=== PATIENT | female | born 1995 | race Caucasian/White ===

== ENCOUNTER 2019-11-12 11:06 | Emergency (ER) | payer OTHER, SELFPAY ==
[2019-11-12 11:17] VITALS: BP 132/86; PULSE 85; RESP 18; TEMP 36.6; O2SAT 100
--- NOTE | 2019-11-12 12:31 | PC.NURSE ---
Pt resting on stretcher. No requests at this time. Call light within reach.
--- NOTE | 2019-11-12 12:50 | PC.NURSE ---
Pt resting on stretcher. Awaiting orders or dispo. Pt has no requests at this time. Call light within reach.
--- NOTE | 2019-11-12 12:51 | ED.DENTAL ---
HPI - Dental/Oral General Chief complaint: Dental/Oral Stated complaint: tooth pain Time Seen by Provider: 11/12/19 12:16 Source: patient Mode of arrival: ambulatory Limitations: no limitations History of Present Illness HPI Narrative: 24 years old white female, complaining of lower wisdom teeth pain bilaterally off and on for months, was a scheduled for dental extraction, and did not make it. Scheduled for dental evaluation November 29. Patient reported that the pain got worse today. Patient denies any fever, chills, nausea, vomiting, trouble swallowing or breathing. MD Complaint: tooth pain Location: Tooth # (17 and 32) Related Data Allergies Allergy/AdvReac Type Severity Reaction Status Date / Time latex Allergy Mild Hives Verified 11/12/19 11:21 sulfamethoxazole Allergy Mild Hives Verified 11/12/19 11:21 trimethoprim Allergy Mild Hives Verified 11/12/19 11:21 amoxicillin Allergy Hives Verified 11/12/19 11:21 Grass Allergy Unknown Hives Uncoded 11/12/19 11:21 spermacide Allergy Unknown Hives Uncoded 11/12/19 11:21 Review of Systems Review of Systems: Narrative: CONSTITUTIONAL: Denies fever, chills, or sweats. EYES: Denies visual changes, redness, or discharge. ENT: Denies rhinorrhea, congestion, sore throat, or otalgia. CARDIOVASCULAR: Denies chest pain, palpitations, or edema. RESPIRATORY: Denies cough or dyspnea. GASTROINTESTINAL: Denies abdominal pain, nausea, vomiting, or diarrhea. GENITOURINARY: Denies dysuria or hematuria. SKIN: Denies rash or itching. MUSCULOSKELETAL: Denies back pain, joint pain, or myalgia. NEUROLOGIC: Denies headache, numbness, or weakness. PSYCHIATRIC: Denies anxiety or depression. PMFSH Past Medical History Medical History (Updated 11/12/19 @ 12:59 by Chantal Argueta MD) Dental implant pain Social History Social History (Updated 11/12/19 @ 12:55 by Chantal Argueta MD) Smoking status: Former smoker Alcohol intake: unknown Exam Narrative: Exam Narrative: General appearance: Well-developed, well-nourished Skin: Normal color Head: Normocephalic, nontraumatic Eyes: Clear conjunctiva ENT: Oropharynx normal, ears normal, nose normal. Oral exam showed growing gumLOVER the wisdom teeth bilaterally, swollen, tender, no abscess Neck: Supple, nontender Chest and respiratory: Airway patent, no respiratory distress, no accessory muscle use Heart: Regular rate/rhythm Abdomen: Soft, nontender, no organomegaly, quiet bowel sounds Vascular: Normal peripheral pulses, normal capillary refill. 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 The plan to send patient home and antibiotic, anti-inflammatory and to see her dentist as soon as possible for possible extraction Differential Diagnosis Differential diagnosis: Likely toothache and dental abscess Critical Care Time Critical Care Time Critical Care Time: No Discharge Plan Discharge Clinical Impression: Toothache Patient Disposition: Home, Self-Care Condition: Stable Instructio
[2019-11-12] MEDS: IBUPROFEN 400 MG TABLET 800 MG PO (12:57)
[2019-11-12 13:13] VITALS: BP 126/62; PULSE 58; RESP 16; O2SAT 99
== END 2019-11-12 13:15 | disposition home or self-care (01) ==
PROVIDERS: Emergency Provider Emergency Medicine
DX: K08.89 Other specified disorders of teeth and supporting structures (principal); Z87.891 Personal history of nicotine dependence
CPT/HCPCS: 99283; A9270

== ENCOUNTER 2019-12-09 21:57 | Emergency (ER) | payer OTHER, SELFPAY ==
--- NOTE | ~2019-12-09 | XR_ITS ---
EXAMINATION: XR foot RT min 3V EXAM DATE: 12/09/2019 22:39 INDICATION: Heel pain, dorsomedial lump on right heel. TECHNIQUE: Right foot dorsoplantar, lateral and oblique projections obtained and reviewed. Compariso n is made to prior examination from 10/02/2012. FINDINGS: Right metatarsal bones unremarkable. No periosteal reaction or band of sclerosis to sugges t subacute stress fracture. There are no acute fractures or dislocations identified. There is no subcutaneous gas. The soft tissue is unremarkable. There are no radiopaque foreign bodies. IMPRESSION: 1. Unremarkable right foot exam. Reviewed, dictated and finalized at location G.
[2019-12-09 21:58] VITALS: BP 131/75; PULSE 103; RESP 14; TEMP 36.6; O2SAT 100
--- NOTE | 2019-12-09 22:30 | ED.FEMALEGU ---
HPI - Female Genitourinary General Chief complaint: Urogenital-Female Stated complaint: UTI and a lump on her heel Time Seen by Provider: 12/09/19 22:01 Source: patient Mode of arrival: ambulatory Limitations: no limitations History of Present Illness HPI Narrative: Patient is a 24-year-old female who presents with complaints of UTI. Patient reports dysuria, frequency and urgency x2 weeks increasing over today. She reports intermittent flank pain. She reports a history of UTI. She is also complaining of pain to left foot, she denies known injury but reports that she is on her feet all the time she denies other complaints. She denies taking [id number] medications for pain at this time. elicited complaint: UTI Related Data Allergies Allergy/AdvReac Type Severity Reaction Status Date / Time latex Allergy Mild Hives Verified 12/09/19 22:06 sulfamethoxazole Allergy Mild Hives Verified 12/09/19 22:06 trimethoprim Allergy Mild Hives Verified 12/09/19 22:06 amoxicillin Allergy Hives Verified 12/09/19 22:06 Grass Allergy Unknown Hives Uncoded 11/12/19 11:21 spermacide Allergy Unknown Hives Uncoded 11/12/19 11:21 Review of Systems Review of Systems: Narrative: CONSTITUTIONAL: Denies fever, chills, or sweats. EYES: Denies visual changes, redness, or discharge. ENT: Denies rhinorrhea, congestion, sore throat, or otalgia. CARDIOVASCULAR: Denies chest pain, palpitations, or edema. RESPIRATORY: Denies cough or dyspnea. GASTROINTESTINAL: Denies abdominal pain, nausea, vomiting, or diarrhea. GENITOURINARY: Reports dysuria, frequency, urgency, denies hematuria. SKIN: Denies rash or itching. MUSCULOSKELETAL: Denies back pain, joint pain, or myalgia. NEUROLOGIC: Denies headache, numbness, dizziness, or weakness. PSYCHIATRIC: Denies anxiety or depression. [facility] Past Medical History Medical History Dental implant pain Surgical History Surgical History No significant past surgical history Social History Social History (Updated 12/09/19 @ 22:33 by Ginna M. Keen, CORRESPONDENCE RENEW CLERK) Smoking status: Former smoker Tobacco type: cigarettes Alcohol intake: current Alcohol use details: occasional Substance use: never Exam Narrative: Exam Narrative: GENERAL: Well-appearing, well-nourished, and in no acute distress. HEAD: Normocephalic, atraumatic. EYES: No redness or drainage. ENT: Mucous membranes pink and moist. CHEST: No respiratory distress. Clear to auscultation. HEART: Regular rate and rhythm. No murmur appreciated. Normal peripheral pulses. GI: Soft, nontender without rebound, or guarding. No distention. Bowel sounds normal in all quadrants. MUSCULOSKELETAL: No bony tenderness. EXTREMITIES: Normal range of motion. No edema. SKIN: Small mass like lesion to right foot, no drainage. NEURO: No focal deficits. Alert and oriented x3. Gait steady. PSYCH: Normal affect. No signs of depression or anxiety. Course Vital Signs Vital signs: Vital Signs Temperature 36.6 C 12/09/19 21:58 Pulse Rate 103 H 12/09/19 21:58 Respiratory Rate 14 12/09/19 21:58 Blood Pressure 131/75 12/09/19 21:58 Pulse Oximetry 100 12/09/19 21:58 Temperature 36.6 C 12/09/19 21:58 Pulse Rate 103 H 12/09/19 21:58 Respiratory Rate 14 12/09/19 21:58 Blood Pressure 131/75 12/09/19 21:58 Pulse Oximetry 100 12/09/19 21:58 Procedures Abscess I/D foot: Date of Incision: 12/10/19 Time of Incision: 23:00 Side (if applicable): right Sedation/analgesia: none Local Anesthetic: none Technique: needle aspiration Irrigation: No Packing used?: none I&D Results: Blood MDM - Female Genitourinary MDM Narrative Medical decision making narrative: Patient's urine shows possible UTI. Patient to be treated with antibiotics. Patient's heel I&D with needle
[2019-12-09 22:48] LABS: Add Urine Microscopic? YES; Appearance Urine Clear (Clear); Bacteria Urine Trace /hpf; Bilirubin Urine Negative (Negative); Blood Urine Negative (Negative); Color Urine Yellow (Yellow); Glucose Urine UA Negative (Negative); Ketones Urine Negative (Negative); Leukocyte Esterase Ur 1+ LEU/UL (Negative); Mucus Urine Heavy /lpf; Nitrate Urine Negative (Negative); Protein Urine 1+ mg/dL (Negative); Specific Grav Ur 1.029 (1.001-1.035); Squamous Epithelial Cell Urine Moderate /hpf (Few)
[2019-12-10 00:28] VITALS: BP 122/91; PULSE 94; RESP 18; O2SAT 97
== END 2019-12-10 00:25 | disposition home or self-care (01) ==
PROVIDERS: Emergency Provider Nurse Practitioner
DX: N39.0 Urinary tract infection, site not specified (principal); S90.821A Blister (nonthermal), right foot, initial encounter; Z87.891 Personal history of nicotine dependence; X58.XXXA Exposure to other specified factors, initial encounter
CPT/HCPCS: 10160; 73630; 81001; 81025; 87077; 87086; 87088; 87186; 99283

== ENCOUNTER 2020-04-28 17:34 | Emergency (ER) | payer OTHER, SELFPAY ==
--- NOTE | ~2020-04-28 | XR_ITS ---
XR foot LT min 3V 04/28/2020 18:07 INDICATION: Left foot pain after injury PROCEDURE: 4 views left foot COMPARISON: Ankle series dated 06/15/2009 FINDINGS: Fracture, dislocation or subluxation is not identified. Lisfranc joint intact. The soft tis sues appear within normal limits. No foreign bodies are identified. IMPRESSION: 1: NO ACUTE BONE OR JOINT ABNORMALITY IDENTIFIED. Reviewed, dictated and finalized at location A. RVISOR CHANNEL PROCESS
--- NOTE | 2020-04-28 17:57 | ED.LOWEXIN ---
HPI - Extremity Injury (Lower) General Chief Complaint: Extremity Injury, Lower Stated Complaint: Left foot Pain Time Seen by Provider: 04/28/20 17:57 Source: patient Mode of arrival: ambulatory Limitations: no limitations History of Present Illness HPI Narrative: Cruz Tejada is a 24 yo female with a PMH of PTSD, anxiety, R knee arthritis, [facility] to the left foot that occurred at work when a pallet ran over her left foot, 2 hours before arrival. She has pain at rest at 6 when she moves her foot it is 10. She is walking on her heel states that she is got severe pain even with icing foot; states she has not tried to walk on foot since the incident Is currently not taking her psych meds as her insurance would not cover her psychiatrist and she is now melena so meds will be covered and she has set up appointment Related Data Allergies Allergy/AdvReac Type Severity Reaction Status Date / Time latex Allergy Mild Hives Verified 12/09/19 22:06 sulfamethoxazole Allergy Mild Hives Verified 12/09/19 22:06 trimethoprim Allergy Mild Hives Verified 12/09/19 22:06 amoxicillin Allergy Hives Verified 12/09/19 22:06 Grass Allergy Unknown Hives Uncoded 11/12/19 11:21 spermacide Allergy Unknown Hives Uncoded 11/12/19 11:21 Review of Systems Review of Systems: Narrative: CONSTITUTIONAL: Denies fever, chills, sweats. EYES: Denies visual changes, redness, discharge. ENT: Denies rhinorrhea, congestion, sore throat, otalgia. CARDIOVASCULAR: Denies chest pain, palpitations, edema. RESPIRATORY: Denies dyspnea, wheezing, cough GASTROINTESTINAL: Denies abdominal pain, nausea, vomiting, diarrhea. GENITOURINARY: Denies dysuria, hematuria, abnormal discharge SKIN: Denies rash or itching. NEUROLOGIC: Denies numbness, or focal weakness. PSYCHIATRIC: Denies anxiety or depression. Left foot and ankle pain after being run over by pallet at work PMFSH Past Medical History Medical History (Updated 04/28/20 @ 18:37 by Erin Alejandra CNP) Bipolar 1 disorder Dental implant pain Depression OCD (obsessive compulsive disorder) PTSD (post-traumatic stress disorder) Tonsillectomy planned Family History Family History Sibling Diabetes mellitus Social History Social History Smoking packs per day: 2 Smoking cigarettes per day: 40.0 Smoking status: Current every day smoker Tobacco type: cigarettes Alcohol intake: current Substance use: never Gender identity (if verbalized by the patient): Female Comments At time of signature, I agree with nursing past medical, surgical, social and family history. There is no relevant family history pertinent to the presenting complaint. Exam Narrative: Exam Narrative: GENERAL: This is a well-nourished, well-developed patient, in moderate distress. Rates pain as 6.5 out of 10 HEAD: normocephalic, atraumatic. EYES: Sclera clear/white. Vision is grossly intact. EARS: External ears normal. Hearing grossly intact. NOSE: External nose normal without nasal discharge, nares without redness, no rhinorrhea. THROAT: Mucous membranes moist, NECK: Neck supple, CARDIOVASCULAR: Regular rate and rhythm without murmurs, gallops, or rubs. RESPIRATORY: Clear to auscultation. Breath sounds equal bilaterally. No wheezes, rales, or rhonchi. GASTROINTESTINAL: Abdomen soft, SKIN: warm, intact with no suspicious lesions or rash, good texture and turgor. NEURO: awake, alert, and oriented to person, place and time. There were no obvious focal neurologic abnormalities. Steady gait EXTREMITIES: Normal range of motion on right; is able to flex and extend ankle on left complaining of dorsum foot pain between toes 2 and 3 says it is throbbing she is able to wiggle them but not without pain solar part of her foot has no abrasions are skin breaks BACK: Nontender without deformity Course Course
[2020-04-28 18:04] VITALS: BP 121/80; PULSE 77; RESP 16; TEMP 36.2; O2SAT 100
== END 2020-04-28 18:43 | disposition home or self-care (01) ==
PROVIDERS: Emergency Provider Nurse Practitioner
DX: S93.602A Unspecified sprain of left foot, initial encounter (principal); X58.XXXA Exposure to other specified factors, initial encounter; Y99.0 Civilian activity done for income or pay
CPT/HCPCS: 73630; 99213; G0463

== ENCOUNTER 2020-05-17 19:32 | Emergency (ER) | payer OTHER, SELFPAY ==
--- NOTE | ~2020-05-17 | XR_ITS ---
EXAMINATION: XR foot LT 2V DATE: 05/17/2020 20:10 INDICATION: Left foot pain. TECHNIQUE: 2 views of left foot were obtained. COMPARISON: Left foot radiographs 04/28/2020 FINDINGS: Bone alignment is normal. No fracture. There is mild osteoarthritis of second distal interp halangeal joint. IMPRESSION: 1. 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 Reviewed, dictated and finalized at location A.
[2020-05-17 19:43] VITALS: BP 126/96; PULSE 89; RESP 18; TEMP 36.5; O2SAT 98
--- NOTE | 2020-05-17 20:35 | ED.LOWEXIN ---
HPI - Extremity Injury (Lower) General Chief Complaint: Extremity Injury, Lower Stated Complaint: left foot injury-wc injury Time Seen by Provider: 05/17/20 20:31 History of Present Illness HPI Narrative: Patient is a 24-year-old female who presents ER with pain to her left fourth toe. She had injured it on 04/28/2020. She has been in a postoperative shoe walking around. She then dropped a soda bottle on it and has had persistent pain. No numbness or tingling. No deformity. She continues to be able to ambulate. Her doctor wanted her to go to the imaging center to get an x-ray but they were closed so she came to the ER instead. Related Data Home Medications Medication Instructions Recorded Confirmed No Home Medications 05/17/20 Allergies Allergy/AdvReac Type Severity Reaction Status Date / Time latex Allergy Mild Hives Verified 05/17/20 19:47 sulfamethoxazole Allergy Mild Hives Verified 05/17/20 19:47 trimethoprim Allergy Mild Hives Verified 05/17/20 19:47 amoxicillin Allergy Hives Verified 05/17/20 19:47 Grass Allergy Unknown Hives Uncoded 05/17/20 19:47 spermacide Allergy Unknown Hives Uncoded 05/17/20 19:47 Review of Systems Cardiovascular: Cardiovascular: Denies chest pain and Denies rapid heart rate Respiratory: Respiratory: Denies cough and Denies dyspnea Musculoskeletal: Comments: Left 4th toe pain. Neurologic: Denies focal weakness and Denies numbness PMFSH Past Medical History Medical History (Updated 05/17/20 @ 20:54 by Parvez Christie MD) Bipolar 1 disorder Dental implant pain Depression OCD (obsessive compulsive disorder) PTSD (post-traumatic stress disorder) Tonsillectomy planned Family History Family History Sibling Diabetes mellitus Social History Social History Smoking packs per day: 2 Smoking cigarettes per day: 40.0 Smoking status: Current every day smoker Tobacco type: cigarettes Alcohol intake: current Substance use: never Gender identity (if verbalized by the patient): Female Sexual Orientation (if Verbalized by the Patient): Straight or Heterosexual Exam Narrative: Exam Narrative: GENERAL: Well-appearing, well-nourished, and in no acute distress. HEAD: Normocephalic, atraumatic. EXTREMITIES: Normal range of motion. No edema. Mild tenderness left 4th toe w/o deformity/brusing. SKIN: Warm, dry, no rash. NEURO: Alert and oriented x3. PSYCH: Normal mood and affect. Course Course Emergency Course: Informed results. Use postop shoe as needed that she is already using. Vital Signs Vital signs: Vital Signs Temperature 97.7 F 05/17/20 19:43 Pulse Rate 89 05/17/20 19:43 Respiratory Rate 18 05/17/20 19:43 Blood Pressure 126/96 H 05/17/20 19:43 Pulse Oximetry 98 05/17/20 19:43 Temperature 97.7 F 05/17/20 19:43 Pulse Rate 89 05/17/20 19:43 Respiratory Rate 18 05/17/20 19:43 Blood Pressure 126/96 H 05/17/20 19:43 Pulse Oximetry 98 05/17/20 19:43 MDM - Extremity Injury (Lower) Imaging Data Radiologist's impression: ITS Impressions Foot X-Ray 05/17/20 20:14 IMPRESSION: 1. 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 Discharge Plan Discharge Clinical Impression: Sprain of toe Patient Disposition: Home, Self-Care Condition: Stable Instructions: Foot Sprain (ED) Additional Instructions: Follow-up with your primary care doctor. Return to the ER if you have chest pain shortness of breath, you cannot keep down food or water, you have additional concerns. Prescriptions: No Action No Home Medications RF: 0 Follow-up/Referrals: PHYSICIAN,MANAGER CLUB [Primary Care Provider] -
[2020-05-17 21:15] VITALS: BP 122/60; PULSE 80; RESP 18; O2SAT 99
== END 2020-05-17 21:18 | disposition home or self-care (01) ==
PROVIDERS: Emergency Provider Emergency Medicine
DX: S93.505A Unspecified sprain of left lesser toe(s), initial encounter (principal); W20.8XXA Other cause of strike by thrown, projected or falling object, initial encounter
CPT/HCPCS: 73620; 99283

== ENCOUNTER 2020-07-16 14:40 | Emergency (ER) | payer OTHER, SELFPAY ==
--- NOTE | ~2020-07-16 | CT_ITS ---
EXAMINATION: CT abdomen pelvis wo con DATE: 07/16/2020 18:01 INDICATION: Flank pain. UTI. TECHNIQUE: Computed tomography (CT) of the abdomen and pelvis was performed without intravenous contr ast. The dose-length product was 833.39 mGy-cm. Automated exposure control and iterative reconstructi on technique were employed. COMPARISON: CT dated 11/04/2016. FINDINGS: Lung bases are unremarkable. Heart size normal. No significant pleural or pericardial effus ion. Small hiatal hernia. No significant vascular abnormality. No lymphadenopathy. No abnormal pelvic masses or fluid collections. The kidneys are normal in size and morphology. No stones or hydronephrosis. The liver, spleen, pancreas, adrenal glands are unremarkable. Nonobstructive bowel gas pattern. Bladd er is unremarkable. IMPRESSION: 1. No acute abdominal abnormality. Reviewed, dictated and finalized at location A.
[2020-07-16 15:05] VITALS: BP 125/85; PULSE 109; RESP 18; TEMP 36.6; O2SAT 100
[2020-07-16 15:17] LABS: Basophils Percent Auto 0.4 % (0.2-1.2); Eosinophils Absolute Auto 0.1 K/mm3 (0-0.3); Eosinophils Percent Auto 1.5 % (0-4.4); Hematocrit 38.8 % (37.0-47.0); Hemoglobin 12.8 g/dL (12.0-15.0); Immature Granulocyte Absolute 0.05 K/mm3 (0.00-0.031); Immature Granulocyte Percent A 0.5 % (0-0.5); Lymphocytes Absolute Auto 2.52 K/mm3 (0.9-3.2); Lymphocytes Percent Auto 27.2 % (18.3-44.2); Mean Corpuscular Hemoglobin 29.5 pg (26-34); Mean Corpuscular Volume 89.4 fl (80-100); Mean Platelet Volume 9.6 fl (7.4-10.4); Monocytes Absolute Auto 0.7 K/mm3 (0.1-0.6); Monocytes Percent Auto 7.7 % (2.6-8.5); Neutrophils Absolute Auto 5.8 K/mm3 (1.3-6.7); Neutrophils Percent Auto 62.7 % (45.5-73.1); Platelet Count Result 321 k/mm3 (150-375); Red Blood Count 4.34 M/mm3 (4.2-5.4); Red Cell Distribution Width 14.1 % (11.5-14.5); White Blood Count 9.3 K/mm3 (4.5-10.0)
[2020-07-16 15:28] LABS: Anion Gap 9 mmol/L (8-16); Blood Urea Nitrogen 12 mg/dL (7-17); Calcium 9.5 mg/dL (8.4-10.2); Carbon Dioxide 25 mmol/L (22-30); Chloride 106 mmol/L (98-107); Estimated CRCL calculation 122 ml/min; Estimated Glomerular Filt Rate > 60; Glucose 123 mg/dL (65-105); Potassium 3.8 mmol/L (3.4-5.0); Sodium 140 mmol/L (137-145)
[2020-07-16 15:44] LABS: Add Urine Microscopic? YES; Appearance Urine Cloudy (Clear); Bacteria Urine Trace /hpf; Bilirubin Urine Negative (Negative); Blood Urine 3+ (Negative); Color Urine Amber (Yellow); Glucose Urine UA Negative (Negative); Ketones Urine Negative (Negative); Leukocyte Esterase Ur 2+ LEU/UL (Negative); Mucus Urine Heavy /lpf; Nitrate Urine Negative (Negative); Protein Urine 2+ mg/dL (Negative); Specific Grav Ur 1.027 (1.001-1.035); Squamous Epithelial Cell Urine Many /hpf (Few); WBC Urine 31-50 /hpf
[2020-07-16 17:15] VITALS: BP 122/86; PULSE 96; RESP 18; O2SAT 100
--- NOTE | 2020-07-16 17:48 | ED.BACK ---
HPI - Back Pain/Injury General Chief Complaint: Back Pain/Injury Stated Complaint: bilateral flank pain Time Seen by Provider: 07/16/20 17:13 Source: patient Mode of arrival: ambulatory Limitations: no limitations History of Present Illness HPI Narrative: This is a 25-year-old female that presents to the emergency department for low back pain and dysuria present over the last couple of days. Reports the pain in her low back is intermittent and is squeezing in nature. Reports history of kidney stones. Denies fever, vomiting, or hematuria. Related Data Allergies Allergy/AdvReac Type Severity Reaction Status Date / Time latex Allergy Mild Hives Verified 07/16/20 16:21 sulfamethoxazole Allergy Mild Hives Verified 07/16/20 16:21 trimethoprim Allergy Mild Hives Verified 07/16/20 16:21 amoxicillin Allergy Hives Verified 07/16/20 16:21 Grass Allergy Unknown Hives Uncoded 07/16/20 16:21 spermacide Allergy Unknown Hives Uncoded 07/16/20 16:21 Review of Systems Review of Systems: Narrative: CONSTITUTIONAL: Denies fever GASTROINTESTINAL: Denies abdominal pain, nausea, vomiting GENITOURINARY: Reports dysuria. Denies hematuria. All systems reviewed & are unremarkable except as noted in HPI and below PMFSH Past Medical History Medical History (Updated 07/16/20 @ 19:47 by Sandee Olmos PA-C) Bipolar 1 disorder Dental implant pain Depression OCD (obsessive compulsive disorder) PTSD (post-traumatic stress disorder) Tonsillectomy planned Family History Family History Sibling Diabetes mellitus Social History Social History Smoking packs per day: 2 Smoking cigarettes per day: 40.0 Smoking status: Current every day smoker Tobacco type: cigarettes Alcohol intake: current Substance use: never Gender identity (if verbalized by the patient): Female Exam Narrative: Exam Narrative: GENERAL: Well-appearing, obese, and in no acute distress. HEAD: Normocephalic, atraumatic. EYES: EOMI. CHEST: Clear to auscultation. No respiratory distress. No wheezes rales or rhonchi HEART: Regular rate and rhythm. No murmur heard. Normal peripheral pulses. ABDOMEN: Soft, nontender, nondistended, normal active bowel sounds. Left-sided CVA tenderness EXTREMITIES: Normal range of motion. No edema. SKIN: Warm, dry, no rash. NEURO: No focal deficits. Alert and oriented x3. PSYCH: Normal mood and affect Course Vital Signs Vital signs: Vital Signs Temperature 97.8 F 07/16/20 15:05 Pulse Rate 109 H 07/16/20 15:05 Respiratory Rate 18 07/16/20 15:05 Blood Pressure 125/85 07/16/20 15:05 Pulse Oximetry 100 07/16/20 15:05 Temperature 97.8 F 07/16/20 15:05 Pulse Rate 96 07/16/20 17:15 Respiratory Rate 18 07/16/20 17:15 Blood Pressure 122/86 07/16/20 17:15 Pulse Oximetry 100 07/16/20 17:15 MDM - Back Pain/Injury MDM Narrative Medical decision making narrative: Patient presents to the emergency department for low back pain and dysuria. She is afebrile and nontoxic-appearing. CBC is without leukocytosis. Metabolic panel without concerning findings. UA with evidence of urinary tract infection. This will be sent for culture. Bedside test is negative. CT scan of the abdomen and pelvis is without acute findings. Patient given first dose of antibiotics IV in the ED and hydrated. She is stable and felt appropriate for further outpatient evaluation. She was given warnings to return to the ER Lab Data Attestation: I reviewed the patient's lab results. Result diagrams: 07/16/20 15:11 07/16/20 15:11 Labs: Lab Results 07/16/20 07/16/20 07/16/20 Range/Units 15:11 15:11 15:32 WBC 9.3 (4.5-10.0) K/mm3 RBC 4.34 (4.2-5.4) M/mm3 Hgb 12.8 (12.0-15.0) g/dL Hct 38.8 (37.0-47.0) % MCV 89.4 (80-100) fl MCH 29.5 (26-34) pg MCHC 33.0
[2020-07-16] MEDS: SODIUM CHLORIDE 0.9% IV 1,000 ML 999 ML IV CONT (18:10)
[2020-07-16 20:06] VITALS: BP 126/84; PULSE 78; RESP 16; TEMP 36.8; O2SAT 98
== END 2020-07-16 20:07 | disposition home or self-care (01) ==
PROVIDERS: Emergency Medicine; Emergency Provider Emergency Medicine
DX: N12 Tubulo-interstitial nephritis, not specified as acute or chronic (principal)
CPT/HCPCS: 36415; 74176; 80048; 81001; 81025; 85025; 87086; 87088; 96365; 96367; 99284; J0131; J1956; J7030

== ENCOUNTER 2020-07-26 19:52 | Emergency (ER) | payer OTHER, SELFPAY ==
--- NOTE | ~2020-07-26 | XR_ITS ---
EXAMINATION: XR foot RT min 3V DATE: 07/26/2020 20:41 INDICATION: Right foot pain with erythema and medial sided lump TECHNIQUE: Dorsoplantar, two oblique and lateral views of the right foot were obtained. COMPARISON: 12/09/2019 FINDINGS: Alignment is normal. No fracture. Joint spaces are normal. There is a normal type II os naviculare. S oft tissues are unremarkable. IMPRESSION: 1. Negative right foot radiographs. Reviewed, dictated and finalized at location A.
[2020-07-26 20:20] VITALS: BP 118/85; PULSE 96; RESP 16; TEMP 36.6; O2SAT 99
[2020-07-26 20:47] VITALS: BP 119/71; PULSE 86; RESP 18; TEMP 36.6; O2SAT 100
--- NOTE | 2020-07-26 20:52 | ED.LOWEXIN ---
HPI - Extremity Injury (Lower) General Chief Complaint: Extremity Injury, Lower Stated Complaint: rt foot pain Time Seen by Provider: 07/26/20 20:42 Source: patient Mode of arrival: ambulatory Limitations: no limitations History of Present Illness HPI Narrative: This is a 25 year old female that presents to the ER for ongoing right foot issues over the last 9 months. Reports she has seen a brand representative for this on Friday. Has x-rays and ultrasound that was inconclusive. Reports she also has an MRI ordered. Reports a lump on the right heel that has been present this whole time. Her pain in the foot was worse after working and being on her feet which prompted her to be seen today. She has not taken anything for pain yet. Does report some redness of the area. Denies fever, decreased range of motion, or numbness. Related Data Home Medications Medication Instructions Recorded Confirmed albuterol sulfate INHALATION 07/26/20 ergocalciferol (vitamin D2) 07/26/20 07/26/20 famotidine 07/26/20 hydrocodone-acetaminophen 07/26/20 nitrofurantoin monohyd/m-cryst 07/26/20 Allergies Allergy/AdvReac Type Severity Reaction Status Date / Time latex Allergy Mild Hives Verified 07/26/20 20:57 sulfamethoxazole Allergy Mild Hives Verified 07/26/20 20:57 trimethoprim Allergy Mild Hives Verified 07/26/20 20:57 amoxicillin Allergy Hives Verified 07/26/20 20:57 Grass Allergy Unknown Hives Uncoded 07/26/20 20:57 spermacide Allergy Unknown Hives Uncoded 07/26/20 20:57 Review of Systems Review of Systems: Narrative: CONSTITUTIONAL: Denies fever SKIN: Denies rash MUSCULOSKELETAL: Reports joint pain, and myalgia. NEUROLOGIC: Denies numbness All systems reviewed & are unremarkable except as noted in HPI and below PMFSH Past Medical History Medical History (Updated 07/26/20 @ 21:02 by Sandee Olmos PA-C) Bipolar 1 disorder Dental implant pain Depression OCD (obsessive compulsive disorder) PTSD (post-traumatic stress disorder) Tonsillectomy planned Family History Family History Sibling Diabetes mellitus Social History Social History Smoking packs per day: 2 Smoking cigarettes per day: 40.0 Smoking status: Current every day smoker Tobacco type: cigarettes Alcohol intake: current Substance use: never Gender identity (if verbalized by the patient): Female Exam Narrative: Exam Narrative: GENERAL: Well-appearing, well-nourished, and in no acute distress. HEAD: Normocephalic, atraumatic. EYES: EOMI. EXTREMITIES: Normal range of motion. Small cystic lesion present on the right medial heel, with mild redness surrounding the area. Normal DP pulses. Normal sensation SKIN: Warm, dry, no rash. NEURO: No focal deficits. Alert and oriented x3. PSYCH: Normal mood and affect Course Vital Signs Vital signs: Vital Signs Temperature 97.9 F 07/26/20 20:20 Pulse Rate 96 07/26/20 20:20 Respiratory Rate 16 07/26/20 20:20 Blood Pressure 118/85 07/26/20 20:20 Pulse Oximetry 99 07/26/20 20:20 Temperature 97.9 F 07/26/20 20:20 Pulse Rate 96 07/26/20 20:20 Respiratory Rate 16 07/26/20 20:20 Blood Pressure 118/85 07/26/20 20:20 Pulse Oximetry 99 07/26/20 20:20 MDM - Extremity Injury (Lower) MDM Narrative Medical decision making narrative: Patient presents to the ER for right foot pain with cyst in the area ongoing for the last 9 months. Has been seen by podiatry for this. She is afebrile and nontoxic-appearing. She is neurovascularly intact. Right foot x-rays without acute osseous abnormalities. She does have mild redness surrounding the area. Will be started on oral antibiotics for this. She is to follow-up with her brand representative as scheduled. She was given warnings to return to the ER Imaging Data Radiologist's impression: ITS Impressions Foot X-Ray 07/26/20 20:42 IMPRES
[2020-07-26] MEDS: KETOROLAC (*BKC) 60 MG/2 ML VIAL IM (21:14)
== END 2020-07-26 21:45 | disposition home or self-care (01) ==
LOC: ANHED 21:19
PROVIDERS: Emergency Provider Emergency Medicine; PCP Nurse Practitioner Family
DX: L03.115 Cellulitis of right lower limb (principal)
CPT/HCPCS: 73630; 96372; 99283; J1885

== ENCOUNTER 2020-10-24 16:08 | Emergency (ER) | payer OTHER, SELFPAY ==
[2020-10-24 16:19] VITALS: BP 107/77; PULSE 86; RESP 16; TEMP 36.8; O2SAT 99
--- NOTE | 2020-10-24 17:11 | ED.URI ---
HPI - URI/Sore Throat General Chief Complaint: Upper Respiratory Infection Stated Complaint: cough/runny nose/headache Time Seen by Provider: 10/24/20 16:59 Source: patient and RN notes reviewed Mode of arrival: ambulatory Limitations: no limitations History of Present Illness HPI Narrative: Patient presents today complaining of 3-day history of dry cough, rhinorrhea, frontal headache. She just found out today that her sister is positive for COVID-19 and is requesting testing. She has had recent exposure. She takes allergy medicine every day, and feels that this is providing her with some mild relief of symptoms. MD elicited complaint: cough and rhinorrhea Related Data Home Medications Medication Instructions Recorded Confirmed No Home Medications 10/24/20 10/24/20 Allergies Allergy/AdvReac Type Severity Reaction Status Date / Time latex Allergy Mild Hives Verified 10/24/20 17:32 sulfamethoxazole Allergy Mild Hives Verified 10/24/20 17:32 trimethoprim Allergy Mild Hives Verified 10/24/20 17:32 amoxicillin Allergy Hives Verified 10/24/20 17:32 Grass Allergy Unknown Hives Uncoded 10/24/20 17:32 spermacide Allergy Unknown Hives Uncoded 10/24/20 17:32 Review of Systems Review of Systems: CONSTITUTIONAL: Denies body aches, fever, chills, or sweats. EYES: Denies visual changes, redness, or discharge. ENT: Denies congestion, sore throat, or otalgia.+ Rhinorrhea CARDIOVASCULAR: Denies chest pain, palpitations, or edema. RESPIRATORY: Denies dyspnea.+ Cough GASTROINTESTINAL: Denies abdominal pain, nausea, vomiting, or diarrhea. GENITOURINARY: Denies dysuria or hematuria. SKIN: Denies rash, itching, or wounds. MUSCULOSKELETAL: Denies back pain, joint pain, or myalgia. NEUROLOGIC: Denies numbness, tingling, or weakness.+ Headache PSYCH: Denies depression or anxiety. [facility] Past Medical History Medical History Bipolar 1 disorder Dental implant pain Depression OCD (obsessive compulsive disorder) PTSD (post-traumatic stress disorder) Tonsillectomy planned Family History Family History Sibling Diabetes mellitus Social History Social History Smoking packs per day: 2 Smoking cigarettes per day: 40.0 Smoking status: Current every day smoker Tobacco type: cigarettes Alcohol intake: current Alcohol use details: occasional Substance use: never Gender identity (if verbalized by the patient): Female Sexual Orientation (if Verbalized by the Patient): Straight or Heterosexual Comments At time of signature, I have reviewed and agree with nursing past medical, surgical, social and family history unless otherwise noted. Please see nursing chart for further information. There is no relevant family history pertinent to the presenting complaint Exam Narrative: GENERAL: Well-appearing, well-nourished, and in no acute distress. HEAD: Normocephalic, atraumatic. EYES: EOMI. No redness or drainage. Conjunctivae normal. ENT: Mucous membranes pink and moist. Nares clear. No rhinorrhea. TMs normal bilaterally. Throat normal. Uvula midline. NECK: Normal AROM. Supple. No lymphadenopathy. CHEST: No respiratory distress. Clear to auscultation. HEART: Regular rate and rhythm. No murmur appreciated. Normal peripheral pulses. EXTREMITIES: Normal range of motion. No edema. SKIN: Warm, dry, no rash. Capillary refill normal. Normal skin turgor. NEURO: No focal deficits. Alert and oriented x3. Gait steady. PSYCH: Normal affect. No signs of depression or anxiety. Course Vital Signs Vital signs: Vital Signs Temperature 98.2 F 10/24/20 16:19 Pulse Rate 86 10/24/20 16:19 Respiratory Rate 16 10/24/20 16:19 Blood Pressure 107/77 10/24/20 16:19 Pulse Oximetry 99 10/24/20 16:19 Temperature 98.2 F 10/24/20 16:19 Pu
== END 2020-10-24 17:46 | disposition home or self-care (01) ==
PROVIDERS: Emergency Provider Nurse Practitioner
DX: J06.9 Acute upper respiratory infection, unspecified (principal); Z20.822 Contact with and (suspected) exposure to COVID-19; F17.210 Nicotine dependence, cigarettes, uncomplicated
CPT/HCPCS: 87426; 99212; C9803; G0463

== ENCOUNTER 2020-12-30 13:36 | Outpatient (CLI) | payer OTHER, SELFPAY ==
--- NOTE | ~2020-12-30 | MR_ITS ---
EXAMINATION: MR foot RT wo con DATE: 12/30/2020 14:40 INDICATION: Soft tissue mass in medial right foot. Heel pain. TECHNIQUE: Magnetic resonance imaging (MRI) of the right foot was performed without intravenous contr ast. Sequences included axial, sagittal, and coronal T2-weighted FS FSE and T1-weighted FSE and axial T1-weighted FS FSE. COMPARISON: Right foot radiograph 07/26/2020 FINDINGS: Bone alignment is normal. No fracture. The talar dome is normal. Lisfranc ligament is jamilah l. The superficial and deep components of the deltoid ligament are normal. The anterior and posterior talofibular ligaments, calcaneofibular ligament, and anterior and posterior tibiofibular ligaments a re normal. There is a longitudinal split tear of peroneus brevis tendon. The anterior and medial ankl e tendons are normal. Achilles tendon is normal. The plantar fascia is normal. There is a skin marker at the posterior medial aspect of the heel. There is a 5 mm mass of low signal in the subcutaneous f at in this area. IMPRESSION: 1. 5 mm mass of low signal in the subcutaneous fat in the medial heel in the patient's area of concer n, likely scarring or chronic hematoma. 2. Longitudinal split tear of peroneus brevis tendon. Reviewed, dictated and finalized at location A. [employer] IMPRESSION: 1. 5 mm mass of low signal in the subcutaneous fat in the medial heel in the pa tient's area of concern, likely scarring or chronic hematoma. 2. Longitudinal split tear of peroneus brevis tendon.
== END 2020-12-30 13:37 | disposition home or self-care (01) ==
LOC: ANHIMG 13:37
PROVIDERS: Visit Provider Podiatrist Foot & Ankle Surgery
DX: M79.89 Other specified soft tissue disorders (principal)
CPT/HCPCS: 73718

== ENCOUNTER → 2021-01-18 04:19 | Outpatient (CLI) | payer OTHER, SELFPAY ==
[2021-01-18 17:37] LABS: SARS-CoV-2 RNA PCR Negative
== END ==
PROVIDERS: PCP Nurse Practitioner Family; Visit Provider Nurse Practitioner Family
DX: R68.89 Other general symptoms and signs (principal); Z20.822 Contact with and (suspected) exposure to COVID-19
CPT/HCPCS: C9803; U0003; U0005

== ENCOUNTER 2021-01-28 11:48 | Emergency (ER) | payer OTHER, SELFPAY ==
[2021-01-28 11:59] VITALS: BP 117/81; PULSE 81; RESP 16; TEMP 36.6; O2SAT 100
--- NOTE | 2021-01-28 12:01 | ED.URI ---
HPI - URI/Sore Throat General Chief Complaint: Upper Respiratory Infection Stated Complaint: fever,headache Time Seen by Provider: 01/28/21 12:01 Source: patient Mode of arrival: ambulatory Limitations: no limitations History of Present Illness HPI Narrative: Cruz Tejada is a 25 yo female with no PMH who comes with 6 days of fever, congestion, cough, fatigue who is unvaccinated but had a covid test in Jan 18 which were negative and went to a concert and has become ill afterwards. Patient is afebrile currently but states she feels like she feels right over by a truck Related Data Home Medications Medication Instructions Recorded Confirmed famotidine 01/28/21 ketorolac 01/28/21 meloxicam 01/28/21 Allergies Allergy/AdvReac Type Severity Reaction Status Date / Time latex Allergy Mild Hives Verified 10/24/20 17:32 sulfamethoxazole Allergy Mild Hives Verified 10/24/20 17:32 trimethoprim Allergy Mild Hives Verified 10/24/20 17:32 amoxicillin Allergy Hives Verified 10/24/20 17:32 Grass Allergy Unknown Hives Uncoded 10/24/20 17:32 spermacide Allergy Unknown Hives Uncoded 10/24/20 17:32 Review of Systems Review of Systems: CONSTITUTIONAL: have fever, chills, sweats. EYES: Denies visual changes, redness, discharge. ENT: has rhinorrhea,has congestion, sore throat, otalgia. CARDIOVASCULAR: Denies chest pain, palpitations, edema. RESPIRATORY: Denies dyspnea, wheezing,has cough GASTROINTESTINAL: Denies abdominal pain, nausea, vomiting, diarrhea. GENITOURINARY: Denies dysuria, hematuria, abnormal discharge SKIN: Denies rash or itching. NEUROLOGIC: Denies numbness, or focal weakness. PSYCHIATRIC: Denies anxiety or depression. [facility] Past Medical History Medical History Bipolar 1 disorder Dental implant pain Depression OCD (obsessive compulsive disorder) PTSD (post-traumatic stress disorder) Tonsillectomy planned Family History Family History Sibling Diabetes mellitus Social History Social History Smoking packs per day: 2 Smoking cigarettes per day: 40.0 Smoking status: Current every day smoker Tobacco type: cigarettes Alcohol intake: current Alcohol use details: occasional Substance use: never Gender identity (if verbalized by the patient): Female Sexual Orientation (if Verbalized by the Patient): Straight or Heterosexual Comments At time of signature, I agree with nursing past medical, surgical, social and family history. There is no relevant family history pertinent to the presenting complaint. Exam Narrative: GENERAL: This is a well-nourished, well-developed patient, in mild distress. HEAD: normocephalic, atraumatic. EYES: Sclera clear/white. Vision is grossly intact. EARS: External ears normal, auditory canals clear and without drainage, TMs normal without perforation. Hearing grossly intact. NOSE: External nose normal with nasal discharge, nares with redness, has rhinorrhea. THROAT: Mucous membranes moist, NECK: Neck supple, non-tender CARDIOVASCULAR: Regular rate and rhythm without murmurs, gallops, or rubs. RESPIRATORY: Clear to auscultation. Breath sounds equal bilaterally. No wheezes, rales, or rhonchi. GASTROINTESTINAL: Abdomen soft, non-tender, SKIN: warm, intact with no suspicious lesions or rash, good texture and turgor. NEURO: awake, alert, and oriented to person, place and time. There were no obvious focal neurologic abnormalities. Steady gait EXTREMITIES: Normal range of motion. BACK: Nontender without deformity Course Course Emergency Course: Patient comes here with reports of fever congestion fatigue and is on vaccinated for Covid Covid test positive Patient should quarantine Started on prednisone and Tessalon Perliesha, may monitor O2 sats and if saturated sats drop below 92% should go to the ER
== END 2021-01-28 12:38 | disposition home or self-care (01) ==
PROVIDERS: Emergency Provider Nurse Practitioner; PCP Nurse Practitioner Family
DX: U07.1 COVID-19 (principal); F17.210 Nicotine dependence, cigarettes, uncomplicated
CPT/HCPCS: 87426; 99213; C9803; G0463

== ENCOUNTER 2021-06-05 21:02 | Emergency (ER) | payer OTHER, SELFPAY ==
--- NOTE | ~2021-06-05 | XR_ITS ---
EXAM: XR hand RT min 3V HISTORY: slammed between doors,PAIN 3RD AND 5TH FINGERS RADIATES DOWN COMPARISON: 11/21/2017. FINDINGS: Normal mineralization. No fracture or dislocation. No lytic or blastic lesion. Joint space s maintained. No erosion or periosteal change. Soft tissues within normal limits. IMPRESSION: No acute osseous finding in the right hand. Reviewed, dictated and finalized at location K.
[2021-06-05 21:03] VITALS: BP 141/100; PULSE 97; RESP 17; TEMP 36.8; O2SAT 100
--- NOTE | 2021-06-05 21:07 | ED.UPPEXIN ---
HPI - Extremity Injury (Upper) General Chief Complaint: Extremity Injury, Upper Stated Complaint: hand pain Time Seen by Provider: 06/05/21 21:07 History of Present Illness HPI narrative: 25-year-old female presented the emergency room with complaints of left hand pain. Patient states that she was closing a window when her hand got stuck in the window slammed onto her hand. Related Data Home Medications Medication Instructions Recorded Confirmed famotidine 01/28/21 ketorolac 01/28/21 meloxicam 01/28/21 Allergies Allergy/AdvReac Type Severity Reaction Status Date / Time latex Allergy Mild Hives Verified 10/24/20 17:32 sulfamethoxazole Allergy Mild Hives Verified 10/24/20 17:32 trimethoprim Allergy Mild Hives Verified 10/24/20 17:32 amoxicillin Allergy Hives Verified 10/24/20 17:32 Grass Allergy Unknown Hives Uncoded 10/24/20 17:32 spermacide Allergy Unknown Hives Uncoded 10/24/20 17:32 Review of Systems Review of Systems: CONSTITUTIONAL: Denies fever, chills, or sweats. EYES: Denies visual changes, redness, or discharge. ENT: Denies rhinorrhea, congestion, sore throat, or otalgia. CARDIOVASCULAR: Denies chest pain, palpitations, or edema. RESPIRATORY: Denies cough or dyspnea. GASTROINTESTINAL: Denies abdominal pain, nausea, vomiting, or diarrhea. GENITOURINARY: Denies dysuria or hematuria. SKIN: Denies rash or itching. MUSCULOSKELETAL: Reports right hand pain NEUROLOGIC: Denies headache, numbness, dizziness, or weakness. PSYCHIATRIC: Denies anxiety or depression. [facility] Past Medical History Medical History Bipolar 1 disorder Dental implant pain Depression OCD (obsessive compulsive disorder) PTSD (post-traumatic stress disorder) Tonsillectomy planned Family History Family History Sibling Diabetes mellitus Social History Social History Smoking packs per day: 2 Smoking cigarettes per day: 40.0 Smoking status: Current every day smoker Tobacco type: cigarettes Alcohol intake: current Alcohol use details: occasional Substance use: never Gender identity (if verbalized by the patient): Female Sexual Orientation (if Verbalized by the Patient): Straight or Heterosexual Exam Narrative: GENERAL: Well-appearing, well-nourished, and in no acute distress. HEAD: Normocephalic, atraumatic. EYES: PERRLA and EOMI. CHEST: Clear to auscultation. No respiratory distress. No wheezes rales or rhonchi HEART: Regular rate and rhythm. No murmur heard. Normal peripheral pulses. EXTREMITIES: Normal range of motion. No edema. Right hand: Over the second through fifth MCP joints. Mild soft tissue swelling. No acute bony abnormality. Full range of motion. No ecchymosis. SKIN: Warm, dry, no rash. NEURO: No focal deficits. Alert and oriented x3. PSYCH: Normal mood and affect. Course Vital Signs Vital signs: Vital Signs Temperature 36.8 C 06/05/21 21:03 Pulse Rate 97 06/05/21 21:03 Respiratory Rate 17 06/05/21 21:03 Blood Pressure 141/100 H 06/05/21 21:03 Pulse Oximetry 100 06/05/21 21:03 Temperature 36.8 C 06/05/21 21:03 Pulse Rate 97 06/05/21 21:03 Respiratory Rate 17 06/05/21 21:03 Blood Pressure 141/100 H 06/05/21 21:03 Pulse Oximetry 100 06/05/21 21:03 Discharge Plan Discharge Clinical Impression: Contusion of finger of right hand Qualifiers: Encounter type: initial encounter Finger: index finger Damage to nail status: without damage Qualified Code(s): S60.021A - Contusion of right index finger without damage to nail, initial encounter Patient Disposition: Home, Self-Care Condition: Stable Instructions: Antibiotic Form Additional Instructions: Continue taking meloxicam as needed for pain. Prescriptions: No Action meloxicam 15 mg tablet RF: 0 famotidine 40 mg
== END 2021-06-05 22:43 | disposition home or self-care (01) ==
PROVIDERS: Emergency Provider Nurse Practitioner Family; PCP Nurse Practitioner Family
DX: S60.021A Contusion of right index finger without damage to nail, initial encounter (principal); F17.210 Nicotine dependence, cigarettes, uncomplicated; W23.0XXA Caught, crushed, jammed, or pinched between moving objects, initial encounter
CPT/HCPCS: 73130; 99283

== ENCOUNTER 2023-10-06 18:48 | Emergency (ER) | payer OTHER, SELFPAY ==
[2023-10-06 18:54] VITALS: BP 121/76; PULSE 88; RESP 20; TEMP 36.4; O2SAT 100
--- NOTE | 2023-10-06 20:17 | ED.NAVMDI ---
HPI - Nausea/Vomiting/Diarrhea General Chief complaint: Nausea/Vomiting/Diarrhea Stated complaint: n/v 11 weeks gestation Time Seen by Provider: 10/06/23 20:02 Source: patient Mode of arrival: ambulatory Limitations: no limitations History of Present Illness HPI Narrative: This is a 28-year-old female who is approximately 11 weeks , presents to the ED for chief complaint of N/V for the past 4 days. States that she has had hyperemesis with previous and this feels the same. She has not been taking any vitamin B6 for other meds. She has been unable to tolerate p.o. for the past day. Denies abdominal pain, vaginal bleeding, syncope, lightheadedness, diarrhea, chest pain. Related Data Home Medications Medication Instructions Recorded Confirmed famotidine 40 mg tablet 01/28/21 ketorolac 10 mg tablet 01/28/21 meloxicam 15 mg tablet 01/28/21 Allergies Allergy/AdvReac Type Severity Reaction Status Date / Time latex Allergy Mild Hives Verified 10/06/23 18:58 sulfamethoxazole Allergy Mild Hives Verified 10/06/23 18:58 trimethoprim Allergy Mild Hives Verified 10/06/23 18:58 amoxicillin Allergy Hives Verified 10/06/23 18:58 Grass Allergy Unknown Hives Uncoded 10/06/23 18:58 spermacide Allergy Unknown Hives Uncoded 10/06/23 18:58 Review of Systems Review of Systems: All systems as dictated in HPI PMFSH Past Medical History Medical History Bipolar 1 disorder Dental implant pain Depression OCD (obsessive compulsive disorder) PTSD (post-traumatic stress disorder) Tonsillectomy planned Family History Family History Sibling Diabetes mellitus Social History Social History Smoking packs per day: 2 Smoking cigarettes per day: 40.0 Smoking status: Current every day smoker Tobacco type: cigarettes Alcohol intake: current Alcohol use details: occasional Substance use: never Gender identity (if verbalized by the patient): Female Sexual Orientation (if Verbalized by the Patient): Straight or Heterosexual Exam Narrative: GENERAL: Well-appearing, well-nourished, and in no acute distress. HEAD: Normocephalic, atraumatic. EYES: PERRLA and EOMI. ENT: Nares clear, no rhinorrhea or epistaxis. Mucous membranes moist. Oropharynx without tonsillar hypertrophy exudate or other lesions. NECK: Supple. No adenopathy or masses. CHEST: No respiratory distress. Clear to auscultation. No wheezes rales or rhonchi HEART: Regular rate and rhythm. No murmur heard. Normal peripheral pulses. ABDOMEN: Soft, nontender, nondistended, normal active bowel sounds. MSK: Normal range of motion. No edema. SKIN: Warm, dry, no rash. NEURO: Alert and oriented x4. No focal deficits. PSYCH: Normal mood and affect. Course Vital Signs Vital signs: Vital Signs Temperature 97.5 F L 10/06/23 18:54 Pulse Rate 88 10/06/23 18:54 Respiratory Rate 20 10/06/23 18:54 Blood Pressure 121/76 10/06/23 18:54 Pulse Oximetry 100 10/06/23 18:54 Oxygen Delivery Room Air 10/06/23 18:54 Temperature 97.5 F L 10/06/23 18:54 Pulse Rate 88 10/06/23 18:54 Respiratory Rate 20 10/06/23 18:54 Blood Pressure 121/76 10/06/23 18:54 Pulse Oximetry 100 10/06/23 18:54 Oxygen Delivery Room Air 10/06/23 18:54 MDM - Nausea/Vomiting/Diarrhea MDM Narrative Medical decision making narrative: This is a 28-year-old female who presents to the ED with chief complaint of nausea and vomiting, 11 weeks . Vitals are normal. exam is benign overall. No abdominal pain or vaginal symptoms. Lab work is unremarkable. Patient improved greatly with fluids and Zofran here. Pt will be discharged in stable condition. Return precautions given and supportive measures discussed. Pt is understanding and agreeable with plan
[2023-10-06] MEDS: SODIUM CHLORIDE 0.9% IV 1,000 ML 999 ML IV CONT (20:42)
[2023-10-06] MEDS: ONDANSETRON INJ 4 MG/2 ML VIAL IV PUSH (20:42)
[2023-10-06 20:50] LABS: Basophils Percent Auto 0.3 % (0.2-1.2); Eosinophils Absolute Auto 0.1 K/mm3 (0-0.3); Eosinophils Percent Auto 0.9 % (0-4.4); Hematocrit 39.2 % (37.0-47.0); Hemoglobin 13.4 g/dL (12.0-15.0); Immature Granulocyte Absolute 0.04 K/mm3 (0.00-0.031); Immature Granulocyte Percent A 0.4 % (0-0.5); Lymphocytes Absolute Auto 3.64 K/mm3 (0.9-3.2); Lymphocytes Percent Auto 33.3 % (18.3-44.2); Mean Corpuscular HGB Conc 34.2 g/dl (32-36); Mean Corpuscular Hemoglobin 32.4 pg (26-34); Mean Corpuscular Volume 94.9 fl (80-100); Mean Platelet Volume 9.6 fl (7.4-10.4); Monocytes Absolute Auto 0.8 K/mm3 (0.1-0.6); Monocytes Percent Auto 7.1 % (2.6-8.5); Neutrophils Absolute Auto 6.4 K/mm3 (1.3-6.7); Platelet Count Result 258 k/mm3 (150-375); Red Blood Count 4.13 M/mm3 (4.2-5.4); Red Cell Distribution Width 12.9 % (11.5-14.5); White Blood Count 10.9 K/mm3 (4.5-10.0)
[2023-10-06 21:02] LABS: Add Urine Microscopic? YES; Appearance Urine Cloudy (Clear); Bacteria Urine 4+ /hpf; Bilirubin Urine Negative (Negative); Blood Urine Negative (Negative); Color Urine Dark Yellow (Yellow); Glucose Urine UA Negative (Negative); Ketones Urine Negative (Negative); Leukocyte Esterase Ur 2+ LEU/UL (Negative); Need Manual Microscopic Reviewed; Nitrate Urine Negative (Negative); Protein Urine 1+ mg/dL (Negative); Specific Grav Ur 1.033 (1.001-1.035); Squamous Epithelial Cell Urine Many /hpf (Few); WBC Urine 21-50 /hpf (0-3); pH Urine 5.5 (5.0-9.0)
[2023-10-06 21:06] LABS: Alanine Aminotransferase 15 U/L (6-35); Albumin Level 4.4 g/dL (3.5-5.1); Alkaline Phosphatase 47 U/L (38-126); Anion Gap 11 mmol/L (4-12); Aspartate Amino Transferase 19 U/L (14-36); Bilirubin,Total 0.5 mg/dL (0.2-1.3); Blood Urea Nitrogen 8 mg/dL (7-17); Calcium 9.3 mg/dL (8.4-10.2); Carbon Dioxide 22 mmol/L (22-30); Chloride 101 mmol/L (98-107); Estimated CRCL calculation 181 ml/min; Estimated Glomerular Filt Rate > 60; Glucose 96 mg/dL (65-110); Lipase 27 U/L (23-300); Potassium 3.5 mmol/L (3.4-5.0); Sodium 134 mmol/L (137-145)
[2023-10-06 22:05] VITALS: BP 118/74; PULSE 82; RESP 19; TEMP 36.6; O2SAT 99
== END 2023-10-06 22:07 | disposition home or self-care (01) ==
PROVIDERS: Emergency Provider Physician Assistant; PCP Nurse Practitioner Family
DX: O21.0 Mild hyperemesis gravidarum (principal); Z3A.11 11 weeks gestation of pregnancy
CPT/HCPCS: 36415; 80053; 81001; 83690; 85025; 87086; 96361; 96374; 99284; J2405; J7030

== ENCOUNTER 2024-03-11 20:24 | Observation (INO) | payer OTHER, SELFPAY ==
[2024-03-11] VITALS (19 sets, daily range): BP systolic 118–131; BP diastolic 83–94; PULSE 88–108; TEMP 37.1; O2SAT 99–100; BMI 45.3
--- NOTE | 2024-03-11 20:24 | PC.NURSE ---
Pt arrives to unit with cramping.
--- NOTE | 2024-03-11 21:00 | OBADM ---
This patient, Cruz Tejada, admitted to the OB room OB Post 116 for observation. Patient/family oriented to hospital policies and general routines including ID bracelet, bed and alarms, visiting hours, pain management, procedures, bathroom and other care routines, personal items, smoking policy, room service/diet, and visiting hours. Patient/Family are encouraged to report perceived risks to care and to ask questions if they do not understand what they are told or what they should do.
[2024-03-11 21:30] LABS: Add Urine Microscopic? YES; Appearance Urine Turbid (Clear); Bacteria Urine 4+ /hpf; Bilirubin Urine Negative (Negative); Blood Urine Negative (Negative); Color Urine Dark Yellow (Yellow); Glucose Urine UA Trace mg/dL (Negative); Ketones Urine 1+ mg/dL (Negative); Leukocyte Esterase Ur 2+ LEU/UL (Negative); Mucus Urine Present /lpf; Need Manual Microscopic Reviewed; Nitrate Urine Negative (Negative); Protein Urine 1+ mg/dL (Negative); RBC Urine 0-2 /hpf (0-2); Squamous Epithelial Cell Urine Many /hpf (Few); WBC Urine >100 /hpf (0-3); pH Urine 5.5 (5.0-9.0)
--- NOTE | 2024-03-11 21:43 | PC.NURSE ---
Called Dr. Sandy, update on pt, cramping, urine, and tracing. Orders received to discharge with prescription for Macrobid 100 mg BID 7 days, instructions to keep next scheduled appointment, and when to return to the unit.
[2024-03-11] MEDS: NITROFURANTOIN MONOHYD MACROCR 100 MG CAP PO (22:24)
--- NOTE | 2024-03-11 22:27 | PC.NURSE ---
Pt discharged with a macrobid prescription 100 mg BID 7 days, instructions to keep next scheduled appointment, and when to return to the unit, pt verbalizes understanding.
--- OUTSIDE RECORDS SUMMARY | 2024-03-12 06:19 | XMS_ITS | Data Portability ---
Author Organization [facility] [place], Main Office Address [address] [place] [address] Assessment No assessment recorded. Plan of Treatment Reminders Order Date Submit Date Provider Last Modified By Organization Details Last Modified Time Details Appointments None recorded. Lab None recorded. Referral None recorded. Procedures None recorded. Surgeries None recorded. Imaging None recorded. Medication Orders albuterol sulfate HFA 90 mcg/actuati on aerosol inhaler 2022 023 [id number], [address], [place], [phone], 3 16:17:01 Symbicort 160 mcg-4.5 mcg/actuati on HFA aerosol inhaler 2022 023 [id number], [address], [place], [phone], 3 16:17:00 ergocalcife rol (vitamin D2) 1,250 mcg (50,000 unit) capsule 2022 023 [facility][id number], [address], [place], [phone], 3 16:17:01 Patient TargetsNo targets recorded. Patient Instructions Encounter Date Encounter Id Patient Instructions Last Modified By Organization Details Last Modified Time 04/19/2022 [id number] FU prn. [email or web address] Not available 04/19 16:07:13 Reason for Referral None Reported. Results Created Date Observation Date Name Description Value Unit Range Abnormal Flag Note LastModifiedBy Organization Detail LastModifiedTime 02/22/1902/22/2021 COVID -19 (SARS COV-2 ) RNA, DIANA covid-19 RNA positi ve abnormal RESUL TS VIDES D TO/RE AD BACK BY: ANAHI WEBB (EMPL [employer] ) [id number] KA This test has been autho rized by the FDA under an Emerg ency Use Autho rizat ion (EUA) for use by autho rized labor atori es. Negat jan resul ts shoul d be treat ed as presu mptiv e and, if incon siste nt with clini fara signs and sympt oms neces [place] for patie nt manag ement , shoul d be teste d with diffe rent autho rized or clear ed molec ular tests . Negat jan resul ts do not precl ude SARS- Co-V- 2 infec tion and shoul d not be used as the sole basis for patie nt manag ement decis ions. Negat jan resul ts shoul d be consi dered in the ascencion xt of a patie nt's recen t expos ures, histo ry, and the prese nce of clini fara signs and sympt oms consi stent with COVID -19. Abdifatah jimenez w the Fact Sheet s for [facility] care provi ders and patie nts at the [facility] te: https ://yvon lam.arielle brannon into care. t/en/ produ ct-de tails /id-n ow-co vid-1 9.htm l Metho dolog y: Isoth ermal Nucle ic Acid Ampli ficat ion Not Available [facility] (Lab) [address] [place], [address], 02/22/2021 18:29:58 02/23/19 22 02/23/2021 SARS- COV-2 RNA(C OVID1 9),RT -PCR sars-cov-2 RNA(covid19) ,RT-PCR positi ve abnormal RESUL TS VIDES D TO/RE AD BACK BY: LUCIANO IN SAME DAY 744 BY LIZZIE This test has been autho rized by the FDA under an Emerg ency Use Autho rizat ion (EUA) for use by autho rized labor atori es. Negat jan resul ts do not precl ude SARS- CoV-2 and shoul d not be used as the sole basis for treat ment or other patie nt manag ement decis ions. Test resul ts shoul d be corre lated with the clini fara histo ry, epide miolo gical data, and other data avail able to the clini jessy evalu ating the patie nt. Abdifatah jimenez w the Fact Sheet s for healt h care provi ders and patie nts at the [facility] zuri: https ://[employer] .gov/ media /1363 12/do wnloa d https ://[employer] .gov/ media /1363 13/do wnloa d https ://[employer] .gov/ media /1421 92/do wnloa d https ://[employer] .gov/ media /1421 91/do wnloa d Metho marysolog y: Real- Time RT-PC R Not Available [facility] (Lab) [address] [place], [address], 02/23/2021 08:47:04 03/02/1903/02/2021 URINE HCG QUAL/ POINT OF CARE ur preg negati ve TESTI NG PERFO RMED BY SURGI FARA SERVI JEISON PERSO NNEL. Not Available [facility] (Lab) [address] [place], [address], 03/02/2021 08:52:34 03/02/1903/02/2021 URINE HCG QUAL/ POINT OF CARE lot no. [id number] Not Available [facility] (Lab) [address] [place], [address], 03/02/2021 08:52:34 03/02/19 22 03/02/2021 URINE HCG QUAL/ POINT OF CARE pos QC positi ve Not Available [facility] (Lab) [address] [place], [address], 03/02/2021 08:52:34 03/02/19 22 03/02/2021 URINE HCG QUAL/ POINT OF CARE neg QC negati ve Not Available [facility] (Lab) [address] [place], [address], 03/02/2021 08:52:34 01/02/20 21 12/30/2020 MRI, foot, w/o contr ast No observ ation record ed. [id number] [facility] ([facility]) [address] [place], [address], 04/17/2022 08:12:18 06/06/19 22 06/05/2021 XR, hand No observ ation record ed. [id number] [facility] [address] [facility] [address], [place], [address], 04/17/2022 08:12:18 Result Notes None recorded. Problems Name Problem SNOMED Code Status Onset Date Resolution Date Notes Provider Name and Address Organization Details Recorded Time Contusion of left foot 204235686562 11113 Active 2020 Not Available [facility] 3 08:08:38 Postopera tive care Active 2021 Not Available [facility] 3 08:08:38 Bilateral heel pain 427363410767 68723 Active 2020 Not Available [facility] 3 08:08:38 Heartburn 43371647 Active 2020 Not Available [facility] 3 08:08:38 Esophagit is 39638981 Active 2018 Not Available [facility] 3 08:08:38 Asthma 405525467 Active 2020 Not Available [facility] 3 08:08:38 Rheumatoi d arthritis of hip 687066524 Active 2021 Right Not Available [facility] 3 08:08:39 Rheumatoi d arthritis of knee 445824405 Active 2021 Right Not Available [facility] 3 08:08:39 Gastroeso phageal reflux disease 204069056 Active 2020 Not Available [facility] 3 08:08:39 Headache 56526319 Active 2020 Not Available [facility] 3 08:08:39 Depressiv e disorder 24684286 Active 2020 Not Available [facility] 3 08:08:39 Seasonal allergic rhinitis 374771678 Active 2021 Not Available [facility] 3 08:08:39 Arthritis of knee 766936854 Active 2016 right knee Not Available [facility] 3 08:08:39 Mass of soft tissue 164177869 Active 2020 Not Available [facility] 3 08:08:39 Foot pain 07876404 Active 2020 Not Available [facility] 3 08:08:39 Allergic rhinitis 72178571 Active 2017 Not Available [facility] 3 08:08:39 Acid reflux 978653077 Active 2017 Not Available [facility] 3 08:08:39 Polycysti c ovary syndrome of bilateral ovaries 795016571 Active 2021 she has 6 ovarian cysts total Not Available [facility] 3 08:08:39 Vitamin D deficienc y 92188067 Active 2022 Sary Rodriguez, PRECIOUS [address] [facility] [address], [place], [address] , [facility] 3 16:06:20 Problem Notes None recorded. Procedures Surgical History Date Name Laterality Status Provider Name and Address Organization Details Recorded Time 6 tonsillectomy completed Not Available [facility] 2022 08:05:53 endoscopy completed Not Available [facility] 0 04/17/2022 08:05:53 Imaging Results Imaging Date Name Status LastModified by Organiz ation Details LastModified Time 06/05/2021 XR, hand completed [id number] [place] [address] [address], [place], [address], 04/17/2022 08:12:18 12/30/2020 MRI, foot, w/o contrast completed [id number] [facility] ([facility]) [address] [facility] [place], [address], 04/17/2022 08:12:18 Procedure Notes None recorded. Medical Equipment None Reported. Allergies Allergen ID Allergen Name Allergen Category Reaction Reaction Severity Criticality Documentation Date Start Date Code Code System Note Provider Name and Address Organization Details Recorded Time 98941 latex environme nt,medica tion Not available Not available Not available 04/17/2022 45130 91 RxNorm Not Available [facility] 3 08:12:11 95254 grass pollen environme nt,medica tion Not available Not available Not available 04/17/2022 22702 UNK Not Available [facility] 3 08:12:11 63229 Bactrim medicatio n Not available Not available Not available 04/17/2022 96704 9 RxNorm Not Available [facility] 3 08:12:11 09354 amoxicill in medicatio n hives Not available Not available 04/17/2022 723 RxNorm Not Available [facility] 3 08:12:11 Medications Name Sig Start Date Stop Date Status Note LastModified by Organization Details LastModified Time oxcarbazepi ne 150 mg tablet 05/11 completed Not Available Not Available Not Available doxycycline hyclate 100 mg capsule TAKE 1 CAPSULE BY MOUTH TWICE DAILY FOR 1 WEEK 08/21 completed Not Available Not Available Not Available Stool Softener 100 mg capsule TAKE ONE CAPSULE BY MOUTH EVERY DAY 08/21 completed Not Available Not Available Not Available ibuprofen 800 mg tablet TAKE 1 TABLET BY MOUTH THREE TIMES DAILY NEEDED FOR PAIN active Not Available Not Available No t Available benzonatate 200 mg capsule TAKE 1 CAPSULE BY MOUTH THREE TIMES DAILY NEEDED FOR COUGH 08/21 completed Not Available Not Available Not Available hydrocodone 5 mg-acetamin ophen 325 mg tablet TAKE 1 TABLET BY MOUTH EVERY 6 HOURS NEEDED FOR PAIN 08/21 completed Not Available Not Available Not Available meloxicam 15 mg tablet TAKE 1 TABLET BY MOUTH EVERY DAY active Not Available Not Available No t Available famotidine 40 mg tablet TAKE 1 TABLET BY MOUTH EVERY NIGHT AT BEDTIME 07/28 completed Not Available Not Available Not Available prednisone 20 mg tablet TAKE 2 TABLETS BY MOUTH DAILY 08/21 completed Not Available Not Available Not Available Zyrtec 10 mg tablet Take 1 tablet every day by oral route. 05/11 completed Not Available Not Available Not Available metronidazo le 500 mg tablet TAKE 1 TABLET BY MOUTH EVERY 12 HOURS FOR 7 DAYS active Not Available Not Available No t Available ciprofloxac in 500 mg tablet 12/18 completed Not Available Not Available Not Available omeprazole 40 mg capsule,del ayed release Take 1 capsule every day by oral route for 30 days. 05/11 completed Not Available Not Available Not Available tramadol 50 mg tablet TAKE 1 TABLET BY MOUTH EVERY 6 HOURS NEEDED FOR PAIN 08/21 completed Not Available Not Available Not Available ketorolac 10 mg tablet TAKE 1 TABLET BY MOUTH EVERY 6 HOURS FOR 5 DAYS NEEDED FOR PAIN 08/21 completed Not Available Not Available Not Available tamsulosin 0.4 mg capsule 12/18 completed Not Available Not Available Not Available pantoprazol e 40 mg tablet,maxime yed release TAKE 1 TABLET BY MOUTH EVERY DAY active Not Available Not Available No t Available progesteron e micronized 200 mg capsule TAKE ONE CAPSULE BY MOUTH FOR 10 DAYS EACH MONTH active Not Available Not Available No t Available ergocalcife rol (vitamin D2) 1,250 mcg (50,000 unit) capsule TAKE 1 CAPSULE BY MOUTH EVERY WEEK active Not Available Not Available No t Available levofloxaci n 750 mg tablet TAKE 1 TABLET BY MOUTH DAILY FOR 5 DAYS 07/28 completed Not Available Not Available Not Available albuterol sulfate HFA 90 mcg/actuati on aerosol inhaler INHALE 2 PUFFS BY MOUTH EVERY 4 HOURS active Not Available Not Available No t Available clomipramin e 25 mg capsule 05/11 completed Not Available Not Available Not Available fluticasone propionate 50 mcg/actuati on nasal spray,suspe nsion [place] 1 spray every day by intranasa l route. 06/05 completed Not Available Not Available Not Available naproxen 500 mg tablet TAKE 1 TABLET BY MOUTH TWICE DAILY active Not Available Not Available No t Available hydroxyzine pamoate 25 mg capsule 05/11 completed Not Available Not Available Not Available nitrofurant oin monohydrate /macrocryst als 100 mg capsule TAKE 1 CAPSULE BY MOUTH EVERY 12 HOURS 08/21 completed Not Available Not Available Not Available Doxycycline 08/21 completed 10mg Not Available Not Available Not Available Symbicort 160 mcg-4.5 mcg/actuati on HFA aerosol inhaler Inhale 2 puffs twice a day by inhalatio n route. active Not Available Not Available No t Available Cimzia Powder for Recon 400 mg (200 mg x 2 vials) subcutaneou s kit active Not Available Not Available Not Available ID NOW COVID-19 Test Kit TEST DIRECTED TODAY 08/21 completed Not Available Not Available Not Available Vitals Date Recorded Body mass index (BMI) Body height Heart rate Body weight Systolic blood pressure Diastolic blood pressure Provider Name and Address Organization Details Last Updated DateTime 2 42.6 kg/m2 167.64 cm 108 /min 001020. 39 g 127 mm[Hg] 86 mm[Hg] Not Available [facility] 3 08:07:07 Date Recorded Body mass index (BMI) Body height Oxygen saturation Oxygen saturation in Arterial blood by Pulse oximetry Heart rate Body temperature Body weight Systolic blood pressure Diastolic blood pressure Provider Name and Address Organization Details Last Updated DateTime 2 42 kg/m2 167.64 cm 97 % 97 % 92 /min 97.9 [degF] 124882. 02 g 118 mm[Hg] 82 mm[Hg] Not Available [facility] 3 08:07:07 Date Recorded Body height Provider Name an d Address Organization Details Last Updated DateTime 03/06/2021 167.64 cm Not Available [facility] 3 08:07:08 Date Recorded Body height Body mass index (BMI) Body weight Body temperature Heart rate Oxygen saturation Oxygen saturation in Arterial blood by Pulse oximetry Systolic blood pressure Diastolic blood pressure Provider Name and Address Organization Details Last Updated DateTime 3 167.64 cm 43.1 kg/m2 492105. 16 g 97.4 [degF] 93 /min 97 % 97 % 122 mm[Hg] 82 mm[Hg] Barbara falcon CMA [place] [facility] [employer] [facility] 3 15:48:49 Social History Question Answer Notes LastModified by Organizat ion Details LastModified Time Tobacco Smoking Status Former Smoker Not Available [facility] 04/17/2022 08:05:41 What Is Your Level Of Alcohol Consumption? None [id number] Information not available 04/17/2022 What Is Your Level Of Caffeine Consumption? Occasional [id number] Information not available 04/17/2022 How Much Tobacco Do You Chew? None [id number] Information not available 04/17/2022 In The 14 Days Before Symptom Onset, Have You Had Close Contact With A Laboratory-confir med COVID-19 While That Case Was Ill? No [id number] Information not available 04/17/2022 In The 14 Days Before Symptom Onset, Have You Had Close Contact With A Person Who Is Under Investigation For COVID-19 While That Person Was Ill? No [id number] Information not available 04/17/2022 What Type Of Diet Are You Following? REGULAR [id number] Information not available 04/17/2022 Which Illicit Or Recreational Drugs Have You Used? Marijuana [id number] Information not available 04/17/2022 Do You Or Have You Ever Used E-cigarettes Or Vape? Never Used Electronic Cigarettes [id number] Information not available 04/17/2022 Do You Or Have You Ever Used Smokeless Tobacco? Never Used Smokeless Tobacco [id number] Information not available 04/17/2022 How Much Tobacco Do You Smoke? 1 PPW [id number] Information not available 04/17/2022 Sex: Female Functional Status None recorded. Mental Status None recorded. Family History Nothing Reported. Medical History Condition Response ARTHRITIS Y HEADACHES/MIGRAINES Y DEPRESSION (INCLUDING POST ) Y HEARTBURN / REFLUX Y ASTHMA Y Gynecological History Statement/Question Response Date of LMP 07/30/2021 Obstetrics History GPAL:G 1 P 1 0 0 0 Type Value Full Term 1 Total 1 Immunizations Vaccine Type Date Status Note Provider Nam e and Address Organization Details Recorded Time Influenza, split virus, quadrivalent, PF 12/18/2016 completed Not Available [facility] 3 08:12:07 Past Encounters Encounter ID Performer Location Encounter Start Date Encounter Closed Date Diagnosis/Indication Diagnosis SNOMED-CT Code Diagnosis ICD10 Code Diagnosis Note [id number] [facility] [place] [address] [facility] [place] [address] 05/11/2020 00:00:00 05/11/2020 11:48:59 [id number] [facility] [place] [address] [facility] [place] [address] 05/17/2020 00:00:00 05/17/2020 14:23:44 [id number] [facility] [place] [address] [facility] [place] [address] 05/25/2020 00:00:00 05/25/2020 11:03:10 [id number] [facility] [place] [address] [facility] [place] [address] 06/01/2020 00:00:00 06/01/2020 12:45:12 [id number] _[facility]_M IGR[facility]_ DEFAULT_1 _1 , 06/05/2020 00:00:00 06/05/2020 15:05:46 [id number] _ATHENA_M IGRATION_ DEFAULT_1 _1 , 07/24/2020 00:00:00 07/24/2020 15:25:50 [id number] [facility] [place] [place] [address] 07/28/2020 00:00:00 07/28/2020 16:41:15 [id number] _ATHENA_M IGRATION_ DEFAULT_1 _1 , 12/11/2020 00:00:00 12/11/2020 14:46:46 [id number] _ATHENA_M IGRATION_ DEFAULT_1 _1 , 01/08/2021 00:00:00 01/08/2021 14:34:21 [id number] [facility] [place] [address] [facility] [place] [address] 01/16/2021 00:00:00 01/16/2021 12:21:43 [id number] [facility] [place] [address] [facility] [place] [address] 01/17/2021 00:00:00 01/17/2021 16:00:27 [id number] [facility] [place] [address] [facility] [place] [address] 03/06/2021 00:00:00 03/07/2021 14:58:33 [id number] _[facility]_Jesus IGRATION_ DEFAULT_1 _1 , 03/19/2021 00:00:00 03/19/2021 19:07:13 [id number] [facility]_[address] [address] 08/21/2021 00:00:00 08/21/2021 17:27:43 [id number] Sary Rodriguez NP [facility]_[address] [address] 04/19/2022 15:36:12 04/19/2022 16:24:27 Asthma 541444534 J45.909 Albuterol sulfate. Symbicort. Vitamin D deficiency 347 23303 E55.9 vit d 50,000 IU po weekly. 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 She will be working in a [employer] in [place]. Asthma - Takes Symbicort daily and albuterol as needed. Needs to use albuterol 3 times/day even after adding Symbicort. She does not take the Symbicort daily; only uses 1-2 times/week. She passed the physical exam, including asthma test , for the job. Needs refills on Albuterol, Symbicort, and vitamin D. Sary Rodriguez NP [address], [place], [address], [place] [facility] 04/19/2022 16:19:27 OBGyn Episode No OBEpisode recorded.
--- OUTSIDE RECORDS SUMMARY | 2024-03-12 06:19 | XMS_ITS | Data Portability ---
Author Organization [facility] [place] [place] Address [address] [place] [address] Assessment No assessment recorded. Plan of Treatment Reminders Order Date Submit Date Provider Last Modified By Organization Details Last Modified Time Details Appointments NST 2024 01:30P M NST SCHEDULE Not available Not available Not available U/S OB GROWTH 2024 02:00P M ULTRASOUND Not available Not available Not available OB ROUTINE 2024 02:30P M DIONNE GUERRERO MD Not available Not available Not available U/S OB BPP 2024 10:00A M ULTRASOUND Not available Not available Not available NST 2024 10:30A M NST SCHEDULE Not available Not available Not available OB ROUTINE 2024 11:00A M DIONNE GUERRERO MD Not available Not available Not available U/S OB BPP 2024 10:00A M ULTRASOUND Not available Not available Not available NST 2024 10:30A M NST SCHEDULE Not available Not available Not available OB ROUTINE 2024 11:00A M DIONNE GUERRERO MD Not available Not available Not available U/S OB BPP 2024 10:00A M ULTRASOUND Not available Not available Not available NST 2024 10:30A M NST SCHEDULE Not available Not available Not available OB ROUTINE 2024 11:00A M DIONNE GUERRERO MD Not available Not available Not available U/S OB BPP 2024 10:00A M ULTRASOUND Not available Not available Not available NST 2024 10:30A M NST SCHEDULE Not available Not available Not available OB ROUTINE 2024 11:00A M DIONNE GUERRERO MD Not available Not available Not available U/S OB BPP 2024 10:00A M ULTRASOUND Not available Not available Not available NST 2024 10:30A M NST SCHEDULE Not available Not available Not available OB ROUTINE 2024 11:00A M DIONNE GUERRERO MD Not available Not available Not available Lab None recorde d. Referral None recorde d. Procedures None recorde d. Surgeries None recorde d. Imaging US, obstetr ic, follow- up 2023 024 [email or web address] [address], [address], [place], [address], 01/07/2024 09:12:38 US, obstetr ic, follow- up 2023 024 [email or web address] [address], [address], [place], [address], 02/03/2024 21:08:05 Medication Orders famotid ine 20 mg tablet 2024 025 [email or web address] [id number], [address], [place], [id number], 02/20/2024 18:30:40 cyclobe nzaprin e 10 mg tablet 2024 025 [facility] #[id number], [address], [place], [id number], 02/20/2024 18:30:31 Reglan 10 mg tablet 2024 025 ARTURO [facility] #[id number], [address], [place], [id number], 03/05/2024 10:32:15 Patient TargetsNo targets recorded. Patient InstructionsNo instructions recorded. Reason for Referral None Reported. Results Created Date Observation Date Name Description Value Unit Range Abnormal Flag Note LastModifiedBy Organization Detail LastModifiedTime 01/07/20 24 01/07/2024 CULTU RE: URINE result report SEE RESULT S BELOW Test: Cultu re: Urine Speci men Sourc e: Urine - Clean Catch Speci men Type: Urine Speci men Date: 01/06 0754 Resul t Date: 01/087 Resul t Statu s: Final resul t Abnor mal: No Resul ting Lab: [facility] [address] [facility] [address] Tel: CULTU RE ----- ----- ----- --- Cultu re resul t (>=3 organ isms prese nt) indic ates possi ble conta minat ion. Repea t cultu re if sympt oms indic ate. Not Available [facility] (Lab) [address], [place], [address], 01/09/2024 03:33:58 02/03/20 24 02/03/2024 HEMAT OCRIT (HCT) HCT 32.9 % (based on docume nted legal sex) 34.0-4 5.0 low Not Available [facility] (Lab) [address], [place], [address], 02/04/2024 14:45:41 02/03/20 24 02/03/2024 HEMOG LOBIN (HGB) HGB 11.0 g/dL (based on docume nted legal sex) 11.6-1 5.4 low Not Available [facility] (Lab) [address] [place], [address], 02/04/2024 14:45:42 02/03/20 24 02/03/2024 HIV 1/2 ANTIG EN/AN TIBOD Y, REFLE X CONFI RMATI ON HIV antigen/anti body Nonrea ctive nonrea ctive HIV-1 antig en and HIV-1 /HIV- 2 antib odies were not detec kadeem. No labor atory evide nce of HIV infec tion. Not Available [facility] (Lab) [address], [place], [address], 02/04/2024 14:45:42 02/03/20 24 02/03/2024 GTT - GESTA SHIVAM Audrey Snow, ACOG OB glucose, 1 hour screen 109 mg/dL 70-135 Not Available [facility] (Lab) [address], [place], [address], 02/04/2024 14:45:43 12/09/19 24 12/09/2023 US, obste tric, 2nd or 3rd trime ster No observ ation record ed. [facility] [address], [place], [address], 12/09/2023 18:10:43 12/09/19 24 12/09/2023 US, obste tric, follo w-up No observ ation record ed. [email or web address], [place], [address], 12/10/2023 18:32:44 01/06/20 24 01/06/2024 US, obste tric, follo w-up No observ ation record ed. [email or web address] [place] [address], [place], [address], 01/06/2024 18:32:57 01/06/20 24 01/06/2024 US, obste tric, follo w-up No observ ation record ed. [email or web address] [address], [place], [address], 01/07/2024 09:24:55 02/03/20 24 02/03/2024 US, obste tric, follo w-up No observ ation record ed. [email or web address] [place] [address], [place], [address], 02/03/2024 17:58:14 02/03/20 24 02/03/2024 US, obste tric, follo w-up No observ ation record ed. [email or web address] [address], [place], [address], 02/03/2024 23:21:23 02/10/20 24 02/10/2024 US, obste tric, follo w-up No observ ation record ed. [email or web address] [facility] [address], [place], [address], 02/20/2024 17:34:06 02/10/20 24 02/10/2024 US, obste tric, follo w-up No observ ation record ed. [address], [place], [address], 02/12/2024 17:29:51 Result Notes None recorded. Problems Name Problem SNOMED Code Status Onset Date Resolution Date Notes Provider Name and Address Organization Details Recorded Time Chlamydi al infectio n 499708967 Completed 201705/31/2020 Chlamydi al infectio n, unspecif ied;Byron rded Elsewher e: No Locat ion: [facility] S ource: EHR Skid Wrapper kayy: N Practi ce ID: 0001 Raffi lable Time: 01:00:00 PM Ciarra Guzman [facility] 16:22:19 Pregnanc y test negative 518995319 Completed 201705/31/2020 Encounte r for pregnanc y test, result negative ;Recorde d Elsewher e: No Locat ion: [facility] S ource: EHR Skid Wrapper kayy: N Practi ce ID: 0001 Raffi lable Time: 10:30:00 AM Ciarra Guzman [facility] 16:22:29 Amenorrh ea 09662874 Completed 201705/31/2020 Amenorrh ea;Recor ded Elsewher e: No Locat ion: [facility] S ource: EHR Skid Wrapper kayy: N Practi ce ID: 0001 Raffi lable Time: 01:00:00 PM Ciarra guan, [facility] 16:22:15 Carbuncl e [id number] Completed 201705/31/2020 Carbuncl e, unspecif ied;Byron rded Elsewher e: No Locat ion: [facility] S ource: EHR Skid Wrapper kayy: N Lcabdelrahman ce ID: 0001 Raffi lable Time: 01:00:00 PM Ciarra guan, [facility] 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 16:22:31 Chlamydi al vulvovag initis 836762421 Completed 201705/31/2020 Chlamydi al vulvovag initis;R ecorded Elsewher e: No Locat ion: [facility] S ource: EHR Skid Wrapper kayy: N Lcabdelrahman ce ID: 0001 Raffi lable Time: 10:30:00 AM Ciarra guan, [facility] 16:22:22 Disorder of breast 25077925 Completed 201705/31/2020 Disorder of breast, unspecif ied;Byron rded Elsewher e: No Locat ion: [facility] S ource: EHR Skid Wrapper kayy: N Lcabdelrahman ce ID: 0001 Raffi lable Time: 10:30:00 AM Ciarra guan, [facility] 16:22:27 Pregnanc y 61293219 Completed 202310/31/2023 Mira Thomas null, [facility] 4 15:55:02 Pregnanc y 71245745 Active 2023 Mirashaggy Thomas null, [facility] 4 15:55:02 Rheumato id arthriti s 87490454 Active 2023 on cimzia, followin g with rheumato randy GUERRERO MD [address], [place], [address], [facility] 4 16:06:44 Ankylosi ng spondyli tis 7742488 Active 2023 on cimzia, followin g with rheumato randy GUERRERO MD [address], [place], [address], [facility] 4 16:06:40 Rheumato id arthriti s 52548520 Active 2023 on cimzia, followin g with rheumatsachin GUERRERO MD [address], [place], [address], [facility] 4 16:06:43 Ankylosi ng spondyli tis 3792613 Active 2023 on cimzia, followin g with rheumatsachin GUERRERO MD [address], [place], [address], [facility] 4 16:06:40 Body mass index 40+ - severely obese 461565070 Active antenata l testing 34 wks Anjana Green [facility], [facility] 4 16:56:06 Body mass index 40+ - severely obese 118151339 Active antenata l testing 34 wks Anjana Green [facility], [facility] 4 16:56:06 Problem Notes None recorded. Procedures Surgical History Date Name Laterality Status Provider Name and Address Organization Details Recorded Time 06/19/19 24 Date of Last Pap Smear completed Mira Thomas [facility] 10/31/2023 14:29:50 02/17/19 21 Orthopedic Surgery completed Ny Riddle [facility] 06/19/2023 14:21:52 02/17/19 19 endoscopy completed Ciarrakhoa Guzman [facility] 06/12/2020 16:12:02 02/17/19 17 endoscopy completed Ciarrakhoa Guzman [facility] 06/12/2020 16:11:58 02/17/19 15 endoscopy completed Ciarra [facility] 06/12/2020 16:11:55 02/17/19 11 Tonsillectomy completed [facility] 06/12/2020 16:09:50 Imaging Results Imaging Date Name Status LastModified by Organiz ation Details LastModified Time 12/09/2023 US, obstetric, 2nd or 3rd trimester completed [email or web address] [place] [address], [place], [address], 12/09/2023 18:10:43 12/09/2023 US, obstetric, follow-up completed [address], [place], [address], 12/10/2023 18:32:44 01/06/2024 US, obstetric, follow-up completed [email or web address] [place] [address], [place], [address], 01/06/2024 18:32:57 01/06/2024 US, obstetric, follow-up completed [email or web address] [address], [place], [address], 01/07/2024 09:24:55 02/03/2024 US, obstetric, follow-up completed [email or web address] [place] [address], [place], [address], 02/03/2024 17:58:14 02/03/2024 US, obstetric, follow-up completed [email or web address] [address], [place], [address], 02/03/2024 23:21:23 02/10/2024 US, obstetric, follow-up completed [address] [facility] [address] [place], [address], 02/20/2024 17:34:06 02/10/2024 US, obstetric, follow-up completed [address], [place], [address], 02/12/2024 17:29:51 Procedure Notes None recorded. Medical Equipment None Reported. Allergies Allergen ID Allergen Name Allergen Category Reaction Reaction Severity Criticality Documentation Date Start Date Code Code System Note Provider Name and Address Organization Details Recorded Time 39244 amoxicill in medicatio n hives severe Not available 05/31/2020 723 RxNorm Ciarra Guzman [facility] 16:21:13 9816 sulfameth oxazole medicatio n hives severe Not available 02/04/2020 78448 RxNorm Ciarra Guzman [facility] 16:21:13 9820 trimethop rim medicatio n hives severe Not available 02/04/2020 72621 RxNorm Chloe Motta [facility], [facility] 12:02:48 9825 latex environme nt,medica tion hives moderate Not available 02/04/2020 50139 91 RxNorm Ciarra Guzman [facility] 16:21:13 Medications Name Sig Start Date Stop Date Status Note LastModified by Organization Details LastModified Time cyclobenz aprine 10 mg tablet Take 1 tablet 3 times a day by oral route as needed. active Not Available Not Available No t Available Augmentin 875 mg-125 mg tablet take 1 tablet by oral route every 12 hours 05/31 completed Prescrib ed Dallasher e: No Locat ion: Vinicio alvarez [facility] M odify By: [email or web address] tz Encou nter DateTime : 06/19/19 01:00:00 PM Not Available Not Available Not Available terconazo le 0.4 % vaginal cream INSERT 1 APPLICAT ORFUL VAGINALL Y EVERY DAY AT BEDTIME FOR 7 DAYS 10/05 completed Not Available Not Available Not Available Colace 100 mg capsule Take 1 capsule twice a day by oral route for 60 days. 2023 active Not Available Not Available Not Avai lable prednison e 10 mg tablet 03/06 completed Not Available Not Available Not Available doxycycli ne hyclate 100 mg capsule TAKE 1 CAPSULE BY MOUTH TWICE DAILY FOR 1 WEEK 09/14 completed Not Available Not Available Not Available azithromy juan c 250 mg tablet 12/09 completed Not Available Not Available Not Available ibuprofen 800 mg tablet Take 1 tablet 3 times a day by oral route. 07/12 completed Not Available Not Available Not Available benzonata te 200 mg capsule TAKE 1 CAPSULE (200 MG) BY MOUTH 3 TIMES DAILY NEEDED 06/18 completed Not Available Not Available Not Available hydrocodo ne 5 mg-acetam inophen 325 mg tablet TAKE 1 TABLET BY MOUTH EVERY 6 HOURS NEEDED FOR PAIN 07/12 completed Not Available Not Available Not Available meloxicam 15 mg tablet TAKE 1 TABLET BY MOUTH EVERY DAY 10/23 completed Not Available Not Available Not Available famotidin e 40 mg tablet TAKE 1 TABLET BY MOUTH EVERY NIGHT AT BEDTIME 07/12 completed Not Available Not Available Not Available prednison e 20 mg tablet TAKE 2 TABLETS BY MOUTH DAILY 10/05 completed Not Available Not Available Not Available metronida zole 500 mg tablet Take 1 tablet every 12 hours by oral route for 7 days. 03/06 completed Not Available Not Available Not Available tramadol 50 mg tablet TAKE 1 TABLET BY MOUTH EVERY 6 HOURS NEEDED FOR PAIN 10/23 completed Not Available Not Available Not Available ondansetr on 8 mg disintegr ating tablet DISSOLVE 1 TABLET ON THE TONGUE THREE TIMES DAILY active Not Available Not Available No t Available ketorolac 10 mg tablet TAKE 1 TABLET BY MOUTH EVERY 6 HOURS FOR 5 DAYS NEEDED FOR PAIN 09/14 completed Not Available Not Available Not Available famotidin e 20 mg tablet Take 1 tablet twice a day by oral route. active Not Available Not Available No t Available metoclopr amide 5 mg tablet TAKE 1 TABLET BY MOUTH FOUR TIMES DAILY NEEDED 10/30 completed Not Available Not Available Not Available cephalexi n 500 mg capsule TAKE 1 CAPSULE BY MOUTH FOUR TIMES DAILY FOR 7 DAYS 10/05 completed Not Available Not Available Not Available pantopraz ole 40 mg tablet,de layed release TAKE 1 TABLET BY MOUTH EVERY DAY 04/10 completed Not Available Not Available Not Available oseltamiv ir 75 mg capsule TAKE 1 CAPSULE BY MOUTH TWICE A DAY FOR 5 DAYS 06/18 completed Not Available Not Available Not Available progester one micronize d 200 mg capsule TAKE ONE CAPSULE BY MOUTH FOR 10 DAYS EACH MONTH 04/10 completed Not Available Not Available Not Available Provera 10 mg tablet take 1 tablet by oral route every day 05/31 completed Prescrib sheila Chase e: No Locat ion: [facility] odify By: ruthie tz Encou nter DateTime : 06/19/19 18 01:00:00 PM Not Available Not Available Not Available ergocalci ferol (vitamin D2) 1,250 mcg (50,000 unit) capsule TAKE 1 CAPSULE BY MOUTH EVERY WEEK 10/05 completed Not Available Not Available Not Available levofloxa juan c 750 mg tablet TAKE 1 TABLET BY MOUTH DAILY FOR 5 DAYS 09/14 completed Not Available Not Available Not Available methylpre dnisolone 4 mg tablets in a dose pack TAKE 6 TABLETS ON DAY 1 DIRECTED ON PACKAGE AND DECREASE BY 1 TAB EACH DAY FOR A TOTAL OF 6 DAYS 03/06 completed Not Available Not Available Not Available albuterol sulfate HFA 90 mcg/actua tion aerosol inhaler INHALE 1-2 PUFFS BY MOUTH EVERY 4 HOURS NEEDED FOR WHEEZING OR SHORTNES S OF BREATH. 10/30 completed Not Available Not Available Not Available dexametha sone 1.5 mg tablet TAKE ALL PILLS WITH FOOD. TAKE 3 PILLS ON DAYS 1-3, 2 PILLS DAYS 4-6 AND 1 PILL DAYS 7-9 06/18 completed Not Available Not Available Not Available ondansetr on 4 mg disintegr ating tablet DISSOLVE 1 TABLET ON THE TONGUE EVERY 8 HOURS NEEDED FOR NAUSEA OR VOMITING active Not Available Not Available No t Available doxycycli ne hyclate 100 mg tablet take 1 tablet by oral route 2 times every day for 7 days 05/31 completed Prescrib ed Elsewher e: No Locat [facility] odify By: constantine floyd DateTime : 07/09/19 10:48:00 AM Not Available Not Available Not Available naproxen 500 mg tablet TAKE 1 TABLET BY MOUTH TWICE DAILY 03/06 completed Not Available Not Available Not Available metoclopr amide 10 mg tablet Take 1 tablet every 6 hours by oral route as needed. active Not Available Not Available No t Available Zithromax 500 mg tablet take 2 Tablet by oral route at one time 05/31 completed Prescrib ed Elsewher e: No Locat ion: [facility] odify By: flynn toure DateTime : 06/20/19 04:25:39 PM Not Available Not Available Not Available nitrofura ntoin monohydra te/macroc rystals 100 mg capsule TAKE 1 CAPSULE BY MOUTH TWICE DAILY FOR 7 DAYS 02/02 completed Not Available Not Available Not Available active Not Available Not Avai lable Not Available Symbicort 160 mcg-4.5 mcg/actua tion HFA aerosol inhaler INHALE 2 PUFFS BY MOUTH TWICE DAILY 10/30 completed Not Available Not Available Not Available Cimzia Powder for Recon 400 mg (200 mg x 2 vials) subcutane ous kit 06/18 completed Not Available Not Available Not Available Cimzia 02/19 completed Not Available Not Available Not Available Cimzia 400 mg/2 mL (200 mg/mL x 2) subcutane ous syringe kit active Not Available Not Available Not Available Zofran (base) active Not Available Not Available Not Available ID NOW COVID-19 Test Kit TEST DIRECTED TODAY 07/12 completed Not Available Not Available Not Available Vitals Date Recorded Body height Body mass index (BMI) Body weight Systolic blood pressure Diastolic blood pressure Provider Name and Address Organization Details Last Updated DateTime 01/06/2024 167.64 cm 45 kg/m2 197924.2 7123 g 131 mm[Hg] 87 mm[Hg] [facility] 4 17:50:59 Date Recorded Body height Body mass index (BMI) Body weight Systolic blood pressure Diastolic blood pressure Provider Name and Address Organization Details Last Updated DateTime 02/03/2024 167.64 cm 45.2 kg/m2 022149.8 6 g 119 mm[Hg] 86 mm[Hg] [facility] 4 17:22:49 Date Recorded Body height Body mass index (BMI) Body weight Systolic blood pressure Diastolic blood pressure Provider Name and Address Organization Details Last Updated DateTime 02/20/2024 167.64 cm 45.7 kg/m2 121042.6 4 g 120 mm[Hg] 88 mm[Hg] [facility] 5 15:36:59 Date Recorded Body height Body mass index (BMI) Body weight Systolic blood pressure Diastolic blood pressure Provider Name and Address Organization Details Last Updated DateTime 03/05/2024 167.64 cm 45.2 kg/m2 373083.8 636 g 117 mm[Hg] 88 mm[Hg] [facility] 5 09:45:04 Social History Question Answer Notes LastModified by Organizat ion Details LastModified Time Tobacco Smoking Status Current Every Day Smoker Taylor Armas [facility] 03/06/2023 15:48:03 Do You Have An Advance Directive? No [email or web address] Information not available 05/31/2020 What Is Your Level Of Alcohol Consumption? Occasional [email or web address] Information not available 05/31/2020 If You Are , What Was Your Level Of Alcohol Consumption Prior To ? Occasional Information not available 03/06/2023 How Many Years Have You Consumed Alcohol? 6 [email or web address] Information not available 05/31/2020 Are You Blind Or Do You Have Difficulty Seeing? No Information not available 05/31/2020 What Is Your Level Of Caffeine Consumption? Occasional Information not available 04/10/2022 How Much Tobacco Do You Chew? None [email or web address] Information not available 05/31/2020 In The 14 Days Before Symptom Onset, Have You Had Close Contact With A Laboratory-confir med COVID-19 While That Case Was Ill? No [email or web address] Information not available 05/31/2020 In The 14 Days Before Symptom Onset, Have You Had Close Contact With A Person Who Is Under Investigation For COVID-19 While That Person Was Ill? No [email or web address] Information not available 05/31/2020 Have You Been To An Area Known To Be High Risk For COVID-19? No [email or web address] Information not available 05/31/2020 Are You Deaf Or Do You Have Serious Difficulty Hearing? No [email or web address] Information not available 05/31/2020 What Type Of Diet Are You Following? SPECIFIC Information not available 04/10/2022 What Is The Highest Grade Or Level Of School You Have Completed Or The Highest Degree You Have Received? [id number] [email or web address] Information not available 05/31/2020 What Is Your Occupation? [email or web address] Information not available 03/06/2023 Are There Any Guns Present In Your Home? No [email or web address] Information not available 05/31/2020 Do You Use Protection During Sex? No Information not available 05/31/2020 Do You Use Your Seat Belt Or Car Seat Routinely? Yes [email or web address] Information not available 05/31/2020 Do You Have Smoke And Carbon Monoxide Detectors In Your Home? Yes [email or web address] Information not available 05/31/2020 At What Age Did You Start Smoking Tobacco? 16 Information not available 03/06/2023 How Much Tobacco Do You Smoke? 0.25 PPD [email or web address] Information not available 05/31/2020 Do You Feel Stressed (tense, Restless, Nervous, Or Anxious, Or Unable To Sleep At Night)? [id number] [email or web address] Information not available 05/31/2020 Do You Use Any Illicit Or Recreational Drugs? Yes [email or web address] Information not available 05/31/2020 Do You Use Sunscreen Routinely? Yes [email or web address] Information not available 05/31/2020 Has Tobacco Cessation Counseling Been Provided? No Information not available 03/06/2023 How Many Years Have You Smoked Tobacco? 10 Information not available 05/31/2020 Have You Used IV Drugs? No Information not available 05/31/2020 Do You Or Have You Ever Used Any Other Forms Of Tobacco Or Nicotine? No Information not available 03/06/2023 Sex: Unknown Functional Status Question Answer Note LastModified by Organizat ion Details LastModified Time Do you have difficulty walking or climbing stairs? No Information not available 03/06/2023 Are you able to walk? YESWOREST [email or web address] Information not available 05/31/2020 Are you able to care for yourself? Yes Information not available 03/06/2023 Do you have difficulty dressing or bathing? No Information not available 03/06/2023 What is your exercise level? Moderate Information not available 04/10/2022 Mental Status None recorded. Family History Relationship Description Onset Age of this Age Resolved Age Notes LastModified by Organization Details LastModified Time Father Depressive disorder [email or web address] Not available 05/31 16:21:13 Father Anxiety disorder [email or web address] Not available 05/31 16:21:13 Sister Diabetes mellitus [email or web address] Not available 05/31 16:21:13 Sister Anxiety disorder [email or web address] Not available 05/31 16:21:13 Sister Asthma [email or web address] Not available 05/31/2020 16:21:13 Sister Malignant tumor of cervix Not available 06/12 16:06:01 Sister Cyst of ovary Not available 2022 16:31:01 Mother Malignant tumor of cervix Not available 06/12 16:06:01 Mother Cyst of ovary [email or web address] Not available 03/03/ 2023 16:31:01 Mother Hypertensive disorder [email or web address] Not available 06/12 16:06:51 Mother Disorder of thyroid gland Not available 06/12 16:07:07 Maternal Aunt Hypertensive disorder [email or web address] Not available 06/12 16:06:51 Maternal Aunt Diabetes mellitus [email or web address] Not available 06/12 16:07:23 Maternal Aunt Asthma [email or web address] Not av ailable 06/12/2020 16:07:54 Brother Asthma [email or web address] Not availabl e 06/12/2020 16:07:45 Maternal Uncle Asthma [email or web address] Not available 021 16:08:06 Medical History Condition Response Allergies (Food, seasonal, environmental ) N Other N Breast Cancer N Drug/Latex Allergies/Reactions N Blood Transfusion N Dermatologic Disorders N Lung Disease N Defects or Inherited Disease N Breast Problem N Gestational Diabetes N Hematologic disorders N Anesthesia Complications N History of STI Y Deep Vein Thrombosis N Polycystic ovary syndrome N Anxiety Disorder Y Autoimmune disease Y Arthritis Y Infertility N Polyps N Acid Reflux (GERD) N History of abnormal pap N Cancer N Stroke N Varicosities N Neurologic/Epilepsy N Endometriosis N High Cholesterol N Headaches N Fibromyalgia N Kidney Disease N Heart Problems N Kidney or Bladder Problems N Thyroid Problems N GI Problems N Eating Disorder N Anemia N Art (IVF or FET) N Psychiatric Illness Y Ovarian Cancer N Diabetes N Pulmonary (TB, Asthma) N Hepatitis/Liver Disease N No Past Medical History N Eczema N Urinary Tract Infection N Abuse/Domestic Violence N Asthma Y Trauma/Violence N Depression/ depression Y Heart Disease N Pre-Eclampsia N Hypertension N Osteoporosis N Thrombophilias N Gynecological History Statement/Question Response Flow Moderate Date of LMP 05/19/2023 On BCP's at Conception? N N Was last menstrual period normal N STIs/STDs Y HPV Vaccine Y Duration of Flow (days) 7 Current Control Method Age at First Child 18 Are cycles usually normal N Sexually Active? Y Menses Monthly N Age of first menstrual cycle 12 Date of Last Pap Smear 06/19/2023 Sexual Problems? N Desired Control Method None LMP Approximate N Obstetrics History GPAL:G 2 P 1 0 0 1 Type Value Full Term 1 Living 1 Total 2 Past Encounters Encounter ID Performer Location Encounter Start Date Encounter Closed Date Diagnosis/Indication Diagnosis SNOMED-CT Code Diagnosis ICD10 Code Diagnosis Note [id number] Francie ValleMARU [facility] [address] [address] 05/31/2020 15:41:28 05/31/2020 16:42:06 Gynecologic examination [id number] Z01.419 [id number] Bre V[facility] [address],[place] [address] 09/14/2020 15:43:42 09/14/2020 16:44:36 Menorrhagia 911365006 N92.0 Updated US discussed. [facility] next visit if any further necessaryW ill further discuss BC options for period regulation when returns to discuss US results. Patient is to contact office or go to nearest ED/Urgent care if fever >/= 100.1, pain, excessive bleeding, unusual drainage or swelling in area of concern; or experienci ng worsening sx's or new onset of concerning sx's. Understand ing verbalized . All questions answered to patient satisfacti on. Time spent in visit is a total of 26 mins with at least 50% of visit consisting of counseling and review of plan of care.Addit ional precaution abeba measures were taken to minimize potential exposure to the Covid-19 virus during this patient? 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 All staff wore face coverings during this encounter, as well as provided additional cleaning and sanitizing of all surfaces, including countertop s, pens, chairs, door handles, light switches, etc, prior to and following the patient? s visit. Vaginitis 42918813 N76.0 Some d/c on examWill send swab & call if txment is necessary [id number] Rose Willis [facility] [address] [address] 09/25/2020 12:17:52 09/25/2020 13:25:20 Abnormal uterine bleeding [id number] 9100 N93.9 [id number] Sharon Kaplan [facility] [address] [address] 09/25/2020 12:49:38 09/26/2020 15:09:46 Dysuria 40049001 R30.9 [id number] SERG King [facility] [address] [address] 07/12/2021 10:27:22 07/12/2021 15:37:32 Missed period 89855541 N92.5 Here for STI testing, is concerned her partner has other partnersNo symptoms, her [facility] , she will routinely skip months. Has went 7 months without a period before.We discussed need to have a period every 2- 3 months for endometria l protection .Pelvic u/s ordered to assess endometria l liningUrin e hCG (-) todayUrine STI testing sent, Blood STI panel orderedWe discussed treating for chlamydia today vs waiting for test results. She is concerned her partner could of been with someone who had chlamydia. She would like to wait for test results prior to treatment. Will await results and treat as needed.Eric young RTC for pelvic u/s and u/s f/u appointmen t, will discuss management of irregular menses at that time Time spent with the patient was over 30 minutes Venereal d isease screening 849812079 Z11.3 Microscopic hematuria 19 5898758 R31.29 Laboratory test result abnormal 323016312 R89.9 N92.6 Exposure t o sexually transmissible disorder 481604535 Z20.2 Sexually t ransmitted infectious disease 6588716 A64 [id number] SERG King [facility] [address] [address] 07/31/2021 14:05:14 07/31/2021 15:15:36 Polycystic ovary syndrome 272107541 E28.2 Here today to discuss lab work and pelvic u/s results.Ir regular menses, did have a spontaneou s menses on 07/28, prior that that no menses since 04/17Mense s have always been irregular, will frequently skip many months.Lab work with elevated testostero ne.Pelvic u/s showed bilateral polycystic ovaries, bilateral paratubal cyst. She has been having pelvic pains on and off, pain comes and goes and is not intense. MD consult offered, she would like to have a repeat u/s in 6-8 weeks instead.We discussed u/s findings. She will need a f/u u/s in 6 weeks to re-assess paratubal cyst.(+) trichomona s on 07/17, she completed the medication course. Will bring a urine for a EDY in about 2 weeks.We discussed options to help regulate menses and for endometria l protection .Discussed need to have a period every 2-3 months.She has tried all control methods, (pills, IUD, depo, nuvaring) and did not like any of these methods. Does not think she could take a pill everyday.S he would like cyclic progestin therapy for endometria l protection .Rx prometrium for 10 days each month if spontaneou s menses does not occur.She denies allergey to [facility] in 3 months for med check, will drop urine off in about 2 weeks for EDY, repeat u/s due in about 6-8 weeks. Time spent in visit is a total of 35 mins with at least 50% of visit consisting of counseling and review of plan of care. Irregular periods 624407 07 N92.6 [id number] [facility] [address],[place] [address] 07/18/2021 17:54:14 07/19/2021 14:48:41 Irregular periods 46976319 N92.6 [id number] [facility] [address],[place] [address] 09/11/2021 17:23:38 09/12/2021 10:26:00 Cyst of right ovary [id number] 8411180 N83.291 N83.292 [id number] SERG King [facility] [address],[place] [address] 10/23/2021 15:01:32 10/23/2021 16:51:33 Cyst of ovary 72040278 N83.209 We discussed pelvic u/s result : We discussed bilateral paratubal cyst seen again - Kevin n that they are small in size and she is having no pelvic pain or symptoms at this time, she would like to monitor for any symptoms at this time. MD consult declined.T o call the office if any pelvic pain, heavy vaginal bleeding, etc occursHas not needed to take the prometrium , having monthly spontaneou s menses on her ownWe discussed need to take prometrium if menses do not occur on their own every 2-3 monthsShe has been exercising and eating healthy, feeling well!Start ed new injection for RA - following with rheumatolo gist on thisRTC for WWE in 1 year or sooner if any symptoms occur ED precaution s discussed Time spent in visit is a total of 25 mins with at least 50% of visit consisting of counseling and review of plan of care. Furuncle [id number] L02.9 2 Patient has hx of frequent furuncles throughout body, none now but they happen oftenDerm referral sent [id number] SERG King [facility] [address] [address] 04/10/2022 16:15:24 04/10/2022 16:51:46 Venereal disease screening 585278959 Z11.3 Sexually t ransmitted infectious disease 3773361 A64 Pain in pelvis 98463199 R10.2 Microscopic hematuria 19 2918063 R31.29 Hx of hematuria. Has not seen urologist yet. New referral placed. Encouraged her to schedule this. Gynecologi c examination 59276986 Z01.419 Take Calcium with Vitamin D 1200mg daily if not receiving in daily diet. It is strongly advised to have an annual flu shot and up can obtain at most pharmacies . If you have not had a TDap shot in the last 10 years you should obtain one as well. Discussed with patient & provided with informatio n regarding Gardisil vaccine to prevent the 4 strains for HPV that cause cervical cancer if under age 26. Encourage safe sexual practices, to use condoms and limit partners if not already in a monogamous relationsh ip. Do monthly self breast exams. Have mammogram yearly or every other year depending on family history. BRCA testing is now available for patients with strong genetic history of female cancer. If interested contact the office. Engage in daily exercise of low impact aerobic exercise 45-60 minutes 4-5 times weekly. Avoid tobacco and illicit drugs as well as using moderation with alcohol intake less than 1-2 8 oz beverages daily. This lifestyle behavior pattern will lead to less health conditions and longer life span. If BMI greater than 25 weight watchers or dietary consult advised. Patient received above instructio ns, and questions have been answered. If you have any questions please call or respond to this email. Patient was made aware of the patient portal and may obtain a paper copy of today's plan if desired. WWEBC - withdrawal . Declines BC at this timeHx of PCOS. Periods have recently been monthly. She has rx for prometrium to take if she goes longer than 3 months without a period. She has not had to take this yet.No hx of abnormal papsPap done todaySTI testing added to papBlood STI testing orderedRec ently having pain with intercours e, random pelvic pain at times. She has a hx of paratubal cyst, last seen on u/s 08/2021. We agreed to update TVUS for further evaluation .RTC for pelvic u/s and u/s f/u Time spent in visit is a total of 25 mins with at least 50% of visit consisting of counseling and review of plan of care. [id number] Rose Willis [facility] [address] [address] 04/19/2022 16:30:52 04/19/2022 17:10:48 Pain in pelvis 94266559 R10.2 N93.9 [id number] SERG King [facility] [address] [address] 03/06/2023 15:43:49 03/07/2023 15:41:15 Pain in pelvis 71085766 R10.2 This patient is a 27 -year-old female with pelvic pain. We have agreed to complete the evaluation with pelvic ultrasound . The patient will return after the pelvic ultrasound to discuss those findings and to develop a treatment plan. A comprehens jan history and physical exam was performed today. We spent over 25 minutes face-to-fa ce. The patient was given precaution s. She will contact clinic if pelvic pain increases in frequency or intensity. Also notify clinic of any new symptoms associated with pelvic pain. She does not appear to have an acute pelvic infection today, but was asked to contact us Immediatel y with nausea, vomiting, fever, chills. pelvic u/s orderedSTI testing declinedre turn for u/s f/u/WWE [id number] Bre Vela [facility] [address],[place] [address] 06/19/2023 14:06:58 06/19/2023 15:23:19 Irregular periods 91458273 N92.6 Neg UPTWill take another UPT if period does not start in another week.If continues to fail to start call for HCG/Possib le TVUS if needed Gynecologi c examination 75144493 Z01.419 Take Calcium with Vitamin D 1200mg daily if not receiving in daily diet. It is strongly advised to have an annual flu shot and up can obtain at most pharmacies . If you have not had a TDap shot in the last 10 years you should obtain one as well. Discussed with patient & provided with informatio n regarding Gardisil vaccine to prevent the 4 strains for HPV that cause cervical cancer if under age 26. Encourage safe sexual practices, to use condoms and limit partners if not already in a monogamous relationsh ip. Do monthly self breast exams. Have mammogram yearly or every other year depending on family history. BRCA testing is now available for patients with strong genetic history of female cancer. If interested contact the office. Engage in daily exercise of low impact aerobic exercise 45-60 minutes 4-5 times weekly. Avoid tobacco and illicit drugs as well as using moderation with alcohol intake less than 1-2 8 oz beverages daily. This lifestyle behavior pattern will lead to less health conditions and longer life span. If BMI greater than 25 weight watchers or dietary consult advised. Patient received above instructio ns, and questions have been answered. If you have any questions please call or respond to this email. Patient was made aware of the patient portal and may obtain a paper copy of today's plan if desired. Pap/hpv sent STD Screen sent Genetic Screen discussed Colon Screen na Dexa Screen na Routine Labs PCP [id number] Rose Willis [facility] [address],[place] [address] 10/06/2023 16:24:21 10/06/2023 17:11:15 [id number] Damian Sandy MD [facility] [address],[place] [address] 10/06/2023 16:26:58 10/07/2023 09:12:14 Urinary symptoms 772255492 R39.9 Nausea and vomiting 1693 2000 R11.2 Amenorrhea 53564331 N91. 2 this patient is a 28-year-ol d female who presents for amenorrhea . She is a positive test. Ultrasound revealed a 1st trimester gestation. Patient has no complaints . We talked about early care. Talked about genetic screening. We talked about her ultrasound results. We talked about the 12 week ultrasound that has genetic screening components . She was given recommenda tions on exercise, diet, over-the-c ounter medication s. We reviewed her obstetric history. We reviewed her medical history. We reviewed her social history. She will begin routine care at her next visit. [id number] [facility] [address],[place] [address] 10/16/2023 17:11:39 10/17/2023 04:35:22 screening 841766284 Z36.82 Z3A.12 [id number] Mira Thomas [facility] [address],[place] [address] 10/31/2023 15:07:44 10/31/2023 16:19:01 Ankylosing spondylitis 3869949 M45.9 - continue cimzia, following with rheumatolo gy Rheumatoid arthritis 698 67164 M06.9 - continue cimzia, following with rheumatolo gy Gestation period, 14 weeks 89696213 Z3A.14 - continue PNV [id number] Rose Willis [facility] [address],[place] [address] 12/09/2023 16:41:44 12/09/2023 17:51:53 screening for malformation 703698402 Z36.3 Z3A.20 [id number] DIONNE GUERRERO MD [facility] [address],[place] [address] 12/10/2023 16:46:21 12/15/2023 09:23:17 Ankylosing spondylitis 6231476 M45.9 - continue cimzia, following with rheumatolo gy Rheumatoid arthritis 698 38138 M06.9 - continue cimzia, following with rheumatolo gy Gestation period, 20 weeks 02809705 Z3A.20 [id number] Jolynn Motta [facility] [address],[place] [address] 01/06/2024 16:54:38 01/07/2024 09:12:37 screening 817318228 Z36.2 Z3A.24 [id number] DIONNE GUERRERO MD [facility] [address],[place] [address] 01/06/2024 16:54:50 01/07/2024 11:46:40 Constipation 14304242 K59.00 Pain in ri ght lower limb 154715754 M79.604 Urinary symptoms 1707132 08 R39.9 - will send urine culture Gestation period, 24 weeks 044046987 Z3A.24 - continue PNV Dilatation of renal pelvis 114925002 O36.8999 - bilateral, mild- [place] [id number] [facility] [address],[place] [address] 02/03/2024 15:59:03 02/03/2024 17:09:37 Maternal obesity complicating , childbirth and the puerperium, antepartum 0833167507 07 O99.213 Z3A.28 [id number] DIONNE GUERRERO MD [facility] [address],[place] [address] 02/03/2024 15:59:18 02/04/2024 09:32:17 Body mass index 40+ - severely obese 152535740 Z68.41 - start testing at 34 weeks Gestation period, 28 weeks 61818352 Z3A.28 - GCT and labs today- continue PNV Breech presentation 6096 002 O32.1XX9 - continue to monitor presentati on; desires ECV if malpresent ation [id number] DIONNE GUERRERO MD [facility] [address],[place] [address] 02/20/2024 14:58:17 02/24/2024 03:54:10 Pain in pelvis 80730468 R10.2 - patient reports worsening hip and pelvic pain- likely 2/2 positionin g and advanced - discussed symptomati c treatments , will send rx for flexeril Heartburn 50172072 R12 - not controlled with tums- will trial pepcid Body mass index 40+ - severely obese 124185881 Z68.41 - start testing at 34 weeks Gestation period, 30 weeks 44071799 Z3A.30 [id number] DIONNE GUERRERO MD [facility] [address] [address] 03/05/2024 09:33:40 03/05/2024 11:21:51 Nausea and vomiting 99029365 R11.2 - low appetite and constant nausea- will trial reglan Gestation period, 32 weeks 2835544 Z3A.32 - continue PNV- discussed RSV vaccine Health Concerns Section Related Observation LastModified by Organization Detai ls LastModified Time None Recorded Concern Status LastModified by Organization Details LastModified Time None Recorded Advance Directives Directive N: Payers Encounter Date Sequence Insurance Name Policy Number Policy Santiago Covered Member ID Santiago Member ID Guarantor Name 01/06/2024 1 [employer] [place] ([place] [id number] Dionne Tejada [id number] Dionne Tejada 02/03/2024 1 [employer] [place] [id number] Dionne Tejada [id number] Dionne Tejada 02/03/2024 1 [employer] [place] [id number] Dionne Tejada [id number] Dionne Tejada 02/20/2024 1 [employer] [place] [id number] Dionne Tejada [id number] Dionne Tejada 03/05/2024 1 [employer] [place] [id number] Dionne Tejada [id number] Dionne Tejada OBGyn Episode Ob Episode Information Episode Created Date Number of Fetuses Patient Bloodtype Patient rh Status Prepregnancy Weight lbs Domestic Partner Domestic Partner Phone Father Name Thermal Molder Status 06/01/19 21 1 CLOSED Fetus Data First Name Last Name Admitted to NICU Weight (g) Sex Living Outcome Pediatric Complications Fetus ID Race Codes Race Delivery Type 3005.04 7 F Full Term [id number] Vaginal Delivery Bert Calculation Initial Bert Date Initial Exam Date Initial Exam Provider Initial Ultrasound Date Last Menstrual Period Date Ultra Sound Weeks Gestation 0 Eighteen To Twenty Week Bert Update Ultra Sound Date Fundal Height At Umbil Quickening Date Ultra Sound Latest Weeks Gestation Final Bert Confirmed By Final Bert Confirmed Date Final Bert Date Ultra Sound Latest Days Gestation 0 0 Menstrual History Last Menstrual Date Menses Monthly On Bcp Conception Prior Menses Frequency Hcg Plus Date Menarche Onset Age Delivery Information Delivery Date Delivery Type Labor Anesthesia Weeks Gestation Incision Type Labor Labor Length Hrs Delivered By Post Complications Tubal Sterilization Discharge Date Comments 4 40 Discharge Information Feeding Method Contraceptive Method Maternal HG B and HCT Levels Ob Episode Information Episode Created Date Number of Fetuses Patient Bloodtype Patient rh Status Prepregnancy Weight lbs Domestic Partner Domestic Partner Phone Father Name Thermal Molder Status 10/31/19 24 1 O Positive [id number] Rodolfo Tejada OPEN Fetus Data First Name Last Name Admitted to NICU Weight (g) Sex Living Outcome Pediatric Complications Fetus ID Race Codes Race Delivery Type [id number] Problems Problem Notes mild bilateral pylectasisInc omplete anatomy x 2 - MFM referral faxed to Ashley 02/03 Scheduled 02/09 0900 US and consult Problem Name Start Date End Date Resolution Snomed Code Not e Body mass index 40+ - severely obese [id number] zuri ting 34 wks Ankylosing spondylitis 10/31/2023 8353567 on cimzia, foll owing with rheumatology Rheumatoid arthritis 10/31/2023 17941293 on cimzia, following with rheumatology Bert Calculation Initial Bert Date Initial Exam Date Initial Exam Provider Initial Ultrasound Date Last Menstrual Period Date Ultra Sound Weeks Gestation 04/25/2024 10/31/2023 10/16/2023 05/19/2023 12 Eighteen To Twenty Week Bert Update Ultra Sound Date Fundal Height At Umbil Quickening Date Ultra Sound Latest Weeks Gestation Final Bert Confirmed By Final Bert Confirmed Date Final Bert Date Ultra Sound Latest Days Gestation 0 [email or web address] 10/31/2023 04/26/19 25 0 Pre-jerod Flowsheet Flowsheet Date 10/31/2023 Billings Score Blood Edema Fundus Height Fundus Units Glucose Ketones Leukocytes Nitrite Labor Signs Protein Cervic Dilation Cervic Effacement Cervic Station Type Weight in lbs Pre/Post Dialysis Refused Weight 271.744545723250 BP Diastolic BP Location Tested BP Systolic BP Type 78 L arm 124 sitting Fetus Heart Rate Present A 150 Fetus Movement A Yes Comments Presents to establish prenat al care. Previously had worsening nausea, however now improved. No cramping or bleeding. Constipation improved. LR female NIPT, NT/NB wnl. hx significant for FT . PMH significant for rheumatoid arthritis and ankylosing spondylitis, following with rheumatology. Having some UTI symptoms. Will treat with macrobid, culture sent. Also having BV symptoms, discussed treatment following UTI abx. Discussed anatomy US for next visit. RTC 4 weeks. Flowsheet Date 12/09/2023 Billings Score Blood Edema Fundus Height Fundus Units Glucose Ketones Leukocytes Nitrite Labor Signs Protein Cervic Dilation Cervic Effacement Cervic Station Type Weight in lbs Pre/Post Dialysis Refused BP Diastolic BP Location Tested BP Systolic BP Type Fetus Heart Rate Present Fetus Movement Comments Flowsheet Date 12/10/2023 Billings Score Blood Edema Fundus Height Fundus Units Glucose Ketones Leukocytes Nitrite Labor Signs Protein Cervic Dilation Cervic Effacement Cervic Station Type Weight in lbs Pre/Post Dialysis Refused Weight 276.080203832067 BP Diastolic BP Location Tested BP Systolic BP Type 83 L arm 117 sitting Fetus Heart Rate Present A Present Fetus Movement A Yes Comments Doing well, does have some r ight sided lateral thigh numbness. Will see PT and sports medicine for work up. Good movement. No cramping or bleeding. Anatomy incomplete, need spine and heart views. EFW 44%. Repeat in 4 weeks. Flowsheet Date 01/06/2024 Billings Score Blood Edema Fundus Height Fundus Units Glucose Ketones Leukocytes Nitrite Labor Signs Protein Cervic Dilation Cervic Effacement Cervic Station Type Weight in lbs Pre/Post Dialysis Refused BP Diastolic BP Location Tested BP Systolic BP Type Fetus Heart Rate Present Fetus Movement Comments Flowsheet Date 01/06/2024 Billings Score Blood Edema Fundus Height Fundus Units Glucose Ketones Leukocytes Nitrite Labor Signs Protein Cervic Dilation Cervic Effacement Cervic Station neg none none neg Type Weight in lbs Pre/Post Dialysis Refused 279.677518705407 BP Diastolic BP Location Tested BP Systolic BP Type 87 L arm 131 sitting Fetus Heart Rate Present A Present Fetus Movement A Yes Comments Patient c/o of nausea and ne rve pain in her leg. Has not seen PT yet. Will start flexeril for symptomatic relief. Having some urinary symptoms, will send culture. Also having intermittent constipation, will send colace. Anatomy normal aside from RVOT which needs visualized still. Also has bilateral mild pylectasis and borderline polyhydramnios. EFW 50%, breech. Will repeat US in 4 weeks. GCT and labs discussed for next visit. RTC 4 weeks. Flowsheet Date 02/03/2024 Billings Score Blood Edema Fundus Height Fundus Units Glucose Ketones Leukocytes Nitrite Labor Signs Protein Cervic Dilation Cervic Effacement Cervic Station Type Weight in lbs Pre/Post Dialysis Refused BP Diastolic BP Location Tested BP Systolic BP Type Fetus Heart Rate Present Fetus Movement Comments Flowsheet Date 02/03/2024 Billings Score Blood Edema Fundus Height Fundus Units Glucose Ketones Leukocytes Nitrite Labor Signs Protein Cervic Dilation Cervic Effacement Cervic Station neg none Type Weight in lbs Pre/Post Dialysis Refused Weight [id number] BP Diastolic BP Location Tested BP Systolic BP Type 86 L arm 119 sitting Fetus Heart Rate Present Fetus Movement A Yes Comments Patient c/o of slight pains and nausea. Good movement. No cramping or bleeding. Discussed belly band for symptomatic relief. EFW 49%, transverse. Mild poly. RVOT still not visualized, will send to [facility] for clearance. Discussed testing starting at 34 weeks for obesity. GCT and labs today. RTC 2 weeks. Flowsheet Date 02/20/2024 Billings Score Blood Edema Fundus Height Fundus Units Glucose Ketones Leukocytes Nitrite Labor Signs Protein Cervic Dilation Cervic Effacement Cervic Station neg none Type Weight in lbs Pre/Post Dialysis Refused Weight 283.92582040042 BP Diastolic BP Location Tested BP Systolic BP Type 88 L arm 120 sitting Fetus Heart Rate Present A 145 Fetus Movement A Yes Comments Patient c/o of slight nausea , Lester Anaya. Hip pain worsening, has tried tylenol, heating pads, showers without relief. Will send flexeril for symptomatic relief. Also reports worsening heartburn, will trial pepcid. Was seen by [facility], anatomy cleared, all normal measurements aside from HC 5%. Recommend repeat US in 4 weeks, will schedule at [facility] for 34 weeks. Passed GCT and labs. RTC 2 weeks Flowsheet Date 03/05/2024 Billings Score Blood Edema Fundus Height Fundus Units Glucose Ketones Leukocytes Nitrite Labor Signs Protein Cervic Dilation Cervic Effacement Cervic Station neg none 0cm 50% -3 Type Weight in lbs Pre/Post Dialysis Refused 280.63803123778 BP Diastolic BP Location Tested BP Systolic BP Type 88 L arm 117 sitting Fetus Heart Rate Present A 145 Fetus Movement A Yes Comments Patient c/o slight nausea, h eadaches, along with lower pressure. SVE performed per patient request. Will trial reglan for nausea. testing to start at 34 weeks. RTC 2 weeks. Discussed RSV and Tdap vaccines. Menstrual History Last Menstrual Date Menses Monthly On Bcp Conception Prior Menses Frequency Hcg Plus Date Menarche Onset Age 0405/19/20[birth year] Delivery Information Delivery Date Delivery Type Labor Anesthesia Weeks Gestation Incision Type Labor Labor Length Hrs Delivered By Post Complications Tubal Sterilization Discharge Date Comments Discharge Information Feeding Method Contraceptive Method Maternal HG B and HCT Levels Ob Episode Information Episode Created Date Number of Fetuses Patient Bloodtype Patient rh Status Prepregnancy Weight lbs Domestic Partner Domestic Partner Phone Father Name Thermal Molder Status 10/31/19 24 1 CLOSED Fetus Data First Name Last Name Admitted to NICU Weight (g) Sex Living Outcome Pediatric Complications Fetus ID Race Codes Race Delivery Type [id number] Bert Calculation Initial Bert Date Initial Exam Date Initial Exam Provider Initial Ultrasound Date Last Menstrual Period Date Ultra Sound Weeks Gestation 10/31/2023 0 Eighteen To Twenty Week Bert Update Ultra Sound Date Fundal Height At Umbil Quickening Date Ultra Sound Latest Weeks Gestation Final Bert Confirmed By Final Bert Confirmed Date Final Bert Date Ultra Sound Latest Days Gestation 0 0 Pre-jerod Flowsheet Flowsheet Date 10/31/2023 Billings Score Blood Edema Fundus Height Fundus Units Glucose Ketones Leukocytes Nitrite Labor Signs Protein Cervic Dilation Cervic Effacement Cervic Station Type Weight in lbs Pre/Post Dialysis Refused BP Diastolic BP Location Tested BP Systolic BP Type Fetus Heart Rate Present Fetus Movement Comments Menstrual History Last Menstrual Date Menses Monthly On Bcp Conception Prior Menses Frequency Hcg Plus Date Menarche Onset Age Genetic Screening And Infection History Question Response Note Mental Retardation/Autism false Patient's Age Will Be 35 Years Or Older At Estim ated Date of Delivery false Thalassemia (Danish, Azeri, Mediterranean, Or Background): MCV < 80 false Neural Tube Defect (Meningomyelocele, Spina Bifi da, Or Anencephaly) false Congenital Heart Defect false Down Syndrome false David-Sachs (eg, Buddhist, Cajun, Senegalese-Laurel) f alse Eleonora Disease false Sickle Cell Disease Or Trait () false Hemophilia Or Other Blood Disorders false Muscular Dystrophy false Cystic Fibrosis false [place]'s Chorea false Intellectual Disability/Autism false If Yes, Was Person Tested For Fragile X? false Other Inherited Genetic Or Chromosomal Disorder false Maternal Metabolic Disorder (eg, Type 1 Diabetes , PKU) false Patient Or Baby's Father Had A Child With Defects Not Listed Above false Recurrent Loss, Or A Stillbirth false Medications (including Suppl ements, Vitamins, Herbs, OTC Drugs), Illicit/Recreational Drugs, Alcohol false If Yes, Agent(s) And Strength/Dosage false Any Other Genetic History false Live With Someone With TB Or Exposed To TB false Patient Or Partner Has History Of Genital Herpes false Rash Or Viral Illness Since Last Menstrual Perio d false History Of STD, Gonorrhea, Chlamydia, HPV, Syphi lis false Other Infection History false History of HIV false History of Hepatitis false Prior GBS-infected child false Hemoglobinopathy Or Carrier false Other Structural Defect false Recent Travel History Outside of Country false Delivery Information Delivery Date Delivery Type Labor Anesthesia Weeks Gestation Incision Type Labor Labor Length Hrs Delivered By Post Complications Tubal Sterilization Discharge Date Comments Discharge Information Feeding Method Contraceptive Method Maternal HG B and HCT Levels
--- NOTE | 2024-04-07 20:51 | PM.OBTRLD ---
OB - Triage/Final Diagnosis Visit Information Comments/Additional reasons for admission: I have assessed the risk for this patient, Cruz Tejada, and determined that she would benefit from observation care. Evaluation Laboratory results: Laboratory Tests 03/11/24 21:10 Urine Color Dark yellow Urine Appearance Turbid H Urine pH 5.5 Ur Specific [place] 1.030 Urine Protein 1+ H Urine Glucose (UA) Trace H Urine Ketones 1+ H Ur Blood (Man) Negative Urine Nitrate Negative Urine Bilirubin Negative Urine Urobilinogen 1.0 Add Ur Microanalysis Reviewed Leukocyte Esterase Rfl 2+ H Urine RBC 0-2 Urine WBC >100 H Ur Squamous Epith Cells Many H Urine Bacteria 4+ H Urine Casts 6-10 Urine Mucus Present Final Diagnosis (1) False labor: Code(s): O47.9 - False labor, unspecified Status: Acute
== END 2024-03-11 22:27 | disposition home or self-care (01) ==
PROVIDERS: Admitting Provider Obstetrics & Gynecology; PCP Obstetrics & Gynecology; Visit Provider Obstetrics & Gynecology
DX: O47.03 False labor before 37 completed weeks of gestation, third trimester (principal); Z3A.33 33 weeks gestation of pregnancy
CPT/HCPCS: 81001; A9270; G0378; G0379

== ENCOUNTER 2024-04-05 19:06 | Outpatient (RCR) | payer OTHER, SELFPAY ==
[2024-04-05] VITALS (28 sets, daily range): BP systolic 130–135; BP diastolic 89–96; PULSE 88–100; TEMP 36.6; O2SAT 98–100
--- NOTE | 2024-04-05 19:06 | PC.NURSE ---
Pt arrives to unit with decreased movement, cramping, nausea, and vaginal discomfort.
--- NOTE | 2024-04-05 19:58 | PC.NURSE ---
Called Dr. Montilla, update on pt, decreased movement, cramping, nausea, vaginal discomfort, reactive tracing after thirty minutes, and marking of eight movements in forty minutes. Orders received to perform SVE and monitor for one hour.
--- NOTE | 2024-04-05 21:08 | PC.NURSE ---
Called Dr. Montilla, update on pt, reactive tracing, sixteen movements in one hour, cervical exam, and blood pressures. Orders received to discharge pt with instructions to keep next scheduled appointment and when to return to the unit.
--- NOTE | 2024-04-05 21:16 | PC.NURSE ---
Pt discharged with instructions to keep next scheduled appointment and when to return to the unit, pt verbalizes understanding.
== END 2024-04-17 07:48 | disposition home or self-care (01) ==
LOC: ANHOBOP 19:06
PROVIDERS: PCP Obstetrics & Gynecology; Visit Provider Obstetrics & Gynecology
DX: O36.8190 Decreased fetal movements, unspecified trimester, not applicable or unspecified (principal)
CPT/HCPCS: 59025

== ENCOUNTER 2024-04-16 01:31 | Inpatient (IN) | payer OTHER, SELFPAY ==
[2024-04-16] VITALS (121 sets, daily range): BP systolic 113–179; BP diastolic 63–153; PULSE 87–175; RESP 18; TEMP 36.4–36.6; O2SAT 95–100; BMI 46.2
[2024-04-16 02:05] LABS: Basophils Absolute Auto 0.1 K/mm3 (0.0-0.1); Basophils Percent Auto 0.2 % (0.2-1.2); Eosinophils Absolute Auto 0.1 K/mm3 (0-0.3); Eosinophils Percent Auto 0.5 % (0-4.4); Hematocrit 32.8 % (37.0-47.0); Hemoglobin 11.1 g/dL (12.0-15.0); Immature Granulocyte Absolute 0.17 K/mm3 (0.00-0.031); Immature Granulocyte Percent A 0.8 % (0-0.5); Lymphocytes Absolute Auto 4.08 K/mm3 (0.9-3.2); Mean Corpuscular HGB Conc 33.8 g/dl (32-36); Mean Corpuscular Hemoglobin 31.7 pg (26-34); Mean Corpuscular Volume 93.7 fl (80-100); Mean Platelet Volume 10.7 fl (7.4-10.4); Monocytes Absolute Auto 1.4 K/mm3 (0.1-0.6); Monocytes Percent Auto 6.6 % (2.6-8.5); Neutrophils Absolute Auto 15.7 K/mm3 (1.3-6.7); Neutrophils Percent Auto 72.9 % (45.5-73.1); Platelet Count Result 223 k/mm3 (150-375); Red Cell Distribution Width 13.7 % (11.5-14.5); White Blood Count 21.5 K/mm3 (4.5-10.0)
--- NOTE | 2024-04-16 02:12 | WPDANESEPP ---
Anes - Eval Pre Procedure Procedure: Labor Epidural Date/Time: 04/16/24 02:12 Surgeon: Roldan Preop Diagnosis: Labor Pain Pre Op Diagnosis: Contractions Patient Data Age: 28 Gender: F Height: Weight: Last Vital Signs Pulse 99 04/16/24 02:03 BP 150/102 H 04/16/24 02:03 Pulse Ox 100 04/16/24 02:08 Allergies Allergy/AdvReac Type Severity Reaction Status Date / Time latex Allergy Mild Hives Verified 04/05/24 21:58 sulfamethoxazole Allergy Mild Hives Verified 04/05/24 21:58 trimethoprim Allergy Mild Hives Verified 04/05/24 21:58 amoxicillin Allergy Hives Verified 04/05/24 21:58 Grass Allergy Unknown Hives Uncoded 03/30/24 13:23 spermacide Allergy Unknown Hives Uncoded 03/30/24 13:23 Home Medications ?Medication ?Instructions ?Recorded ?Confirmed ?Type benzonatate 200 mg capsule 200 mg PO TID PRN cough #20 caps 01/28/21 Rx famotidine 40 mg tablet 01/28/21 History ketorolac 10 mg tablet 01/28/21 History meloxicam 15 mg tablet 01/28/21 History prednisone 20 mg tablet 40 mg (2 x 20 mg) PO DAILY #10 tabs 01/28/21 Rx ondansetron 4 mg disintegrating 4 mg PO Q8H PRN nausea and 10/06/23 03/11/24 Rx tablet vomiting #10 tabs nitrofurantoin 100 mg PO Q12H 7 days #14 caps 03/11/24 Rx monohydrate/macrocrystals 100 mg capsule (Macrobid) Laboratory Tests 04/16/24 04/16/24 01:59 02:00 WBC Pending RBC Pending Hgb Pending Hct Pending MCV Pending MCH Pending MCHC Pending RDW Pending Plt Count Pending MPV Pending Immature Gran % (Auto) Pending Neut % (Auto) Pending Lymph % (Auto) Pending [place] % (Auto) Pending Eos % (Auto) Pending Baso % (Auto) Pending Lymph # (Auto) Pending [place] # (Auto) Pending Eos # (Auto) Pending Baso # (Auto) Pending Abs Immat Gran (auto) Pending Absolute Neuts (auto) Pending Absolute Nucleated RBC Pending Nucleated RBC % Pending HIV 1&2 Ab/P24 Ag 4thGn Pending Blood Type Pending Antibody Screen Pending : gestational age (, NATHALIE 04/25/24) Patient hx anesthesia problems: none Family hx anesthesia problems: none Results Review: All pre-operative results and documents have been reviewed as part of the pre-operative evaluation. [facility] Past Medical History Medical History Bipolar 1 disorder Dental implant pain Depression OCD (obsessive compulsive disorder) PTSD (post-traumatic stress disorder) Tonsillectomy planned Family History Family History (Updated 03/30/24 @ 12:35 by Ava Maharaj RN) Sibling Diabetes mellitus Mother Lupus ADHD Social History Social History Smoking packs per day: 2 Smoking cigarettes per day: 40.0 Smoking status: Current every day smoker Tobacco type: cigarettes Alcohol intake: current Alcohol use details: occasional Substance use: current Gender identity (if verbalized by the patient): Female Sexual Orientation (if Verbalized by the Patient): Straight or Heterosexual Spiritual care concerns: No Exam Day of Procedure 04/16/24 02:12 Patient weight: obese Heart: regular rate and rhythm Lungs: normal air movement Airway: Mallampati scale class II Neurological: alert and oriented
--- NOTE | 2024-04-16 02:24 | WPDOBADMIT ---
Obstetrics - Admit Note Admission Note: record reviewed. No pertinent additions to the history and/or any subsequent changes in the physical findings that are not consistent with the expected course of the were found. Patient presents for SROM and labor. SVE 7cm on admission. Getting epidural. Anticipate SVE. Additions to the history and/or subsequent changes in the physical findings follow. None.
[2024-04-16 02:48] LABS: Syphilis IgG/IgM Antibody Negative (Negative)
[2024-04-16 03:01] LABS: HIV 1/2 Ab P24 Ag Result Negative (Negative)
--- NOTE | 2024-04-16 04:08 | PM.OBPNLAB ---
Pain Control Date/time seen: 04/16/24 04:08 Pain control: epidural Pelvic Exam Dilation (cm): 6 Effacement (%): 90 station: -2 Amniotic membrane status: Ruptured (forebag ruptured of small amount of clear fluid) Status status: Category ll Assessment and Plan Pitocin rate (mU/min): 0 Assessment: active labor Plan: continuous present management
[2024-04-16] MEDS: OXYTOCIN 30 UNITS/NS 500 ML 30 UNITS/500 ML BAG 999 UNITS IV CONT (05:18)
--- NOTE | 2024-04-16 05:27 | PM.OBPRVD ---
OB - Vaginal Delivery Note Procedure Delivery date: 04/16/24 Induction method: None Delivery augmentation: Rupture of Membranes (forebag) Delivery monitor: External FHT and External Uterine Route of delivery: Episiotomy description: None Laceration Description: Perineal - 1st Degree Delivery repair: vicryl Specimen: No Quantitative Blood Loss (ml): 50 Anesthesia type: Epidural Disposition: Floor Complications: No immediate complications Narrative: See H&P and notes for details on patient's admission and labor. She progressed to complete cervical dilation and at the appropriate time began pushing. With adequate expulsive efforts by the mother, the baby's head was delivered without difficulty. Nuchal cord was not present. The baby's left shoulder was anterior and delivered under the pubic symphysis without difficulty. The posterior shoulder and the rest of the baby delivered without difficulty. The umbilical cord was doubly clamped and cut after 60 seconds of delayed cord clamping. Care of the was then assumed by the nursing staff. Baby Date of : 04/16/24 Gestational Age by Date: 36 gender: Female presentation: vertex position: Left Occiput Anterior Placenta delivery description: Expressed Cord Vessel Description: 3 Vessels and Delayed Cord Clamping
[2024-04-16] MEDS: OXYTOCIN 30 UNITS/NS 500 ML 30 UNITS/500 ML BAG 125 UNITS IV CONT (05:55)
[2024-04-16] MEDS: IBUPROFEN 600 MG TABLET PO ×2 (07:12→14:30)
[2024-04-16] MEDS: CYCLOBENZAPRINE HCL 10 MG TABLET PO ×2 (09:21→17:32)
--- NOTE | 2024-04-16 15:22 | PM.OBPNVD ---
OB - PN: Subj Subjective Date/time seen: 04/16/24 15:22 Interval history: Baby getting transferred to NICU for O2 desaturations Desires discharge with baby Discussed with RN, patient recovering well and stable for discharge OB - PN: Obj Data Labs 04/16/24 02:00 Labs: Laboratory Results - last 24 hr 04/16/24 04/16/24 01:59 02:00 WBC 21.5 H RBC 3.50 L Hgb 11.1 L Hct 32.8 L MCV 93.7 MCH 31.7 MCHC 33.8 RDW 13.7 Plt Count 223 MPV 10.7 H Immature Gran % (Auto) 0.8 H Neut % (Auto) 72.9 Lymph % (Auto) 19.0 [place] % (Auto) 6.6 Eos % (Auto) 0.5 Baso % (Auto) 0.2 Lymph # (Auto) 4.08 H [place] # (Auto) 1.4 H Eos # (Auto) 0.1 Baso # (Auto) 0.1 Abs Immat Gran (auto) 0.17 H Absolute Neuts (auto) 15.7 H Absolute Nucleated RBC 0.000 Nucleated RBC % 0.0 Syphilis IgG/IgM Ab Negative HIV 1&2 Ab/P24 Ag 4thGn Negative Blood Type O Positive Antibody Screen Negative OB - PN A/P Assessment and Plan (1) (spontaneous vaginal delivery): Code(s): O80 - Encounter for full-term uncomplicated delivery Status: Acute Plan day: 0 Plan: discharge home Time Spent With Patient Time: Total time spent is greater than 50% in coordination of care (as documented) at patient's floor/unit and/or counseling patient: Review of Systems Review of Systems: All systems reviewed & are unremarkable except as noted in HPI and below
--- NOTE | 2024-04-16 15:25 | PM.OBDSVD ---
DS: Admitting Diagnosis Discharge Date 04/16/24 Admitting Diagnosis labor DS: Discharge Diagnosis Discharge Diagnosis (1) (spontaneous vaginal delivery): Code(s): O80 - Encounter for full-term uncomplicated delivery Status: Acute OB - DS: Summary OB Procedures : None OB Procedures Intrapartum: Spontaneous Vag Delivery OB Procedures: : None Peripartum Data Laceration Description: Perineal - 1st Degree Episiotomy description: None Time Spent with Patient Time attestation: Total time spent providing and/or coordinating discharge services: DS: Data Data Completed and Pending Labs on day of discharge: Labs from last 24 hours 04/16/24 04/16/24 02:00 01:59 WBC 21.5 H RBC 3.50 L Hgb 11.1 L Hct 32.8 L MCV 93.7 MCH 31.7 MCHC 33.8 RDW 13.7 Plt Count 223 MPV 10.7 H Immature Gran % (Auto) 0.8 H Neut % (Auto) 72.9 Lymph % (Auto) 19.0 [place] % (Auto) 6.6 Eos % (Auto) 0.5 Baso % (Auto) 0.2 Lymph # (Auto) 4.08 H [place] # (Auto) 1.4 H Eos # (Auto) 0.1 Baso # (Auto) 0.1 Abs Immat Gran (auto) 0.17 H Absolute Neuts (auto) 15.7 H Absolute Nucleated RBC 0.000 Nucleated RBC % 0.0 Syphilis IgG/IgM Ab Negative HIV 1&2 Ab/P24 Ag 4thGn Negative Blood Type O Positive Antibody Screen Negative Discharge Plan Discharge Attending physician on discharge: Cruz Montilla Discharging Clinician: Cruz Montilla Patient Disposition: Home, Self-Care Activity: may shower, as tolerated and pelvic rest Diet: as tolerated Patient Instructions: Antibiotic Form Patient Language: Ukrainian Stand Alone Forms: General Discharge Information Follow-up/Referrals: Cruz Montilla MD [Primary Care Provider] - 4 Weeks Discharge Medications: Continued meloxicam 15 mg tablet famotidine 40 mg tablet ketorolac 10 mg tablet prednisone 20 mg tablet 40 mg PO DAILY Qty: 10 0RF ondansetron 4 mg tablet,disintegrating 4 mg PO Q8H PRN (Reason: nausea and vomiting) Qty: 10 0RF nitrofurantoin monohyd/m-cryst [Macrobid] 100 mg capsule 100 mg PO Q12H 7 Days Qty: 14 0RF Rx Instructions: must administer with a meal/food Discontinued benzonatate 200 mg capsule 200 mg PO TID PRN (Reason: cough) Qty: 20 0RF Date of admission: 04/16/24 01:31 Primary Care Provider: Cruz Montilla Admitting Provider: Cruz Montilla Attending physician on admission: Cruz Montilla Condition: Stable
[2024-04-16] MEDS: DOCUSATE SODIUM 100 MG CAPSULE PO (16:39)
[2024-04-16] MEDS: ACETAMINOPHEN 325 MG TABLET 650 MG PO (16:39)
--- NOTE | 2024-04-16 18:00 | PC.NURSE ---
Introductions were made and information written on her board. Breast pump provided due to baby being transferred to [facility]. Instructions given on cleaning, care, usage, that there should be no pain, pumping schedule for milk production, collection, and storage of human milk. Patient was assessed for correct placement, flange size (hospital pump being used, both nipples measured 20mm and she is using size 24 flange), to pump for comfort and nipple stretching/stimulation for adequate milk production every 3 hours (8 times in 24 hours) 1-2 times at night. Parents are encouraged to record the pumping schedule on the feeding sheet.?Mother voiced understanding of the education shared along with mom/baby guide and the pump measurement, flange fit handout for additional resource information. Reported to the Primary RN.
--- NOTE | 2024-04-16 19:15 | PC.NURSE ---
Patient left at 1914 on a therapeutic pass to see at [facility] and was instructed to return at 2314.
--- NOTE | 2024-04-16 21:00 | PC.NURSE ---
Patient returned to the floor at 2100.
[2024-04-17 04:30] VITALS: BP 138/89; PULSE 84; RESP 18; TEMP 36.5; O2SAT 99
[2024-04-17] MEDS: IBUPROFEN 600 MG TABLET PO ×2 (04:30→12:31)
[2024-04-17] MEDS: CYCLOBENZAPRINE HCL 10 MG TABLET PO ×2 (04:30→12:33)
[2024-04-17 05:50] LABS: Hematocrit 30.5 % (37.0-47.0); Hemoglobin 10.1 g/dL (12.0-15.0)
[2024-04-17 07:45] VITALS: BP 122/80; PULSE 83; RESP 16; TEMP 37; O2SAT 98
[2024-04-17] MEDS: ACETAMINOPHEN 325 MG TABLET 650 MG PO (07:57)
[2024-04-17] MEDS: MULTIVIT/MIN/PREN/FOL AC/IRON TABLET 1 TAB PO (07:57)
[2024-04-17] MEDS: DOCUSATE SODIUM 100 MG CAPSULE PO (07:57)
--- NOTE | 2024-04-17 09:51 | WPDANLDPN2 ---
Anes-Prog Note L&D Date/Time: 04/17/24 09:51 Comfortable throughout: labor and delivery Neuraxial method: epidural Epidural/Spinal procedure site: clean & non-tender Neuro status: Neuro function grossly intact. Cardiovascular status: normal Respiratory status: normal Airway patency: baseline Mental status: baseline Post-Op hydration status: normal Vital Signs: Last Vital Signs Temp 97.7 F 04/17/24 04:30 Pulse 84 04/17/24 04:30 Resp 18 04/17/24 04:30 BP 138/89 04/17/24 04:30 Pulse Ox 99 04/17/24 04:30 O2 Del Method Room Air 04/16/24 19:00 Pain score (VAS): 0 I/O: Intake & Output 04/16/24 04/17/24 04/17/24 23:59 07:59 15:59 Intake Total 780 Balance 780 Post-procedural complaints: none Patient feedback: Patient satisfied with anesthetic care.
--- NOTE | 2024-04-17 10:30 | PC.NURSE ---
Consulted with mother concerning needs and she shared that she is using her breast pump every 3-4 hours and is doing so without pain. Reinforced understanding of milk production, transition of milk, signs of adequate intake, transition of stool, prevention/relief of engorgement, plugged ducts, mastitis, responsive watching for feeding cues, the different methods of stimulating to breastfeed 1-3 hours after the start of the last feeding, community resources, and when to call a provider using the resource of the feeding sheet along with the mom and baby guide. Mother voiced understanding of the information shared, is confident to continue effectively her at home, when to call for assistance, denies any additional assistance or education at this time. Reported to the Primary RN.
--- NOTE | 2024-04-17 11:09 | PC.NURSE ---
Patient viewed the discharge video Mother & Baby Care, The First Two Weeks . Patient was given the opportunity and encouraged to ask questions. Patient verbalized understanding of information shared and has been given the mother/baby guide for home reference.
--- NOTE | 2024-04-17 11:23 | PM.OBPNVD ---
OB - PN: Subj Subjective Date/time seen: 04/17/24 11:23 Interval history: PPD#1 doing well, pain controlled voiding without issue pumping baby doing well, may be able to come off c pap today ready for discharge home OB - PN: Obj Data Labs 04/17/24 04:31 Labs: Laboratory Results - last 24 hr 04/17/24 04:31 Hgb 10.1 L Hct 30.5 L OB - PN A/P Assessment and Plan (1) (spontaneous vaginal delivery): Code(s): O80 - Encounter for full-term uncomplicated delivery Status: Acute Plan day: 1 Plan: discharge home Time Spent With Patient Time: Total time spent is greater than 50% in coordination of care (as documented) at patient's floor/unit and/or counseling patient: Review of Systems Review of Systems: All systems reviewed & are unremarkable except as noted in HPI and below Exam Const: General: comfortable and no acute distress Orientation/consciousness: patient oriented x3 Resp: Effort & Inspection: normal respiratory effort
[2024-04-17] MEDS: WITCH HAZEL 40 PADS 1 PAD TOPICAL (12:32)
[2024-04-20 11:09] VITALS: BP 122/89; PULSE 100; RESP 18; TEMP 36.7; O2SAT 100
== END 2024-04-17 12:33 | disposition home or self-care (01) | DRG 560 ==
LOC: ANHLDR 01:44 → ANHOB2 11:44
PROVIDERS: Admitting Provider Obstetrics & Gynecology; PCP Obstetrics & Gynecology; Visit Provider Obstetrics & Gynecology
DX: O70.0 First degree perineal laceration during delivery (principal); Z3A.38 38 weeks gestation of pregnancy; Z37.0 Single live birth
CPT/HCPCS: 36415; 85014; 85018; 85025; 86593; 86703; 86850; 86900; 86901; A9270; G0432; J2590; J2795

== ENCOUNTER 2024-04-23 16:41 | Observation (INO) | payer OTHER, SELFPAY ==
[2024-04-23] VITALS (41 sets, daily range): BP systolic 123–162; BP diastolic 74–106; PULSE 75–93; RESP 18; TEMP 36.9
[2024-04-23 12:04] LABS: Basophils Absolute Auto 0.1 K/mm3 (0.0-0.1); Basophils Percent Auto 0.8 % (0.2-1.2); Eosinophils Absolute Auto 0.2 K/mm3 (0-0.3); Eosinophils Percent Auto 2.2 % (0-4.4); Hematocrit 33.2 % (37.0-47.0); Hemoglobin 10.7 g/dL (12.0-15.0); Immature Granulocyte Absolute 0.22 K/mm3 (0.00-0.031); Immature Granulocyte Percent A 2.3 % (0-0.5); Lymphocytes Absolute Auto 3.14 K/mm3 (0.9-3.2); Lymphocytes Percent Auto 32.8 % (18.3-44.2); Mean Corpuscular HGB Conc 32.2 g/dl (32-36); Mean Corpuscular Hemoglobin 30.9 pg (26-34); Mean Platelet Volume 9.5 fl (7.4-10.4); Monocytes Absolute Auto 0.8 K/mm3 (0.1-0.6); Monocytes Percent Auto 8.5 % (2.6-8.5); Neutrophils Absolute Auto 5.1 K/mm3 (1.3-6.7); Neutrophils Percent Auto 53.4 % (45.5-73.1); Platelet Count Result 290 k/mm3 (150-375); Red Blood Count 3.46 M/mm3 (4.2-5.4); Red Cell Distribution Width 13.5 % (11.5-14.5); White Blood Count 9.6 K/mm3 (4.5-10.0)
[2024-04-23 12:15] LABS: Alanine Aminotransferase 18 U/L (6-35); Albumin Level 3.7 g/dL (3.5-5.1); Alkaline Phosphatase 78 U/L (38-126); Anion Gap 9 mmol/L (4-12); Aspartate Amino Transferase 19 U/L (14-36); Bilirubin,Total 0.3 mg/dL (0.2-1.3); Blood Urea Nitrogen 12 mg/dL (7-17); Calcium 8.9 mg/dL (8.4-10.2); Carbon Dioxide 21 mmol/L (22-30); Chloride 107 mmol/L (98-107); Estimated Glomerular Filt Rate > 60; Glucose 87 mg/dL (65-110); Potassium 3.9 mmol/L (3.4-5.0); Sodium 137 mmol/L (137-145); Uric Acid 4.8 mg/dL (2.5-7.5)
--- OUTSIDE RECORDS SUMMARY | 2024-04-23 12:21 | XMS_ITS | Clinical Summary ---
Author Organization [facility] Address [address] [place] [address] Phone Care Team Providers Care Exhibition Carver Name Role Phone Unavailable Primary Care Provider Unavailabl e Encounters Date Type Department Care Team Description 04/20/2024 External Device Data STL ABSTRACTION Provider, Abstract 04/06/2024 External Device Data STL ABSTRACTION Provider, Abstract 03/16/2024 External Device Data STL ABSTRACTION Provider, Abstract 03/10/2024 External Device Data STL ABSTRACTION Provider, Abstract 03/10/2024 External Device Data STL ABSTRACTION Provider, Abstract 03/03/2024 External Device Data STL ABSTRACTION Provider, Abstract 02/17/2024 External Device Data STL ABSTRACTION Provider, Abstract 02/10/2024 9:00 AM CONCRETE FOREMAN - 02/10/2024 11:59 PM CONCRETE FOREMAN Hospital Encounter [facility] [address] [place] [phone] Dionne Guerrero MD Discharge Disposition: Home or Self Care 02/05/2024 Orders Only [facility] [address] [place] [address] Dionne Guerrero MD Polyhydramnios in second trimester, single or unspecified fetus (Primary Dx); Abnormal ultrasonic finding on screening of mother from Last 3 Months Social History Tobacco Use Types Packs/Day Years Used Date Smoking Tobacco: Never Assessed Comments Unknown Sex and Gender Information Value Date Recorded Sex Assigned at Not on file Legal Sex Female 11:44 AM CONCRETE FOREMAN Gender Identity Not on file Sexual Orientation Not on file Plan of Treatment Health Maintenance Due Date Last Done Comments DTAP/TDAP/TD VACCINES (1 - Tdap) 2012 HEPATITIS B VACCINES (1 of 3 - 19+ 3-dose series) 2012 CERVICAL CANCER SCREENING 06/19/2023 INFLUENZA VACCINE (#1) 2023 12/18/2016 HPV VACCINES Aged Out No longer mike dumont based on patient's age to complete this topic Procedures Procedure Name Priority Date/Time Associated Diagnosis Comments US OB DETAIL SINGLE GEST Routine 02/10/2024 10:20 AM CONCRETE FOREMAN Encounter for anatomic survey from Last 3 Months Results * US OB DETAIL SINGLE GEST (02/10/2024 10:20 AM CONCRETE FOREMAN) Anatomical Region Laterality Modality Pelvis Ultrasound 02/10/2024 10:1 9 AM CONCRETE FOREMAN Narrative 02/10/2024 10:21 AM CONCRETE FOREMAN STL COMP ----- Pat. Name: WILLARD DIONNE Study Date: 02/10/2024 10:19am Pat. NO: [id number] Referring MD: DIONNE GUERRERO MD Site: [facility] Protective Clothing Issuer: Patsy Escudero RDMS : 1995 Age: 28 ----- INDICATION ----- Anatomy Survey low risk NIPT Rheumatoid Arthritis Anxiety, Maternal Depression Bipolar Disease Asthma Complicating CODING ----- Diagnoses Z3A.29: Weeks of gestation Z36.3: Encounter for screening for malformations O99.513: Diseases of the respiratory system complicating O99.343: Other mental disorders complicating O99.891: Other specified diseases and conditions complicating Procedures [id number]: Ultrasound, uterus, real time with image documentation, and maternal evaluation plus detailed anatomic examination, transabdominal approach HISTORY ----- OB History 1 METHOD ----- Transabdominal ultrasound examination ----- Fletcher . Number of fetuses: 1 DATING ----- Method of dating: based on stated NATHALIE GA by prior assessment 29 w + 2 d NATHALIE by prior assessment: 04/25/2024 Ultrasound examination on: 02/10/2024 GA by U/S based upon: AC, BPD, EFW, Femur, HC GA by U/S 29 w + 2 d NATHALIE by U/S: 04/25/2024 Assigned: based on stated NATHALIE, selected on 02/10/2024 Assigned GA 29 w + 2 d Assigned NATHALIE: 04/25/2024 BIOMETRY ----- BPD 76.2 mm 30w 4d 77% Hadlock OFD 88.8 mm 28w 4d 31% Henry HC 261.6 mm 28w 3d 5% Hadlock Cerebellum tr 35.1 mm 30w 6d 60% Sean AC 250.7 mm 29w 2d 43% Hadlock Femur 55.8 mm 29w 3d 37% Hadlock Humerus 51.9 mm 30w 2d 73% Henry HC / AC 1.04 23% Nicolaides Weight Calculation: EFW 1,372 g 29w 0d 38% Hadlock EFW (lb,oz) 3 lb 0 oz EFW by Hadlock ([id number]) Head / Face / Neck Biometry: Regional Account Manager 3.5 mm CM 6.0 mm 25% Nicolaides Inner IOD 19.9 mm Extremities / Bony Struc Biometry: FL / BPD 0.73 FL / HC 0.21 FL / AC 0.22 GENERAL EVALUATION ----- Cardiac activity present. FHR 135 bpm. movements: present. Presentation: cephalic Placenta: Placental site: posterior Umbilical cord: Cord vessels: 3 vessel cord. Insertion site: placental insertion: normal Amniotic fluid: Amount of AF: normal amount. MVP 7.4 cm. SIENNA 21.2 cm. Q1 4.4 cm, Q2 4.0 cm, Q3 5.4 cm, Q4 7.4 cm ANATOMY ----- The following structures appear normal: Head / Neck Cranium. Lateral ventricles. Choroid plexus. Midline falx. Cavum septi pellucidi. Cerebellum. Cisterna magna. Thalami. Nuchal fold. Face Lips. Profile. Nose. Palate. Orbits. Heart / Thorax 4-chamber view. RVOT view. LVOT view. 3-vessel view. 2-jeklrq-ukwkfau view. Situs. Aortic arch view. Ductal arch view. Superior vena cava. Inferior vena cava. High short axis view. Cardiac rhythm. Diaphragm. Abdomen Abdominal wall. Stomach. Kidneys. Bladder. Spine Cervical spine. Thoracic spine. Lumbar spine. Sacral spine. Extremities / Arms. Right hand. Left hand. Legs. Right foot. Left foot. Skeleton The following structures could not be adequately visualized: Abdomen Cord insertion. MATERNAL STRUCTURES ----- Right Ovary Suboptimal Left Ovary Suboptimal GROWTH OVERVIEW ----- Exam date GA BPD (mm) HC (mm) AC (mm) FL (mm) HL (mm) EFW (g) 02/10/2024 29w 2d 76.2 77% 261.6 5% 250.7 43% 55.8 37% 51.9 73% 1,372 38% COMMENT ----- Patient's name and date of were verified by the business risk consultant before the exam IMPRESSION ----- Summary of Findings: A detailed anatomic survey was performed. Ultrasound was used to both evaluate structural abnormalities and to evaluate more subtle features of the face and extremities that could indicate aneuploidy. Detailed anatomic survey was performed due to inability to see anatomy on outside u/s, poly on outside u/s and pyelectasis on outside ultrasound. 1. Single living fetus with gestational age of 29w 2d, (NATHALIE = 04/25/2024), based on the reported clinical dates. 2. Detailed anatomic survey is complete. No major structural abnormalities are identified. 3. The amniotic fluid volume is 21.2 cm with maximum vertical pocket of 7.4 cm 4. Estimated weight is 1372 g (38%ile) 5. Placenta is posterior. 6. UTD not present. The presence of a normal anatomic survey does not rule out genetic, chromosomal or structural anomalies. Recommendation: - Follow up ultrasound with primary OB in 4 weeks for growth due to HC at 5%. Thank you for inviting us to participate in your patient's care. Procedure Note Barbara Leung MD - 02/10/2024 STL COMP ----- Pat. Name:Jacob TEJADA Date:02/10/2024 10:19am Pat. NO: [id number] MD:DIONNE GUERRERO MD [facility]Patsy Escudero RDMS :1995Age:28 ----- INDICATION ----- Anatomy Survey low risk NIPT Rheumatoid Arthritis Anxiety, Maternal Depression Bipolar Disease Asthma Complicating CODING ----- Diagnoses Z3A.29: Weeks of gestation Z36.3: Encounter for screening formalformations O99.513: Diseases of the respiratory systemcomplicating O99.343: Other mental disorders complicatingpregnancy O99.891: Other specified diseases and conditionscomplicating Procedures [id number]: Ultrasound, uterus, real time withimage documentation, and maternal evaluation plus detailed anatomic examination,transabdominal approach HISTORY ----- OB History 1 METHOD ----- Transabdominal ultrasound examination ----- Fltecher . Number of fetuses: 1 DATING ----- Method of dating:based on stated NATHALIE GA by prior [id number] w + 2 d NATHALIE by prior assessment:04/25/2024 Ultrasound examination on:02/10/2024 GA by U/S based upon:AC, BPD, EFW, Femur, HC GA by U/S29 w + 2 d NATHALIE by U/S:04/25/2024 Assigned:based on stated NATHALIE, selected on 02/10/2024 Assigned GA29 w + 2 d Assigned NATHALIE:04/25/2024 BIOMETRY ----- BPD 76.2 mm 30w 4d77% Hadlock OFD 88.8 mm 28w 4d31% Henry HC 261.6 mm 28w 3d5% Hadlock Cerebellum tr 35.1 mm 30w 6d60% Estrada AC 250.7 mm 29w 2d43% Hadlock Femur 55.8 mm 29w 3d37% Hadlock Humerus 51.9 mm 30w 2d73% Henry HC / AC 1.04 23%Nicolaides Weight Calculation: EFW 1,372 g 29w 0d38% Hadlock EFW (lb,oz) 3 lb 0 oz EFW by Hadlock ([id number]) Head / Face / Neck Biometry: Regional Account Manager 3.5 mm CM 6.0 mm 25%Nicolaides Inner IOD 19.9 mm Extremities / Bony Struc Biometry: FL / BPD 0.73 FL / HC 0.21 FL / AC 0.22 GENERAL EVALUATION ----- Cardiac activity present. FHR 135 bpm. movements: present.Presentation: cephalic Placenta: Placental site: posterior Umbilical cord: Cord vessels: 3 vessel cord. Insertion site: placentalinsertion: normal Amniotic fluid: Amount of AF: normal amount. MVP 7.4 cm. SIENNA 21.2 cm. Q14.4 cm, Q2 4.0 cm, Q3 5.4 cm, Q4 7.4 cm ANATOMY ----- The following structures appear normal: Head / Neck Cranium. Lateral ventricles. Choroid plexus.Midline falx. Cavum septi pellucidi. Cerebellum. Cisterna magna. Thalami. Nuchal fold. Face Lips. Profile. Nose. Palate. Orbits. Heart / Thorax 4-chamber view. RVOT view. LVOT view. 3-vesselview. 8-nexbsk-arzpalk view. Situs. Aortic arch view. Ductal arch view. Superior vena cava. Inferiorvena cava. High short axis view. Cardiac rhythm. Diaphragm. Abdomen Abdominal wall. Stomach. Kidneys. Bladder. Spine Cervical spine. Thoracic spine. Lumbar spine.Sacral spine. Extremities / Arms. Right hand. Left hand. Legs. Right foot.Left foot. Skeleton The following structures could not be adequately visualized: Abdomen Cord insertion. MATERNAL STRUCTURES ----- Right Ovary Suboptimal Left Ovary Suboptimal GROWTH OVERVIEW ----- Exam date GA BPD (mm) HC (mm) AC (mm) FL(mm) HL (mm) EFW (g) 02/10/2024 29w 2d 76.2 77% 261.6 5% 250.7 43%55.8 37% 51.9 73% 1,372 38% COMMENT ----- Patient's name and date of were verified by the business risk consultant beforethe exam IMPRESSION ----- Summary of Findings: A detailed anatomic survey was performed.Ultrasound was used to both evaluate structural abnormalities and to evaluate more subtle features of the face andextremities that could indicate aneuploidy. Detailed anatomic survey was performed due to inability to see anatomy onoutside u/s, poly on outside u/s and pyelectasis on outside ultrasound. 1. Single living fetus with gestational age of 29w 2d, (NATHALIE = 04/25/2024),based on the reported clinical dates. 2. Detailed anatomic survey is complete. No major structuralabnormalities are identified. 3. The amniotic fluid volume is 21.2 cm with maximum vertical pocket of7.4 cm 4. Estimated weight is 1372 g (38%ile) 5. Placenta is posterior. 6. UTD not present. The presence of a normal anatomic survey does not rule out genetic,chromosomal or structural anomalies. Recommendation: - Follow up ultrasound with primary OB in 4 weeks for growth due toHC at 5%. Thank you for inviting us to participate in your patient's care. us Dionne Guerrero MD US ORDERABLES Final Result from Last 3 Months Insurance [employer] [place]
--- OUTSIDE RECORDS SUMMARY | 2024-04-23 12:21 | XMS_ITS | Clinical Summary ---
Author Organization [facility] Address [facility]ly [facility] [place] [address] Care Team Providers Care Frame Opener Name Role Phone Cameron Valeria CORTESP Primary Care Provider [phone] Allergies Active Allergy Reactions Criticality Noted Date Comments Amoxicillin Hives 06/01/2018 Sulfamethoxazole-Trimethoprim Hives 2017 Latex Hives 06/01/2018 Medications lamoTRIgine 25 MG tablet TK 2 TS (50 MG) PO DAILY 0 12/02/2017 Active venlafaxine 37.5 MG tablet TK 1 T (37.5 MG) PO DAILY 0 12/02/2017 Active cloNIDine 0.1 MG tablet TK 1/2 T (0.05 MG) PO BID 0 12/02/2017 Active naproxen (NAPROSYN) 500 MG tablet Take 1 tablet (500 mg total) by mouth 2 (two) times daily as needed. 20 tablet 11/24/2018 Active Social History Tobacco Use Types Packs/Day Years Used Date Smoking Tobacco: Every Day Cigarettes Smokeless Tobacco: Never Alcohol Use Standard Drinks/Week Comments No 0 (1 standard drink = 0.6 oz pur e alcohol) AUDIT-C Answer Date Recorded Frequency of Alcohol Consumption Never 02/14/2018 Average Number of Drinks Not on file 018 Frequency of Binge Drinking Not on file 01/18 Comments No Sex and Gender Information Value Date Recorded Sex Assigned at Not on file Legal Sex Female 7:18 PM CDT Gender Identity Not on file Sexual Orientation Not on file Last Filed Vital Signs Vital Sign Reading Time Taken Comments Blood Pressure 150/101 11/24/2018 12:36 AM CDT Pulse 99 11/24/2018 12:36 AM CDT Temperature 37.1 C (98.7 F) 11/24/2018 12:36 AM CDT Respiratory Rate 20 11/24/2018 12:3 6 AM CDT Oxygen Saturation 99% 11/24/2018 12: 36 AM CDT Inhaled Oxygen Concentration - - Weight 114.7 kg (252 lb 12.8 oz) 2018 12:35 AM CDT Height 167.6 cm (5' 6 ) 11/24/2018 12:3 5 AM CDT Body Mass Index 40.8 11/24/2018 12:35 AM CDT Plan of Treatment Health Maintenance Due Date Last Done Comments Cervical Cancer Screening Pa p Smear (Age 30 to 64) Every 3 Years 1993 Annual Physical 1996 Pneumococcal Vaccine: Pediat rics (0 to 5 Years) and At-Risk Patients (6 to 64 Years) (1 of 2 - PCV) 06/19/1999 Hepatitis C 06/19/2011 DTaP, Tdap and Td Vaccines ( 1 - Tdap) 2012 Hepatitis B Vaccines (1 of 3 - 19+ 3-dose series) 2012 Cervical Cancer Screening Pa p with HPV Testing (Age 30 to 64) Every 5 Years 06/19/2023 Cervical Cancer Screening with HPV 06/19/2023 COVID-19 Vaccine ( - 2023-2 5 season) 2023 Influenza Adult (#1) 2023 HPV Vaccines Aged Out No longer eligi ble based on patient's age to complete this topic Meningococcal B Vaccine Aged Out No l onger eligible based on patient's age to complete this topic Meningococcal Vaccine Aged Out No stalin livia eligible based on patient's age to complete this topic RSV Immunizations Under 20 Months Aged Out No longer eligible based on patient's age to complete this topic Insurance MEDICAID Care Teams Frame Opener Relationship Specialty Start Date End Date Valeria Barnes FNP [address] [address] PCP - General NURSE PRACTITIONER 02/14/18
--- OUTSIDE RECORDS SUMMARY | 2024-04-23 12:22 | XMS_ITS | Encounter Summary ---
Author Organization [facility] Address [address] [place] [address] Care Team Providers Care Community Life Director Name Role Phone Sary Rodriguez APRN-DRY END OPERATOR Primary Care Provider Sary Rodriguez BELLPERSON-DRY END OPERATOR Primary Care Provider Encounter Details Date Type Department Care Team (Late st Contact Info) Description 02/05/2022 Telephone [facility] [address] [place] [address] Kamlesh Neri MD [address] [place] [phone] Social History Tobacco Use Types Packs/Day Years Used Date Smoking Tobacco: Every Day Cigarettes Smokeless Tobacco: Never Alcohol Use Standard Drinks/Week Comments Never 0 (1 standard drink = 0.6 oz pur e alcohol) PHQ-2 Answer Date Recorded PHQ2 TOTAL SCORE 0 12/12/2020 Sex and Gender Information Value Date Recorded Sex Assigned at Not on file Gender Identity Not on file Sexual Orientation Not on file documented as of this encounter Miscellaneous Notes * Telephone Encounter - Amy Medina - 02/05/2022 12:14 PM CST Patient called in requesting a Med refill. Drug type:[facility]PROXEN [facility] [address] Patient call back number: [phone] EMAKING SUPERVISOR documented in this encounter Plan of Treatment Upcoming Encounters Date Type Department Care Team (Late st Contact Info) Description 06/02/2024 3:00 PM CDT Office Visit [facility] - Rheumatology [address] [facility], [place] [address] Vito Avila MD [address] [place] [address] [place] [phone] documented as of this encounter Visit Diagnoses Not on filedocumented in this encounter Care Teams Community Life Director Relationship Specialty Start Date End Date Sary Rodriguez APRN-CNP [address] [place], [place] [phone] PCP - General 09/18/21 03/05/23 Sary Rodriguez APRN-CNP [address] [place] [phone] PCP - General Nurse Practitioner Family 03/06/23 documented as of this encounter
--- OUTSIDE RECORDS SUMMARY | 2024-04-23 12:22 | XMS_ITS | Continuity of Care Document ---
Author Organization [facility] Address [address] [facility] [place] [address] [place] [address] Phone Care Team Providers Care Ex Chef Name Role Phone Tae London MD Unavailable Unavailable Advance Directives Directive Yes / No Effective Date File Name No Information Encounters Encounter Description Practice Location Reason(s) For Visit Diagnoses Date Provider Providers Copied on Encounter [facility], [address] [place], [place], [id number], [place] tel:[phone] [facility] No Information Surya Strong. [address] [place], [place], [id number], [place]. tel:[phone] Family History Family Member Type Diagnosis Age [...]
--- OUTSIDE RECORDS SUMMARY | 2024-04-23 12:22 | XMS_ITS | Clinical Summary ---
Author Organization [address] Address [address] [place] [address] [facility] [place] [address] Phone Care Team Providers Care Switchboard Installer Name Role Phone Sary Rodriguez APRN, ZENOBIA Primary Care Pro vider Allergies Active Allergy Reactions Criticality Noted Date Comments Amoxicillin Unknown,Hives,Other (see Comments) Medium 06/01/2018 Skin red and head hot Latex Hives,Other (see Comments) Medium 06/01/2018 Sulfamethoxazole-Trimet hoprim Hives,Unknown Medium 02/14/2018 Medications Cimzia 2 X 200 MG/ML Prefilled Syringe Kit every 30 days. 4 Active ergocalciferol (VITAMIN D) 12099 UNIT Capsule once a week. 4 Active Symbicort 160-4.5 MCG/ACT Aerosol 4 Active albuterol 108 (90 Base) MCG/ACT Aerosol Solution INHALE 1-2 PUFFS BY MOUTH EVERY 4 HOURS NEEDED FOR WHEEZING OR SHORTNESS OF BREATH. Active Active Problems Problem Noted Date Diagnosed Date Chronic SI joint pain 06/10/2023 Left knee pain 05/13/2023 Lumbar radiculopathy 04/15/2023 Lumbar spondylosis 04/15/2023 Lumbar pain 04/15/2023 Left hip pain 03/18/2023 Left leg pain 03/18/2023 Left leg swelling 03/18/2023 Family History Medical History Relation Name Comments Lupus Mother Thyroid Disease Mother Diabetes Sister Relation Name Status Comments Mother Sister Social History Tobacco Use Types Packs/Day Years Used Date Smoking Tobacco: Every Day Cigarettes Smokeless Tobacco: Never Tobacco Cessation:Ready to Q uit: Not Asked; Counseling Given: Not Answered Alcohol Use Standard Drinks/Week Comments Yes 0 (1 standard drink = 0.6 oz pur e alcohol) occasionally Comments Unknown Sex and Gender Information Value Date Recorded Sex Assigned at Female 03/18/2023 10:56 AM DIRECTOR OF EMERGENCY NURSING Legal Sex Female 2:15 PM DIRECTOR OF EMERGENCY NURSING Gender Identity Female 03/18/2023 10:56 AM DIRECTOR OF EMERGENCY NURSING Sexual Orientation Not on file Last Filed Vital Signs Vital Sign Reading Time Taken Comments Blood Pressure 121/81 07/03/2023 11:31 AM CDT Pulse 100 07/29/2023 2:14 PM CDT Temperature 36.6 C (97.8 F) 07/29/2023 2:14 PM CDT Respiratory Rate 16 07/03/2023 11:31 AM CDT Oxygen Saturation 98% 07/29/2023 2:14 PM CDT Inhaled Oxygen Concentration - - Weight 123.8 kg (273 lb) 07/03/2023 11:30 AM CDT Height 167.6 cm (5' 6 ) 07/03/2023 11:30 AM CDT Body Mass Index 44.06 07/03/2023 11:30 AM CDT Plan of Treatment Health Maintenance Due Date Last Done Comments Hepatitis C Virus (HCV) Screening 1993 TdaP Immunization 1993 Hepatitis B Immunization (1 of 3 - 19+ 3-dose series) 2012 Pneumococcal Immunization Co mbined (1 of 2 - PCV) 2012 Pap Smear 2014 Cervical Cancer Screening (CCS) 06/19/2023 HPV/Cotest 06/19/2023 Influenza Immunization (#1) 2023 12/18/2016 SARS-COV-2 Immunization ( season) 2023 Respiratory Syncytial Virus (RSV) Immunization (Adult) (1 - 1-dose 75+ series) 2068 Meningococcal Immunization (ACWY) Aged Out No longer eligible based on patient's age to complete this topic Rotavirus Immunization Aged Out No lo nger eligible based on patient's age to complete this topic Insurance MEDICAID [place] Care Teams Switchboard Installer Relationship Specialty Start Date End Date Sary Rodriguez APRN, COMPUTER GAME TESTER [address] [place] [address] PCP - General Certified Nurse Practitioner 03/10/23
--- OUTSIDE RECORDS SUMMARY | 2024-04-23 12:22 | XMS_ITS | Data Portability ---
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 This pains are present for several years now no specific inciting or trauma. She has seen Dr. Hallman recently for surgical evaluation and at this point was referred to us for consideration for injection therapy. She does not extend to physical therapy for this issue recently without much long-term improvement. No other recent injection therapy She does have an MRI of the lumbar spine which shows a right-sided disc protrusion at L5-S1 without any high-grade central canal stenosis there is some mild degenerative change at the L5-S1 level noted as well Overall symptoms are consistent with some discogenic axial pain as well as some right-sided L5 radicular pain. 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 Given her failure to improve with more than 6 weeks of physical therapy within the last 6 months as well as activity modification heat ice and NSAID therapy at maximum doses for 8 weeks I do think she would benefit from epidural steroid injection targeting the L5-S1 disc space. We will take an interlaminar right-sided paramedian approach for her for this. Depending on her response we could repeat this in the future as indicated. There does also appear to be some underlying myofascial component which we may need to address separately with trigger point injections Also may consider another NSAID therapy option for her depending on how she is doing after the epidural steroid injection. Will see her back here in the next 4 to 6 weeks to follow-up on her injection or sooner if needed. [email or web address] Not available 08/12/2023 11:52:45 Plan of Treatment Reminders Order Date Submit Date Provider Last Modified By Organization Details Last Modified Time Details Appointments None recorded. Lab None recorded. Referral None recorded. Procedures epidural steroid injection, lumbar (PROC) - #1 LESI L5/S1-[facility] 2023 024 [email or web address] Not available 15:41:35 Surgeries None recorded. Imaging None recorded. Medication Orders None recorded. Patient TargetsNo targets recorded. Patient Instructions Encounter Date Encounter Id Patient Instructions Last Modified By Organization Details Last Modified Time 08/12/2023 [id number] Opioid Risk Tool (ORT)* [email or web address] Not available 08/12/2023 11:52:48 Reason for Referral None Reported. Results Created Date Observation Date Name Description Value Unit Range Abnormal Flag Note LastModifiedBy Organization Detail LastModifiedTime 08/12/19 24 08/12/2023 Opioi d Risk Tool (ORT) * ORT 0 Not Available [address] , [place], [address], 08/11/2023 17:02:56 08/01/19 24 07/24/2023 MRI, lumba r spine , w/o contr ast No observ ation record ed. [email or web address] Not Available 08/03 10:23:31 08/01/19 24 07/03/2023 XR, hip + pelvi s, unila teral No observ ation record ed. [email or web address] Not Available 08/03 10:27:04 08/01/19 24 04/16/2023 XR, pelvi s No observ ation record ed. [email or web address] Not Available 08/03 10:28:15 08/01/19 24 04/16/2023 XR, lumba r spine No observ ation record ed. [email or web address] Not Available 08/03 10:28:41 08/01/1903/19/2023 US, duple x, venou s, lower extre mity No observ ation record ed. [email or web address] Not Available 08/03 10:30:27 Result Notes None recorded. Problems Name Problem SNOMED Code Status Onset Date Resolution Date Notes Provider Name and Address Organization Details Recorded Time Lumbar radiculopathy 396517909 Active 2023 KAUSHIK Faustin [facility] 17:03:01 Problem Notes None recorded. Procedures Surgical History Date Name Laterality Status Provider Name and Address Organization Details Recorded Time tonsillectomy completed Marcos FAULKNER [facility] 08/11/2023 17:01:07 Imaging Results Imaging Date Name Status LastModified by [facility] Details LastModified Time 07/24/2023 MRI, lumbar spine, w/o contrast completed [email or web address] Information not available 08/04/2023 10:23:31 07/03/2023 XR, hip + pelvis, unilateral completed [email or web address] Information not available 08/04/2023 10:27:04 04/16/2023 XR, pelvis completed [email or web address] Information no t available 08/04/2023 10:28:15 04/16/2023 XR, lumbar spine completed [email or web address] Information not available 08/04/2023 10:28:41 03/19/2023 US, duplex, venous, lower extremity completed [email or web address] Information not available 08/04/2023 10:30:27 Procedure Notes None recorded. Medical Equipment None Reported. Allergies Allergen ID Allergen Name Allergen Category Reaction Reaction Severity Criticality Documentation Date Start Date Code Code System Note Provider Name and Address Organization Details Recorded Time 354846 amoxicill in medicatio n Not available Not available Not available 08/12/2023 723 RxNorm KAUSHIK Pham [facility] 4 09:38:11 555199 Bactroban medicatio n Not available Not available Not available 08/12/2023 18666 1 RxNorm KAUSHIK Pham [facility] 4 09:38:23 Medications Name Sig Start Date Stop Date Status Note LastModified by Organization Details LastModified Time prednisone 10 mg tablet 08/11 completed Not Available Not Available Not Available benzonatate 200 mg capsule TAKE 1 CAPSULE (200 MG) BY MOUTH 3 TIMES DAILY NEEDED active Not Available Not Available No t Available metoclopram ham 5 mg tablet active Not Available Not Available Not Available cephalexin 500 mg capsule TAKE 1 CAPSULE BY MOUTH FOUR TIMES DAILY FOR 7 DAYS active Not Available Not Available No t Available oseltamivir 75 mg capsule TAKE 1 CAPSULE BY MOUTH TWICE A DAY FOR 5 DAYS active Not Available Not Available No t Available albuterol sulfate HFA 90 mcg/actuati on aerosol inhaler INHALE 1-2 PUFFS BY MOUTH EVERY 4 HOURS NEEDED FOR WHEEZING OR SHORTNESS OF BREATH. 08/11 completed Not Available Not Available Not Available dexamethaso ne 1.5 mg tablet TAKE ALL PILLS WITH FOOD. TAKE 3 PILLS ON DAYS 1-3, 2 PILLS DAYS 4-6 AND 1 PILL DAYS 7-9 active Not Available Not Available No t Available ondansetron 4 mg disintegrat ing tablet TAKE 1 TABLET BY MOUTH EVERY 8 HOURS NEEDED FOR NAUSEA active Not Available Not Available No t Available Cimzia 400 mg/2 mL (200 mg/mL x 2) subcutaneou s syringe kit active Not Available Not Available Not Available Vitals Date Recorded Body height Body mass index (BMI) Body weight Heart rate Oxygen saturation Oxygen saturation in Arterial blood by Pulse oximetry Systolic blood pressure Diastolic blood pressure Provider Name and Address Organization Details Last Updated DateTime 4 167.64 cm 42.4 kg/m2 921141. 79 g 84 /min 99 % 99 % 153 mm[Hg] 74 mm[Hg] Chloe Butts [facility] 4 09:37:55 Date Recorded Body height Body mass index (BMI) Body weight Oxygen saturation Oxygen saturation in Arterial blood by Pulse oximetry Heart rate Systolic blood pressure Diastolic blood pressure Provider Name and Address Organization Details Last Updated DateTime 4 167.64 cm 42.4 kg/m2 884560. 79 g 99 % 99 % 88 /min 142 mm[Hg] 84 mm[Hg] Karen Gutierrez [facility] 4 09:31:11 Social History Question Answer Notes LastModified by Organizat ion Details LastModified Time Tobacco Smoking Status Current Every Day Smoker Marcos KAUSHIK [facility] 08/11/2023 17:02:32 Do You Have An Advance Directive? No Information not available 08/12/2023 What Is Your Level Of Alcohol Consumption? Occasional Information not available 08/11/2023 Are You Currently Employed? Yes Information not available 08/12/2023 What Type Of Diet Are You Following? REGULAR Information not available 08/12/2023 Which Illicit Or Recreational Drugs Have You Used? Marijuana Information not available 08/11/2023 What Is The Highest Grade Or Level Of School You Have Completed Or The Highest Degree You Have Received? SC18675-4 Information not available 08/12/2023 What Is Your Occupation? [employer] Information not available 08/12/2023 Do You Have A Medical Power Of Campaign Worker? No Information not available 08/12/2023 What Was The Date Of Your Most Recent Tobacco Screening? 09/10/2023 [email or web address] Information not available 09/10/2023 What Is Your Relationship Status? Single Information not available 08/11/2023 How Much Tobacco Do You Smoke? 0.25 PPD Information not available 08/11/2023 Do You Use Any Illicit Or Recreational Drugs? Yes Information not available 08/11/2023 Sex: Unknown Functional Status Question Answer Note LastModified by Organization D etails LastModified Time What is your exercise level? None Information not available 08/12/2023 Mental Status None recorded. Family History Relationship Description Onset Age of this Age Resolved Age Notes LastModified by Organization Details LastModified Time Father No current problems or disability Not available 08/11 09:39:01 Mother No current problems or disability Not available 08/11 09:39:01 Medical History Condition Response Bipolar Disease N Coronary Artery Disease N Gout N Seizure Disorder N Thyroid Disease N Atrial Fibrillation N Hernia N Head Trauma/Injury N COPD N Depression Y Anxiety Disorder N Acid Reflux (GERD) N Cancer N Skin Disorder N Stroke N High Cholesterol N Liver Disease N Rheumatoid Arthritis Y Fibromyalgia N Headaches N Autoimmune Disease N Kidney Disease N Osteoarthritis N Neurosurgery N DVT N Peptic Ulcer Disease N Anemia N Heart Attack ([place]) N Diabetes N Cardiomyopathy N Bleeding Disorder N CHF N AIDS/HIV N Inflammatory Bowel Disease N Dementia N Asthma Y Substance Abuse N Sleep Apnea N Hepatitis N Heart Disease N Pulmonary Embolism N Chronic Low Back Pain Y Hypertension N Osteoporosis N Gynecological HistoryNo gynecological history recorded. Obstetrics History GPAL:G 0 P 0 0 0 0 Past Encounters Encounter ID Performer Location Encounter Start Date Encounter Closed Date Diagnosis/Indication Diagnosis SNOMED-CT Code Diagnosis ICD10 Code Diagnosis Note [id number] Francis Red DO [facility] [address] [place] [address] 08/12/2023 09:20:50 08/12/2023 10:06:04 Long-term drug therapy [id number] Z79.899 ORT and PHQ-9 testing was completed to evaluate the patient's psychosoci al health to better determine baseline risk as we consider initiating opioid medication s. The patient's ORT score of 0 indicates low risk potential for medication misuse. The patients PHQ-9 of 0 indicates low depression . Lumbar radiculopathy 128 899768 M54.16 Health Concerns Section Related Observation LastModified by Organization Detai ls LastModified Time None Recorded Concern Status LastModified by Organization Details LastModified Time None Recorded Advance Directives Directive N: Payers Encounter Date Sequence Insurance Name Policy Number Policy Santiago Covered Member ID Santiago Member ID Guarantor Name 08/12/2023 1 [employer] (MEDICAID HMO) [id number] Cruz Tejada [id number] Cruz [place] Notes Date Note Type Note Provider Name and Address Organization Details Recorded Time 08/12/2023 text/html Low back painRep orted bypatient.Onset:date of onset: (3+ years due to arthritis) Location:paraspinal: bilateral (R>L); buttock: bilateral; radiating down the right lower extremity to the foot (dorsal aspect to foot) Duration:varies throughout the day Context:started without cause Quality:aching; burning; stabbing; throbbing Pain IntensitySevere; current pain level: 7/10; average pain level: 6/10; worst pain level: 8/10 Alleviating Factors:sitting; changing positions; heat; ice; rest Aggravating Factors:walking; lifting; carrying; twisting; bending/squatting Associated Symptoms:no weakness; no numbness; no tingling; no swelling; no popping/clicking; no bowel incontinence; no urinary retention; no urinary incontinence; no perineal paresthesia/anesthesia Functional Assessment of ADLsLiving independently.; Able to bathe/groom without assistance.;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 Prior Imaging:MRI (07/24/2023) Lumbar Surgery:none Physical Therapy:completed all recommended PT visits; complete more than 6weeks; response to therapy: no improvement in pain/symptoms; 23 session for lumbar spine Adverse Reactions:No nausea; No vomiting; No constipation; No itching; No respiratory depression; No sexual dysfunction Prior Pain Management:no Oswestry Disability Index (SIERRA)Score/Date Completed: (08/12/2023) For Female Patients:Are you ? NoNotes:Previous Conservative Treatments/Meds: NSAIDs: Ibuprofen-, ineffectiveMuscle Relaxers: denies allNeuropathic Meds: denies allNarcotic Meds: denies all Previous Treatments:Physical Therapy: completed PT for 23 sessions 04/2023-07/2023-not effectivePain Management: deniesSurgeon Salguero: Dr. Hallman-no surgery neededInjection Therapy: denies Imagin07/24/2023 MRI lumbar Spine 07/03/2023 XR HIP PELVIS Francis Red, DO [address] [place] [address], [id number], [facility] 08/12/2023 11:53:44 OBGyn Episode No OBEpisode recorded.
--- OUTSIDE RECORDS SUMMARY | 2024-04-23 12:22 | XMS_ITS | Patient Health Summary ---
Author Organization [facility] Address [address] [place] [address] Care Team Providers Care Patent Lawyer Name Role Phone Sary Rodriguez APRN-GENERAL HOUSE WORKER Primary Care Provider Note from [facility],non-owned Affiliates and Associated Physician Practices is amultiple site organization consisting of ambulatory clinics and hospital sitesin [place], [place], [place] and [place]. This disclosure is being madepursuant to the Care Everywhere program and may not contain all information available regarding this patient. Last updated 17.[facility] Allergies * Amoxicillin(Urticaria,Other,Fever) -Medium Criticality * Grass Pollen(K-O-R-T-Swt Ryan)(Urticaria) -Medium Criticality * Latex(Urticaria) -Medium Criticality * Sulfamethoxazole W-Trimethoprim(Urticaria) -Medium Criticality Medications * Be aware that medications may not be up to date on this document. Alwaysverify current medications with the patient. * Symbicort 160-4.5 MCG/ACT inhaler(Started 12/26/2021) * cyclobenzaprine (Flexeril) 10 MG tablet(Started 07/10/2022) Take 1 (one) tablet by mouth 3 times daily as needed * ondansetron, disintegrating, (Zofran ODT) 8 MG tablet(Started 10/27/2023) DISSOLVE 1 TABLET ON THE TONGUE TWICE DAILY * certolizumab pegol (Cimzia, 2 Syringe,) injection(Started 04/01/2024) INJECT 2 SYRINGES UNDER THE SKIN EVERY 4 WEEKS 2 refills by 04/01/2025 Ended Medications* Cimzia, 2 Syringe, injection(Started 03/09/2024)(Discontinued) INJECT 2 SYRINGES UNDER THE SKIN EVERY 4 WEEKS Active Problems Problem Noted Date Diagnosed Date Eczematous skin lesions 03/06/2023 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 (FLUZONE; FLULAVAL; FLUARIX; AFLURIA QUADRIVALENT; 6MO+), 0.5 ML (IIV4)(Given 12/18/2016) Social History Tobacco Use Types Packs/Day Years Used Date Smoking Tobacco: Every Day Cigarettes Smokeless Tobacco: Never Tobacco Cessation:Ready to Q uit: Not Asked; Counseling Given: Not Answered Alcohol Use Standard Drinks/Week Comments Never 0 (1 standard drink = 0.6 oz pur e alcohol) PHQ-2 Answer Date Recorded Patient Health Questionnaire-2 Score 0 10/29/2023 Estimated Date of Delivery Comme nts Yes 04/25/2024 Sex and Gender Information Value Date Recorded Sex Assigned at Not on file Gender Identity Not on file Sexual Orientation Not on file Last Filed Vital Signs Vital Sign Reading Time Taken Comments Blood Pressure 118/84 10/29/2023 2:19 PM CDT Pulse 102 10/29/2023 2:19 PM CDT Temperature 36.7 C (98.1 F) 10/29/2023 2:19 PM CDT Respiratory Rate 20 09/19/2021 10:39 AM CDT Oxygen Saturation 97% 10/29/2023 2:19 PM CDT Inhaled Oxygen Concentration - - Weight 124.3 kg (274 lb) 10/29/2023 2:19 PM CDT Height 165.1 cm (5' 5 ) 10/29/2023 2:19 PM CDT Body Mass Index 45.6 10/29/2023 2:19 PM CDT Procedures * COMPREHENSIVE METABOLIC PANEL(Performed 09/19/2021) Performed for Long-term use of immunosuppressant medication, skilled nursing current use of ajx-artuazikzkxqu-gmjtotuxwciubt (NSAID) * CBC W AUTO DIFFERENTIAL(Performed 09/19/2021) Performed for Axial spondyloarthritis (HCC), Long-term use of immunosuppressant medication, 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 non-steroidal anti-inflammatories (NSAID) * CBC W AUTO DIFFERENTIAL(Performed 06/29/2021) Performed for Therapeutic drug monitoring, Long-term use of immunosuppressant medication * QUANTIFERON-TB GOLD PLUS 4-TUBE(Performed 06/29/2021) Performed for Therapeutic drug monitoring, Long-term use of immunosuppressant medication * HEPATITIS C ANTIBODY(Performed 06/29/2021) Performed for Need for hepatitis C screening test, Therapeutic drug monitoring, Long-term use of immunosuppressant medication * HEPATITIS B SURFACE ANTIGEN W RFLX CONFIRMATION(Performed 06/29/2021) Performed for Need for hepatitis C screening test, Need for hepatitis B screening test, Therapeuticdrug monitoring, Long-term use of immunosuppressant medication * HEPATITIS B SURFACE ANTIBODY(Performed 06/29/2021) Performed for Need for hepatitis C screening test, Need for hepatitis B screening test, Therapeuticdrug monitoring, Long-term use of immunosuppressant medication * HEPATITIS B CORE ANTIBODY TOTAL(Performed 06/29/2021) Performed for Need for hepatitis C screening test, Need for hepatitis B screening test, Therapeuticdrug monitoring, Long-term use of immunosuppressant medication * ERYTHROCYTE SEDIMENTATION RATE(Performed 06/29/2021) Performed for Therapeutic drug monitoring, Long-term use of immunosuppressant medication * CREATININE BLOOD(Performed 06/29/2021) Performed for Therapeutic drug monitoring, Long-term use of immunosuppressant medication * BUN(Performed 06/29/2021) Performed for Therapeutic drug monitoring, Long-term use of immunosuppressant medication * C-REACTIVE PROTEIN(Performed 06/29/2021) Performed for Therapeutic drug monitoring, Long-term use of immunosuppressant medication * AST BLOOD(Performed 06/29/2021) Performed for Therapeutic drug monitoring, Long-term use of immunosuppressant medication * ALT(Performed 06/29/2021) Performed for Therapeutic drug monitoring, Long-term use of immunosuppressant medication * MRI SACRUM SI JOINTS WO CONTRAST(Performed 12/30/2020) Performed for Heel pain, chronic, right, Greater trochanteric pain syndrome of right lower extremity, Chronic pain of right knee * XR SI JOINTS 3VW OR MORE(Performed 12/12/2020) Performed for Heel pain, chronic, right, Greater trochanteric pain syndrome of right lower extremity, Chronic pain of right knee * XR KNEE RIGHT 4VW OR MORE(Performed 12/12/2020) Performed for Heel pain, chronic, right, Greater trochanteric pain syndrome of right lower extremity, Chronic pain of right knee * XR ANKLE RIGHT 3VW OR MORE(Performed 12/12/2020) Performed for Heel pain, chronic, right, Greater trochanteric pain syndrome of right lower extremity, Chronic pain of right knee * ERYTHROCYTE SEDIMENTATION RATE(Performed 12/12/2020) Performed for Heel pain, chronic, right, Greater trochanteric pain syndrome of right lower extremity, Chronic pain of right knee * CREATININE BLOOD(Performed 12/12/2020) Performed for Heel pain, chronic, right, Greater trochanteric pain syndrome of right lower extremity, Chronic pain of right knee * BUN(Performed 12/12/2020) Performed for Heel pain, chronic, right, Greater trochanteric pain syndrome of right lower extremity, Chronic pain of right knee * C-REACTIVE PROTEIN(Performed 12/12/2020) Performed for Heel pain, chronic, right, Greater trochanteric pain syndrome of right lower extremity, Chronic pain of right knee * CBC W AUTO DIFFERENTIAL(Performed 12/12/2020) Performed for Heel pain, chronic, right, Greater trochanteric pain syndrome of right lower extremity, Chronic pain of right knee * AST BLOOD(Performed 12/12/2020) Performed for Heel pain, chronic, right, Greater trochanteric pain syndrome of right lower extremity, Chronic pain of right knee * ALT(Performed 12/12/2020) Performed for Heel pain, chronic, right, Greater trochanteric pain syndrome of right lower extremity, Chronic pain of right knee * HLA TYPING B27(Performed 12/12/2020) Performed for Heel pain, chronic, right, Greater trochanteric pain syndrome of right lower extremity, Chronic pain of right knee * CULTURE URINE(Performed 02/14/2014) * CULTURE URINE(Performed 01/26/2014) * CULTURE URINE(Performed 01/23/2014) * CULTURE URINE(Performed 12/14/2013) * CULTURE AEROBIC + GRAM STAIN(Performed 07/02/2013) * CULTURE AEROBIC(Performed 07/02/2013) * CULTURE BLOOD(Performed 06/20/2013) Results * CBC WITH DIFFERENTIAL (09/19/2021 11:48 AM T) Only the most recent of3 resultswithin the time period is included. WBC 10.3 3.5 - 10.5 10 3/uL 09/19/2021 12:29 PM [facility] RBC 4.55 3.80 - 5.20 10 6/uL 09/19/2021 12:29 PM [facility] Hemoglobin 13.4 12.0 - 15.6 g/dL 09/19/2021 12:29 PM [facility] Hematocrit 41.1 35.0 - 45.0 % 09/19/2021 12:29 PM [facility] MCV 90.3 80.7 - 98.3 fL 09/19/2021 12:29 PM [facility] MCH 29.5 26.7 - 34.0 pg 09/19/2021 12:29 PM [facility] MCHC 32.6 30.8 - 35.9 g/dL 09/19/2021 12:29 PM [facility] Platelet Count 306 150 - 400 10 3/uL 09/19/2021 12:29 PM [facility] RDW-SD 45.2 36.0 - 50.0 fL 09/19/2021 12:29 PM [facility] RDW-CV 13.6 11.2 - 14.8 % 09/19/2021 12:29 PM [facility] MPV 10.1 9.4 - 12.9 fL 09/19/2021 12:29 PM [facility] nRBC Absolute 0.00 0 10 3/uL 09/19/2021 12:29 PM [facility] nRBC Auto 0.0 0 /100 WBC 09/19/2021 12:29 PM [facility] Neutrophils % 57.1 35.0 - 70.0 % 09/19/2021 12:29 PM [facility] Lymphocytes % 32.7 20.0 - 43.0 % 09/19/2021 12:29 PM [facility] Monocytes % 7.8 5.0 - 13.0 % 09/19/2021 12:29 PM [facility] Eosinophils % 1.0 0.0 - 6.0 % 09/19/2021 12:29 PM [facility] Basophil % 0.6 0.0 - 2.0 % 09/19/2021 12:29 PM [facility] Neutrophils Absolute 5.89 1.60 - 7.00 10 3/uL 09/19/2021 12:29 PM [facility] Lymphocyte Absolute 3.36 1.10 - 3.90 10 3/uL 09/19/2021 12:29 PM [facility] Monocytes Absolute 0.80 0.26 - 1.07 10 3/uL 09/19/2021 12:29 PM [facility] Eosinophils Absolute 0.10 0.00 - 0.47 10 3/uL 09/19/2021 12:29 PM [facility] Basophils Absolute 0.06 0.00 - 0.08 10 3/uL 09/19/2021 12:29 PM [facility] Immature Granulocytes % 0.8 0.0 - 1.0 % 09/19/2021 12:29 PM [facility] Immature Granulocytes Absolute 0.08 09/19/2021 12:29 PM [facility] Blood BLOOD SPECIMEN / Unknown Lab Venipuncture / Unknown 09/19/2021 11:48 AM CDT 09/19/2021 12:24 PM T Aristeo Landon MD LAB - HEMATOLOGY ORD ERABLES [facility] [address] [place] [address], [facility] [phone] * (ABNORMAL) COMPREHENSIVE METABOLIC PANEL (09/19/2021 11:48 AM CDT) BUN 11 7 - 26 mg/dL 09/19/2021 12:56 PM [facility] Creatinine 0.67 0.56 - 0.96 mg/dL 09/19/2021 12:56 PM [facility] Sodium 139 136 - 145 mmol/L 09/19/2021 12:56 PM [facility] Potassium 4.2 3.5 - 4.5 mmol/L 09/19/2021 12:56 PM [facility] Chloride 106 98 - 107 mmol/L 09/19/2021 12:56 PM [facility] CO2 22 22 - 29 mmol/L 09/19/2021 12:56 PM [facility] Glucose 91 70 - 115 mg/dL 09/19/2021 12:56 PM [facility] Calcium 9.1 8.4 - 10.2 mg/dL 09/19/2021 12:56 PM [facility] Protein Total 7.9 6.0 - 8.3 g/dL 09/19/2021 12:56 PM [facility] Albumin 3.8 3.4 - 5.0 g/dL 09/19/2021 12:56 PM [facility] Bilirubin Total 0.6 0.2 - 1.2 mg/dL 09/19/2021 12:56 PM [facility] Alkaline Phosphatase 72 40 - 150 U/L 09/19/2021 12:56 PM [facility] ALT 16 5 - 55 U/L 09/19/2021 12:56 PM [facility] AST 12 5 - 34 U/L 09/19/2021 12:56 PM [facility] Anion Gap 15 8 - 18 09/19/2021 12:56 PM [facility] BUN/Creatinine Ratio 16 7 - 23 09/19/2021 12:56 PM [facility] Osmolality Calculated 287 270 - 300 mOsm/kg 09/19/2021 12:56 PM [facility] Albumin/Globulin Ratio 0.9(L) 1.1 - 2.3 09/19/2021 12:56 PM [facility] eGFR by CKD-EPI >90 >=90 mL/min/1.7 3 m2 09/19/2021 12:56 PM [facility] Blood BLOOD SPECIMEN / Unknown Lab Venipuncture / Unknown 09/19/2021 11:48 AM CDT 09/19/2021 12:24 PM T Aristeo Landon MD LAB - CHEMISTRY ORDChris [facility] Organization Address City/State/ZIP Co de Phone Number [facility] [address] [place] [address], [facility] [phone] * QUANTIFERON-TB GOLD PLUS 4-TUBE (06/29/2021 4:51 PM CDT) [facility] QuantiFERON NIL 0.02 IU/mL 2 9:11 PM CDT [facility] ([facility]) Comment: Performed By: [facility] [address] [place] [id number] Cytology Teacher: Kasey Whitlock MD QuantiFERON TB Gold Plus Negative Negative 07/02/2021 9:11 PM CDT [facility] ([facility]) Comment: Interpretive Data: Quantiferon TB Gold Plus Interferon gamma release is measured for specimens from each of the four collection tubes. A qualitative result (Negative, Positive, or Indeterminate) is based on interpretation of the four values, NIL, MITOGEN minus NIL (MITOGEN-NIL), TB1 minus NIL (TB1-NIL), and TB2 minus NIL (TB2-NIL). The NIL value represents nonspecific reactivity produced by the patient specimen. The MITOGEN-NIL value serves as the positive control for the patient specimen, demonstrating successful lymphocyte activity. The TB1-NIL tube specifically detects CD4+ lymphocyte reactivity, specifically stimulated by the TB1 antigens. The TB2-NIL tube detects both CD4+ and CD8+ lymphocyte reactivity, stimulated by TB2 antigens. An overall Negative result does not completely rule out TB infection. A false-positive result in the absence of other clinical evidence of TB infection is not uncommon. Refer to: Updated Guidelines for Using Interferon Gamma Release Assays to Detect Mycobacterium tuberculosis Infection --- [place], 2010 (http://www.cdc.gov/mmwr/preview/mmwrhtml/hl8573b3.htm), for more information concerning test performance in low-prevalence populations and use in occupational screening. QuantiFERON Plus TB1 Minus NIL 0.00 0.00 - 0.34 IU/mL 07/02/2021 9:11 PM CDT [facility] ([facility]) QuantiFERON Plus TB2 Minus NIL 0.00 0.00 - 0.34 IU/mL 07/02/2021 9:11 PM CDT [facility] ([facility]) QuantiFERON Mitogen Minus NIL >10.00 IU/mL 07/02/2021 9:11 PM CDT [facility] ([facility]) Blood BLOOD SPECIMEN / Unknown Lab Venipuncture / Unknown 06/29/2021 4:51 PM CDT 06/29/2021 5:18 PM CDT Renetta Rice MD LAB - CHEMISTRY ORDERABLES Performing Organization Address City/[facility]/ZIP Co de Phone Number [facility]) [address] [place], [place] [id number] [place] [address] * (ABNORMAL) C-REACTIVE PROTEIN (06/29/2021 4:51 PM CDT) Only the most recent of2 resultswithin the time period is included. C-Reactive Protein 1.2(H) <=0.5 mg/dL 06/29/2021 6:12 PM CDT [facility] Blood BLOOD SPECIMEN / Unknown Lab Venipuncture / Unknown 06/29/2021 4:51 PM CDT 06/29/2021 5:19 PM CDT Renetta Rice MD LAB - CHEMISTRY ORDERABLES Performing Organization Address [facility] Co de Phone Number [address] [address], [facility] [phone] * (ABNORMAL) ERYTHROCYTE SEDIMENTATION RATE (06/29/2021 4:51 PM CDT) Only the most recent of2 resultswithin the time period is included. Erythrocyte Sedimentation Rate Westergren 22(H) 0 - 20 MM/HR 06/29/2021 5:51 PM CDT [facility] Blood BLOOD SPECIMEN / Unknown Lab Venipuncture / Unknown 06/29/2021 4:51 PM CDT 06/29/2021 5:24 PM CDT Renetta Rice MD LAB - HEMATOLOG Y ORDERABLES Performing Organization Address City/[facility]/ZIP Co de Phone Number [address] [address], [facility] [phone] * ALT (06/29/2021 4:51 PM CDT) Only the most recent of2 resultswithin the time period is included. ALT 15 5 - 55 U/L 06/29/2021 5:49 PM CDT [facility] Blood BLOOD SPECIMEN / Unknown Lab Venipuncture / Unknown 06/29/2021 4:51 PM CDT 06/29/2021 5:24 PM CDT Renetta Rice MD LAB - CHEMISTRY ORDERABLES Performing Organization Address City/[facility]/ZIP Co de Phone Number [address] [address], [facility] [phone] * AST BLOOD (06/29/2021 4:51 PM CDT) Only the most recent of2 resultswithin the time period is included. AST 14 5 - 34 U/L 06/29/2021 5:49 PM CDT [facility] Blood BLOOD SPECIMEN / Unknown Lab Venipuncture / Unknown 06/29/2021 4:51 PM CDT 06/29/2021 5:24 PM CDT Renetta Rice MD LAB - CHEMISTRY ORDERABLES Performing Organization Address City/[facility]/ZIP Co de Phone Number [address] [address], [facility] [phone] * HEPATITIS B SURFACE ANTIBODY (06/29/2021 4:51 PM CDT) Pathologist [facility] Hepatitis B Virus Surface Antibody Non-react jan Non-react jan 06/29/2021 6:33 PM CDT [facility] Comment: < 8 mIU/mL Hepatitis B surface Antibody (HBsAb). Nonreactive for HBsAb - individual is considered not immune to Hepatitis B Virus infection. Hepatitis B Surface Antibody Quantitative 5.3 <8.0 mIU/mL 06/29/2021 6:33 PM CDT [facility] Comment: Hepatitis B Surface Antibody Numeric Result Interpretation: Nonreactive: <8.0 mIU/mL Indeterminate: 8.0 - 12.0 mIU/mL Reactive: >12.0 mIU/mL Blood BLOOD SPECIMEN / Unknown Lab Venipuncture / Unknown 06/29/2021 4:51 PM CDT 06/29/2021 5:19 PM CDT Renetta Rice MD LAB - CHEMISTRY ORDERABLES Performing Organization Address City/[facility]/ZIP Co de Phone Number [address] [address], [place] [phone] * HEPATITIS B CORE ANTIBODY (06/29/2021 4:51 PM CDT) HBc Antibody Total Non-reacti ve Non-reacti ve 06/29/2021 6:33 PM CDT [facility] Blood BLOOD SPECIMEN / Unknown Lab Venipuncture / Unknown 06/29/2021 4:51 PM CDT 06/29/2021 5:19 PM CDT Renetta Rice MD LAB - CHEMISTRY ORDERABLES Performing Organization Address City/[facility]/ZIP Co de Phone Number [address] [address], [place] [phone] * HEPATITIS B SURFACE ANTIGEN W RFLX CONFIRMATION (06/29/2021 4:51 PM CDT) Hepatitis B Virus Surface Antigen Non-reacti ve Non-reacti ve 06/29/2021 6:33 PM CDT [facility] Blood BLOOD SPECIMEN / Unknown Lab Venipuncture / Unknown 06/29/2021 4:51 PM CDT 06/29/2021 5:19 PM CDT Renetta Rice MD LAB - CHEMISTRY ORDERABLES Performing Organization Address City/[facility]/ZIP Co de Phone Number [address] [address], [place] [phone] * CREATININE BLOOD (06/29/2021 4:51 PM CDT) Only the most recent of2 resultswithin the time period is included. Creatinine 0.67 0.56 - 0.96 mg/dL 06/29/2021 5:49 PM CDT [facility] eGFR by CKD-EPI >90 >=90 mL/min/1.7 3 m2 06/29/2021 5:49 PM CDT [facility] Blood BLOOD SPECIMEN / Unknown Lab Venipuncture / Unknown 06/29/2021 4:51 PM CDT 06/29/2021 5:24 PM CDT Renetta Rice MD LAB - CHEMISTRY ORDERABLES [address] [address], [facility] [phone] * BUN (06/29/2021 4:51 PM CDT) Only the most recent of2 resultswithin the time period is included. Pathologist [facility] BUN 11 7 - 26 mg/dL 06/29/2021 5:49 PM CDT [facility] Blood BLOOD SPECIMEN / Unknown Lab Venipuncture / Unknown 06/29/2021 4:51 PM CDT 06/29/2021 5:24 PM CDT Renetta Rice MD LAB - CHEMISTRY ORDERABLES Performing Organization Address City/[facility]/ZIP Co de Phone Number [address] [address], [place] [phone] * HEPATITIS C ANTIBODY (06/29/2021 4:51 PM CDT) Pathologist [facility] Hepatitis C Antibody Non-react jan Non-reac tive 06/29/2021 6:33 PM CDT [facility] Comment:Hepatitis C Antibody screen indicates no serologic evidence of past or current infection with Hepatitis C Virus. Patients with unexplained liver disease who are immunocompromised or suspected of having acute Hepatitis C infection may benefit from Nucleic Acid Test (DAX) for Hepatitis C Viral RNA to confirm Hepatitis C status. Blood BLOOD SPECIMEN / Unknown Lab Venipuncture / Unknown 06/29/2021 4:51 PM CDT 06/29/2021 5:19 PM CDT Renetta Rice MD LAB - CHEMISTRY ORDERABLES [facility] [place] [id number] [place] [address], [facility] [phone] * MRI SACRUM SI JOINTS WO CONTRAST (12/30/2020 10:00 AM [facility] ATTENDANT) Anatomical Region Laterality Modality Spine, Pelvis Magnetic Resonan ce 01/01/2021 8:39 AM [facility] ATTENDANT Impressions 01/01/2021 9:43 AM [facility] ATTENDANT IMPRESSION: 1.Findings consistent with mild to moderate right and mild left sacroiliitis. Bilateral asymmetric sacroiliitis can be seen with reactive arthritis or psoriatic arthritis. 2.Very mild bone marrow edema in the medial aspects of the femoral heads, right greater than left, potentially related to the same process. 3.Mild degenerative disc disease at L5-S1. Report dictated by Dalia Dao MD (professor of radiology). I, Dr. STEVE SHAIKH MD have personally reviewed and interpreted this examination/study. This report was electronically signed by STEVE SHAIKH MD on 01/01/2021 9:43 AM . Narrative 01/01/2021 9:43 AM [facility] ATTENDANT EXAMINATION: Magnetic resonance imaging (MRI) of the sacroiliac joints without contrast HISTORY: M79.671: Heel pain, chronic, right G89.29: Heel pain, chronic, right M25.551: Greater trochanteric pain syndrome of right lower extremity M25.561: Chronic pain of right knee G89.29: Chronic pain of right knee TECHNIQUE: MRI of the sacroiliac joints was performed using multiple pulse sequences in multiple planes without contrast. COMPARISON: SI joint radiograph dated 12/12/2020 FINDINGS: There is hypointense signal on the T1 and T2-weighted images along both sides of the mid to inferior aspect of the right sacroiliac joint corresponding to sclerosis on the radiographs. There are intermixed areas of T2 hyperintense signal representing bone marrow edema. There are small subchondral cysts and erosions, greater at the sacral side of the joint (series 3 image 15-18, series 7 image 18-20). There are more mild changes at the left sacroiliac joint with very mild sclerosis, bone marrow edema, and small subchondral cysts. The femoral heads are normal in contour and appropriately seated within their acetabula. There is mild bone marrow edema in the medial aspects of the femoral heads, right greater than left (series 7 image 10-11). The articular cartilage in the hips is normal. There is no effusion. There is no femoral head avascular necrosis. There is degenerative signal in the L5-S1 intervertebral disc. Minimal retrolisthesis of L5 on S1. Marrow signal intensity is otherwise normal. The muscles are normal in bulk and signal intensity. The subcutaneous tissue is normal. The gluteal, iliopsoas, and proximal hamstring tendons are normal. The visible pelvic viscera are unremarkable. Procedure Note Steve Shaikh MD - 01/01/2021 EXAMINATION: Magnetic resonance imaging (MRI) of the sacroiliac joints without contrast HISTORY: M79.671: Heel pain, chronic, right G89.29: Heel pain, chronic, right M25.551: Greater trochanteric pain syndrome of right lower extremity M25.561: Chronic pain of right knee G89.29: Chronic pain of right knee TECHNIQUE: MRI of the sacroiliac joints was performed using multiplepulse sequences in multiple planes without contrast. COMPARISON: SI joint radiograph dated 12/12/2020 FINDINGS: There is hypointense signal on the T1 and T2-weighted images along both sides of the mid to inferior aspect of the right sacroiliac joint corresponding to sclerosis on the radiographs. There are intermixedareas of T2 hyperintense signal representing bone marrow edema. There aresmall subchondral cysts and erosions, greater at the sacral side of the joint (series 3 image 15-18, series 7 image 18-20). There are more mild changes at the left sacroiliac joint with very mild sclerosis, bone marrow edema, and small subchondral cysts. The femoral heads are normal in contour and appropriately seated within their acetabula. There is mild bone marrow edema in the medial aspectsof the femoral heads, right greater than left (series 7 image 10-11). The articular cartilage in the hips is normal. There is no effusion. Thereis no femoral head avascular necrosis. There is degenerative signal in the L5-S1 intervertebral disc. Minimal retrolisthesis of L5 on S1. Marrow signal intensity is otherwise normal. The muscles are normal in bulk and signal intensity. The subcutaneous tissue is normal. Thegluteal, iliopsoas, and proximal hamstring tendons are normal. The visible pelvic viscera are unremarkable. IMPRESSION: 1.Findings consistent with mild to moderate right and mild left sacroiliitis. Bilateral asymmetric sacroiliitis can be seen withreactive arthritis or psoriatic arthritis. 2.Very mild bone marrow edema in the medial aspects of the femoralheads, right greater than left, potentially related to the same process. 3.Mild degenerative disc disease at L5-S1. Report dictated by Dalia Dao MD (professor of radiology). I, Dr. STEVE SHAIKH MD have personally reviewed and interpreted this examination/study. This report was electronically signed by STEVE SHAIKH MD on 01/01/2021 9:43 AM . Jose Salinas MD MR ORDERABLES * XR ANKLE RIGHT 3VW OR MORE (12/12/2020 12:48 PM CDT) Anatomical Region Laterality Modality Lower Extremity Radiographic Lyubov ging 12/12/2020 1:05 PM CDT Impressions 12/12/2020 1:06 PM CDT Impression: No arthritis. This report was electronically signed by STEVE SHAIKH MD on 12/12/2020 1:06 PM . Narrative 12/12/2020 1:06 PM CDT Exam: XR ANKLE RIGHT 3VW History: M79.671: Heel pain, chronic, right G89.29: Heel pain, chronic, right M25.551: Greater trochanteric pain syndrome of right lower extremity M25.561: Chronic pain of right knee G89.29: Chronic pain of right knee Comparison: None. Findings: No fracture or dislocation is present. The joint spaces are normal. No erosions are seen. Bone density is normal. The soft tissues are normal. A 1 cm ovoid sclerotic lesion in the distal tibia may represent a bone island. Procedure Note Steve Shaikh MD - 12/12/2020 Exam: XR ANKLE RIGHT 3VW History: M79.671: Heel pain, chronic, right G89.29: Heel pain, chronic, right M25.551: Greater trochanteric pain syndrome of right lower extremity M25.561: Chronic pain of right knee G89.29: Chronic pain of right knee Comparison: None. Findings: No fracture or dislocation is present. The joint spaces are normal. No erosions are seen. Bone density is normal. The soft tissues arenormal. A 1 cm ovoid sclerotic lesion in the distal tibia may represent a bone island. Impression: No arthritis. This report was electronically signed by STEVE SHAIKH MD on 12/12/2020 1:06 PM . Jose Salinas MD DIAGNOSTIC IMAGING O RDERABLES * XR KNEE RIGHT 4VW OR MORE (12/12/2020 12:48 PM CDT) Anatomical Region Laterality Modality Lower Extremity Radiographic Lyubov ging 12/12/2020 1:04 PM CDT Impressions 12/12/2020 1:05 PM CDT IMPRESSION: Normal. This report was electronically signed by STEVE SHAIKH MD on 12/12/2020 1:05 PM . Narrative 12/12/2020 1:05 PM CDT Exam: XR KNEE RIGHT 4VW History: M79.671: Heel pain, chronic, right G89.29: Heel pain, chronic, right M25.551: Greater trochanteric pain syndrome of right lower extremity M25.561: Chronic pain of right knee G89.29: Chronic pain of right knee Comparison: None. Findings: No fracture or dislocation. The joint spaces are normal. There is no effusion. No erosions. Procedure Note Steve Shaikh MD - 12/12/2020 Exam: XR KNEE RIGHT 4VW History: M79.671: Heel pain, chronic, right G89.29: Heel pain, chronic, right M25.551: Greater trochanteric pain syndrome of right lower extremity M25.561: Chronic pain of right knee G89.29: Chronic pain of right knee Comparison: None. Findings: No fracture or dislocation. The joint spaces are normal. There is no effusion. No erosions. IMPRESSION: Normal. This report was electronically signed by STEVE SHAIKH MD on 12/12/2020 1:05 PM . Jose Salinas MD DIAGNOSTIC IMAGING O RDERABLES * XR SI JOINTS 3VW OR MORE (12/12/2020 12:48 PM CDT) Anatomical Region Laterality Modality Pelvis, Lower Extremity [facility] 12/12/2020 1:06 PM CDT Impressions 12/12/2020 1:15 PM CDT IMPRESSION: Sclerosis at the mid to lower aspect of the right sacroiliac joint which could be due to mild sacroiliitis in the appropriate clinical setting. This report was electronically signed by STEVE SHAIKH MD on 12/12/2020 1:15 PM . Narrative 12/12/2020 1:15 PM CDT Exam: XR SI JOINTS 3VW History: M79.671: Heel pain, chronic, right G89.29: Heel pain, chronic, right M25.551: Greater trochanteric pain syndrome of right lower extremity M25.561: Chronic pain of right knee G89.29: Chronic pain of right knee Comparison: None. Findings: There is mild sclerosis at the mid to inferior aspect of the right sacroiliac joint. The left sacroiliac joint is normal without erosion, widening, sclerosis, narrowing, or ankylosis. There is no fracture. The pubic symphysis and hip joint spaces are maintained. Procedure Note Steve Shaikh MD - 12/12/2020 Exam: XR SI JOINTS 3VW History: M79.671: Heel pain, chronic, right G89.29: Heel pain, chronic, right M25.551: Greater trochanteric pain syndrome of right lower extremity M25.561: Chronic pain of right knee G89.29: Chronic pain of right knee Comparison: None. Findings: There is mild sclerosis at the mid to inferior aspect of the right sacroiliac joint. The left sacroiliac joint is normal without erosion, widening, sclerosis, narrowing, or ankylosis. There is no fracture. The pubic symphysis and hip joint spaces are maintained. IMPRESSION: Sclerosis at the mid to lower aspect of the right sacroiliac joint which could be due to mild sacroiliitis in the appropriateclinical setting. This report was electronically signed by STEVE SHAIKH MD on 12/12/2020 1:15 PM . Jose Salinas MD DIAGNOSTIC IMAGING O RDERABLES * (ABNORMAL) HLA TYPING B27 (12/12/2020 12:20 PM CDT) HLA-B27 Positive (A) Negative 12/15/2020 8:21 AM CDT [facility] [employer] ([facility]) Comment: INTERPRETIVE INFORMATION: HLA-B27 HLA-B27 is a serologically defined allele of the human HLA-B locus. The presence of the HLA-B27 antigen is strongly associated with ankylosing spondylitis and related disorders. This test was developed and its performance characteristics determined by [facility]. It has not been cleared or approved by the [place] Food and Drug Administration. This test was performed in a CLIA certified laboratory and is intended for clinical purposes. Performed by [facility], [address] [place], [place] [id number] [email or web address], Kasey Whitlock MD, Lab. Director Blood BLOOD SPECIMEN / Unknown Lab Venipuncture / Unknown 12/12/2020 12:20 PM CDT 12/12/2020 12:47 PM CDT Jose Salinas MD [facility] Organization Address City/State/ZIP Co de Phone Number [facility] [employer] [facility]) [address] [place], [place] [id number], [facility] * CULTURE URINE (02/14/2014 11:10 PM CRECHE ATTENDANT) Only the most recent of4 resultswithin the time period is included. Culture Urine Less than 10,000 CFU/ML of Normal Urogenital/ Skin Hetal [facility] Comment:. Urine specimen (specimen) URINE SPECIMEN OBTAINED BY CLEAN CATCH PROCEDURE / Unknown 02/14/2014 11:10 PM [facility] ATTENDANT 02/15/2014 10:13 AM CRECHE ATTENDANT [facility] - 02/17/2014 12:47 PM CRECHE ATTENDANT AndersonSpecimen#[id number] [place] Loc/Rm/Bed: R/105/00 CLN CATCH U Historical Provider LAB - MICROBIOLOG Y ORDERABLES [address] [phone] * CULTURE AEROBIC + GRAM STAIN (07/02/2013 6:40 PM CDT) Culture Aerobic YEAST [facility] Comment:Moderate Growth Yeas t [facility] 07/02/2013 6:40 PM CDT 07/03/2013 12:12 PM CDT [facility] - 07/06/2013 12:32 PM CDT AndersonSpecimen#[id number] [place] Loc/Rm/Bed: ED// Historical Provider LAB - MICROBIOLOG Y ORDERABLES Performing Organization Address [facility] Co de Phone Number [address] [phone] * CULTURE AEROBIC (07/02/2013 6:40 PM CDT) Cervix 07/02/2013 6:[address] [facility] - 07/06/2013 12:32 PM CDT AndersonSpecimen#[id number] [place] Loc/Rm/Bed: ED// The following orders were created for panel order CULTURE, AEROBIC & GRAM STAIN. Procedure Abnormality Status --------- ------ CULTURE, AEROBIC[[id number]] Final result STAIN, GRAM (PERFORM)[[id number]] Please view results for these tests on the individual orders. Historical Provider LAB - MICROBIOLOG Y ORDERABLES Performing Organization Address City/[facility]/ZIP Co de Phone Number [facility] [address] * CULTURE BLOOD (06/20/2013 11:10 PM CDT) Culture Blood No Growth at 5 days [facility] Blood specimen (specimen) BLOOD SPECIMEN / Unknown 06/20/2013 11:10 PM CDT 06/21/2013 9:37 AM CDT Narrative [facility] - 06/26/2013 9:45 AM CDT AndersonSpecimen#[id number] [place] Loc/Rm/Bed: ED// Historical Provider LAB - MICROBIOLOG Y ORDERABLES Performing Organization Address City/State/[facility] Co de Phone Number [address] [phone] Care Teams Patent Lawyer Relationship Specialty Start Date End Date Sary Rodriguez, [facility] TECHNICIAN-GENERAL HOUSE WORKER [address] [place] [phone] PCP - General Nurse Practitioner Family 03/06/23
--- OUTSIDE RECORDS SUMMARY | 2024-04-23 12:22 | XMS_ITS | Data Portability ---
Author Organization [facility] [place] Address [address] [place] [address] [place] [address] Assessment No assessment recorded. Plan of Treatment Reminders Order Date Submit Date Provider Last Modified By Organization Details Last Modified Time Details Appointments POST 2024 01:45P Jesus GUERRERO MD Not available Not available Not available Lab None recorded. Referral None recorded. Procedures None recorded. Surgeries None recorded. Imaging non-stres s test 2024 [address], [address], [place], [address], 04/14/2024 04:10:11 US, obstetric , follow-up [address], [address], [place], [address], 04/13/2024 23:00:35 US, obstetric , biophysic al profile + non-stres s test [address]24 [address], [address], [place], [address], 04/13/2024 23:00:35 non-stres s test [email or web address] Formerly named [facility] [address], [place], [address], 04/12/2024 23:24:48 US, obstetric , biophysic al profile + non-stres s test 2024 025 [place], [address], [address], [place], [address], 04/12/2024 10:49:39 Medication Orders None recorded. Patient TargetsNo targets recorded. Patient InstructionsNo instructions recorded. Reason for Referral None Reported. Results Created Date Observation Date Name Description Value Unit Range Abnormal Flag Note LastModifiedBy Organization Detail LastModifiedTime 03/18/19 25 03/18/2024 US, obste tric, follo w-up No observ ation record ed. [email or web address] [place] [address], [place], [address], 03/18/2024 18:14:23 03/18/19 25 03/18/2024 US, monique tric, bioph ysica l profi le + non-s tress test No observ ation record ed. [email or web address] [place] [address], [place], [address], 03/18/2024 18:14:40 03/18/19 25 03/18/2024 US, obste tric, follo w-up No observ ation record ed. [address], [facility], [place], [address], 03/22/2024 18:42:31 03/18/19 25 03/18/2024 non-s tress test No observ ation record ed. [email or web address] [place] [address], [place], [address], 03/18/2024 16:15:55 03/23/1903/23/2024 US, monique tric, bioph ysica l profi le + non-s tress test No observ ation record ed. [email or web address] [place] [address], [place], [address], 03/23/2024 13:53:46 03/23/19 25 03/23/2024 US, obste tric, bioph ysica l profi le + non-s tress test No observ ation record ed. [email or web address] [address], [place], [address], 03/23/2024 22:30:57 03/23/19 25 03/23/2024 non-s tress test No observ ation record ed. [email or web address] [place] [address], [place], [address], 03/23/2024 12:38:17 03/30/19 25 03/30/2024 US, obste tric, bioph ysica l profi le + non-s tress test No observ ation record ed. [email or web address] [place] [address], [place], [address], 03/30/2024 12:57:22 03/30/19 25 03/30/2024 US, obste tric, follo w-up No observ ation record ed. [email or web address] [address], [place], [address], 03/30/2024 21:58:18 03/30/19 25 03/30/2024 non-s tress test No observ ation record ed. [email or web address] [place] [address], [place], [address], 03/30/2024 12:57:57 04/09/19 25 04/09/2024 non-s tress test No observ ation record ed. [email or web address] [place] [address], [place], [address], 04/09/2024 15:08:59 04/09/19 25 04/09/2024 US, obste tric, bioph ysica l profi le No observ ation record ed. [email or web address] [address], [place], [address], 04/09/2024 17:51:50 04/09/19 25 04/09/2024 US, obste tric, bioph ysica l profi le + non-s tress test No observ ation record ed. [email or web address] [place] [address], [place], [address], 04/09/2024 17:57:33 04/13/19 25 04/13/2024 US, obste tric, follo w-up No observ ation record ed. [email or web address] [place] [address], [place], [address], 04/13/2024 13:48:06 04/13/19 25 04/13/2024 US, obste tric, bioph ysica l profi le + non-s tress test No observ ation record ed. [email or web address] [place] [address], [place], [address], 04/13/2024 13:48:15 04/13/19 25 04/13/2024 US, obste tric, follo w-up No observ ation record ed. [email or web address] [address], [place], [address], 04/14/2024 15:49:02 04/13/19 25 04/13/2024 non-s tress test No observ ation record ed. [email or web address] [place] [address], [place], [address], 04/13/2024 16:53:24 Result Notes None recorded. Problems Name Problem SNOMED Code Status Onset Date Resolution Date Notes Provider Name and Address Organization Details Recorded Time Chlamydi al infectio n 857276443 Completed 201705/31/2020 Chlamydi al infectio n, unspecif ied;Byron rded Elsewher e: No Locat ion: [facility] S ource: EHR Publicity Writer kayy: N Esha ce ID: 0001 Raffi lable Time: 01:00:00 PM Ciarra guan, [facility] 16:22:19 Pregnanc y test negative [id number] Completed 201705/31/2020 Encounte r for pregnanc y test, result negative ;Recorde d Elsewher e: No [facility]: EHR Publicity Writer kayy: N Lcti ce ID: 0001 Raffi lable Time: 10:30:00 AM Ciarra guan, [facility] 16:22:29 Amenorrh ea [id number] Completed 201705/31/2020 Amenorrh ea;Recor ded Elsewher e: No Locat ion: [facility] S ource: EHR Publicity Writer kayy: N Lcabdelrahman ce ID: 0001 Raffi lable Time: 01:00:00 PM Ciarra guan, [facility] 16:22:15 Carbuncl e [id number] Completed 201705/31/2020 Carbuncl e, unspecif ied;Byron rded Elsewher e: No Locat ion: [facility] S ource: EHR Publicity Writer kayy: N Lcti ce ID: [email or web address] Raffi lable Time: 01:00:00 PM Ciarra guan [facility] 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 16:22:31 Chlamydi al vulvovag initis 963985876 Completed 201705/31/2020 Chlamydi al vulvovag initis;R ecorded Elsewher e: No Locat ion: [facility] S ource: EHR Publicity Writer kayy: N Esha ce ID: 0001 Raffi lable Time: 10:30:00 AM Ciarra guan, [facility] 16:22:22 Disorder of breast 63040228 Completed 201705/31/2020 Disorder of breast, unspecif ied;Byron rded Elsewher e: No Locat ion: [facility] S ource: EHR Publicity Writer kayy: N Practi ce ID: 0001 Raffi lable Time: 10:30:00 AM Ciarra guan, [facility] 16:22:27 Pregnanc y 66976690 Completed 202310/31/2023 Mira William null, [facility] 4 15:55:02 Pregnanc y 36187956 Active 2023 Mira Thomas null, [facility] 4 15:55:02 Rheumato id arthriti s 85063279 Active 2023 on cimzia, followin g with rheumatsachin GUERRERO MD [address], [place], [address], [facility] 4 16:06:44 Ankylosi ng spondyli tis 8277073 Active 2023 on cimzia, followin g with rheumatsachin GUERRERO MD [address], [place], [address], [facility] 4 16:06:40 Rheumato id arthriti s 71611307 Active 2023 on cimzia, followin g with rheumatsachin GUERRERO MD [address], [place], [address], [facility] 4 16:06:43 Ankylosi ng spondyli tis 7061496 Active 2023 on cimzia, followin g with rheumato randy GUERRERO MD [address], [place], [address], [facility] 4 16:06:40 Body mass index 40+ - severely obese 819899231 Active antenata l testing 34 wks Anjana Alfaro [facility], [facility] 4 16:56:06 Body mass index 40+ - severely obese 147615525 Active antenata l testing 34 wks Anjana Alfaro [facility], [facility] 4 16:56:06 Asthma 761864352 Active DIONNE GUERRERO MD [address], [place], [address], [facility] 5 15:54:14 Problem Notes None recorded. Procedures Surgical History Date Name Laterality Status Provider Name and Address Organization Details Recorded Time 06/19/19 24 Date of Last Pap Smear completed Mira Thomas [facility] 10/31/2023 14:29:50 02/17/19 21 Orthopedic Surgery completed Ny Riddle [facility] 06/19/2023 14:21:52 02/17/19 19 endoscopy completed Ciarra Guzman [facility] 06/12/2020 16:12:02 02/17/19 17 endoscopy completed Ciarra Guzman [facility] 06/12/2020 16:11:58 02/17/19 15 endoscopy completed Ciarra Guzman [facility] 06/12/2020 16:11:55 02/17/19 11 Tonsillectomy completed Ciarra Guzman [facility] 06/12/2020 16:09:50 Imaging Results Imaging Date Name Status LastModified by [facility] Details LastModified Time 03/18/2024 US, obstetric, follow-up completed [email or web address] [place] [address], [place], [address], 03/18/2024 18:14:23 03/18/2024 US, obstetric, biophysical profile + non-stress test completed [email or web address] [place] [address], [place], [address], 03/18/2024 18:14:40 03/18/2024 US, obstetric, follow-up completed [email or web address] [address], [place], [address], 03/22/2024 18:42:31 03/18/2024 non-stress test completed [email or web address] [place] [address], [place], [address], 03/18/2024 16:15:55 03/23/2024 US, obstetric, biophysical profile + non-stress test completed [address], [place], [address], 03/23/2024 13:53:46 03/23/2024 US, obstetric, biophysical profile + non-stress test completed [email or web address] [address], [place], [address], 03/23/2024 22:30:57 03/23/2024 non-stress test completed [email or web address] [place] [address], [place], [address], 03/23/2024 12:38:17 03/30/2024 US, obstetric, biophysical profile + [facility] [address], [place], [address], 03/30/2024 12:57:22 03/30/2024 US, obstetric, follow-up completed [email or web address] [address], [place], [address], 03/30/2024 21:58:18 03/30/2024 non-stress test completed [address], [place], [address], 03/30/2024 12:57:57 04/09/2024 non-stress test completed [email or web address] [place] [address] [address], [place], [address], 04/09/2024 15:08:59 04/09/2024 US, obstetric, biophysical profile completed [email or web address] [address], [place], [address], 04/09/2024 17:51:50 04/09/2024 US, obstetric, biophysical profile + [facility]-stress test [facility] [address], [place], [address], 04/09/2024 17:57:33 04/13/2024 US, obstetric, follow-up completed [address], [place], [address], 04/13/2024 13:48:06 04/13/2024 US, obstetric, biophysical profile + non-stress test completed [email or web address] [place] [address] [address], [place], [address], 04/13/2024 13:48:15 04/13/2024 US, obstetric, follow-up completed [address], [place], [address], 04/14/2024 15:49:02 04/13/2024 non-stress test completed [address], [place], [address], 04/13/2024 16:53:24 Procedure Notes None recorded. Medical Equipment None Reported. Allergies Allergen ID Allergen Name Allergen Category Reaction Reaction Severity Criticality Documentation Date Start Date Code Code System Note Provider Name and Address Organization Details Recorded Time 80834 amoxicill in medicatio n hives severe Not available 05/31/2020 723 RxNorm Ciarra Guzman [facility], [facility] 16:21:13 9816 sulfameth oxazole medicatio n hives severe Not available 02/04/2020 17215 RxNorm Ciarra Guzman [facility], [facility] 16:21:13 9820 trimethop rim medicatio n hives severe Not available 02/04/2020 57286 RxNorm Chloe Motta [facility], [facility] 12:02:48 9825 latex environme nt,medica tion hives moderate Not available 02/04/2020 80643 91 RxNorm Ciarra Guzman [facility], [facility] 16:21:13 Medications Name Sig Start Date Stop Date Status Note LastModified by Organization Details LastModified Time cyclobenz aprine 10 mg tablet TAKE 1 TABLET BY MOUTH THREE TIMES DAILY NEEDED active Not Available Not Available No t Available Augmentin 875 mg-125 mg tablet take 1 tablet by oral route every 12 hours 05/31 completed Prescrib ed Elsewher e: No Locat ion: [facility] M odify By: elmerhar tz Encou nter DateTime : 06/19/19 18 01:00:00 PM Not Available Not Available Not Available terconazo le 0.4 % vaginal cream INSERT 1 APPLICAT ORFUL VAGINALL Y EVERY DAY AT BEDTIME FOR 7 DAYS 10/05 completed Not Available Not Available Not Available prednison e 10 mg tablet 03/06 completed [...] Not Available famotidin e 20 mg tablet TAKE 1 TABLET BY MOUTH TWICE DAILY active Not Available Not Available No t Available metoclopr amide 5 mg tablet TAKE 1 TABLET BY MOUTH FOUR TIMES DAILY NEEDED 10/30 completed Not Available Not Available Not Available cephalexi n 500 mg capsule TAKE 1 CAPSULE BY MOUTH FOUR TIMES DAILY FOR 5 DAYS active Not Available Not Available No t Available pantopraz ole 40 mg tablet,de layed [...] completed Not Available Not Available Not Available docusate sodium 100 mg capsule Take 1 capsule twice a day by oral route. active Not Available Not Available No t Available Provera 10 mg tablet take 1 tablet by oral route every day 05/31 completed Prescrib ed Elsewher e: No Locat ion: [facility] odify By: ruthie tz Encou nter DateTime : 06/19/19 01:00:00 PM Not Available Not Available Not Available ergocalci ferol (vitamin D2) 1,250 mcg (50,000 unit) capsule TAKE 1 CAPSULE BY MOUTH EVERY WEEK 10/05 completed Not Available Not Available Not Available ibuprofen 600 mg tablet Take 1 tablet every 6 hours by oral route. active Not Available Not Available No t Available levofloxa juan c 750 mg tablet [...] Prescrib ed Elsewher e: No Locat ion: [facility] odify By: constantine floyd DateTime : 07/09/19 10:48:00 AM Not Available Not Available Not Available naproxen 500 mg tablet TAKE 1 TABLET BY MOUTH TWICE DAILY 03/06 completed Not Available Not Available Not Available metoclopr amide 10 mg tablet TAKE 1 TABLET BY MOUTH EVERY 6 HOURS NEEDED active Not Available Not Available No t Available Zithromax 500 mg tablet take 2 Tablet by oral route at one time 05/31 completed Prescrib sheila Chase e: No Locat ion: [facility] M odify By: flynn toure DateTime : 06/20/19 04:25:39 PM Not Available Not Available Not Available nitrofura ntoin monohydra te/macroc rystals 100 mg capsule TAKE 1 CAPSULE BY MOUTH TWICE DAILY FOR 7 DAYS 03/23 completed Not Available Not Available Not Available [...] and Address Organization Details Last Updated DateTime 04/09/2024 167.64 cm 46 kg/m2 579303.8 3 g 139 mm[Hg] 88 mm[Hg] [facility] 5 14:42:13 Date Recorded Body height Body mass index (BMI) Body weight Systolic blood pressure Diastolic blood pressure Provider Name and Address Organization Details Last Updated DateTime 04/13/2024 167.64 cm 46.3 kg/m2 830217.0 1 g 119 mm[Hg] 88 mm[Hg] [facility] 5 12:39:49 Date Recorded Body height Body mass index (BMI) Body weight Systolic blood pressure Diastolic blood pressure Provider Name and Address Organization Details Last Updated DateTime 04/13/2024 167.64 cm 46.3 kg/m2 064638.0 1 g 119 mm[Hg] 87 mm[Hg] PAT Solorzano [facility] 16:51:52 Social History Question Answer Notes LastModified by Organizat ion Details LastModified Time Tobacco Smoking Status Current Every Day Smoker Taylor Armas freida [facility] 03/06/2023 15:48:03 Do You Have An Advance Directive? No [email or web address] Information not available 05/31/2020 What Is Your Level Of Alcohol Consumption? Occasional [email or web address] Information not available 05/31/2020 If You Are , What Was Your Level Of Alcohol Consumption Prior To ? Occasional Information not available 03/06/2023 How Many Years Have You Consumed Alcohol? 6 [email or web address] Information not available 05/31/2020 Are You Blind Or Do You Have Difficulty Seeing? No [email or web address] Information not available 05/31/2020 What Is Your Level Of Caffeine Consumption? Occasional Information not available 04/10/2022 How Much Tobacco Do You Chew? None [email or web address] Information not available 05/31/2020 In The 14 Days Before Symptom Onset, Have You Had Close Contact With A Laboratory-confir med COVID-19 While That Case Was Ill? No [email or web address] Information not available 05/31/2020 In The 14 Days Before Symptom Onset, Have You Had Close Contact With A Person Who Is Under Investigation For COVID-19 While That Person Was Ill? No [email or web address] Information not available 05/31/2020 Have You Been To An Area Known To Be High Risk For COVID-19? No [email or web address] Information not available 05/31/2020 Are You Currently Employed? Yes [email or web address] Information not available 04/13/2024 Are You Deaf Or Do You Have Serious Difficulty Hearing? No [email or web address] Information not available 05/31/2020 What Type Of Diet Are You Following? SPECIFIC Information not available 04/10/2022 What Is The Highest Grade Or Level Of School You Have Completed Or The Highest Degree You Have Received? [id number] [email or web address] Information not available 05/31/2020 What Is Your Occupation? [employer] [email or web address] Information not available 03/06/2023 Are There Any Guns Present In Your Home? No [email or web address] Information not available 05/31/2020 Do You Use Protection During Sex? No [email or web address] Information not available 05/31/2020 Do You Use Your Seat Belt Or Car Seat Routinely? Yes Information not available 05/31/2020 Are You Sexually Active? Yes Information not available 04/13/2024 Do You Have Smoke And Carbon Monoxide Detectors In Your Home? Yes [email or web address] Information not available 05/31/2020 At What Age Did You Start Smoking Tobacco? 16 Information not available 03/06/2023 How Much Tobacco Do You Smoke? 0.25 PPD [email or web address] Information not available 05/31/2020 Do You Feel Stressed (tense, Restless, Nervous, Or Anxious, Or Unable To Sleep At Night)? [id number] [email or web address] Information not available 05/31/2020 Do You Use Any Illicit Or Recreational Drugs? Yes [email or web address] Information not available 05/31/2020 Do You Use Sunscreen Routinely? Yes [email or web address] Information not available 05/31/2020 Has Tobacco Cessation Counseling Been Provided? No Information not available 03/06/2023 How Many Years Have You Smoked Tobacco? 10 [email or web address] Information not available 05/31/2020 Have You Used IV Drugs? No [email or web address] Information not available 05/31/2020 Do You Or Have You Ever Used Any Other Forms Of Tobacco Or Nicotine? No Information not available 03/06/2023 Sex: Unknown Functional Status Question Answer Note LastModified by Organizat ion Details LastModified Time Do you have difficulty walking or climbing stairs? No Information not available 03/06/2023 Are you able to walk? YESWOREST [email or web address] Information not available 05/31/2020 Are you able to care for yourself? Yes Information not available 03/06/2023 Do you have difficulty dressing or bathing? No Information not available 03/06/2023 What is your exercise level? Moderate Information not available 04/10/2022 Mental Status None recorded. Family History Relationship Description Onset Age of this Age Resolved Age Notes LastModified by Organization Details LastModified Time Father Depressive disorder [email or web address] Not available 05/31 16:21:13 Father Anxiety disorder [email or web address] Not available 05/31 16:21:13 Sister Diabetes mellitus [email or web address] Not available 05/31 16:21:13 Sister Anxiety disorder [email or web address] Not available 05/31 16:21:13 Sister Asthma [email or web address] Not available 05/31/2020 16:21:13 Sister Malignant tumor of cervix [email or web address] Not available 06/12 16:06:01 Sister Cyst of ovary [email or web address] Not available 2022 16:31:01 Mother Malignant tumor of cervix [email or web address] Not available 06/12 16:06:01 Mother Cyst of ovary [email or web address] Not available 2022 16:31:01 Mother Hypertensive disorder [email or web address] Not available 06/12 16:06:51 Mother Disorder of thyroid gland [email or web address] Not available 06/12 16:07:07 Maternal Aunt Hypertensive disorder Not available 06/12 16:06:51 Maternal Aunt Diabetes mellitus [email or web address] Not available 06/12 16:07:23 Maternal Aunt Asthma [email or web address] Not av ailable 06/12/2020 16:07:54 Brother Asthma [email or web address] Not availabl e 06/12/2020 16:07:45 Maternal Uncle Asthma [email or web address] Not available 021 16:08:06 Medical History Condition [...] SNOMED-CT Code Diagnosis ICD10 Code Diagnosis Note [id number] Francie Valle [facility] [address] [address] 05/31/2020 15:41:28 05/31/2020 16:42:06 Gynecologic examination 67045178 Z01.419 [id number] Bre Vela [facility] [address] [address] 09/14/2020 15:43:42 09/14/2020 16:44:36 Menorrhagia 125409004 N92.0 Updated US discussed. [facility] next [...] exposure to the Covid-19 virus during this patient s visit, including available hand pharmacist critical care upon arrive, temperatur e check and being asked a series of screening questions. All staff wore face coverings during this encounter, as well as provided additional cleaning and sanitizing of all surfaces, including countertop s, pens, chairs, door handles, light switches, etc, prior to and following the patient s visit. Vaginitis 74951697 N76.0 Some d/c on examWill send swab & call if txment is necessary [id number] [facility] [address],[place] [address] 09/25/2020 12:17:52 09/25/2020 13:25:20 Abnormal uterine bleeding 7177477962 9100 N93.9 [id number] Sharon Kaplan [place] [address],[place] [address] 09/25/2020 12:49:38 09/26/2020 15:09:46 Dysuria 17152159 R30.9 [id number] SERG King [place] [address],[place] [address] 07/12/2021 10:27:22 07/12/2021 15:37:32 Missed period 50070391 N92.5 Here for STI testing, is concerned her partner has other partnersNo symptoms, her partner has not tested positive [facility] , she will routinely skip months. [...] Will await results and treat as needed.Eric l RTC for pelvic u/s and u/s f/u appointmen t, will discuss management of irregular menses at that time Time spent with the patient was over 30 minutes Venereal d isease screening 643039093 Z11.3 Microscopic hematuria 19 3594503 R31.29 Laboratory test result abnormal 212155431 R89.9 N92.6 Exposure t o sexually transmissible disorder 509737137 Z20.2 Sexually t ransmitted infectious disease 8552065 A64 [id number] SERG King [place] [address] [address] 07/31/2021 14:05:14 07/31/2021 15:15:36 Polycystic ovary syndrome 645668208 E28.2 Here today to discuss lab work [...] menses does not occur.She denies allergey to [facility] in 3 months for med check, will drop urine off in about 2 weeks for EDY, repeat u/s due in about 6-8 weeks. Time spent in visit is a total of 35 mins with at least 50% of visit consisting of counseling and review of plan of care. Irregular periods 273423 07 N92.6 [id number] [facility] [address],[place] [address] 07/18/2021 17:54:14 07/19/2021 14:48:41 Irregular periods 97461987 N92.6 [id number] [facility] [address],[place] [address] 09/11/2021 17:23:38 09/12/2021 10:26:00 Cyst of right ovary [id number] 7780438 N83.291 N83.292 [id number] SERG King [place] [address],[place] [address] 10/23/2021 15:01:32 10/23/2021 16:51:33 Cyst of ovary 38885901 N83.209 We discussed pelvic u/s result : We discussed bilateral paratubal cyst seen again - [email or web address] n that they are small in size and she is having no pelvic pain or symptoms at this time, she would like to monitor for any symptoms at this time. consult declined.T o call the office if [...] RA - following with rheumatolo gist on [facility] for WWE in 1 year or sooner if any symptoms occur ED precaution s discussed Time spent in visit is a total of 25 mins with at least 50% of visit consisting of counseling and review of plan of care. Furuncle [id number] L02.9 2 Patient has hx of frequent furuncles throughout body, none now but they happen oftenDerm referral sent [id number] SERG King [place] [address],[place] [address] 04/10/2022 16:15:24 04/10/2022 16:51:46 Venereal disease screening 133623608 Z11.3 Sexually t ransmitted infectious disease 3741150 A64 Pain in pelvis 72667469 R10.2 Microscopic hematuria 19 2840788 R31.29 Hx of hematuria. Has not seen urologist yet. New referral placed. Encouraged her to schedule this. Gynecologi c examination [id number] Z01.419 Take Calcium with Vitamin D 1200mg [...] counseling and review of plan of care. [id number] Rose Willis [place] [address],[place] [address] 04/19/2022 16:30:52 04/19/2022 17:10:48 Pain in pelvis 87758807 R10.2 N93.9 [id number] Ernestina Acevedo [facility] [address] [address] 03/06/2023 15:43:49 03/07/2023 15:41:15 Pain in pelvis 82587986 R10.2 This patient is a 27 -year-old [...] orderedSTI testing declinedre turn for u/s f/u/WWE [id number] Bre Vela [facility] [address],[place] [address] 06/19/2023 14:06:58 06/19/2023 15:23:19 Irregular periods 50789939 N92.6 Neg UPTWill take another UPT if period does not start in another week.If continues to fail to start call for HCG/Possib le TVUS if needed Gynecologi c examination 57170302 Z01.419 Take Calcium with Vitamin D 1200mg [...] na Routine Labs PCP [id number] Rose Willis [place] [address],[place] [address] 10/06/2023 16:24:21 10/06/2023 17:11:15 [id number] Damian Sandy MD [place] [address],[place] [address] 10/06/2023 16:26:58 10/07/2023 09:12:14 Urinary symptoms 146250343 R39.9 Nausea and vomiting 1693 2000 R11.2 Amenorrhea 77376290 N91. 2 this patient is a 28-year-ol [...] begin routine care at her next visit. [id number] Jolynn Motta [place] [address],[place] [address] 10/16/2023 17:11:39 10/17/2023 04:35:22 screening 336793423 Z36.82 Z3A.12 [id number] Mira Thomas [place] [address],[place] [address] 10/31/2023 15:07:44 10/31/2023 16:19:01 Ankylosing spondylitis 2275257 M45.9 - continue cimzia, following with rheumatolo gy Rheumatoid arthritis 698 20384 M06.9 - continue cimzia, following with rheumatolo gy Gestation period, 14 weeks 92553042 Z3A.14 - continue PNV [id number] [facility] [address],[place] [address] 12/09/2023 16:41:44 12/09/2023 17:51:53 screening for malformation 073287865 Z36.3 Z3A.20 [id number] DIONNE GUERRERO MD [place] [address],[place] [address] 12/10/2023 16:46:21 12/15/2023 09:23:17 Ankylosing spondylitis 4122329 M45.9 - continue cimzia, following with rheumatolo gy Rheumatoid arthritis 698 29677 M06.9 - continue cimzia, following with rheumatolo gy Gestation period, 20 weeks 34019518 Z3A.20 [id number] [facility] [address],[place] [address] 01/06/2024 16:54:38 01/07/2024 09:12:37 screening 902138587 Z36.2 Z3A.24 [id number] DIONNE GUERRERO MD [place] [address],[place] [address] 01/06/2024 16:54:50 01/07/2024 11:46:40 Constipation 90833288 K59.00 Pain in ri ght lower limb 903344601 M79.604 Urinary symptoms 8243375 08 R39.9 - will send urine culture Gestation period, 24 weeks 505481390 Z3A.24 - continue PNV Dilatation of renal pelvis 123739104 O36.8999 - bilateral, mild- continue [place] [id number] [facility] [address],[place] [address] 02/03/2024 15:59:03 02/03/2024 17:09:37 Maternal obesity complicating , childbirth and the puerperium, antepartum 1922689002 07 O99.213 Z3A.28 [id number] DIONNE GUERRERO MD [place] [address],[place] [address] 02/03/2024 15:59:18 02/04/2024 09:32:17 Body mass index 40+ - severely obese 301252423 Z68.41 - start testing at 34 weeks Gestation period, 28 weeks 52185159 Z3A.28 - GCT and labs today- continue PNV Breech presentation 6096 002 O32.1XX9 - continue to monitor presentati on; desires ECV if malpresent ation [id number] DIONNE GUERRERO MD [place] [address],[place] [address] 02/20/2024 14:58:17 02/24/2024 03:54:10 Pain in pelvis 02337671 R10.2 - patient reports worsening hip and pelvic pain- likely 2/2 positionin g and advanced - discussed symptomati c treatments , will send rx for flexeril Heartburn 94292479 R12 - not controlled with tums- will trial pepcid Body mass index 40+ - severely obese 407508800 Z68.41 - start testing at 34 weeks Gestation period, 30 weeks 03404182 Z3A.30 [id number] DIONNE GUERRERO MD [place] [address],[place] [address] 03/05/2024 09:33:40 03/05/2024 11:21:51 Nausea and vomiting 50907202 R11.2 - low appetite and constant nausea- will trial reglan Gestation period, 32 weeks 4303248 Z3A.32 - continue PNV- discussed RSV vaccine [id number] Mira Thomas [place] [address],[place] [address] 03/18/2024 14:46:53 03/18/2024 16:31:29 Maternal obesity complicating , childbirth and the puerperium, antepartum 2040069328 07 O99.213 - continue weekly testing [id number] Jolynn Motta [place] [address],[place] [address] 03/18/2024 14:47:05 03/18/2024 15:36:36 Maternal obesity complicating , childbirth and the puerperium, antepartum 1199832418 07 O99.213 O99.891 Z3A.34 [id number] DIONNE GUERRERO MD [place] [address],[place] [address] 03/18/2024 14:47:30 03/18/2024 16:10:43 Maternal obesity complicating , childbirth and the puerperium, antepartum 1988187223 07 O99.213 - continue weekly testing Gestation period, 34 weeks 56567047 Z3A.34 - continue PNV [id number] Jolynn Motta [place] [address],[place] [address] 03/23/2024 10:53:43 03/23/2024 11:28:25 Pre-existing maternal disease complicating 7196414002 6106 O99.891 O99.213 Z3A.35 [id number] PAT Solorzano [place] [address],[place] [address] 03/23/2024 10:54:38 03/23/2024 12:52:25 Maternal obesity complicating , childbirth and the puerperium, antepartum 0894182867 07 O99.213 - continue weekly testing [id number] DIONNE GUERRERO MD [place] [address],[place] [address] 03/23/2024 10:54:52 03/23/2024 12:57:31 Maternal obesity complicating , childbirth and the puerperium, antepartum 6134061508 07 O99.213 - continue weekly testing Gestation period, 35 weeks 94638997 Z3A.35 - continue PNV [id number] Rose Willis [place] [address],[place] [address] 03/30/2024 10:50:34 03/30/2024 12:01:09 Maternal obesity complicating , childbirth and the puerperium, antepartum 3866690333 07 O99.213 Z3A.36 [id number] Mira Thomas [place] [address],[place] [address] 03/30/2024 10:51:12 03/30/2024 13:55:08 Maternal obesity complicating , childbirth and the puerperium, antepartum 2339906300 07 O99.213 - continue weekly testing [id number] DIONNE GUERRERO MD [place] [address],[place] [address] 03/30/2024 10:51:27 03/30/2024 13:57:19 Body mass index 40+ - severely obese 859518921 Z68.41 - start testing at 34 weeks Ankylosing spondylitis 0158057 M45.9 - continue cimzia, following with rheumatolo gy Rheumatoid arthritis 698 36069 M06.9 - continue cimzia, following with rheumatolo gy Gestation period, 36 weeks 74053704 Z3A.36 - GBS collected- continue PNV [id number] [facility] [address],[place] [address] 04/09/2024 13:12:50 04/12/2024 10:49:38 Maternal obesity complicating , childbirth and the puerperium, antepartum 4609157182 07 O99.213 O99.893 Z3A.37 [id number] [facility] [address],[place] [address] 04/09/2024 13:13:07 04/09/2024 15:12:41 Maternal obesity complicating , childbirth and the puerperium, antepartum 7191035828 07 O99.213 - continue weekly testing [id number] DIONNE GUERRERO MD [place] [address],[place] [address] 04/09/2024 13:13:48 04/12/2024 10:58:32 Maternal obesity complicating , childbirth and the puerperium, antepartum 6050142260 07 O99.213 - continue weekly testing Gestation period, 38 weeks 91850689 Z3A.38 - continue PNV [id number] [facility] [address],[place] [address] 04/13/2024 10:45:52 04/13/2024 11:40:24 Maternal obesity complicating , childbirth and the puerperium, antepartum 0440276274 07 O99.213 O99.893 Z3A.38 [id number] PAT Solorzano [place] [address] [address] 04/13/2024 10:46:05 04/13/2024 17:05:23 Maternal obesity complicating , childbirth and the puerperium, antepartum 8046241146 07 O99.213 - BPP 8/10, off for breathing [id number] DIONNE GUERRERO MD [place] [address] [address] 04/13/2024 10:48:05 04/13/2024 13:33:57 Maternal obesity complicating , childbirth and the puerperium, antepartum 8175151591 07 O99.213 - BPP 8/10, off for breathing Gestation period, 38 weeks 14444187 Z3A.38 - continue PNV- EIL 3 Health Concerns Section Related Observation LastModified by Organization Detai ls LastModified Time None Recorded Concern Status LastModified by Organization Details LastModified Time None Recorded Advance Directives Directive N: Payers Encounter Date Sequence Insurance Name Policy Number Policy Santiago Covered Member ID Sanitago Member ID Guarantor Name 04/09/2024 1 [facility] (MEDICAID HMO) [id number] Dionne Tejada [id number] Dionne Tejada 04/09/2024 1 [facility] (MEDICAID HMO) [id number] Dionne Tejada [id number] Dionne Tejada 04/13/2024 1 [facility] (MEDICAID HMO) [id number] Dionne Tejada [id number] Dionne Tejada 04/13/2024 1 [facility] [place] ([place]ICAID H[place]) [id number] Dionne Tejada [id number] Dionne Tejada 04/13/2024 1 [facility] (MEDICAID HMO) [id number] Dionne Tejada [id number] Dionne Tejada OBGyn Episode Ob Episode Information Episode Created Date Number of Fetuses Patient Bloodtype Patient rh Status Prepregnancy Weight lbs Domestic Partner Domestic Partner Phone Father Name Spout Positioner Status 06/01/19 21 1 CLOSED Fetus Data [...] Domestic Partner Domestic Partner Phone Father Name Spout Positioner Status 10/31/19 24 1 O Positive 268 Rodolfo Tejada OPEN Fetus Data First Name Last Name Admitted to NICU Weight (g) Sex Living Outcome Pediatric Complications Fetus ID Race Codes Race Delivery Type [id number] Problems Problem Notes mild bilateral pylectasisInc omplete anatomy x 2 - MFM referral faxed to [facility] 02/03 Scheduled 02/09 0900 US and consult Problem Name Start Date End Date Resolution Snomed Code Not e Body mass index 40+ - severely obese [id number] zuri ting 34 wks Asthma 837445402 Ankylosing spondylitis 10/31/2023 6097078 on cimzia, foll owing with rheumatology Rheumatoid arthritis 10/31/2023 58344731 on cimzia, following with rheumatology Bert Calculation [...] Date Ultra Sound Latest Days Gestation 0 [email or web address] 10/31/2023 04/26/19 25 0 Pre- Flowsheet Flowsheet Date 10/31/2023 Billings Score Blood Edema Fundus Height Fundus Units Glucose Ketones Leukocytes Nitrite Labor Signs Protein Cervic Dilation Cervic Effacement Cervic Station Type Weight in lbs Pre/Post Dialysis Refused Weight 271.887146592619 BP Diastolic BP Location Tested BP Systolic [...] Weight in lbs Pre/Post Dialysis Refused Weight 276.659128615178 BP Diastolic BP Location Tested BP Systolic [...] Type Weight in lbs Pre/Post Dialysis Refused 279.964017228323 BP Diastolic BP Location Tested BP Systolic [...] Weight in lbs Pre/Post Dialysis Refused Weight 280.978700640305 BP Diastolic BP Location Tested BP Systolic BP Type 86 L arm 119 sitting Fetus Heart Rate Present Fetus Movement A Yes Comments Patient c/o of slight pains and nausea. Good movement. No cramping or bleeding. Discussed belly band for symptomatic relief. EFW 49%, transverse. Mild poly. RVOT still not visualized, will send to [facility] for clearance. Discussed testing starting at 34 weeks for obesity. GCT and labs today. RTC 2 weeks. Flowsheet Date 02/20/2024 Billings Score Blood Edema Fundus Height Fundus Units Glucose Ketones Leukocytes Nitrite Labor Signs Protein Cervic Dilation Cervic Effacement Cervic Station neg none Type Weight in lbs Pre/Post Dialysis Refused Weight 283.82240200443 BP Diastolic BP Location Tested BP Systolic BP Type 88 L arm 120 sitting Fetus Heart Rate Present A 145 Fetus Movement A Yes Comments Patient c/o of slight nausea , [place] Anaya. Hip pain worsening, has tried tylenol, heating pads, showers without relief. Will send flexeril for symptomatic relief. Also reports worsening heartburn, will trial pepcid. Was seen by MFM, anatomy cleared, all normal measurements aside from HC 5%. Recommend repeat US in 4 weeks, will schedule at [facility] for 34 weeks. Passed GCT and labs. RTC 2 weeks Flowsheet Date 03/05/2024 Billings Score Blood Edema Fundus Height Fundus Units Glucose Ketones Leukocytes Nitrite Labor Signs Protein Cervic Dilation Cervic Effacement Cervic Station neg none 0cm 50% -3 Type Weight in lbs Pre/Post Dialysis Refused 280.38715568162 BP Diastolic BP Location Tested BP Systolic BP Type 88 L arm 117 sitting Fetus Heart Rate Present A 145 Fetus Movement A Yes Comments Patient c/o slight nausea, h eadaches, along with lower pressure. SVE performed per patient request. Will trial reglan for nausea. testing to start at 34 weeks. RTC 2 weeks. Discussed RSV and Tdap vaccines. Flowsheet Date 03/18/2024 Billings Score Blood Edema Fundus Height Fundus Units Glucose Ketones Leukocytes Nitrite Labor Signs Protein Cervic Dilation Cervic Effacement Cervic Station Type Weight in lbs Pre/Post Dialysis Refused BP Diastolic BP Location Tested BP Systolic BP Type Fetus Heart Rate Present Fetus Movement Comments Flowsheet Date 03/18/2024 Billings Score Blood Edema Fundus Height Fundus Units Glucose Ketones Leukocytes Nitrite Labor Signs Protein Cervic Dilation Cervic Effacement Cervic Station Type Weight in lbs Pre/Post Dialysis Refused BP Diastolic BP Location Tested BP Systolic BP Type Fetus Heart Rate Present Fetus Movement Comments Flowsheet Date 03/18/2024 Billings Score Blood Edema Fundus Height Fundus Units Glucose Ketones Leukocytes Nitrite Labor Signs Protein Cervic Dilation Cervic Effacement Cervic Station neg none Type Weight in lbs Pre/Post Dialysis Refused Weight 288.95186729014 BP Diastolic BP Location Tested BP Systolic BP Type 87 L arm 124 sitting Fetus Heart Rate Present A 140 Fetus Movement A Yes Comments Good movement. No cram ping or bleeding. Constipation and heartburn improved. BPP 8/10, nonreactive NST. Was seen for UTI last week, treated with macrobid. EFW 35%, normal SIENNA. Would like 39 week EIL, tentatively 3/3. RTC 1 week. Discussed preadmission. Flowsheet Date 03/23/2024 Billings Score Blood Edema Fundus Height Fundus Units Glucose Ketones Leukocytes Nitrite Labor Signs Protein Cervic Dilation Cervic Effacement Cervic Station Type Weight in lbs Pre/Post Dialysis Refused BP Diastolic BP Location Tested BP Systolic BP Type Fetus Heart Rate Present Fetus Movement Comments Flowsheet Date 03/23/2024 Billings Score Blood Edema Fundus Height Fundus Units Glucose Ketones Leukocytes Nitrite Labor Signs Protein Cervic Dilation Cervic Effacement Cervic Station Type Weight in lbs Pre/Post Dialysis Refused BP Diastolic BP Location Tested BP Systolic BP Type Fetus Heart Rate Present Fetus Movement Comments Flowsheet Date 03/23/2024 Billings Score Blood Edema Fundus Height Fundus Units Glucose Ketones Leukocytes Nitrite Labor Signs Protein Cervic Dilation Cervic Effacement Cervic Station neg trace Type Weight in lbs Pre/Post Dialysis Refused Weight 284.631830834368 BP Diastolic BP Location Tested BP Systolic BP Type 66 L arm 121 sitting Fetus Heart Rate Present A 150 Fetus Movement A Yes Comments Patient c/o of slight nausea , [place] Anaya. Good movement. No cramping or bleeding. Getting vaccines today. Needs to schedule preadmission. BPP 10. RTC 1 week. Flowsheet Date 03/30/2024 Billings Score Blood Edema Fundus Height Fundus Units Glucose Ketones Leukocytes Nitrite Labor Signs Protein Cervic Dilation Cervic Effacement Cervic Station Type Weight in lbs Pre/Post Dialysis Refused BP Diastolic BP Location Tested BP Systolic BP Type Fetus Heart Rate Present Fetus Movement Comments Flowsheet Date 03/30/2024 Billings Score Blood Edema Fundus Height Fundus Units Glucose Ketones Leukocytes Nitrite Labor Signs Protein Cervic Dilation Cervic Effacement Cervic Station Type Weight in lbs Pre/Post Dialysis Refused BP Diastolic BP Location Tested BP Systolic BP Type Fetus Heart Rate Present Fetus Movement Comments Flowsheet Date 03/30/2024 Billings Score Blood Edema Fundus Height Fundus Units Glucose Ketones Leukocytes Nitrite Labor Signs Protein Cervic Dilation Cervic Effacement Cervic Station neg none 2cm 50% -3 Type Weight in lbs Pre/Post Dialysis Refused Weight 285.110150422546 BP Diastolic BP Location Tested BP Systolic BP Type 83 L arm 132 sitting Fetus Heart Rate Present A 150 Fetus Movement A Yes Comments Good movement. No stro ng ctx, LOF, bleeding. BPP 10/10. GBS collected today. EIL scheduled 04/19. Labor precautions reviewed. RTC 1 week. Flowsheet Date 04/09/2024 Billings Score Blood Edema Fundus Height Fundus Units Glucose Ketones Leukocytes Nitrite Labor Signs Protein Cervic Dilation Cervic Effacement Cervic Station Type Weight in lbs Pre/Post Dialysis Refused BP Diastolic BP Location Tested BP Systolic BP Type Fetus Heart Rate Present Fetus Movement Comments Flowsheet Date 04/09/2024 Billings Score Blood Edema Fundus Height Fundus Units Glucose Ketones Leukocytes Nitrite Labor Signs Protein Cervic Dilation Cervic Effacement Cervic Station Type Weight in lbs Pre/Post Dialysis Refused BP Diastolic BP Location Tested BP Systolic BP Type Fetus Heart Rate Present Fetus Movement Comments Flowsheet Date 04/09/2024 Billings Score Blood Edema Fundus Height Fundus Units Glucose Ketones Leukocytes Nitrite Labor Signs Protein Cervic Dilation Cervic Effacement Cervic Station neg none Type Weight in lbs Pre/Post Dialysis Refused Weight 285.054228382787 BP Diastolic BP Location Tested BP Systolic BP Type 88 L arm 139 sitting Fetus Heart Rate Present A 140 Fetus Movement A Yes Comments Baby moving well. No bleedin g or LOF. Some cramping. UTI symptoms, will send antibiotics. Labor precautions reviewed. BPP 10. RTC 1 week. Flowsheet Date 04/13/2024 Billings Score Blood Edema Fundus Height Fundus Units Glucose Ketones Leukocytes Nitrite Labor Signs Protein Cervic Dilation Cervic Effacement Cervic Station Type Weight in lbs Pre/Post Dialysis Refused BP Diastolic BP Location Tested BP Systolic BP Type Fetus Heart Rate Present Fetus Movement Comments Flowsheet Date 04/13/2024 Billings Score Blood Edema Fundus Height Fundus Units Glucose Ketones Leukocytes Nitrite Labor Signs Protein Cervic Dilation Cervic Effacement Cervic Station Type Weight in lbs Pre/Post Dialysis Refused Weight 287.787842313211 BP Diastolic BP Location Tested BP Systolic BP Type 87 R arm 119 sitting Fetus Heart Rate Present Fetus Movement Comments Flowsheet Date 04/13/2024 Billings Score Blood Edema Fundus Height Fundus Units Glucose Ketones Leukocytes Nitrite Labor Signs Protein Cervic Dilation Cervic Effacement Cervic Station neg none 2cm 50% -2 Type Weight in lbs Pre/Post Dialysis Refused Weight 287.314585651811 BP Diastolic BP Location Tested BP Systolic BP Type 88 L arm 119 sitting Fetus Heart Rate Present A 145 Fetus Movement A Yes Comments Patient c/o [place] Anaya an d swelling in hands and feet. No regular contractions. Lots of pelvic pressure. Good movement. EFW 40%, BPP 8/10. EIL scheduled for Friday. Menstrual History Last Menstrual Date Menses Monthly [...] Domestic Partner Domestic Partner Phone Father Name Spout Positioner Status 10/31/19 24 1 CLOSED Fetus Data First Name Last Name Admitted to NICU Weight (g) Sex Living Outcome Pediatric Complications Fetus ID Race Codes Race Delivery Type [id number] Bert Calculation Initial Bert Date Initial Exam Date Initial Exam Provider Initial Ultrasound Date Last Menstrual Period Date Ultra Sound Weeks Gestation 10/31/2023 0 Eighteen To Twenty Week Bert Update Ultra Sound Date Fundal Height At Umbil Quickening Date Ultra Sound Latest Weeks Gestation Final Bert Confirmed By Final Bert Confirmed Date Final Bert Date Ultra Sound Latest Days Gestation 0 0 Pre- Flowsheet Flowsheet Date 10/31/2023 Billings Score Blood [...] Estim ated Date of Delivery false Thalassemia (Turkmen, Lao, Mediterranean, Or Background): MCV < 80 false Neural Tube Defect (Meningomyelocele, Spina Bifi da, Or Anencephaly) false Congenital Heart Defect false Down Syndrome false David-Sachs (eg, Orthodox, Cajun, Lao-Malaysian) f alse Eleonora Disease false Sickle Cell Disease Or Trait () false Hemophilia Or Other Blood Disorders false Muscular Dystrophy false Cystic Fibrosis false Keon's Chorea false Intellectual Disability/Autism false If Yes, [...]
--- OUTSIDE RECORDS SUMMARY | 2024-04-23 12:22 | XMS_ITS | Referral Summary ---
Author Organization [facility] Address [address] [place] [address] Care Team Providers Care Hebrew Teacher Name Role Phone Sary Rodriguez APRN-PROJECT SCIENTIST Primary Care Provider Source Comments [facility],non-owned Affiliates and Associated Physician Practices is amultiple site organization consisting of ambulatory clinics and hospital sitesin [place], [place], [place] and [place]. This disclosure is being madepursuant to the Care Everywhere program and may not contain all information available regarding this patient. Last updated 17.[facility] Encounters Date Type Department Care Team Description 04/19/2024 Telephone [facility] - Rheumatology [address] [place] [address] [phone] Vito Avila MD Medication Prior Auth Request (Cimzia) 04/01/2024 Refill [facility] [address] [place] [address] [phone] Vito Avila MD Refill Request 03/08/2024 Refill [facility] [address] [place] [address] [phone] Vito Avila MD Refill Request from Last 3 Months Allergies Active Allergy Reactions Criticality Noted Date Comments Amoxicillin Urticaria,Other,Fev er Medium 06/01/2018 Skin red and head hot Grass Pollen(K-O-R-T-Swt Ryan) Urticaria Medium 12/12/2020 Latex Urticaria Medium 06/01/2018 Sulfamethoxazole W-Trimethoprim Urticaria Medium 02/14/2018 Medications * Be aware that medications may not be up to date on this document. Alwaysverify current medications with the patient. Medication Sig Dispensed Refills Start Date End Date Status Symbicort 160-4.5 MCG/ACT inhaler 12/26/2021 Active cyclobenzaprine (Flexeril) 10 MG tablet Take 1 (one) tablet by mouth 3 times daily as needed 07/10/2022 Active ondansetron, disintegrating, (Zofran ODT) 8 MG tablet DISSOLVE 1 TABLET ON THE TONGUE TWICE DAILY 10/27/2023 Active certolizumab pegol (Cimzia, 2 Syringe,) injectionIndications:A xial spondyloarthritis (HCC) INJECT 2 SYRINGES UNDER THE SKIN EVERY 4 WEEKS 1 kit 2 04/01/2024 Active Cimzia, 2 Syringe, injectionIndications:A xial spondyloarthritis (HCC) INJECT 2 SYRINGES UNDER THE SKIN EVERY 4 WEEKS 1 kit 03/09/2024 Discontinued Active Problems Problem Noted Date Diagnosed Date Eczematous skin lesions 03/06/2023 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 (F LUZONE; FLULAVAL; FLUARIX; AFLURIA QUADRIVALENT; 6MO+), 0.5 ML (IIV4) 12/18/2016 Social History Tobacco Use Types Packs/Day Years [...] Mass Index 45.6 10/29/2023 2:19 PM CDT Plan of Treatment Upcoming Encounters Date Type Department Care Team (Late st Contact Info) Description 06/02/2024 3:00 PM CDT Office Visit [facility] - Rheumatology [address] [place] [address], [place] [address] Vito Avila MD [address] [place] [address] [place] [phone] Procedures Procedure Name Priority Date/Time Associated Diagnosis Comments HEPATITIS C ANTIBODY Routine 06/29/2021 4:51 PM CDT Need for hepatitis C screening test Therapeutic drug monitoring Long-term use of immunosuppressant medication from Last 3 Months or Most Recently Relevant to Health Maintenance Results * HEPATITIS C ANTIBODY (06/29/2021 4:51 PM CDT) Hepatitis C Antibody Non-react jan Non-reac tive 06/29/2021 6:33 PM CDT [facility] Comment:Hepatitis C Antibody screen indicates no [...] Renetta Rice MD LAB - CHEMISTRY ORDERABLES [facility] [address] [place] [address], [facility] [phone] from Last 3 Months or Most Recently Relevant to Health Maintenance Care Teams Hebrew Teacher Relationship Specialty Start Date End Date Sary Rodriguez, SPLUNK DEVELOPER-PROJECT SCIENTIST [address] [place] [phone] PCP - General Nurse Practitioner Family 03/06/23
--- OUTSIDE RECORDS SUMMARY | 2024-04-23 12:22 | XMS_ITS | Clinical Summary ---
Author Organization [facility] Address [address] [facility] [place] [address] Care Team Providers Care Inspector Health Care Facilities Name Role Phone Sary Rodriguez APRN-TOWBOAT OPERATOR Primary Care Provider Source Comments [facility],non-owned Affiliates and Associated Physician Practices is amultiple site organization consisting of ambulatory clinics and hospital sitesin [place], [place], [place] and [place]. This disclosure is being madepursuant to the Care Everywhere program and may not contain all information available regarding this patient. 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 non -steroidal anti-inflammatories (NSAID) 09/19/2021 Class 3 severe obesity due t o excess calories with body mass index (BMI) of 40.0 to 44.9 in adult 09/19/2021 Estimated Date of Delivery Comme nts Yes 04/25/2024 Encounters Date Type Department Care Team Description 04/19/2024 Telephone [facility] [address] [place] [phone] Vito Avila MD Medication Prior Auth Request (Cimzia) 04/01/2024 Refill [facility] [address] [place] [phone] Vito Avila MD Refill Request 03/08/2024 Refill [facility] [address] [place] [phone] Vito Avila MD Refill Request from Last 3 Months Immunizations Name Administration Dates Next Due INFLUENZA VACCINE, QUADR. (F LUZONE; FLULAVAL; FLUARIX; AFLURIA QUADRIVALENT; 6MO+), 0.5 ML (IIV4) 12/18/2016 Family History Medical History Relation Name Comments ADD/ADHD Brother Bipolar Disorder Brother Other Father PTSD and mental illness Thyroid Disease Mother Diabetes; unknown type Sister Other Sister RSD Relation Name Status Comments Brother Father Mother Sister Social History Tobacco Use Types [...] Description 06/02/2024 3:00 PM CDT Office Visit [facility] - Rheumatology [address] [place] [address], [place] [address] Vito Avila MD [address] [place] [address] [place] [phone] Health Maintenance Due Date Last Done Comments HIV SCREENING 2008 DTAP/TDAP/TD VACCINES (1 - Tdap) 2012 HEPATITIS B VACCINE (1 of 3 - 19+ 3-dose series) 2012 PNEUMOCOCCAL VACCINE (1 of 2 - PCV) 2012 COVID-19 VACCINE ( - season) 2023 INFLUENZA VACCINE (#1) 2023 12/18/2016 OB-ONE HOUR GLUCOSE 01/18/2024 OB-TDAP CURRENT 01/25/2024 OB-RHOGAM INJECTION 02/01/2024 DEPRESSION SCREENING 02/18/2024 03/06/2023, 04/10/19 23 OB-GROUP B STREP SCREEN 03/21/2024 PAP SMEAR 10/05/2026 10/06/2023, 03/21, 04/10/2022, Additional history exists ZOSTER VACCINE (1 of 2) 06/19/2043 HEPATITIS C SCREENING Completed 06/29/2021 HIB VACCINE Aged Out No longer eligi ble based on patient's age to complete this topic HPV VACCINE Aged Out No longer eligi ble based on patient's age to complete this topic MENINGOCOCCAL (Group B) VACCINE Aged Out No longer eligible based on patient's age to complete this topic MENINGOCOCCAL VACCINE Aged Out No stalin livia eligible based on patient's age to complete this topic Respiratory Syncytial Virus (RSV) Vaccine Pt: or over 60 yrs (No Doses Required) Completed Procedures Procedure Name Priority Date/Time Associated Diagnosis Comments HEPATITIS C ANTIBODY Routine 06/29/2021 4:51 PM CDT Need for hepatitis C screening test Therapeutic drug monitoring Long-term use of immunosuppressant medication from Last 3 Months or Most Recently Relevant to Health Maintenance Results * HEPATITIS C ANTIBODY (06/29/2021 4:51 PM CDT) Hepatitis C Antibody Non-react jan Non-reac tive 06/29/2021 6:33 PM CDT [facility] Comment:Hepatitis C Antibody screen indicates [...] Renetta Rice MD LAB - CHEMISTRY ORDERABLES [facility] [address] [place] [address], [facility] [phone] from Last 3 Months or Most Recently Relevant to Health Maintenance Care Teams Inspector Health Care Facilities Relationship Specialty Start Date End Date Sary Rodriguez, ROTARY DRILLER PROSPECTING-TOWBOAT OPERATOR [address] [place] [phone] PCP - General Nurse Practitioner Family 03/06/23
--- NOTE | 2024-04-23 12:25 | PC.NURSE ---
1220- Spoke with Dr. Montilla regarding patient labs and BPs. orders for Nifedipine 30 mg XL daily to be started now. Patient may have a regular diet. Will keep patient and monitor BPs for a few hours.
[2024-04-23] MEDS: NIFEdipine 30 MG TAB.ER.24 PO ×3 (12:31→20:50)
[2024-04-23] MEDS: ACETAMINOPHEN 500 MG TABLET 1000 MG PO (12:31)
--- NOTE | 2024-04-23 15:26 | PC.NURSE ---
6564- Spoke with Dr. Montilla regarding BPs. Orders received for another 30 XL Procardia to be given once now.
--- NOTE | 2024-04-23 15:27 | PC.NURSE ---
1525- Spoke with Dr. Montilla regarding BPs. Orders to give 300 mg Labetalol PO once now. Will monitor BPs for another 2 hours.
[2024-04-23] MEDS: LABETALOL HCL 100 MG TABLET 300 MG PO ×2 (15:44→20:50)
--- NOTE | 2024-04-23 16:38 | PM.OBPNVD ---
OB - PN: Subj Subjective Date/time seen: 04/23/24 16:38 Interval history: Discussed patient case with Dr. Napoles MF with [facility]. 1 week PP with newly elevated BPs, minimally responsive to Procardia XL 30mg. Will add labetalol 300mg BID and monitor response. Labs wnl; headache improved. Dr. Napoles agrees with plan of care. OB - PN: Obj Data Labs 04/23/24 11:41 04/23/24 11:41 Labs: Laboratory Results - last 24 hr 04/23/24 11:41 WBC 9.6 RBC 3.46 L Hgb 10.7 L Hct 33.2 L MCV 96.0 MCH 30.9 MCHC 32.2 RDW 13.5 Plt Count 290 MPV 9.5 Immature Gran % (Auto) 2.3 H Neut % (Auto) 53.4 Lymph % (Auto) 32.8 [place] % (Auto) 8.5 Eos % (Auto) 2.2 Baso % (Auto) 0.8 Lymph # (Auto) 3.14 [place] # (Auto) 0.8 H Eos # (Auto) 0.2 Baso # (Auto) 0.1 Abs Immat Gran (auto) 0.22 H Absolute Neuts (auto) 5.1 Absolute Nucleated RBC 0.000 Nucleated RBC % 0.0 Sodium 137 Potassium 3.9 Chloride 107 Carbon Dioxide 21 L Anion Gap 9 BUN 12 Creatinine 0.60 L Estim Creat Clear Calc Not Reportable Estimated GFR > 60 Glucose 87 Uric Acid 4.8 Calcium 8.9 Total Bilirubin 0.3 AST 19 ALT 18 Alkaline Phosphatase 78 Total Protein 7.0 Albumin 3.7 OB - PN A/P Time Spent With Patient Time: Total time spent is greater than 50% in coordination of care (as documented) at patient's floor/unit and/or counseling patient:
[2024-04-23] MEDS: WITCH HAZEL 40 PADS 1 PAD TOPICAL (17:26)
[2024-04-24 03:00] VITALS: BP 120/73; PULSE 83
[2024-04-24] MEDS: IBUPROFEN 600 MG TABLET PO (03:17)
[2024-04-24 07:14] VITALS: BP 125/72; PULSE 81
--- NOTE | 2024-04-24 08:35 | P.DS_ITS ---
DS: Admitting Diagnosis Discharge Date April 24, 2024 Admitting Diagnosis Term DS: Discharge Diagnosis Discharge Diagnosis (1) (spontaneous vaginal delivery): Code(s): O80 - Encounter for full-term uncomplicated delivery Status: Acute OB - DS: Summary Hospital Course Hospital Course: 28-year-old female who was approximately one-week presents for elevated blood pressures. She has possible preeclampsia heard gestational hypertension. She was observed and treated with antihypertensives. She was discharged on hospital day 1. OB Procedures : None OB Procedures Intrapartum: Spontaneous Vag Delivery OB Procedures: : None Time Spent with Patient Time attestation: Total time spent providing and/or coordinating discharge services: DS: Data Data Completed and Pending Labs on day of discharge: Labs from last 24 hours 04/23/24 11:41 WBC 9.6 RBC 3.46 L Hgb 10.7 L Hct 33.2 L MCV 96.0 MCH 30.9 MCHC 32.2 RDW 13.5 Plt Count 290 MPV 9.5 Immature Gran % (Auto) 2.3 H Neut % (Auto) 53.4 Lymph % (Auto) 32.8 [place] % (Auto) 8.5 Eos % (Auto) 2.2 Baso % (Auto) 0.8 Lymph # (Auto) 3.14 [place] # (Auto) 0.8 H Eos # (Auto) 0.2 Baso # (Auto) 0.1 Abs Immat Gran (auto) 0.22 H Absolute Neuts (auto) 5.1 Absolute Nucleated RBC 0.000 Nucleated RBC % 0.0 Sodium 137 Potassium 3.9 Chloride 107 Carbon Dioxide 21 L Anion Gap 9 BUN 12 Creatinine 0.60 L Estim Creat Clear Calc Not Reportable Estimated GFR > 60 Glucose 87 Uric Acid 4.8 Calcium 8.9 Total Bilirubin 0.3 AST 19 ALT 18 Alkaline Phosphatase 78 Total Protein 7.0 Albumin 3.7 Discharge Plan Discharge Discharging Clinician: Damian Sandy Patient Disposition: Home, Self-Care Activity: pelvic rest Diet: regular Patient Instructions: Antibiotic Form Patient Language: Malagasy Stand Alone Forms: General Discharge Information Follow-up/Referrals: Damian Sandy MD [Physician] - Discharge Medications: New labetalol 100 mg Tablet 300 mg PO Q12HR Qty: 30 0RF nifedipine [Procardia XL] 30 mg Tablet Extended Release 24hr 30 mg PO Q12HR Qty: 30 0RF Continued metoclopramide HCl [Reglan] 10 mg tablet 10 mg PO Q6H PRN (Reason: nausea and vomiting) ibuprofen [IBU] 600 mg tablet 600 mg PO Q6H docusate sodium 100 mg capsule PO BID cyclobenzaprine 10 mg tablet 10 mg PO TID PRN (Reason: muscle spasm) Gummies 400 mcg-35 mg- 25 mg-5 mg tablet,chewable PO DAILY Date of admission: 04/23/24 16:41 Primary Care Provider: UNKNOWN,DOCTOR Admitting Provider: Cruz Montilla Attending physician on admission: Cruz Montilla Condition: Stable
[2024-04-24 09:10] VITALS: BP 117/83; PULSE 89
[2024-04-24] MEDS: NIFEdipine 30 MG TAB.ER.24 PO (09:10)
[2024-04-24] MEDS: LABETALOL HCL 100 MG TABLET 300 MG PO (09:10)
== END 2024-04-24 09:17 | disposition home or self-care (01) ==
LOC: ANHOBOP 16:58 → ANHOBPP 04-24 08:39
PROVIDERS: Admitting Provider Obstetrics & Gynecology; Visit Provider Obstetrics & Gynecology
DX: O90.89 Other complications of the puerperium, not elsewhere classified (principal); R03.0 Elevated blood-pressure reading, without diagnosis of hypertension
CPT/HCPCS: 36415; 80053; 84550; 85025; A9270; G0378; G0379

== ENCOUNTER 2024-11-05 16:12 | Emergency (ER) | payer OTHER, SELFPAY ==
--- OUTSIDE RECORDS SUMMARY | 2016-11-04 19:00 | XMS_ITS | Continuity of Care Document ---
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 [address] [facility] [facility] [place], [id number], [place]. tel:[phone] Family History Family Member Type Diagnosis Age At Onset No Information Payers Payer name Insurance type Covered democrat ID Authoriza tion(s) No Information Social History Type Description Quantity Date Captured Comments Sex Female Smoking Status No Information Chief Complaint And Reason For Visit No Information Plan Of Treatment Date Type Action Status No Information History Of Present Illness Encounter Date Complaint History Of Prese nt Illness No Information Instructions Date Instruction Additional Infor mation No Information Assessments Type Assessment Date No Information
--- OUTSIDE RECORDS SUMMARY | 2016-11-04 19:00 | XMS_ITS | Continuity of Care Document ---
Author Organization [facility] Address [address] [facility] [place] [address] [place] [address] Phone Care Team Providers Care Hotel Supplies Salesperson Name Role Phone Tae oLndon MD Unavailable Unavailable Advance Directives Directive Yes / No Effective Date File Name No Information Encounters Encounter Description Practice Location Reason(s) For Visit Diagnoses Date Provider Providers Copied on Encounter [facility], [address] [place], [id number], [place] tel:[phone] [facility] No Information Surya Strong. [address] [facility] [place], [id number], [place]. tel:[phone] Family History Family Member Type Diagnosis Age At Onset No Information Payers Payer name Insurance type Covered constitution party ID Authoriza tion(s) No Information Social History [...]
--- OUTSIDE RECORDS SUMMARY | 2024-11-05 16:13 | XMS_ITS | Clinical Summary ---
Author Organization [facility] Address [address] [place] [address] Care Team Providers Care Outside Medical Sales Representative Name Role Phone Valeria Barnes Edy PERRY Primary Care Provider [phone] Allergies Active Allergy Reactions Criticality Noted Date [...] daily as needed. 20 tablet 11/24/2018 Active Encounters Date Type Department Care Team Description 09/24/[address] [address] Dave Allen MD Appointment Request from Last 3 Months Social History Tobacco [...] 12:35 AM CDT Height 167.6 cm (5' 6) 11/24/2018 12:3 5 AM CDT Body Mass Index 40.8 11/24/2018 12:35 AM CDT Plan of Treatment Upcoming Encounters Date Type Department Care Team (Late st Contact Info) Description 01/04/2025 12:00 PM CODING DIRECTOR Office Visit [facility], [facility] [address] [place], [place] [phone] Dave Allen MD [facility]. [facility] [address] [place], [place] [phone] Health Maintenance Due Date Last Done Comments Cervical Cancer Screening Pa p Smear (Age 30 to 64) Every 3 Years 1993 Annual Physical 1996 Hepatitis C 06/19/2011 DTaP, Tdap and Td Vaccines ( 1 - Tdap) 2012 Hepatitis B Vaccines (1 of 3 - 19+ 3-dose series) 2012 Pneumococcal Vaccine: Pediat rics (0 to 5 Years) and At-Risk Patients (6 to 49 Years) (1 of 2 - PCV) 2012 HPV Vaccines (1 - 3-dose SCD M series) 2020 Cervical Cancer Screening Pa p with HPV Testing (Age 30 to 64) Every 5 Years 06/19/2023 Cervical Cancer Screening with HPV 06/19/2023 COVID-19 Vaccine (1 - 2023-2 5 season) 2024 Meningococcal B Vaccine Aged Out No l onger eligible based on patient's age to complete this topic Meningococcal Vaccine Aged Out No stalin livia eligible based on patient's age to complete this topic RSV Immunizations Under 20 Months Aged Out No longer eligible based on patient's age to complete this topic Insurance [employer] Care Teams Outside Medical Sales Representative Relationship Specialty Start Date End Date Valeria Barnes FNP [address] [address] PCP - General NURSE PRACTITIONER 02/14/18
--- OUTSIDE RECORDS SUMMARY | 2024-11-05 16:13 | XMS_ITS | Encounter Summary ---
Author Organization [facility] Address [address] [place], [place] [address] [address] Care Team Providers Care Project Manager Process Development Name Role Phone Jennifer Sary Audrey NIEVES-NATIONAL GUARD MEMBER Primary Care Provider Reason for Visit * Reason Onset Date Comments Medication Issue 11/04/2024 Encounter Details Date Type Department Care Team (Late st Contact Info) Description 11/04/2024 Telephone [facility] - Rheumatology [address] [place] [address], [facility] [place] [address] Rigoberto Hoskins MD [address] [place] [phone] Medication Issue Social History Tobacco Use Types Packs/Day Years Used Date Smoking Tobacco: Every Day Cigarettes Smokeless Tobacco: Never Alcohol Use Standard Drinks/Week Comments Never 0 (1 standard drink = 0.6 oz pur e alcohol) PHQ-2 Answer Date Recorded Patient Health Questionnaire-2 Score 0 09/28/2024 Comments No Sex and Gender Information Value Date Recorded Sex Assigned at Not on file 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 Will again attempt tomorrow and then send MyChart message Rigoberto Boyd MD Rheumatology Fellow [facility] documented in this encounter Plan of Treatment Upcoming Encounters Date Type Department Care Team (Late st Contact Info) Description 11/10/2024 2:00 PM CDT Office Visit [facility] - Rheumatology [address] [place] [phone] Vito Avila MD [address] [place] [address] [place] [phone] 01/12/2025 10:30 AM STORE WORKER Office Visit [facility] - Rheumatology [address] [place] [phone] Rigoberto Hoskins MD [address] [place] [phone] documented as of this encounter Visit Diagnoses Not on filedocumented in this encounter Care Teams Project Manager Process Development Relationship Specialty Start Date End Date Sary Rodriguez, UPHOLSTERY TECH-NATIONAL GUARD MEMBER [address] [place] [phone] PCP - General Nurse Practitioner Family 03/06/23 documented as of this encounter
--- OUTSIDE RECORDS SUMMARY | 2024-11-05 16:13 | XMS_ITS | Clinical Summary ---
Author Organization [facility] Address [address] [place] [address] [place] [address] Care Team Providers Care Extrusion Die Corrector Name Role Phone Sary Rodriguez NP Primary Care Provider [phone] Allergies Active Allergy Reactions Criticality Noted Date Comments Amoxicillin Hives 06/26/2022 Sulfamethoxazole W/Trimethoprim Hives 06/17 Latex Hives 06/26/2022 Medications MV & Min w/FA-DHA ( ADULT GUMMY/DHA/FA) 0.4-25 MG CHEW Take Activ e certolizumab pegol (CIMZIA) 2 X 200 MG injection kit Inject 1 mL (200 mg) into the skin every 30 days Active Active Problems Problem Noted Date Diagnosed Date 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 03/02/19 24 Class 3 severe obesity due t o excess calories with body mass index (BMI) of 40.0 to 44.9 in adult 09/19/2021 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 non -steroidal anti-inflammatories (NSAID) 09/19/2021 03/02/2023 Long-term use of immunosuppressant medication 03/02/2023 Social History Tobacco Use Types Packs/Day Years Used Date Smoking Tobacco: Every Day Cigarettes 0.3 10 Smokeless Tobacco: Never Tobacco Cessation:Ready to Q uit: Not Asked; Counseling Given: Not Answered Alcohol Use Standard Drinks/Week Comments Not Currently 0 (1 standard drink = 0.6 oz pur e alcohol) socially [facility] Utilities Answer Date Recorded In the past 12 months has [employer], gas, oil, or water Mashery threatened to shut off services in your home? No 11/25/2023 Humiliation, Afraid, Rape, and Kick questionnair e Answer Date Recorded Within the last year, have y ou been afraid of your partner or ex-partner? No 11/25/2023 Within the last year, have y ou been humiliated or emotionally abused in other ways by your partner or ex-partner? No Within the last year, have y ou been kicked, hit, slapped, or otherwise physically hurt by your partner or ex-partner? No 11/25/2023 Within the last year, have y ou been raped or forced to have any kind of sexual activity by your partner or ex-partner? No 11/25/2023 Hunger Vital Sign Answer Date Recorded Within the past 12 months, y ou worried that your food would run out before you got the money to buy more. Never true 11/25/19 24 Within the past 12 months, t he food you bought just didn't last and you didn't have money to get more. Never true 11/25/2023 PRAPARE - Transportation Answer Date Re corded In the past 12 months, has l ack of transportation kept you from medical appointments or from getting medications? No 09/2023 In the past 12 months, has l ack of transportation kept you from meetings, work, or from getting things needed for daily living? No 11/25/2023 Housing Stability Vital Sign Answer Carlos e Recorded In the last 12 months, was t here a time when you were not able to pay the mortgage or rent on time? No 11/25/2023 In the last 12 months, how many places have you lived? 1 11/25/2023 In the last 12 months, was t here a time when you did not have a steady place to sleep or slept in a alf (including now)? No 11/25/2023 Alcohol Use Answer Date Recorded Frequency of Alcohol Consumption Not on file 08/04/2023 Average Number of Drinks Not on file 024 Frequency of Binge Drinking Not on file 07/18 Alcohol Use Status Not Currently 08/04/2023 Average alcohol consumption Not on file 07/18 Comments No Sex and Gender Information Value Date Recorded Sex Assigned at Not on file Legal Sex Female 1:11 PM CDT Gender Identity Not on file Sexual Orientation Not on file Last Filed Vital Signs Vital Sign Reading Time Taken Comments Blood Pressure 131/75 12/01/2023 3:25 PM CDT Pulse 88 12/01/2023 3:25 PM CDT Temperature 36.6 C (97.9 F) 12/01/2023 3:07 PM CDT Respiratory Rate 18 12/01/2023 3:07 PM CDT Oxygen Saturation 99% 12/01/2023 3:07 PM CDT Inhaled Oxygen Concentration - - Weight 119.3 kg (263 lb) 12/01/2023 3:07 PM CDT Height 167.6 cm (5' 6) 12/01/2023 3:07 PM CDT Body Mass Index 42.45 12/01/2023 3:07 PM CDT Plan of Treatment Health Maintenance Due Date Last Done Comments HIV Screening 1993 Hepatitis C Screening ages 1 8 to 79 once 1993 MMR VACCINES (1 of 1 - Standard series) 1994 YEARLY WELLNESS EXAM 1996 DEPRESSION SCREENING 2005 Varicella Vaccine (1 of 2 - 13+ 2-dose series) 2006 HPV VACCINES (1 - 3-dose series) 2008 BMI Above/Below Normal Parameters 06/19/2011 ADULT TETANUS 2012 HEPATITIS B VACCINES (1 of 3 - 19+ 3-dose series) 2012 Pneumococcal Vaccine: Peds t o 50 & At-Risk Patients (1 of 2 - PCV) 2012 Influenza Vaccine 09/17/2024 12/18/2016 COVID-19 Immunization ( - 2023- season) 2024 CERVICAL CANCER SCREENING 06/18/20262023, 04/10/2022 Zoster Vaccine (Recombinant Vaccine) (1 of 2) 06/19/2043 HEPATITIS A VACCINES Aged Out No long er eligible based on patient's age to complete this topic HIB VACCINES Aged Out No longer eligi ble based on patient's age to complete this topic IPV VACCINES Aged Out No longer eligi ble based on patient's age to complete this topic MENINGOCOCCAL VACCINE Aged Out No stalin livia eligible based on patient's age to complete this topic Meningococcal B Vaccine Aged Out No l onger eligible based on patient's age to complete this topic ROTAVIRUS VACCINES Aged Out No longer eligible based on patient's age to complete this topic Insurance [id number] [place] [address] , [place] [address] [place] [address] , [place] [phone] GENERIC WORK COMP [employer]ERR[employer] SR[employer] Care Teams Extrusion Die Corrector Relationship Specialty Start Date End Date Sary Rodriguez NP [address] [place] [phone] PCP - General Nurse Practitioner 06/27/22
--- OUTSIDE RECORDS SUMMARY | 2024-11-05 16:13 | XMS_ITS | Encounter Summary ---
Author Organization [facility] Address [facility] [place] [address] Care Team Providers Care Residential Collections Name Role Phone Sary Rodriguez Audrey NIEVES-WORK TICKET DISTRIBUTOR Primary Care Provider Reason for Visit * Reason Onset Date Comments Med Question 11/05/2024 Encounter Details Date Type Department Care Team (Late st Contact Info) Description 11/05/2024 Telephone [facility] - Rheumatology [address] [place] [address], [facility] [place] [phone] Rigoberto Hoskins MD [address] [place] [phone] Med Question Social History Tobacco Use Types Packs/Day Years Used Date Smoking Tobacco: Every Day Cigarettes Smokeless Tobacco: Never Alcohol Use Standard Drinks/Week Comments Never 0 (1 standard drink = 0.6 oz pur e alcohol) PHQ-2 Answer Date Recorded Patient Health Questionnaire-2 Score 0 09/28/2024 Comments No Sex and Gender Information Value Date Recorded Sex Assigned at Not on file 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 Gender Identity Not on file Sexual Orientation Not on file documented as of this encounter Miscellaneous Notes * Telephone Encounter - Rigoberto Hoskins MD - 11/05/2024 11:37 AM CDT Attempted to call patient with no response, will send Publicfastt message Rigoberto Boyd MD Rheumatology Fellow [facility] documented in this encounter Plan of Treatment Upcoming Encounters Date Type Department Care Team (Late st Contact Info) Description 11/10/2024 2:00 PM CDT Office Visit [facility] - Rheumatology [address] [place] [phone] Vito Avila MD [address] [place] [address] [place] [phone] 01/12/2025 10:30 AM LENS AND FRAMES PRESCRIPTION CLERK Office Visit [facility] Rheumatology [address] [place] [phone] Rigoberto Hoskins MD [address] [place] [phone] documented as of this encounter Visit Diagnoses Not on filedocumented in this encounter Care Teams Residential Collections Relationship Specialty Start Date End Date Sary Rodriguez, ASE MASTER MECHANIC-WORK TICKET DISTRIBUTOR [address] [place] [phone] PCP - General Nurse Practitioner Family 03/06/23 documented as of this encounter
--- OUTSIDE RECORDS SUMMARY | 2024-11-05 16:13 | XMS_ITS | Encounter Summary ---
Author Organization [facility] Address [address] [place] [phone] Care Team Providers Care Nurse Research Name Role Phone Sary Rodriguez NP Primary Care Provider + [phone] Reason for Visit * Inpt Precert (Routine) Specialty Diagnoses / Procedures Referred By Latasha weston Referred To Contact Referral ID Status Reason Start Date Expiration Date Visits Re quested Visits Authorized [id number] 1 1 Encounter Details Date Type Department Care Team ([facility] st Contact Info) Description 04/27/2024 Hospital Encounter [facility] EMERGENCY DEPT [address] [place] [address] Social History Tobacco Use Types Packs/Day Years Used Date Smoking Tobacco: Every Day Cigarettes 0.3 10 Smokeless Tobacco: Never Alcohol Use Standard Drinks/Week Comments Not Currently 0 (1 standard drink = 0.6 oz pur e alcohol) socially [facility] Utilities Answer Date Recorded In the past 12 months has e Capt[employer], gas, oil, or water [employer] threatened to shut off services in your [...] place to sleep or slept in a [place] [facility] [place] (including now)? No 11/25/2023 Alcohol Use Answer [...] on file documented as of this encounter Plan of Treatment Not on file documented as of this encounter Visit Diagnoses Not on filedocumented in this encounter Care Teams Nurse Research Relationship Specialty Start Date End Date Sary Rodriguez NP [address] [place] [phone] PCP - General Nurse Practitioner 06/27/22 documented as of this encounter
--- OUTSIDE RECORDS SUMMARY | 2024-11-05 16:13 | XMS_ITS | Clinical Summary ---
Author Organization [facility] Address [address] [place] [phone] Phone Care Team Providers Care Hard Tile Setter Name Role Phone Unavailable Primary Care Provider Unavailabl e Encounters Date Type Department Care Team Description 09/22/2024 External Device Data ST[facility] ABSTRACTION Provider, Abstract 09/21/2024 External Device Data [facility] ABSTRACTION Provider, Abstract 09/01/2024 External Device Data [facility] ABSTRACTION Provider, Abstract 08/31/2024 External Device Data [facility] ABSTRACTION Provider, Abstract 08/17/2024 External Device Data [facility] ABSTRACTION Provider, Abstract from Last 3 Months Social History Tobacco Use Types Packs/Day Years Used Date Smoking Tobacco: Never Assessed Comments Unknown Sex and Gender Information Value Date Recorded Sex Assigned at Not on file Legal Sex Female 11:44 AM BLASTING 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
--- OUTSIDE RECORDS SUMMARY | 2024-11-05 16:13 | XMS_ITS | Encounter Summary ---
Author Organization [facility] Address [address] [place] [address] Care Team Providers Care Business Services Tech Name Role Phone Sary Rodriguez REWEAVER-INFORMATION SYSTEMS SECURITY DEVELOPER Primary Care Provider Sary Rodriguez REWEAVER-INFORMATION SYSTEMS SECURITY DEVELOPER Primary Care Provider Encounter Details Date Type Department Care Team (Late st Contact Info) Description 02/05/2022 Telephone [facility] [place] [id number] [place] [address] Kamlesh Neri MD [address] [place] [phone] Social History Tobacco Use Types Packs/Day Years Used Date Smoking Tobacco: Every Day Cigarettes Smokeless Tobacco: Never Alcohol Use Standard Drinks/Week Comments Never 0 (1 standard drink = 0.6 oz pur e alcohol) PHQ-2 Answer Date Recorded PHQ2 TOTAL SCORE 0 12/12/2020 Comments No Sex and Gender Information Value Date Recorded Sex Assigned at Not on file Legal Sex Female 6:23 PM 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 Drug type:NAPROXEN [email or web address] [address] Patient call back number: [phone] ON FACTOR documented in this encounter Plan of Treatment Upcoming Encounters Date Type Department Care Team (Late st Contact Info) Description 11/10/2024 2:00 PM CDT Office Visit [facility] - Rheumatology [address] [place] [address], [place] [phone] Vito Avila MD [address] [place] [address] [place] [phone] 01/12/2025 10:30 AM COTTON FACTOR Office Visit [facility] - Rheumatology [address] [place] [phone] Rigoberto Hoskins MD [address] [place] [phone] documented as of this encounter Visit Diagnoses Not on filedocumented in this encounter Care Teams Business Services Tech Relationship Specialty Start Date End Date Sary Rodriguez APRN-ZENOBIA [address] [place] [phone] PCP - General 09/18/21 03/05/23 Sary Rodriguez APRN-CNP [address] [place] [phone] PCP - General Nurse Practitioner Family 03/06/23 documented as of this encounter
--- OUTSIDE RECORDS SUMMARY | 2024-11-05 16:13 | XMS_ITS | Clinical Summary ---
Author Organization [facility] Address [address] [facility] [place] [address] Care Team Providers Care Circular Knitter Helper Name Role Phone Sary Rodriguez APRN-FORM MAKER PLASTER Primary Care Provider Source Comments [facility],non-owned Affiliates and Associated Physician Practices is amultiple site organization consisting of ambulatory clinics and hospital sitesin [place], [place], [place] and [place]. This disclosure is being madepursuant to the Care Everywhere program and may not contain all information available regarding this patient. Last updated 17.[facility] Allergies Active Allergy Reactions Criticality Noted Date Comments Amoxicillin Urticaria,Other,Fev er Medium 06/01/2018 Skin red and head hot Grass Pollen(K-O-R-T-Swt Ryan) Urticaria Medium 12/12/2020 Latex Urticaria Medium 06/01/2018 Sulfamethoxazole Urticaria High 05/05/2024 Sulfamethoxazole W-Trimethoprim Urticaria Medium 02/14/2018 Medications * Be aware that medications may not be up to date on this document. Alwaysverify current medications with the patient. labetalol (Normodyne; Trandate) 100 MG tablet 5 Active metoclopramide (Reglan) 10 MG tablet Take 1 (one) tablet by mouth every 6 hours as needed 5 Active NIFEdipine CR osmotic 24hr (Procardia-XL) 30 MG tablet Take 1 (one) tablet by mouth every 12 hours 5 Active ixekizumab (Taltz) 80 MG/ML auto-injector penIndications :Psoriatic Arthritis Inject 2 mL subcutaneously every 28 days for 28 days, THEN 1 mL every 28 days. Reasons: Psoriasis associated with Arthritis. 5 mL 3 5 026 Active Additional Information Patient not taking.Reported on 09/28/2024 Airsupra 90-80 MCG/ACT AERO INHALE 2 PUFFS BY MOUTH THREE TIMES DAILY NEEDED FOR WHEEZING 5 Active vitamin D, ergocalciferol , (Drisdol) 1.25 MG (27557 UT) capsule Take 1 (one) capsule by mouth every 7 days (once a week) 5 Active furosemide (Lasix) 20 MG tablet Take 1 (one) tablet by mouth once daily as directed. 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 of non -steroidal anti-inflammatories (NSAID) 09/19/2021 Class 3 severe obesity due t o excess calories with body mass index (BMI) of 40.0 to 44.9 in adult 09/19/2021 Encounters Date Type Department Care Team Description 11/05/2024 Telephone [facility] - Rheumatology [address] [place] [phone] Rigoberto Hoskins MD Med Question 11/04/2024 Telephone [facility] - Rheumatology [address] [place] [phone] Rigoberto Hoskins MD Medication Issue 11/02/2024 Telephone [facility] - Rheumatology [address] [place] [phone] Rigoberto Hoskins MD Question 09/28/2024 12:47 PM CDT - 09/28/2024 11:59 PM CDT Hospital Encounter [facility] DIAGNOSTIC RAD OP [address] [place] [address] Jose Salinas MD Discharge Disposition: Home or Self Care 09/28/2024 11:00 AM CDT Office Visit [facility] - Rheumatology [address] [place] [phone] Jose Salinas MD Gomez Escalona, Reynaldo A, MD Axial spondyloarthritis (Primary Dx); Long-term use of immunosuppressant medication; Class 3 severe obesity due to excess calories with body mass index (BMI) of 40.0 to 44.9 in adult, unspecified whether serious comorbidity present (HCC); Immunosuppression due to drug therapy (HCC) 09/28/2024 Travel 08/13/2024 Telephone [facility] - Rheumatology [address] [place] [phone] Vito Avila MD Results 08/13/2024 Refill [facility] [address] [phone] Vito Avila MD Med Change Request 08/12/[address] [phone] Vito Avila MD Medication Prior Auth Request (Taltz) 08/11/2024 4:25 PM CDT - 08/11/2024 11:59 PM CDT Hospital Encounter [facility] LAB OP DRAW STATION [address] [place] [address] Aristeo Landon MD Discharge Disposition: Home or Self Care 08/11/2024 3:00 PM CDT [facility] Visit [facility] [address] [phone] Vito Avila MD Axial spondyloarthritis (Primary Dx); Class 3 severe obesity due to excess calories with body mass index (BMI) of 40.0 to 44.9 in adult, unspecified whether serious comorbidity present (HCC); Long-term use of immunosuppressant medication 08/11/2024 Travel from Last 3 Months Immunizations Immunization Administration Dates Next Due INFLUENZA VACCINE, QUADR. 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 Gender Identity Not on file Sexual Orientation Not on file Last Filed Vital Signs Vital Sign Reading Time Taken Comments Blood Pressure 125/88 09/28/2024 10:47 AM CDT Pulse 116 09/28/2024 10:47 AM CDT Temperature 36.8 C (98.3 F) 09/28/2024 10:47 AM CDT Respiratory Rate 20 09/19/2021 10:39 AM CDT Oxygen Saturation 97% 09/28/2024 10:47 AM CDT Inhaled Oxygen Concentration - - Weight 132.5 kg (292 lb) 09/28/2024 10:47 AM CDT Height 165.1 cm (5' 5) 09/28/2024 10:47 AM CDT Body Mass Index 48.59 09/28/2024 10:47 AM CDT Plan of Treatment Upcoming Encounters Date Type Department Care Team (Late st Contact Info) Description 11/10/2024 2:00 PM CDT Office Visit [facility] - Rheumatology [address] [place] [phone] Vito Avila MD [address] [place] [address] [place] [phone] 01/12/2025 10:30 AM BORDER MACHINE OPERATOR Office Visit [facility] - Rheumatology [address] [place] [phone] Rigoberto Hoskins MD [address] [place] [phone] Health Maintenance Due Date Last Done Comments COVID-19 VACCINE (#1) 1998 DTAP/TDAP/TD VACCINES (1 - Tdap) 2012 HEPATITIS B VACCINE (1 of 3 - 19+ 3-dose series) 2012 PNEUMOCOCCAL VACCINE (1 of 2 - PCV) 2012 ZOSTER VACCINE (1 of 2) 2012 HPV VACCINE (1 - 3-dose SCDM series) 2020 INFLUENZA VACCINE (#1) 2024 12/18/2016 PAP SMEAR 04/10/2025 04/10/2022 HIV SCREENING Completed 10/06/2023, 07/12/2021 DEPRESSION SCREENING Completed 05/05/2024, 03/06/2023, 04/10/2022 HEPATITIS C SCREENING Completed 08/11/2024 , 06/29/2021 HIB VACCINE Aged Out No longer eligi ble based on patient's age to complete this topic MENINGOCOCCAL (Group B) VACCINE SHARED DECISION-MAKING Aged Out No longer eligible based on patient's age to complete this topic MENINGOCOCCAL GROUPS A/C/Y/W VACCINE Aged Out No longer eligible b ased on patient's age to complete this topic Procedures Procedure Name Priority Date/Time Associated Diagnosis Comments XR SI JOINTS 3VW OR MORE Routine 09/28/2024 1:21 PM CDT Axial spondyloarthritis Long-term use of immunosuppressant medication QUANTIFERON-TB GOLD PLUS 4-TUBE Routine 08/11/2024 4:37 PM CDT Axial spondyloarthritis Class 3 severe obesity due to excess calories with body mass index (BMI) of 40.0 to 44.9 in adult, unspecified whether serious comorbidity present (HCC) Long-term use of immunosuppressant medication HEPATITIS C ANTIBODY Routine 08/11/2024 4:37 PM CDT Axial spondyloarthritis Class 3 severe obesity due to excess calories with body mass index (BMI) of 40.0 to 44.9 in adult, unspecified whether serious comorbidity present (HCC) Long-term use of immunosuppressant medication HEPATITIS B SURFACE ANTIGEN W RFLX CONFIRMATION Routine 08/11/2024 4:37 PM CDT Axial spondyloarthritis Class 3 severe obesity due to excess calories with body mass index (BMI) of 40.0 to 44.9 in adult, unspecified whether serious comorbidity present (HCC) Long-term use of immunosuppressant medication HEPATITIS B CORE ANTIBODY TOTAL Routine 08/11/2024 4:37 PM CDT Axial spondyloarthritis Class 3 severe obesity due to excess calories with body mass index (BMI) of 40.0 to 44.9 in adult, unspecified whether serious comorbidity present (HCC) Long-term use of immunosuppressant medication COMPREHENSIVE METABOLIC PANEL Routine 08/11/2024 4:37 PM CDT Axial spondyloarthritis Class 3 severe obesity due to excess calories with body mass index (BMI) of 40.0 to 44.9 in adult, unspecified whether serious comorbidity present (HCC) Long-term use of immunosuppressant medication CBC W AUTO DIFFERENTIAL Routine 08/11/2024 4:37 PM CDT Axial spondyloarthritis Class 3 severe obesity due to excess calories with body mass index (BMI) of 40.0 to 44.9 in adult, unspecified whether serious comorbidity present (HCC) Long-term use of immunosuppressant medication from Last 3 Months Results * XR SI Joints 3Vw or More (09/28/2024 1:21 PM CDT) Anatomical Region Laterality Modality Pelvis, Lower Extremity Digital Radiography 09/28/2024 6:35 PM CDT Impressions 09/28/2024 6:39 PM CDT IMPRESSION: Sacroiliac sclerosis, right greater than left, compatible with sacroiliitis, not progressed. > Interpreting Provider: Steve Chamorro MD on 09/28/2024 6:39 PM Narrative 09/28/2024 6:39 PM CDT PROCEDURE: XR SI JOINTS 3VW OR MORE DATE/TIME OF EXAM: 09/28/2024 1:21 PM CLINICAL INFORMATION: None relevant/not provided if blank. Indication: M46.90: Axial spondyloarthritis Z79.60: Long-term use of immunosuppressant medication Additional History: COMPARISON: 12/12/2020 sacroiliac joint radiographs. 12/30/2020 sacroiliac joint MRI. TECHNIQUE: FINDINGS: There is mild to moderate sclerosis at the mid to lower aspect of the right sacroiliac joint and mild sclerosis on the left compatible with sacroiliitis, not progressed. There is no narrowing or ankylosis on either side. There is no fracture. The hip joint spaces and pubic symphysis are normal. Small iliac crest enthesophytes are noted. Procedure Note Steve Chamorro MD - 09/28/2024 PROCEDURE: XR SI JOINTS 3VW OR MORE DATE/TIME OF EXAM: 09/28/2024 1:21 PM CLINICAL INFORMATION: None relevant/not provided if blank. Indication: M46.90: Axial spondyloarthritis Z79.60: Long-term use of immunosuppressant medication Additional History: COMPARISON: 12/12/2020 sacroiliac joint radiographs. 12/30/2020 sacroiliac joint MRI. TECHNIQUE: FINDINGS: There is mild to moderate sclerosis at the mid to lower aspect of theright sacroiliac joint and mild sclerosis on the left compatible with sacroiliitis, not progressed. There is no narrowing or ankylosis oneither side. There is no fracture. The hip joint spaces and pubic symphysis are normal. Small iliac crest enthesophytes are noted. IMPRESSION: Sacroiliac sclerosis, right greater than left, compatible with sacroiliitis, not progressed. > Interpreting Provider: Steve Chamorro MD on 09/28/2024 6:39 PM Jose Salinas MD DIAGNOSTIC IMAGING ORDERABLES Final Result * QUANTIFERON-TB GOLD PLUS 4-TUBE (08/11/2024 4:37 PM CDT) QuantiFERON Mitogen Minus NIL 9.95 IU/mL 08/13/2024 10:33 PM CDT [facility] ([facility]) QuantiFERON Nil Value 0.05 IU/mL 08/13/2024 10:33 PM CDT [facility] ([facility]) QuantiFERON Plus TB1 Minus NIL 0.01 <=0.34 IU/mL 08/13/2024 10:33 PM CDT [facility] ([facility]) QuantiFERON Plus TB2 Minus NIL 0.02 <=0.34 IU/mL 08/13/2024 10:33 PM CDT [facility] ([facility]) QuantiFERON-TB Gold Plus Negative Negative 08/13/2024 10:33 PM CDT [facility] ([facility]) Comment: INTERPRETIVE INFORMATION:Quantiferon TB Gold Plus Interferon gamma release is measured for specimens from each of the four collection tubes. A qualitative result (Negative, Positive, or Indeterminate) is based on interpretation of the four values: NIL, MITOGEN minus NIL (MITOGEN-NIL), TB1 minus [...] Release Assays to Detect Mycobacterium tuberculosis Infection -- [place], 2010 (http://www.cdc.gov/mmwr/preview/mmwrhtml/xi7887a9.htm), for more information concerning test performance in low-prevalence populations and use in occupational screening. Performed By: [employer] [address] [place] [id number] Physician Assistant Certified: Olaf Nunez MD, PhD CLIA Number: [id number] Blood BLOOD SPECIMEN / Unknown Lab Venipuncture / Unknown 08/11/2024 4:37 PM CDT 08/11/2024 4:55 PM CDT Aristeo Landon MD LAB - CHEMISTRY ORDERABLES Final Result [facility] c-crowd [facility]) [address] [place] [address] * (ABNORMAL) CBC WITH DIFFERENTIAL (08/11/2024 4:37 PM CDT) [facility] WBC 12.7(H) 4.0 - 10.7 x10E9/L 08/11/2024 5:17 PM [facility] RBC Count 4.51 3.90 - 5.20 x10E12/L 08/11/2024 5:17 PM [facility] Hemoglobin 13.5 11.9 - 15.8 g/dL 08/11/2024 5:17 PM [facility] Hematocrit 40.5 34.8 - 46.1 % 08/11/2024 5:17 PM [facility] MCV 89.8 80.0 - 98.0 fL 08/11/2024 5:17 PM [facility] MCH 29.9 26.7 - 33.6 pg 08/11/2024 5:17 PM [facility] MCHC 33.3 31.7 - 36.3 g/dL 08/11/2024 5:17 PM [facility] RDW-CV 12.9 11.3 - 14.8 % 08/11/2024 5:17 PM [facility] Platelet Count 295 150 - 420 x10E9/L 08/11/2024 5:17 PM [facility] MPV 10.4 7.8 - 11.4 fL 08/11/2024 5:17 PM [facility] Neutrophil % 56.2 41.0 - 74.0 % 08/11/2024 5:17 PM [facility] Lymphocyte % 33.2 17.0 - 47.0 % 08/11/2024 5:17 PM [facility] Monocyte % 7.0 3.0 - 11.0 % 08/11/2024 5:17 PM [facility] Eosinophil % 2.0 0.0 - 7.0 % 08/11/2024 5:17 PM [facility] Basophil % 0.6 0.0 - 1.6 % 08/11/2024 5:17 PM [facility] Immature Granulocytes % 1.0 0.0 - 1.0 % 08/11/2024 5:17 PM T [facility] Neutrophil Absolute 7.12 1.60 - 7.50 x10E9/L 08/11/2024 5:17 PM [facility] Lymphocyte Absolute 4.21 1.00 - 4.40 x10E9/L 08/11/2024 5:17 PM [facility] Monocyte Absolute 0.89 0.15 - 1.00 x10E9/L 08/11/2024 5:17 PM [facility] Eosinophil Absolute 0.25 0.00 - 0.60 x10E9/L 08/11/2024 5:17 PM [facility] Basophil Absolute 0.08 0.00 - 0.13 x10E9/L 08/11/2024 5:17 PM [facility] Blood BLOOD SPECIMEN / Unknown Lab Venipuncture / Unknown 08/11/2024 4:37 PM CDT 08/11/2024 5:01 PM CDT Aristeo Landon MD LAB - HEMATOLOGY ORDERABLES Tamar l Result [facility] [address] [place] [phone], [facility] [phone] * (ABNORMAL) COMPREHENSIVE METABOLIC PANEL (08/11/2024 4:37 PM CDT) BUN 13 7 - 26 mg/dL 08/11/2024 5:31 PM [facility] Creatinine 0.66 0.56 - 0.96 mg/dL 08/11/2024 5:31 PM [facility] Sodium 136 136 - 145 mmol/L 08/11/2024 5:31 PM [facility] Potassium 3.9 3.5 - 4.5 mmol/L 08/11/2024 5:31 PM [facility] Chloride 105 98 - 107 mmol/L 08/11/2024 5:31 PM [facility] CO2 22 22 - 29 mmol/L 08/11/2024 5:31 PM [facility] Glucose 90 70 - 99 mg/dL 08/11/2024 5:31 PM [facility] Calcium 9.9 8.4 - 10.2 mg/dL 08/11/2024 5:31 PM [facility] Protein Total 8.4(H) 6.0 - 8.3 g/dL 08/11/2024 5:31 PM [facility] Albumin 4.3 3.4 - 5.0 g/dL 08/11/2024 5:31 PM [facility] Bilirubin Total 0.5 0.2 - 1.2 mg/dL 08/11/2024 5:31 PM [facility] Alkaline Phosphatase 77 40 - 150 U/L 08/11/2024 5:31 PM [facility] ALT 33 5 - 55 U/L 08/11/2024 5:31 PM [facility] AST 22 5 - 34 U/L 08/11/2024 5:31 PM [facility] Anion Gap 9 6 - 16 08/11/2024 5:31 PM [facility] BUN/Creatinine Ratio 20 7 - 23 08/11/2024 5:31 PM [facility] Osmolality Calculated 282 275 - 295 mOsm/kg 08/11/2024 5:31 PM [facility] Albumin/Globulin Ratio 1.0(L) 1.1 - 2.3 08/11/2024 5:31 PM [facility] eGFR by CKD-EPI >90 >=90 mL/min/1.7 3 m2 08/11/2024 5:31 PM [facility] Blood BLOOD SPECIMEN / Unknown Lab Venipuncture / Unknown 08/11/2024 4:37 PM T 08/11/2024 5:01 PM [facility] - 08/11/2024 5:31 PM [facility] Estimated Glomerular Filtration Rate (eGFR) calculated using the CKD-EPI Creatinine Equation (2020), per the National Kidney Foundation and [place] Society of Nephrology recommendations. us Aristeo Landon MD LAB - CHEMISTRY ORDERABLES Final Result [facility] [address] [place] [address], [facility] [phone] * HEPATITIS B CORE ANTIBODY TOTAL (08/11/2024 4:37 PM CDT) Pathologist [facility] [place] [facility] Antibody Total Non-reacti ve Non-reacti ve 08/11/2024 5:35 PM CDT [facility] Blood BLOOD SPECIMEN / Unknown Lab Venipuncture / Unknown 08/11/2024 4:37 PM CDT 08/11/2024 4:52 PM CDT Aristeo Landon MD LAB - CHEMISTRY ORDERABLES Final Result [address] [address], [facility] [phone] * HEPATITIS B SURFACE ANTIGEN W RFLX CONFIRMATION (08/11/2024 4:37 PM CDT) Pathologist [facility] [place] Hepatitis B Virus Surface Antigen Non-reacti ve Non-reacti ve 08/11/2024 5:35 PM CDT [facility] Blood BLOOD SPECIMEN / Unknown Lab Venipuncture / Unknown 08/11/2024 4:37 PM CDT 08/11/2024 4:52 PM CDT Aristeo Landon MD LAB - CHEMISTRY ORDERABLES Final Result Performing Organization Address City/[facility]/ZIP Co de Phone Number [address] [address], [facility] [phone] * HEPATITIS C ANTIBODY (08/11/2024 4:37 PM CDT) Pathologist [facility] [place] Hepatitis C Antibody Non-react jan Non-reac tive 08/11/2024 5:35 PM CDT [facility] Comment:Hepatitis C Antibody screen indicates no serologic evidence of past or current infection with Hepatitis C Virus. Patients with unexplained liver disease who are immunocompromised or suspected of having acute Hepatitis C infection may benefit from Nucleic Acid Test (DAX) for Hepatitis C Viral RNA to confirm Hepatitis C status. Blood BLOOD SPECIMEN / Unknown Lab Venipuncture / Unknown 08/11/2024 4:37 PM CDT 08/11/2024 4:52 PM CDT Aristeo Landon MD LAB - CHEMISTRY ORDERABLES Final Result [facility] [address] [place] [address], [place] [phone] from Last 3 Months Insurance [facility] Care Teams Circular Knitter Helper Relationship Specialty Start Date End Date Sary Rodriguez, SCREEN HANDLER-FORM MAKER PLASTER [address] [place] [phone] PCP - General Nurse Practitioner Family 03/06/23
--- OUTSIDE RECORDS SUMMARY | 2024-11-05 16:14 | XMS_ITS | Clinical Summary ---
Author Organization [address] Address [address] [place] [address] [facility] [place] [address] Phone Care Team Providers Care Blood And Plasma Laboratory Assistant Name Role Phone Sary Rodriguez APRN, ZENOBIA Primary Care Pro vider Allergies Active Allergy Reactions Criticality Noted Date Comments Amoxicillin Unknown,Hives,Other (see Comments) Medium 06/01/2018 Skin red and head hot Latex Hives,Other (see Comments) Medium 06/01/2018 Sulfamethoxazole-Trimet hoprim Hives,Unknown Medium 02/14/2018 Medications Cimzia 2 X 200 MG/ML Prefilled Syringe Kit every 30 days. 4 Active ergocalciferol (VITAMIN D) 15779 UNIT Capsule once a week. 4 Active [...] at Female 03/18/2023 10:56 AM DIRECTOR OF MUSIC THERAPY Legal Sex Female 2:15 PM DIRECTOR OF MUSIC THERAPY Gender Identity Female 03/18/2023 10:56 AM DIRECTOR OF MUSIC THERAPY Sexual Orientation Not on file Last Filed [...] 11:30 AM CDT Height 167.6 cm (5' 6) 07/03/2023 11:30 AM CDT Body Mass Index 44.06 07/03/2023 11:30 AM CDT Plan of Treatment Health Maintenance Due Date Last Done Comments Hepatitis C Virus (HCV) Screening 1993 TdaP Immunization 1993 Hepatitis B Immunization (1 of 3 - 19+ 3-dose series) 2012 Pneumococcal Immunization Co mbined (1 of 2 - PCV) 2012 Pap Smear 2014 Human Papillomavirus (HPV) Immunization (1 - 3-dose SCDM series) 2020 Cervical Cancer Screening (CCS) 06/19/2023 HPV/Cotest 06/19/2023 Influenza Immunization (#1) 2024 12/18/2016 SARS-COV-2 Immunization ( season) 2024 Respiratory Syncytial Virus (RSV) Immunization (Adult) (1 - 1-dose 75+ series) 2068 Meningococcal Immunization (ACWY) Aged Out No longer eligible based on patient's age to complete this topic Rotavirus Immunization Aged Out No lo nger eligible based on patient's age to complete this topic Insurance MEDICAID [place] Care Teams Blood And Plasma Laboratory Assistant Relationship Specialty Start Date End Date Sary Rodriguez, EZEQUIEL, OPERATIONS DEVELOPER [address] [place] [address] PCP - General Certified Nurse Practitioner 03/10/23
[2024-11-05 16:23] VITALS: BP 140/102; PULSE 86; RESP 16; TEMP 36.8; O2SAT 100
--- NOTE | 2024-11-05 19:12 | PC.NURSE ---
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 Pt ambulatory with steady gait to exit. nad noted.
--- OUTSIDE RECORDS SUMMARY | 2024-11-05 19:56 | XMS_ITS | Encounter Summary ---
Author Organization [facility] Address [address] [place] [address] Care Team Providers Care Social Media Marketing Manager Name Role Phone Sary Rodriguez RECREATION TEACHER-HEALTH AND SAFETY CONSULTANT Primary Care Provider Sary Rodriguez RECREATION TEACHER-HEALTH AND SAFETY CONSULTANT Primary Care Provider Encounter Details Date Type Department Care Team (Late st Contact Info) Description 02/05/2022 Telephone [address] [id number] [place] [address] Kamlesh Neri MD [address] [place] [phone] Social History Tobacco Use Types Packs/Day Years Used Date Smoking Tobacco: Every Day Cigarettes Smokeless Tobacco: Never Alcohol Use Standard Drinks/Week Comments Never 0 (1 standard drink = 0.6 oz pur e alcohol) PHQ-2 Answer Date Recorded PHQ2 TOTAL SCORE 0 12/12/2020 Comments No Sex and Gender Information Value Date Recorded Sex Assigned at Not on file Legal Sex Female 6:23 PM DIGITAL RESEARCH ANALYST Gender Identity Not on file Sexual Orientation Not on file documented as of this encounter Miscellaneous Notes * Telephone Encounter - Amy Medina - 02/05/2022 12:14 PM CST Patient called in requesting a Med refill. Drug type:NAPROXEN [facility] [address] Patient call back number: [phone] TAL RESEARCH ANALYST documented in this encounter Plan of Treatment Upcoming Encounters Date Type Department Care Team (Late st Contact Info) Description 11/10/2024 2:00 PM CDT Office Visit [facility] - Rheumatology [address] [place] [address], [place] [address] Vito Avila MD [address] [place] [address] [place] [phone] 01/12/2025 10:30 AM DIGITAL RESEARCH ANALYST Office Visit [facility] - Rheumatology [address] [place] [phone] Rigoberto Hoskins MD [address] [place] [phone] documented as of this encounter Visit Diagnoses Not on filedocumented in this encounter Care Teams Social Media Marketing Manager Relationship Specialty Start Date End Date Sary Rodriguez APRN-ZENOBIA [address] [place] [address] PCP - General 09/18/21 03/05/23 Sary Rodriguez APRN-CNP [address] [place] [phone] PCP - General Nurse Practitioner Family 03/06/23 documented as of this encounter
--- OUTSIDE RECORDS SUMMARY | 2024-11-05 19:56 | XMS_ITS | Encounter Summary ---
Author Organization [facility] Address [address] [place] [address] Care Team Providers Care Medical Authorization Specialist Name Role Phone Sary Rodriguez NP Primary Care Provider [phone] Reason for Visit * Inpt Precert (Routine) Specialty Diagnoses / Procedures Referred By Latasha weston Referred To Contact Referral ID Status Reason Start Date Expiration Date Visits Re quested Visits Authorized [id number] 1 1 Encounter Details Date Type Department Care Team ([facility] st Contact Info) Description 04/27/2024 Hospital Encounter [facility] EMERGENCY DEPT [address] [place] [address] Social History Tobacco Use Types Packs/Day Years Used Date Smoking Tobacco: Every Day Cigarettes 0.3 10 Smokeless Tobacco: Never Alcohol Use Standard Drinks/Week Comments Not Currently 0 (1 standard drink = 0.6 oz pur e alcohol) socially [facility] Utilities Answer Date Recorded In the past 12 months has e Identified, gas, oil, or water [employer] threatened to shut off services in your [...] place to sleep or slept in a penitentiary (including now)? No 11/25/2023 Alcohol Use Answer [...] on filedocumented in this encounter Care Teams Medical Authorization Specialist Relationship Specialty Start Date End Date Sary Rodriguez NP [address] [place] [phone] PCP - General Nurse Practitioner 06/27/22 documented as of this encounter
--- OUTSIDE RECORDS SUMMARY | 2024-11-05 19:56 | XMS_ITS | Clinical Summary ---
Author Organization [facility] Address [address] [place] [address] Care Team Providers Care Personal Caregiver Name Role Phone Valeria Barnes Edy PERRY Primary Care Provider [phone] Allergies Active Allergy Reactions Criticality Noted Date [...] Type Department Care Team Description 09/24/[address] [address] Dave Allen MD Appointment Request from Last [...] st Contact Info) Description 01/04/2025 12:00 PM SHIPYARD PAINTER HELPER Office Visit [facility], [facility] [address] [place], [place] [phone] Dave Allen MD Three [facility]. [facility] [address] [place], [place] [phone] Health Maintenance Due Date Last Done Comments [...] complete this topic Insurance RIGGINS Care Teams Personal Caregiver Relationship Specialty Start Date End Date Valeria Barnes FNP [address] [address] PCP - General NURSE PRACTITIONER 02/14/18
--- OUTSIDE RECORDS SUMMARY | 2024-11-05 19:56 | XMS_ITS | Clinical Summary ---
Author Organization [address] Address [address] [place] [address] [facility] [address] Phone Care Team Providers Care Medicaid Service Coordinator Name Role Phone Sary Rodriguez APRN, ZENOBIA Primary Care Pro vider Allergies Active Allergy Reactions Criticality Noted Date Comments Amoxicillin Unknown,Hives,Other (see Comments) Medium 06/01/2018 Skin red and head hot Latex Hives,Other (see Comments) Medium 06/01/2018 Sulfamethoxazole-Trimet hoprim Hives,Unknown Medium 02/14/2018 Medications Cimzia 2 X 200 MG/ML Prefilled Syringe Kit every 30 days. 4 Active ergocalciferol (VITAMIN D) 08075 UNIT Capsule once a week. 4 Active [...] Sex Assigned at Female 03/18/2023 10:56 AM SUPERVISOR PUMPING STATION Legal Sex Female 2:15 PM SUPERVISOR PUMPING STATION Gender Identity Female 03/18/2023 10:56 AM SUPERVISOR PUMPING STATION Sexual Orientation Not on file Last Filed [...] this topic Insurance MEDICAID R[place] Care Teams Medicaid Service Coordinator Relationship Specialty Start Date End Date Sary Rodriguez, EZEQUIEL, TYPE CASTING MACHINE OPERATOR [address] [place] [address] PCP - General Certified Nurse Practitioner 03/10/23
--- OUTSIDE RECORDS SUMMARY | 2024-11-05 19:56 | XMS_ITS | Clinical Summary ---
Author Organization [facility] Address [address] [place] [phone] Phone Care Team Providers Care Aircraft Machinist Helper Name Role Phone Unavailable Primary Care Provider [...] on file Legal Sex Female 11:44 AM CAN TESTER Gender Identity Not on file Sexual Orientation [...]
--- OUTSIDE RECORDS SUMMARY | 2024-11-05 19:56 | XMS_ITS | Clinical Summary ---
Author Organization [facility] Address [address] [place] [address] [place] [address] Care Team Providers Care Crystalizer Operator Name Role Phone Sary Rodriguez NP Primary Care Provider [phone] Allergies Active Allergy Reactions Criticality Noted Date [...] to 44.9 in adult 09/19/2021 03/02/2023 terminal gauger current use of non -steroidal anti-inflammatories (NSAID) 09/19/2021 03/02/2023 Long-term use of immunosuppressant medication 03/02/2023 Social History Tobacco Use Types Packs/Day Years Used Date Smoking Tobacco: Every Day Cigarettes 0.3 10 Smokeless Tobacco: Never Tobacco Cessation:Ready to Q uit: Not Asked; Counseling Given: Not Answered Alcohol Use Standard Drinks/Week Comments Not Currently 0 (1 standard drink = 0.6 oz pur e alcohol) socially [facility] Utilities Answer Date Recorded In the past 12 months has [employer], gas, oil, or water [employer] threatened to shut off services in your [...] place to sleep or slept in a senior care (including now)? No 11/25/2023 Alcohol Use Answer [...] patient's age to complete this topic Insurance [id number] [place] [address] , [place] [address] [place] [address] , [place] [phone] GENERIC WORK COMP [employer] Care Teams Crystalizer Operator Relationship Specialty Start Date End Date Sary Rodriguez NP [address] [place] [phone] PCP - General Nurse Practitioner 06/27/22
--- OUTSIDE RECORDS SUMMARY | 2024-11-05 19:56 | XMS_ITS | Clinical Summary ---
Author Organization [facility] Address [address] [facility] [place] [address] Care Team Providers Care Acquisition Editor Name Role Phone Sary Rodriguez APRN-JUICE PACKAGING MACHINES SETTER Primary Care Provider Source Comments [facility],non-owned Affiliates and Associated Physician Practices is amultiple site organization consisting of ambulatory clinics and hospital sitesin [place], [place] and [place]. This disclosure is being madepursuant to the Care Everywhere program and may not contain all information available regarding this patient. Last updated 17.[facility] Allergies Active Allergy Reactions Criticality Noted Date [...] vitamin D, ergocalciferol , (Drisdol) 1.25 MG (39363 UT) capsule Take 1 (one) capsule by mouth every 7 days (once a week) 5 Active furosemide (Lasix) 20 MG tablet Take 1 (one) tablet by mouth once daily as directed. 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 medication keno terminal operator current use of non -steroidal anti-inflammatories (NSAID) 09/19/2021 Class 3 severe obesity due t o excess calories with body mass index (BMI) of 40.0 to 44.9 in adult 09/19/2021 Encounters Date Type Department Care Team Description 11/05/2024 Telephone [facility] - Rheumatology [address] [place] [phone] Rigoberto Hoskins MD Med Question 11/04/2024 Telephone [facility] - Rheumatology [address] [place] [phone] Rigoberto Hoskins MD Medication Issue 11/02/2024 Telephone [facility] - Rheumatology [address] [place] [phone] Rigoberto Hoskins MD Question 09/28/2024 12:47 PM CDT - 09/28/2024 11:59 PM CDT Hospital Encounter [facility] DIAGNOSTIC RAD OP [address] [place] [address] Jose Salinas MD Discharge Disposition: Home or Self Care 09/28/2024 11:00 AM CDT Office Visit [facility] - Rheumatology [address] [place] [phone] Jose Salinas MD Gomez Escalona, Reynaldo A, MD Axial spondyloarthritis (Primary Dx); Long-term use of immunosuppressant medication; Class 3 severe obesity due to excess calories with body mass index (BMI) of 40.0 to 44.9 in adult, unspecified whether serious comorbidity present (HCC); Immunosuppression due to drug therapy (HCC) 09/28/2024 Travel 08/13/2024 Telephone [facility] - Rheumatology [address] [place] [phone] Vito Avila MD Results 08/13/2024 Refill [facility] [address] [phone] Vito Avila MD Med Change Request 08/12/[address] [phone] Vito Avila MD Medication Prior Auth Request (Taltz) 08/11/2024 4:25 PM CDT - 08/11/2024 11:59 PM CDT Hospital Encounter [facility] LAB OP DRAW STATION [address] [place] [address] Aristeo Landon MD Discharge Disposition: Home or Self Care 08/11/2024 3:00 PM CDT Office Visit [facility] [address] [phone] Vito Avila MD Axial spondyloarthritis (Primary Dx); [...] on file Legal Sex Female 6:23 PM SKEIN TIER Gender Identity Not on file Sexual Orientation [...] Office Visit [facility] - Rheumatology [address] [place] [phone] Vito Avila MD [address] [place] [address] [place] [phone] 01/12/2025 10:30 AM SKEIN TIER Office Visit [facility] - Rheumatology [address] [place] [phone] Rigoberto Hoskins MD [address] [place] [phone] Health Maintenance Due Date Last Done Comments [...] NIL 9.95 IU/mL 08/13/2024 10:33 PM CDT [employer] ([facility]) QuantiFERON Nil Value 0.05 IU/mL 08/13/2024 10:33 PM CDT [facility] ([facility]) QuantiFERON Plus TB1 Minus NIL 0.01 <=0.34 IU/mL 08/13/2024 10:33 PM CDT [facility] ([facility]) QuantiFERON Plus TB2 Minus NIL 0.02 <=0.34 IU/mL 08/13/2024 10:33 PM CDT [facility] ([facility]) QuantiFERON-TB Gold Plus Negative Negative 08/13/2024 10:33 PM CDT [facility] ([facility]) Comment: INTERPRETIVE INFORMATION:Quantiferon TB Gold Plus Interferon [...] Mycobacterium tuberculosis Infection -- [place], 2010 (http://www.cdc.gov/mmwr/preview/mmwrhtml/me7221q8.htm), for more information concerning test performance in low-prevalence populations and use in occupational screening. Performed By: [facility] [address] [place] [address] Center Mgr: Olaf Nunez MD, PhD CLIA Number: [id number] Blood BLOOD SPECIMEN / Unknown Lab Venipuncture / Unknown 08/11/2024 4:37 PM CDT 08/11/2024 4:55 PM CDT Aristeo Landon MD LAB - CHEMISTRY ORDERABLES Final Result [facility]) [address] [place] [id number] * (ABNORMAL) CBC WITH DIFFERENTIAL (08/11/2024 4:37 PM CDT) [facility] WBC 12.7(H) 4.0 - 10.7 x10E9/L 08/11/2024 5:17 PM [facility] RBC Count 4.51 3.90 - 5.20 x10E12/L 08/11/2024 5:17 PM [facility] Hemoglobin 13.5 11.9 - 15.8 g/dL 08/11/2024 5:17 PM [facility] Hematocrit 40.5 34.8 - 46.1 % 08/11/2024 5:17 PM [facility] MCV 89.8 80.0 - 98.0 fL 08/11/2024 5:17 PM [facility] MCH 29.9 26.7 - 33.6 pg 08/11/2024 5:17 PM [facility] MCHC 33.3 31.7 - 36.3 g/dL 08/11/2024 5:17 PM [facility] RDW-CV 12.9 11.3 - 14.8 % 08/11/2024 5:17 PM [facility] Platelet Count 295 150 - 420 x10E9/L 08/11/2024 5:17 PM [facility] MPV 10.4 7.8 - 11.4 fL 08/11/2024 5:17 PM [facility] Neutrophil % 56.2 41.0 - 74.0 % 08/11/2024 5:17 PM [facility] Lymphocyte % 33.2 17.0 - 47.0 % 08/11/2024 5:17 PM [facility] Monocyte % 7.0 3.0 - 11.0 % 08/11/2024 5:17 PM [facility] Eosinophil % 2.0 0.0 - 7.0 % 08/11/2024 5:17 PM [facility] Basophil % 0.6 0.0 - 1.6 % 08/11/2024 5:17 PM [facility] Immature Granulocytes % 1.0 0.0 - 1.0 % 08/11/2024 5:17 PM T [facility] Neutrophil Absolute 7.12 1.60 - 7.50 x10E9/L 08/11/2024 5:17 PM [facility] Lymphocyte Absolute 4.21 1.00 - 4.40 x10E9/L 08/11/2024 5:17 PM [facility] Monocyte Absolute 0.89 0.15 - 1.00 x10E9/L 08/11/2024 5:17 PM [facility] Eosinophil Absolute 0.25 0.00 - 0.60 x10E9/L 08/11/2024 5:17 PM [facility] Basophil Absolute 0.08 0.00 - 0.13 x10E9/L 08/11/2024 5:17 PM [facility] Blood BLOOD SPECIMEN / Unknown Lab Venipuncture / Unknown 08/11/2024 4:37 PM CDT 08/11/2024 5:01 PM CDT Aristeo Landon MD LAB - HEMATOLOGY ORDERABLES Tamar l Result [facility] [address] [place] [phone], [facility] [phone] * (ABNORMAL) COMPREHENSIVE METABOLIC PANEL (08/11/2024 4:37 PM CDT) BUN 13 7 - 26 mg/dL 08/11/2024 5:31 PM [facility] Creatinine 0.66 0.56 - 0.96 mg/dL 08/11/2024 5:31 PM [facility] Sodium 136 136 - 145 mmol/L 08/11/2024 5:31 PM [facility] Potassium 3.9 3.5 - 4.5 mmol/L 08/11/2024 5:31 PM [facility] Chloride 105 98 - 107 mmol/L 08/11/2024 5:31 PM [facility] CO2 22 22 - 29 mmol/L 08/11/2024 5:31 PM [facility] Glucose 90 70 - 99 mg/dL 08/11/2024 5:31 PM [facility] Calcium 9.9 8.4 - 10.2 mg/dL 08/11/2024 5:31 PM [facility] Protein Total 8.4(H) 6.0 - 8.3 g/dL 08/11/2024 5:31 PM [facility] Albumin 4.3 3.4 - 5.0 g/dL 08/11/2024 5:31 PM [facility] Bilirubin Total 0.5 0.2 - 1.2 mg/dL 08/11/2024 5:31 PM [facility] Alkaline Phosphatase 77 40 - 150 U/L 08/11/2024 5:31 PM [facility] ALT 33 5 - 55 U/L 08/11/2024 5:31 PM [facility] AST 22 5 - 34 U/L 08/11/2024 5:31 PM [facility] Anion Gap 9 6 - 16 08/11/2024 5:31 PM [facility] BUN/Creatinine Ratio 20 7 - 23 08/11/2024 5:31 PM [facility] Osmolality Calculated 282 275 - 295 mOsm/kg 08/11/2024 5:31 PM [facility] Albumin/Globulin Ratio 1.0(L) 1.1 - 2.3 08/11/2024 5:31 PM [facility] eGFR by CKD-EPI >90 >=90 mL/min/1.7 3 m2 08/11/2024 5:31 PM [facility] Blood BLOOD SPECIMEN / Unknown Lab Venipuncture / Unknown 08/11/2024 4:37 PM T 08/11/2024 5:01 PM [facility] - 08/11/2024 5:31 PM [facility] Estimated Glomerular Filtration Rate (eGFR) calculated using the CKD-EPI Creatinine Equation (2020), per the National Kidney Foundation and [place] Society of Nephrology recommendations. us Aristeo Landon MD LAB - CHEMISTRY ORDERABLES Final Result [facility] [address] [place] [address], [facility] [phone] * HEPATITIS B CORE ANTIBODY TOTAL (08/11/2024 4:37 PM CDT) Pathologist [facility] HBc Antibody Total Non-reacti ve Non-reacti ve 08/11/2024 5:35 PM CDT [facility] Blood BLOOD SPECIMEN / Unknown Lab Venipuncture / Unknown 08/11/2024 4:37 PM CDT 08/11/2024 4:52 PM CDT Aristeo Landon MD LAB - CHEMISTRY ORDERABLES Final Result [address] [address], [facility] [phone] * HEPATITIS B SURFACE ANTIGEN W RFLX CONFIRMATION (08/11/2024 4:37 PM CDT) Pathologist [facility] Hepatitis B Virus Surface Antigen Non-reacti ve Non-reacti ve 08/11/2024 5:35 PM CDT [facility] Blood BLOOD SPECIMEN / Unknown Lab Venipuncture / Unknown 08/11/2024 4:37 PM CDT 08/11/2024 4:52 PM CDT Aristeo Landon MD LAB - CHEMISTRY ORDERABLES Final Result Performing Organization Address City/[facility] [address]/ZIP Co de Phone Number [address] [address], [facility] [phone] * HEPATITIS C ANTIBODY (08/11/2024 4:37 PM CDT) Pathologist [facility] Hepatitis C Antibody Non-react jan Non-reac tive 08/11/2024 5:35 PM CDT [facility] Comment:Hepatitis C Antibody [...] 4:37 PM CDT 08/11/2024 4:52 PM CDT rAisteo Landon MD LAB - CHEMISTRY ORDERABLES Final Result [facility] [address] [place] [address], [place] [phone] from Last 3 Months Insurance [facility] Care Teams Acquisition Editor Relationship Specialty Start Date End Date Sary Rodriguez, GLOBAL REGULATORY LEAD-JUICE PACKAGING MACHINES SETTER [address] [place] [phone] PCP - General Nurse Practitioner Family 03/06/23
--- OUTSIDE RECORDS SUMMARY | 2024-11-05 19:56 | XMS_ITS | Encounter Summary ---
Author Organization [facility] Address [address] [place], [place] [address] [address] Care Team Providers Care Solid Propellant Processor Name Role Phone Jennifer Sary Audrey [employer] S[employer] PRINCIPAL Primary Care Provider Reason for Visit * Reason Onset Date Comments Medication Issue 11/04/2024 Encounter Details Date Type Department Care Team (Late st Contact Info) Description 11/04/2024 Telephone [facility] - Rheumatology [address] [place] [address], [facility] [place] [address] Rigoberto Hoskins MD [address] [place] [phone] Medication Issue Social History Tobacco Use [...] on file Legal Sex Female 6:23 PM EDGER TAILER Gender Identity Not on file Sexual Orientation Not on file documented as of this encounter Miscellaneous Notes * Telephone Encounter - Rigoberto Hoskins MD - 11/04/2024 4:53 PM CDT Attempted to call patient twice today with no response to follow-up about message about [employer]. Will again attempt tomorrow and then send MyChart message Rigoberto Boyd MD Rheumatology Fellow [facility] documented in this encounter Plan of Treatment Upcoming Encounters Date Type Department Care Team (Late st Contact Info) Description 11/10/2024 2:00 PM CDT Office Visit [facility] - Rheumatology [address] [place] [phone] Vito Avila MD [address] [place] [address] [place] [phone] 01/12/2025 10:30 AM EDGER TAILER Office Visit [facility] - Rheumatology [address] [place] [phone] Rigoberto Hoskins MD [address] [place] [phone] documented as of this encounter Visit Diagnoses Not on filedocumented in this encounter Care Teams Solid Propellant Processor Relationship Specialty Start Date End Date Sary Rodriguez, HOSE SEAMER[employer]SECONDARY SCHOOL PRINCIPAL [address] [place] [phone] PCP - General Nurse Practitioner Family 03/06/23 documented as of this encounter
== END 2024-11-05 20:08 | disposition left against medical advice (07) ==
LOC: ANHED 19:55
DX: M06.9 Rheumatoid arthritis, unspecified (principal)
CPT/HCPCS: 99199

== ENCOUNTER 2025-02-14 12:28 | Emergency (ER) | payer OTHER, SELFPAY ==
[2025-02-14] VITALS (8 sets, daily range): BP systolic 121–151; BP diastolic 61–103; PULSE 75–95; RESP 17–22; TEMP 36.1–36.8; O2SAT 98–100
--- NOTE | ~2025-02-14 | US_ITS ---
EXAMINATION: US pelvic complete INDICATION: Right lower quadrant pain Comparison:No prior studies for comparison. TECHNIQUE: Multiple transabdominal and endovaginal sonographic images of the pelvis performed. FINDINGS: The uterus measures 8.7 x 5.4 x 6.1 cm. The endometrial complex measures 6 mm. The right ovary measures 4.2 x 2.6 x 3.1 cm and the left ovary measures 3.4 x 2.3 x 2.9 cm. There are small follicles in each ovary. Normal doppler signal in both ovaries. There is no free fluid in the pelvis. There are no abnormal masses seen on either side. IMPRESSION: 1. Unremarkable pelvic ultrasound. Reviewed, dictated and finalized at location O. T CREW SUPERVISOR
--- NOTE | ~2025-02-14 | CT_ITS ---
EXAMINATION: CT abdomen pelvis wo con DATE: 02/14/2025 17:22 INDICATION: Right lower quadrant abdominal pain. TECHNIQUE: Computed tomography (CT) of the abdomen and pelvis was performed without intravenous contrast. Automated exposure control and iterative reconstruction technique were employed. The dose-length product was 1458.68 mGy-cm. COMPARISON: 07/16/2020 FINDINGS: Lung bases are clear. Heart size normal. No pericardial or pleural effusion. Liver, gallbladder, spleen, pancreas, bilateral adrenal glands are normal. Punctate 1 mm nonobstructing stone at the right kidney. No ureteral stones or hydronephrosis. Small amount of high attenuation material within the normal appendix with no periappendiceal inflammatory stranding to suggest acute appendicitis. Bowels are normal with no wall thickening or obstruction. Bladder, anteverted uterus and bilateral adnexa are unremarkable. No free intraperitoneal gas or fluid. No pathologically enlarged abdominal or pelvic lymphadenopathy. Small fat-containing umbilical hernia. Mild lumbar and lower thoracic spondylosis. IMPRESSION: 1. No acute intra-abdominal/pelvic process. Specifically the appendix is normal. 2. 1 mm nonobstructing right renal stone. Reviewed, dictated and finalized at location A. R PATTERN INSPECTOR IMPRESSION: 1. No acute intra-abdominal/pelvic process. Specifically the appendix is normal . 2. 1 mm nonobstructing right renal stone.
--- OUTSIDE RECORDS SUMMARY | 2025-02-14 12:42 | XMS_ITS | Encounter Summary ---
Author Organization [facility] Address [address] [place], [place] [address] [address] Care Team Providers Care Button Pusher Name Role Phone Jennifer Sary Audrey NIEVES-CUT OFF TENDER GLASS Primary Care Provider Reason for Visit * Reason Onset Date Comments Follow-up 01/19/2025 Encounter Details Date Type Department Care Team (Late st Contact Info) Description 01/19/2025 Telephone [facility] - Rheumatology [address] [place] [address], [facility] [place] [phone] Rigoberto Hoskins MD [address] [place] [phone] Follow-up Social History Tobacco Use Types Packs/Day Years Used Date Smoking Tobacco: Every Day Cigarettes Smokeless Tobacco: Never Alcohol Use Standard Drinks/Week Comments Never 0 (1 standard drink = 0.6 oz pur e alcohol) PHQ-2 Answer Date Recorded Patient Health Questionnaire-2 Score 0 11/17/2024 Comments No Sex and Gender Information Value Date Recorded Sex Assigned at Not on file Legal Sex Female 6:23 PM HISTORICAL GUIDE Gender Identity Not on file Sexual Orientation Not on file documented as of this encounter Miscellaneous Notes * Telephone Encounter - Ree Ruiz RN - 01/19/2025 10:41 AM CST Attempted to call social studies department chair back at [facility] to discuss continuity of care of the patient. No answer. Left voicemail message. ORICAL GUIDE ORICAL GUIDE documented in this encounter Plan of Treatment Upcoming Encounters Date Type Department Care Team (Late st Contact Info) Description 03/23/2025 10:00 AM HISTORICAL GUIDE Office Visit [facility] - Rheumatology [address] [place] [address], [facility] [place] [phone] Rigoberto Hoskins MD [address] [place] [phone] documented as of this encounter Visit Diagnoses Not on filedocumented in this encounter Care Teams Button Pusher Relationship Specialty Start Date End Date Sary Rodriguez APRN-CUT OFF TENDER GLASS [address] [place] [phone] PCP - General Nurse Practitioner Family 03/06/23 documented as of this encounter
--- OUTSIDE RECORDS SUMMARY | 2025-02-14 12:42 | XMS_ITS | Clinical Summary ---
Author Organization [facility] Address [address] [place] [phone] Phone Care Team Providers Care Procedure Manager Name Role Phone Unavailable Primary Care Provider Unavailabl e Encounters Date Type Department Care Team Description 11/16/2024 External Device Data STL ABSTRACTION Provider, Abstract from Last 3 Months Social History Tobacco Use Types Packs/Day Years Used Date Smoking Tobacco: Never Assessed Comments Unknown Sex and Gender Information Value Date Recorded Sex Assigned at Not on file Legal Sex Female 11:44 AM JIG HAND Gender Identity Not on file Sexual Orientation Not on file Plan of Treatment Health Maintenance Due Date Last Done Comments DTAP/TDAP/TD VACCINES (1 - Tdap) 2012 HEPATITIS B VACCINES (1 of 3 - 19+ 3-dose series) 03/2012 HPV/Cotest (21-29) 2014 CERVICAL CANCER SCREENING 06/19/2023 HPV/Cotest (30-65) 06/19/2023 PAP SMEAR 06/19/2023 INFLUENZA VACCINE (#1) 2024 12/18/2016 HPV VACCINES (No Doses Required) Completed Insurance [employer] [place]
--- OUTSIDE RECORDS SUMMARY | 2025-02-14 12:42 | XMS_ITS | Clinical Summary ---
Author Organization [address] Address [address] [place] [address] [facility] [address] Phone Care Team Providers Care Centrifugal Machine Tender Name Role Phone Sary Rodriguez APRN, ZENOBIA Primary Care Pro vider Allergies Active Allergy Reactions Criticality Noted Date Comments Amoxicillin Unknown,Hives,Other (see Comments) Medium 06/01/2018 Skin red and head hot Latex Hives,Other (see Comments) Medium 06/01/2018 Sulfamethoxazole-Trimet hoprim Hives,Unknown Medium 02/14/2018 Medications Cimzia 2 X 200 MG/ML Prefilled Syringe Kit every 30 days. 4 Active ergocalciferol (VITAMIN D) 99542 UNIT Capsule once a week. 4 Active [...] Sex Assigned at Female 03/18/2023 10:56 AM TELEPHONE MESSENGER Legal Sex Female 2:15 PM TELEPHONE MESSENGER Gender Identity Female 03/18/2023 10:56 AM TELEPHONE MESSENGER Sexual Orientation Not on file Last Filed [...] Virus (HCV) Screening 1993 TdaP Immunization 1993 Varicella Immunization (1 of 2 - 13+ 2-dose series) 2006 Hepatitis B Immunization (1 of 3 - 19+ 3-dose series) 2012 Pneumococcal Immunization Co mbined (1 of 2 - PCV) 2012 Pap Smear 2014 Cervical Cancer Screening (CCS) 06/19/2023 HPV/Cotest 06/19/2023 Influenza Immunization (#1) 2024 12/18/2016 SARS-COV-2 Immunization ( season) 2024 Respiratory Syncytial Virus (RSV) Immunization (Adult) (1 - 1-dose 75+ series) 2068 Human Papillomavirus (HPV) Immunization (No Doses Required) Completed Meningococcal Immunization (ACWY) Aged Out No longer eligible based on patient's age to complete this topic Rotavirus Immunization Aged Out No lo nger eligible based on patient's age to complete this topic Insurance MEDICAID [place] Care Teams Centrifugal Machine Tender Relationship Specialty Start Date End Date Sary Rodriguez APRN, COOPERATIVE EDUCATION COORDINATOR [address] [place] [phone] PCP - General Certified Nurse Practitioner 03/10/23
--- OUTSIDE RECORDS SUMMARY | 2025-02-14 12:42 | XMS_ITS | Encounter Summary ---
Author Organization [facility] Address [address] [place] [address] Care Team Providers Care Tax Collector Name Role Phone Sary Rodriguez FARM IMPLEMENT ENGINE MECHANIC-STRATEGIC PLANNING SPECIALIST Primary Care Provider Sary Rodriguez FARM IMPLEMENT ENGINE MECHANIC-STRATEGIC PLANNING SPECIALIST Primary Care Provider Encounter Details Date Type Department Care Team (Late st Contact Info) Description 02/05/2022 Telephone [place] [address] [place] [address] Kamlesh Neri MD [address] [place] [phone] Social History Tobacco Use Types Packs/Day Years Used Date Smoking Tobacco: Every Day Cigarettes Smokeless Tobacco: Never Alcohol Use Standard Drinks/Week Comments Never 0 (1 standard drink = 0.6 oz pur e alcohol) PHQ-2 Answer Date Recorded PHQ2 TOTAL SCORE 0 12/12/2020 Comments No Sex and Gender Information Value Date Recorded Sex Assigned at Not on file Legal Sex Female 6:23 PM GREASE REFINER OPERATOR Gender Identity Not on file Sexual Orientation Not on file documented as of this encounter Miscellaneous Notes * Telephone Encounter - Amy Medina - 02/05/2022 12:14 PM CST Patient called in requesting a Med refill. Drug type:NAPROXEN [facility] [address] Patient call back number: [phone] SE REFINER OPERATOR documented in this encounter Plan of Treatment Upcoming Encounters Date Type Department Care Team (Late st Contact Info) Description 03/23/2025 10:00 AM GREASE REFINER OPERATOR Office Visit [facility] - Rhe[facility]ology [address] [facility], [place] [address] Rigoberto Hoskins MD [address] [place] [phone] documented as of this encounter Visit Diagnoses Not on filedocumented in this encounter Care Teams Tax Collector Relationship Specialty Start Date End Date Sary Rodriguez APRN-CNP [address] [place], [place] [phone] PCP - General 09/18/21 03/05/23 Sary Rodriguez APRN-CNP [address] [place] [phone] PCP - General Nurse Practitioner Family 03/06/23 documented as of this encounter
--- OUTSIDE RECORDS SUMMARY | 2025-02-14 12:42 | XMS_ITS | Encounter Summary ---
Author Organization [facility] Address [address] [place], [place] [address] [address] Care Team Providers Care Net Applications Developer Name Role Phone Jennifer Sary Audrey NIEVES-BINDERY LEADPERSON Primary Care Provider Reason for Visit * Reason Onset Date Comments Follow-up 01/19/2025 Encounter Details Date Type Department Care Team (Late st Contact Info) Description 01/19/2025 Telephone [facility] - Rheumatology [address] [place] [address], [facility] [place] [address] Rigoberto Hoskins MD [address] [place] [phone] Follow-up Social History Tobacco Use Types [...] on file Legal Sex Female 6:23 PM PERSONAL DEVELOPMENT EDUCATOR Gender Identity Not on file Sexual Orientation Not on file documented as of this encounter Miscellaneous Notes * Telephone Encounter - Ree Ruiz RN - 01/19/2025 2:08 PM CST Franko returned my call and notified me that his supervisor conditioning yard informed him for anything other thanan ofiice visit a PA will have to be submitted (Labs, imaging, and prescriptions). 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 ONAL DEVELOPMENT EDUCATOR documented in this encounter Plan of Treatment Upcoming Encounters Date Type Department Care Team (Late st Contact Info) Description 03/23/2025 10:00 AM PERSONAL DEVELOPMENT EDUCATOR Office Visit [facility] - Rheumatology [address] [facility], [facility] [place] [phone] Rigoberto Hoskins MD [address] [place] [phone] documented as of this encounter Visit Diagnoses Not on filedocumented in this encounter Care Teams Net Applications Developer Relationship Specialty Start Date End Date Sary Rodriguez APRN-BINDERY LEADPERSON [address] [place] [phone] PCP - General Nurse Practitioner Family 03/06/23 documented as of this encounter
--- OUTSIDE RECORDS SUMMARY | 2025-02-14 12:42 | XMS_ITS | Clinical Summary ---
Author Organization [facility] Address [address] [place] [address] Care Team Providers Care Furnace And Wash Equipment Operator Name Role Phone Valeria Barnes Edy MANAGER FLIGHT Primary Care Provider [phone] Allergies Active Allergy Reactions Criticality Noted Date [...] Encounters Date Type Department Care Team Description 01/07/2025 [facility] [address] [address] Francie Vasquez MA from Last 3 Months Family History Medical History Relation Comments lupus erythematosus Mother ADD / ADHD Sister Diabetes Sister Relation Status Comments Mother Sister Social History Tobacco Use Types Packs/Day Years Used Date Smoking Tobacco: Every Day Cigarettes Smokeless Tobacco: Never Tobacco Cessation:Ready to Q uit: Not Asked; Counseling Given: Not Answered Alcohol Use Standard Drinks/Week Comments No 0 (1 standard drink = 0.6 oz pur e alcohol) AUDIT-C Answer Date Recorded Frequency of Alcohol Consumption Never 02/14/2018 Average Number of Drinks Not on file 018 Frequency of Binge Drinking Not on file 01/18 Comments No Sex and Gender Information Value Date Recorded Sex Assigned at Female 11/06/2024 11:08 AM CDT Legal Sex Female 7:18 PM CDT Gender Identity Not on file Sexual Orientation Not on file Last Filed Vital Signs Vital Sign Reading Time Taken Comments Blood Pressure 135/92 11/06/2024 12:49 PM CDT Pulse 85 11/06/2024 12:49 PM CDT Temperature 36.7 C (98.1 F) 11/06/2024 11:05 AM CDT Respiratory Rate 20 11/06/2024 12:4 9 PM CDT Oxygen Saturation 100% 11/06/2024 12: 49 PM CDT Inhaled Oxygen Concentration - - Weight 134.6 kg (296 lb 11.8 oz) 2024 11:07 AM CDT Height 167.6 cm (5' 6) 11/06/2024 11:0 5 AM CDT Body Mass Index 47.89 11/06/2024 11:05 AM CDT Plan of Treatment Health Maintenance Due Date Last Done Comments Cervical Cancer Screening Pa p Smear (Age 30 to 64) Every 3 Years 1993 Annual Physical 1996 DTaP, Tdap and Td Vaccines ( 1 [...] with HPV 06/19/2023 COVID-19 Vaccine ( - 2024-2 6 season) 2024 Influenza Adult (#1) 2024 12/18/2016 Hepatitis C Completed 08/11/2024 Hepatitis A Vaccines Aged Out No long er eligible based [...] patient's age to complete this topic Insurance [employer] Care Teams Furnace And Wash Equipment Operator Relationship Specialty Start Date End Date Valeria Barnes FNP [address] [address] PCP - General NURSE PRACTITIONER 02/14/18
--- OUTSIDE RECORDS SUMMARY | 2025-02-14 12:42 | XMS_ITS | Encounter Summary ---
Author Organization [facility] Address [address] [place] [address] Care Team Providers Care Regional Refrigerated Cdl Truck Driver Name Role Phone Sary Rodriguez NP Primary Care Provider [phone] Reason for Visit * Inpt Precert (Routine) Specialty Diagnoses / Procedures Referred By Latasha weston Referred To Contact Referral ID Status Reason Start Date Expiration Date Visits Re quested Visits Authorized [id number] 1 1 Encounter Details Date Type Department Care Team ([facility] st Contact Info) Description 04/27/2024 Hospital Encounter [facility] [address] [place] [address] Social History Tobacco Use Types Packs/Day Years Used Date Smoking Tobacco: Every Day Cigarettes 0.3 10 Smokeless Tobacco: Never Alcohol Use Standard Drinks/Week Comments Not Currently 0 (1 standard drink = 0.6 oz pur e alcohol) socially [facility] Utilities Answer Date Recorded In the past 12 months has e [employer], gas, oil, or water [employer] threatened to shut off services in your [...] place to sleep or slept in a half-way (including now)? No 11/25/2023 Alcohol Use Answer [...] on filedocumented in this encounter Care Teams Regional Refrigerated Cdl Truck Driver Relationship Specialty Start Date End Date Sary Rodriguez NP [address] [place] [phone] PCP - General Nurse Practitioner 06/27/22 documented as of this encounter
--- OUTSIDE RECORDS SUMMARY | 2025-02-14 12:42 | XMS_ITS | Clinical Summary ---
Author Organization [facility] Address [address] [place] [address] [place] [address] Care Team Providers Care Diver'S Tender Name Role Phone Sary Rodriguez NP Primary Care Provider [phone] Allergies Active Allergy Reactions Criticality Noted Date [...] 40.0 to 44.9 in adult 09/19/2021 03/02/2023 half-way current use of non -steroidal anti-inflammatories (NSAID) 09/19/2021 03/02/2023 Long-term use of immunosuppressant medication 03/02/2023 Social History Tobacco Use Types Packs/Day Years Used Date Smoking Tobacco: Every Day Cigarettes 0.3 10 Smokeless Tobacco: Never Tobacco Cessation:Ready to Q uit: Not Asked; Counseling Given: Not Answered Alcohol Use Standard Drinks/Week Comments Not Currently 0 (1 standard drink = 0.6 oz pur e alcohol) socially [facility] Utilities Answer Date Recorded In the past 12 months has [employer], gas, oil, or water [employer] threatened to shut off services in [...] place to sleep or slept in a correction (including now)? No 11/25/2023 Alcohol Use Answer [...] HPV VACCINES (1 - 3-dose series) 2008 ADULT TETANUS 2012 HEPATITIS B VACCINES (1 of 3 - 19+ 3-dose series) 2012 Pneumococcal Vaccine: Peds t o 50 & At-Risk Patients (1 of 2 - PCV) 2012 Influenza Vaccine 09/17/2024 12/18/2016 COVID-19 Immunization ( season) 2024 CERVICAL CANCER SCREENING 06/18/20262023, 04/10/2022 [...] patient's age [place] [id number] [facility] , [place] [address] [place] [address] , [place] [phone] GENERIC WORK [employer]ICK[employer] MACI[employer] Care Teams Diver'S Tender Relationship Specialty Start Date End Date Sary Rodriguez NP [address] [place] [phone] PCP - General Nurse Practitioner 06/27/22
--- OUTSIDE RECORDS SUMMARY | 2025-02-14 12:42 | XMS_ITS | Encounter Summary ---
Author Organization [facility] Address [address] [place] [address] Care Team Providers Care Psychology Intern Name Role Phone Valeria Barnes Edy RUNNING INSTRUCTOR Primary Care Provider [phone] Encounter Details Date Type Department Care Team (Late st Contact Info) Description 01/07/2025 Abstract [facility] [address] Francie Vasquez MA Social History Tobacco Use Types Packs/Day Years [...] on file documented as of this encounter Procedures Procedure Name Priority Date/Time Associated Diagnosis Comments LIPID PANEL (OUTSIDE LAB) Routine 09/08/2024 CMP (OUTSIDE LAB) Routine 09/08/2024 CBC (OUTSIDE LAB) Routine 09/08/2024 documented in this encounter Results * CBC (OUTSIDE LAB) (09/08/2024) WBC 9.8 4.2 - 10.8 HGB 13.5 13.2 - 17.0 HCT 41.3 39.3 - 50.0 PLT 218 150 - 400 RBC 4.46 4.10 - 5.80 09/08/2024 us Default History Genericprovider LAB-OUTSIDE/ABST RACTED Final Result * (ABNORMAL) CMP (OUTSIDE LAB) (09/08/2024) Pathologist [facility] SODIUM S/P/B 138 137 - 145 POTASSIUM S/P/B 4.3 3.5 - 5.1 CHLORIDE S/P/B 107 98 - 107 CO2 22 22 - 30 BUN 70 8 - 79 CREATININE S/P/B 0.61(A) 0.66 - 1.25 EGFR NON-AFR. AMER. 60 <=90 CALCIUM S/P/B 9.8 8.4 - 10.2 GLUCOSE 96 70 - 99 mg/dL TOTAL PROTEIN S/P/B 7.9 6.3 - 8.2 ALBUMIN S/P/B 4.6 3.4 - 5.0 ALKALINE PHOSPHATASE S/P/B 89 38 - 126 BILIRUBIN TOTAL S/P/B 0.90 0.20 - 1.30 09/08/2024 us Default History Genericprovider LAB-OUTSIDE/ABST RACTED Final Result * (ABNORMAL) LIPID PANEL (OUTSIDE LAB) (09/08/2024) Pathologist [facility] CHOLESTEROL 231(A) 140 - 199 TRIGLYCERIDES 241(A) 0 - 150 HDL 49 >=40 LDL (CALCULATED) 134(A) 0 - 130 09/08/2024 us Default History Genericprovider LAB-OUTSIDE/ABST RACTED Final Result documented in this encounter Visit Diagnoses Not on filedocumented in this encounter Care Teams Psychology Intern Relationship Specialty Start Date End Date Valeria Barnes FNP [address] [address] PCP - General NURSE PRACTITIONER 02/14/18 documented as of this encounter
--- OUTSIDE RECORDS SUMMARY | 2025-02-14 12:42 | XMS_ITS | Encounter Summary ---
Author Organization [facility] Address [address] [place], [place] [address] [address] Care Team Providers Care Maintenance Of Way Superintendent Name Role Phone Sary Rodriguez Audrey NIEVES-ETCHER PHOTOENGRAVING Primary Care Provider Reason for Visit * Reason Onset Date Comments Medication Prior Auth Request 02/14/2025 Ta ltz Encounter Details Date Type Department Care Team (Late st Contact Info) Description 02/14/2025 Telephone [facility] - Rheumatology [address] [place] [address], [place] [address] Rigoberto Hoskins MD [address] [place] [phone] Medication Prior Auth Request (Taltz) Social History Tobacco Use Types Packs/Day Years Used Date Smoking Tobacco: Every Day Cigarettes Smokeless Tobacco: Never Alcohol Use Standard Drinks/Week Comments Never 0 (1 standard drink = 0.6 oz pur e alcohol) PHQ-2 Answer Date Recorded Patient Health Questionnaire-2 Score 0 11/17/2024 Comments No Sex and Gender Information Value Date Recorded Sex Assigned at Not on file Legal Sex Female 6:23 PM BELT BRANDER Gender Identity Not on file Sexual Orientation Not on file documented as of this encounter Miscellaneous Notes * Telephone Encounter - Jefry Villasenor CPhT - 02/14/2025 11:21 AM BELT BRANDER Medication Prior Authorization Medication: Taltz 80MG/ML auto-injectors Status: Approved through 02/14/2026 Submitted via: Latent (Quesada:[email or web address]) Insurance: [employer] 2016 [employer]: [phone] BRANDER * Telephone Encounter - Jefry Villasenor CPhT - 02/14/2025 9:33 AM BELT BRANDER Medication Prior Authorization Medication: Taltz 80MG/ML auto-injectors Status: Submitted - Pending Submitted via: Latent (Quesada:[email or web address]) Insurance: [employer] 2016 [employer]: [phone] BRANDER documented in this encounter Plan of Treatment Upcoming Encounters Date Type Department Care Team (Late st Contact Info) Description 03/23/2025 10:00 AM BELT BRANDER Office Visit [facility] - Rheumatology [address] [place] [address], [place] [address] Rigoberto Hoskins MD [address] [place] [phone] documented as of this encounter Visit Diagnoses Not on filedocumented in this encounter Care Teams Maintenance Of Way Superintendent Relationship Specialty Start Date End Date Sary Rodriguez APRN-ETCHER PHOTOENGRAVING [address] [place] [phone] PCP - General Nurse Practitioner Family 03/06/23 documented as of this encounter
--- OUTSIDE RECORDS SUMMARY | 2025-02-14 12:42 | XMS_ITS | Clinical Summary ---
Author Organization [facility] Address [address] [facility] [place] [address] Care Team Providers Care Warehouse Shipping Clerk Name Role Phone Sary Rodriguez APRN-MIDDLEWARE ENGINEER Primary Care Provider Source Comments [facility],non-owned Affiliates and Associated Physician Practices is amultiple site organization consisting of ambulatory clinics and hospital sitesin [place], [place], [place] and [place]. This disclosure is being madepursuant to the Care Everywhere program and may not contain all information available regarding this patient. Last updated 17.[facility] Allergies Active Allergy Reactions Criticality Noted Date Comments Amoxicillin Urticaria,Other,Fev er Medium 06/01/2018 Skin red and head hot Grass Pollen(K-O-R-T-Swt Ryan) Urticaria Medium 12/12/2020 Latex Urticaria Medium 06/01/2018 Sulfamethoxazole Urticaria High 05/05/2024 Sulfamethoxazole W-Trimethoprim Urticaria Medium 02/14/2018 Trimethoprim Urticaria Medium 04/05/2024 Medications * Be aware that medications may not be up to date on this document. Alwaysverify current medications with the patient. labetalol (Normodyne; Trandate) 100 MG tablet 025 Active metoclopramide (Reglan) 10 MG tablet Take 1 (one) tablet by mouth every 6 hours as needed 025 Active NIFEdipine CR osmotic 24hr (Procardia-XL) 30 MG tablet Take 1 (one) tablet by mouth every 12 hours 025 Active ixekizumab (Taltz) 80 MG/ML auto-injector penIndications:Psori atic Arthritis Inject 2 mL subcutaneously every 28 days for 28 days, THEN 1 mL every 28 days. Reasons: Psoriasis associated with Arthritis. 5 mL 3 025 2025 Active Airsupra 90-80 MCG/ACT AERO INHALE 2 PUFFS BY MOUTH THREE TIMES DAILY NEEDED FOR WHEEZING Active vitamin D, ergocalciferol, (Drisdol) 1.25 MG (68745 UT) capsule Take 1 (one) capsule by mouth every 7 days (once a week) Active furosemide (Lasix) 20 MG tablet Take 1 (one) tablet by mouth once daily as directed. 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 medication head of history current use of non -steroidal anti-inflammatories (NSAID) 09/19/2021 Class 3 severe obesity due t o excess calories with body mass index (BMI) of 40.0 to 44.9 in adult 09/19/2021 Encounters Date Type Department Care Team Description 02/14/2025 Telephone [facility] Rheumatology [address] [place] [phone] Rigoberto Hoskins MD Medication Prior Auth Request (Taltz) 01/19/2025 Telephone [facility] [address] [place] [phone] Rigoberto Hoskins MD Follow-up 01/19/2025 Telephone [facility]ology [address] [place] [address], [place] [address] Rigoberto Hoskins MD Follow-up 12/28/2024 Orders Only [facility] [address] [place] [phone] Aristeo Landon MD Obesity with sleep apnea 12/24/2024 Telephone [facility] [address] [place] [phone] Rigoberto Hoskins MD Med Question 11/23/2024 Orders Only [facility] [address] [place] [phone] Rigoberto Hoskins MD Axial spondyloarthritis (HCC) 11/18/2024 Telephone [facility] [address] [place] [phone] Rigoberto Hoskins MD Medication Prior Auth Request (TALTZ) 11/17/2024 11:00 AM CDT [facility] [address] [place] [phone] Rigoberto Hoskins MD Axial spondyloarthritis (HCC) (Primary Dx); Class 3 severe obesity due to excess calories with body mass index (BMI) of 40.0 to 44.9 in adult, unspecified whether serious comorbidity present (HCC); Immunosuppression due to drug therapy (HCC) 11/17/2024 Travel from Last 3 Months Immunizations Immunization [...] file Legal Sex Female 6:23 PM LENS POLISHER HAND Gender Identity Not on file Sexual Orientation Not on file Last Filed Vital Signs Vital Sign Reading Time Taken Comments Blood Pressure 112/83 11/17/2024 11:21 AM CDT Pulse 92 11/17/2024 11:21 AM CDT Temperature 36.4 C (97.5 F) 11/17/2024 11:21 AM CDT Respiratory Rate 20 09/19/2021 10:39 AM CDT Oxygen Saturation 98% 11/17/2024 11:21 AM CDT Inhaled Oxygen Concentration - - Weight 132.5 kg (292 lb) 11/17/2024 11:21 AM CDT Height 165.1 cm (5' 5) 11/17/2024 11:21 AM CDT Body Mass Index 48.59 11/17/2024 11:21 AM CDT Plan of Treatment Upcoming Encounters Date Type Department Care Team (Late st Contact Info) Description 03/23/2025 10:00 AM LENS POLISHER HAND Office Visit [facility] - Rheumatology [address] [place] [address], [facility] [place] [address] Rigoberto Hoskins MD [address] [place] [phone] Health Maintenance Due Date Last Done Comments COVID-19 VACCINE (#1) 1998 DTAP/TDAP/TD VACCINES (1 - Tdap) 2012 HEPATITIS B VACCINE (1 of 3 - 19+ 3-dose series) 2012 PNEUMOCOCCAL VACCINE (1 of 2 - PCV) 2012 ZOSTER VACCINE (1 of 2) 2012 HPV VACCINE (1 - 3-dose SCDM series) 2020 INFLUENZA VACCINE (#1) 2024 12/18/2016 PAP SMEAR 04/10/2025 04/10/2022 HIV SCREENING Completed 10/06/2023 DEPRESSION SCREENING Completed 05/05/2024, 03/06/2023, 04/10/2022 HEPATITIS [...] Associated Diagnosis Comments HEPATITIS C ANTIBODY Routine 08/11/2024 4:37 PM CDT Axial spondyloarthritis Class 3 severe obesity due to excess calories with body mass index (BMI) of 40.0 to 44.9 in adult, unspecified whether serious comorbidity present (HCC) Long-term use of immunosuppressant medication from Last 3 Months or Most Recently Relevant to Health Maintenance Results * HEPATITIS C ANTIBODY (08/11/2024 4:37 PM CDT) Hepatitis C Antibody Non-react jan Non-reac tive 08/11/2024 5:35 PM CDT [facility] Comment:Hepatitis C Antibody [...] MD LAB - CHEMISTRY ORDERABLES Final Result [facility] [address] [place] [phone], [facility] [phone] from Last 3 Months or Most Recently Relevant to Health Maintenance Insurance [facility] Care Teams Warehouse Shipping Clerk Relationship Specialty Start Date End Date Sary Rodriguez, SENIOR TECH MANUFACTURING ENGINEERING-MIDDLEWARE ENGINEER [address] [place] [phone] PCP - General Nurse Practitioner Family 03/06/23
--- OUTSIDE RECORDS SUMMARY | 2025-02-14 16:15 | XMS_ITS | Data Portability ---
Author Organization [facility] [employer] Address [address] [place] [address] Assessment Encounter Date Assessment Date Assessment LastModified by Organization Details LastModified Time 02/03/2025 02/03/2025 The patient and I disscussed the various causes of abnormal uterine bleeding, including polyps, fibroids, hyperplasia, atypia, anovulation, etc. We reviewed the typical evaluation with labs, pelvic US and possible endometrial biopsy. Briefly discussed the options available for treatment (depending on the results of evaluation) such as hormonal treatment (OCPs, progestins), Mirena, endometrial ablation, and surgery. We spent more than 30 minutes face to face. [email or web address] Not available 02/03/2025 11:14:05 Plan of Treatment Reminders Order Date Submit Date Provider Last Modified By Organization Details Last Modified Time Details Appointments None recorded. Lab unlisted lab - 17-oh progesteron e, lc/MS/MS 2024 025 [facility] (Lab), [address], [place], [address], 5 03:31:53 dhea-sulfat e, serum 2024 025 [facility] (Lab), [address], [place], [address], 5 03:31:51 hormone panel, serum or plasma 2024 025 [facility] (Lab), [address] [place], [address], 5 03:31:52 HbA1c (hemoglobin A1c), blood 2024 025 [facility] (Lab), [address], [place], [address], 5 03:31:52 progesteron e, serum 2024 025 [facility] (Lab), [address] [place], [address], 5 03:31:51 prolactin, serum 2024 025 [facility] (Lab), [address], [place], [address], 5 03:31:51 shbg (sex hormone-bin ding globulin), serum 2024 025 [facility] (Lab), [address], [place], [address], 5 03:31:52 testosteron e free/testos terone total, ratio, serum 2024 025 [facility] (Lab), [address], [place], [address], 5 03:31:53 TSH, serum or plasma 2024 025 [facility] (Lab), [address], [place], [address], 5 03:31:52 CBC 2024 025 [facility] (Lab), [address] [place], [address], 5 03:31:50 dhea-sulfat e, serum 2024 025 [facility] (Lab), [address] [place], [address], 5 00:43:34 hormone panel, serum or plasma 2024 025 [facility] (Lab), [address] [place], [address], 5 00:43:35 HbA1c (hemoglobin A1c), blood 2024 025 [facility] (Lab), [address] , [place], [address], 5 00:43:36 progesteron e, serum 2024 025 [facility] (Lab), [address] [place], [address], 5 00:43:35 prolactin, serum 2024 025 [facility] (Lab), [address] [place], [address], 5 00:43:34 shbg (sex hormone-bin ding globulin), serum 2024 025 [facility] (Lab), [address] [place], [address], 5 00:43:35 testosteron e free/testos terone total, ratio, serum 2024 025 [facility] (Lab), [address] [place], [address], 5 00:43:36 TSH, serum or plasma 2024 025 [facility] (Lab), [address] [place], [address], 5 00:43:35 anti-cheatham kiah hormone (amh), serum 2024 025 [facility] (Lab), [address] [facility], [place], [address], 00:43:34 17-hydroxyp rogesterone , QN, serum 2024 [facility] (Lab), [address] [facility], [place], [address], 00:43:36 Referral None recorded. Procedures None recorded. Surgeries None recorded. Imaging US, pelvis, complete 2024 [email or web address] [facility], [address] [place] [address], [place], [address], 11:30:24 US, obstetric, follow-up [address], [address], [address], [place], [address], 23:00:35 US, obstetric, biophysical profile + non-stress test [address], [address], [place], [address], 23:00:35 Medication Orders Loestrin Fe 1.5/30 (28-Day) 1.5 mg-30 mcg (21)/75 mg (7) tablet 2024 [facility][id number], [address], [place], [place], [id number], 11:17:57 nifedipine ER 30 mg tablet,exte nded release 24 hr 2024 [facility] #25511, [address], [place], [place], [id number], 14:31:29 labetalol 100 mg tablet 2024 025 [facility]23528, [address] [place], [place], [id number], 14:31:34 ibuprofen 600 mg tablet 2024 025 [facility]28377, [address] [place], [place], [id number], 15:03:43 Patient TargetsNo targets recorded. Patient InstructionsNo instructions recorded. Reason for Referral None Reported. Results Created Date Observation Date Name Description Value Unit Range Abnormal Flag Note LastModifiedBy Organization Detail LastModifiedTime 03/30/1903/30/2024 CULTU RE: GROUP B STREP SCREE N, REFLE X SUSCE PTIBI LITY result report SEE RESULT S BELOW Test: Cultu re: Group B Strep , Refle x Susce ptibi lity ([facility]/ [facility] ) Speci men Sourc e: Vagin a/Rec yusuf Speci men Type: Vagin al/Re ctal Speci men Date: 2024 1420 Resul t Date: 2024 1430 Resul t Statu s: Final resul t Abnor mal: No Resul ting Lab: [facility] [address] [facility] [address] Tel: CULTU RE ----- ----- ----- --- No Group B strep isola kadeem at 2 days (everette ctive broth enhan cemen t) Not Available [facility] (Lab) [address] [facility], [place], [address], 04/02/2024 15:33:57 10/21/1910/20/2024 DHEA SULFA TE DHEA-sulfate 108 ug/dL Femal e Range s Age(y ) Range (ug/d L) 10-15 34-28 0 15-20 65-36 8 20-25 148-4 07 25-35 99-34 0 35-45 61-33 7 45-55 35-25 6 55-65 19-20 5 65-75 9-246 > 75 12-15 4 Not Available [facility] (Lab) [address] [place], [address], 10/31/2024 00:43:33 10/21/19 25 10/20/2024 ANTIM JOY VALERO HORMO NE (AMH) anti-mulleri an hormone (amh) 4.39 NG/mL Femal e Refer ence Range s 20-24 years : 1.22 - 11.70 ng/mL 25-29 years : 0.89 - 9.85 ng/mL 30-34 years : 0.58 - 8.13 ng/mL 35-39 years : 0.15 - 7.49 ng/mL 40-44 years : 0.03 - 5.47 ng/mL The follo wing resul ts were obtai jonelle with the Ele[employer] y[employer] assay . Resul ts from assay s of other manuf actur es canno t be used inter [facility]. Not Available [facility] (Lab) [address] [facility], [place], [address], 10/31/2024 00:43:34 10/21/19 25 10/20/2024 PROLA CTIN prolactin, total 10.20 NG/mL 4.79-2 3.30 This assay was perfo rmed using [employer] ratio n reage nts and test kits. Value s obtai jonlele with other assay metho ds or kits canno t be used inter [facility] . Not Available [facility] (Lab) [address] [place], [address], 10/31/2024 00:43:34 10/21/1910/20/2024 PROGE STERO NE progesterone 0.12 NG/mL This assay was perfo rmed using [employer] ratio n reage nts and test kits. Value s obtai jonelle with other assay metho ds or kits canno t be used inter [facility] . Femal e Proge stero ne Range s: Folli cular phase 0.06- 0.89 ng/mL Ovula tion phase 0.12- 12.00 ng/mL Lutea l phase 1.83- 23.90 ng/mL Postm enopa usal <0.05 -0.13 ng/mL Healt hy Pregn ant Women 1st Trime ster 11.0- 44.30 2nd Trime ster 25.40 -83.3 0 3rd Trime ster 58.70 -214. 00 Not Available [facility] (Lab) [address] [place], [address], 10/31/2024 00:43:35 10/21/19 25 10/20/2024 FSH, LH, ESTRA DIOL estradiol 41.6 pg/mL This assay was perfo rmed using [employer] ratio n reage nts and test kits. Value s obtai jonelle with other assay metho ds or kits canno t be used inter [facility] . Femal e Estra diol Range s: Folli cular phase 12.4- 233 pg/mL Ovula tion phase 41.0- 398 pg/mL Lutea l phase 22.3- 341 pg/mL Postm enopa usal <5-13 8 pg/mL Healt hy Pregn ant Women 1st Trime ster 154-3 243 pg/mL 2nd Trime ster 1561- 12299 pg/mL 3rd Trime ster 8525- >3000 0 pg/mL Not Available [facility] (Lab) [address] [place], [address], 10/31/2024 00:43:35 10/21/1910/20/2024 FSH, LH, ESTRA DIOL FSH 6.7 mIU/m L This assay was perfo rmed using [employer] ratio n reage nts and test kits. Value s obtai jonelle with other assay metho ds or kits canno t be used inter [facility] . Femal es Folli cular : 3.5-1 2.5 mIU/m L Ovula tion: 4.7-2 1.5 mIU/m L Lutea l: 1.7-7 .7 mIU/m L Postm enopa use: 25.8- 134.8 mIU/m L Not Available [facility] (Lab) [address] [place], [address], 10/31/2024 00:43:35 10/21/19 25 10/20/2024 FSH, LH, ESTRA DIOL LH 14.0 mIU/m L This assay was perfo rmed using [employer] ratio n reage nts and test kits. Value s obtai jonelle with other assay metho ds or kits canno t be used inter [facility] . Femal es Mid-F ollic ular: 2.4-1 2.6 mIU/m L Mid-C ycle: 14.0- 95.6 mIU/m L Mid-L uteal : 1.0-1 1.4 mIU/m L Postm enopa use: 7.7-5 8.5 mIU/m L Not Available [facility] (Lab) [address] [facility], [place], [address], 10/31/2024 00:43:35 10/21/19 25 10/20/2024 TSH, REFLE X FREE T4 TSH 0.80 uIU/m L 0.30-5 .33 Not Available [facility] (Lab) [address] [facility], [place], [address], 10/31/2024 00:43:35 10/21/19 25 10/20/2024 HUMAN SEX HORMO NE GRADY NG GLOBU MINOO sex hormone binding globulin 29.0 nmole s/L 18.2-1 35.5 Not Available [facility] (Lab) [address] [place], [address], 10/31/2024 00:43:35 10/21/19 25 10/20/2024 HEMOG LOBIN A1C hemoglobin A1C 5.4 % 4.0-5. 6 The Ameri can Diabe zuri Assoc iatio n recom mends that a prima ry goal of thera py sahsha d be a HBA1C of < 7% and that physi cians shoul d reeva luate the treat ment regim en in patie nts with HBA1C value s consi stent ly > 8%. <5.7% Dilcia l 5.7 - 6.4% Incre ased risk for diabe zuri >=6.5 % Diagn ostic of diabe zuri <7.0% Goal of thera py >8.0% Cristy rosas Not Available [facility] (Lab) [address] [facility], [place], [address], 10/31/2024 00:43:36 10/21/1910/20/2024 TESTO STERO NE, FREE( DIALY SIS) AND TOTAL (LC/M S/MS) testosterone , total 33 NG/dL 2-45 For addit ional infor danielito griffin e refer to http: //joaquina loya.que stdia gnost ics.c om/fa q/ Total Testo stero neLCM SMSFA Q165 (This link is being provi ded for infor ras iglesias/ educa lisbeth l purpo ses only. ) This test was devel oped and its holly tical perfo rmanc e leticia cteri stics have been deter mined by [employer] [place], [place]. It has not been clear ed or appro casi by the U.S. Food and Drug Admin istra tion. This assay has been valid ated pursu ant to the CLIA regul ation s and is used for clini fara purpo ses. Not Available [facility] (Lab) [address] [facility], [place], [address], 10/31/2024 00:43:36 10/21/1910/20/2024 TESTO STERO NE, FREE( DIALY SIS) AND TOTAL (LC/M S/MS) testosterone , free 6.3 pg/mL 0.1-6. 4 This test was devel oped and its holly tical perfo rmanc e leticia cteri stics have been deter mined by [employer] [place], [place]. It has not been clear ed or appro casi by the U.S. Food and Drug Admin istra tion. This assay has been valid ated pursu ant to the CLIA regul ation s and is used for clini fara purpo ses. Perfo rming Organ izati on Infor mat n: Site ID: [id number] Name: [facility] [employer] singleton Addre ss: [id number] [place], [place] Direc tor: Mary Beckwith MD PhD Not Available [facility] (Lab) [address] [facility], [place], [address], 10/31/2024 00:43:36 10/21/1910/20/2024 17-OH PROGE STERO NE 17-hydroxypr ogesterone, lc/MS/MS 47 NG/dL Adult Femal e Refer ence Range s for 17-Hy droxy proge stero ne: Pre-M enopa usal Mid Folli cular : 23-10 2 ng/dL Pre-M enopa usal Surge : 67-34 9 ng/dL Pre-M enopa usal Mid Lutea l: 139-4 31 ng/dL Postm enopa usal Phase : < or = 45 ng/dL Pregn joão: First Trime ster: 78-45 7 ng/dL Secon d Trime ster: 90-35 7 ng/dL Third Trime ster: 144-5 78 ng/dL This test was devel oped and its holly tical perfo rmanc e leticia cteri stics have been deter mined by [facility]. It has not been clear ed or appro casi by the FDA. This assay has been valid ated pursu ant to the CLIA regul ation s and is used for clini fara purpo ses. Perfo rming Organ izati on Infor matio n: Site ID: [id number] Name: [facility]/Cosme josette [facility] librado [place] , Addre ss: [id number] [facility] [place] [address] Direc tor: Chelsea cornejo MD,Ph D,MEGAN Not Available [facility] (Lab) [address] [facility], [place], [address], 10/31/2024 00:43:36 03/18/1903/18/2024 US, obste tric, follo w-up No observ ation record ed. [email or web address] [facility] [address], [place], [address], 03/18/2024 18:14:23 03/18/19 25 03/18/2024 US, obste tric, bioph ysica l profi le + non-s tress test No observ ation record ed. [email or web address] [facility] [address], [place], [address], 03/18/2024 18:14:40 03/18/19 25 03/18/2024 US, obste tric, follo w-up No observ ation record ed. [email or web address] [address] [address], [place], [address], 03/22/2024 18:42:31 03/18/19 25 03/18/2024 non-s tress test No observ ation record ed. [email or web address] [facility] [address], [place], [address], 03/18/2024 16:15:55 03/23/19 25 03/23/2024 US, obste tric, bioph ysica l profi le + non-s tress test No observ ation record ed. [email or web address] [facility] [address], [place], [address], 03/23/2024 13:53:46 03/23/19 25 03/23/2024 US, obste tric, bioph ysica l profi le + non-s tress test No observ ation record ed. [email or web address] [address], [place], [address], 03/23/2024 22:30:57 03/23/19 25 03/23/2024 non-s tress test No observ ation record ed. [email or web address] [facility] [address], [place], [address], 03/23/2024 12:38:17 03/30/19 25 03/30/2024 US, monique tric, bioph ysica l profi le + non-s tress test No observ ation record ed. [facility] [address], [place], [address], 03/30/2024 12:57:22 03/30/19 25 03/30/2024 US, monique tric, follo w-up No observ ation record ed. [email or web address] Juarese [address], [place], [address], 03/30/2024 21:58:18 03/30/19 25 03/30/2024 non-s tress test No observ ation record ed. [email or web address] [place] [address] [address], [place], [address], 03/30/2024 12:57:57 04/09/19 25 04/09/2024 non-s tress test No observ ation record ed. [facility] [address], [place], [address], 04/09/2024 15:08:59 04/09/19 25 04/09/2024 US, monique tric, bioph ysica l profi le No observ ation record ed. [email or web address] [address], [place], [address], 04/09/2024 17:51:50 04/09/19 25 04/09/2024 US, monique tric, bioph ysica l profi le + non-s tress test No observ ation record ed. [facility] [address], [place], [address], 04/09/2024 17:57:33 04/13/19 25 04/13/2024 US, obste tric, follo w-up No observ ation record ed. [email or web address] [facility] [address], [place], [address], 04/13/2024 13:48:06 04/13/19 25 04/13/2024 US, obste tric, bioph ysica l profi le + non-s tress test No observ ation record ed. [email or web address] [facility] [address], [place], [address], 04/13/2024 13:48:15 04/13/19 25 04/13/2024 US, obste tric, follo w-up No observ ation record ed. [email or web address] [address] [address] [address], [place], [address], 04/14/2024 15:49:02 04/13/1904/13/2024 non-s tress test No observ ation record ed. [facility] [address], [place], [address], 04/13/2024 16:53:24 Result Notes None recorded. Problems Name Problem SNOMED Code Status Onset Date Resolution Date Notes Provider Name and Address Organization Details Recorded Time Body mass index 40+ - severely obese 331423429 Completed antenata l testing 34 wks Anjana guan [facility] 4 16:56:06 Body mass index 40+ - severely obese 039553062 Active antenata l testing 34 wks Anjana guan, [facility] 4 16:56:06 Asthma 187807840 Completed CRUZ GUERRERO MD [address], [place], [address], [facility] 5 15:54:14 Chlamydi al infectio n [id number] Completed 201705/31/2020 Chlamydi al infectio n, unspecif ied;Byron rded Elsewher e: No Locat ion: [facility] S ource: EHR Egg Sorter cosme: N cLti ce ID: 0001 Raffi lable Time: 01:00:00 PM Ciarra guan, [facility] 16:22:19 Amenorrh ea 79047963 Completed 201705/31/2020 Amenorrh ea;Recor ded Elsewher e: No [facility] S ource: EHR Egg Sorter cosme: N Lcti ce ID: 0001 Raffi lable Time: 01:00:00 PM Ciarra Guzman [facility], [facility] 16:22:15 Carbuncl e [id number] Completed 201705/31/2020 Carbuncl e, unspecif ied;Byron rded Elsewher e: No Locat ion: [facility] S ource: EHR Egg Sorter cosme: N Lcti ce ID: 0001 Raffi lable Time: 01:00:00 PM Ciarra guan [facility] 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 16:22:31 Pregnanc y test negative [id number] Completed 201705/31/2020 Encounte r for pregnanc y test, result negative ;Recorde d Elsewher e: No [facility] S ource: EHR Egg Sorter cosme: N Lcti ce ID: 0001 Raffi lable Time: 10:30:00 AM Ciarra guan [facility] 04/14/202 1 16:22:29 Chlamydi al vulvovag initis 622196305 Completed 201705/31/2020 Chlamydi al vulvovag initis;R ecorded Elsewher e: No Locat ion: [facility] S ource: EHR Egg Sorter cosme: N Lcabdelrahman ce ID: 0001 Raffi lable Time: 10:30:00 AM Ciarra guan, [facility] 16:22:22 Disorder of breast 24978389 Completed 201705/31/2020 Disorder of breast, unspecif ied;Byron rded Elsewher e: No Locat ion: [facility] S ource: EHR Egg Sorter cosme: N Esha ce ID: 0001 Raffi lable Time: 10:30:00 AM Ciarra Megan guan, [facility] 1 16:22:27 Pregnanc y 80841017 Completed 202310/31/2023 Mira William null, [facility] 5 12:04:49 Pregnanc y 59824549 Completed 202304/29/2024 Mira Thomas null, [facility] 5 12:04:49 Rheumato id arthriabdelrahman s [id number] Active 2023 on cimzia, followin g with rheumato randy GUERRERO MD [address], [place], [address], [facility] 4 16:06:44 Ankylosi ng spondyli tis 3598484 Active 2023 on cimzia, followin g with rheumato randy GUERRERO MD [address], [place], [address], [facility] 4 16:06:40 Rheumato id arthriti s 35864317 Completed 2023 on cimzia, followin g with rheumato randy GUERRERO MD [address], [place], [address], [facility] 4 16:06:43 Ankylosi ng spondyli tis 9881665 Completed 2023 on cimzia, followin g with rheumato randy GUERRERO MD [address], [place], [address], [facility] 4 16:06:40 Problem Notes None recorded. Procedures Surgical History Date Name Laterality Status Provider Name and Address Organization Details Recorded Time 06/19/19 24 Date of Last Pap Smear completed Mira Thomas [facility] 10/31/2023 14:29:50 02/17/19 21 Orthopedic Surgery completed Ny Riddle [facility] 06/19/2023 14:21:52 02/17/19 19 endoscopy completed Ciarra Guzman [facility] 06/12/2020 16:12:02 02/17/19 17 endoscopy completed Ciarra Guzman [facility] 06/12/2020 16:11:58 02/17/19 15 endoscopy completed Ciarra Guzman [facility] 06/12/2020 16:11:55 02/17/19 11 Tonsillectomy completed Ciarra Guzman [facility] 06/12/2020 16:09:50 Imaging Results None recorded. Procedure Notes None recorded. Medical Equipment None Reported. Allergies Allergen ID Allergen Name Allergen Category Reaction Reaction Severity Criticality Documentation Date Start Date Code Code System Note Provider Name and Address Organization Details Recorded Time 20166 amoxicill in medicatio n hives severe Not available 05/31/2020 723 RxNorm Ciarra guan [facility] 16:21:13 94480 sulfameth oxazole / trimethop rim medicatio n Not available Not available Not available 02/03/20252022 71555 RxNorm Not Available frankie - External Data Service - prod 5 09:55:27 78047 Latex (substanc e) environme nt,medica tion Not available Not available Not available 02/03/20252022 76980 8007 SNOMED Not Available [facility] External Data Service - prod 5 09:55:27 60658 Bactrim medicatio n Not available Not available Not available 02/03/2025 16345 9 RxNorm Not Available [facility] External Data Service - prod 5 09:55:31 9816 sulfameth oxazole medicatio n hives severe Not available 02/04/2020 60555 RxNorm Ciarra Guzman [facility], [facility] 16:21:13 9820 trimethop rim medicatio n hives severe Not available 02/04/2020 50999 RxNorm Chloe Kalia [facility], [facility] 1 12:02:48 9825 latex environme nt,medica tion hives moderate Not available 02/04/2020 07868 91 RxNorm Ciarra Guzman [facility], [facility] 16:21:13 Medications Name Sig Start Date Stop Date Status Note LastModified by Organization Details LastModified Time nifedipin e ER 30 mg tablet,ex tended release 24 hr TAKE 1 TABLET BY MOUTH EVERY 12 HOURS 10/20 completed Not Available Not Available Not Available cyclobenz aprine 10 mg tablet TAKE 1 TABLET BY MOUTH THREE TIMES DAILY NEEDED 10/20 completed Not Available Not Available Not Available Augmentin 875 mg-125 mg tablet take 1 tablet by oral route every 12 hours 05/31 completed Prescrib ed Elsewher e: No Locat ion: [facility] M odify By: ruthie tz Encou nter DateTime [...] completed Not Available Not Available Not Available Diflucan 150 mg tablet Take 1 tablet every day by oral route at bedtime for 1 day. 10/05 completed Not Available Not Available Not Available metronida zole 500 mg tablet Take 1 tablet every 12 hours by oral route for 7 days. 03/06 completed Not Available Not Available Not Available nifedipin e ER 30 mg tablet,ex tended release active Not Available Not Available Not Available tramadol 50 mg tablet TAKE 1 TABLET BY MOUTH EVERY 6 HOURS NEEDED FOR PAIN 10/23 completed Not Available Not Available Not Available ondansetr on 8 mg disintegr ating tablet Place 1 tablet 3 times a day by translin gual route. 05/14 completed Not Available Not Available Not Available ketorolac 10 mg tablet TAKE 1 TABLET BY MOUTH EVERY 6 HOURS FOR 5 DAYS NEEDED FOR PAIN 09/14 completed Not Available Not Available Not Available famotidin e 20 mg tablet TAKE 1 TABLET BY MOUTH TWICE DAILY 10/20 completed Not Available Not Available Not Available metoclopr amide 5 mg tablet TAKE 1 TABLET BY MOUTH FOUR TIMES DAILY NEEDED 10/30 completed Not Available Not Available Not Available cephalexi n 500 mg capsule TAKE 1 CAPSULE BY MOUTH FOUR TIMES DAILY FOR 5 DAYS 10/20 completed Not Available Not Available Not Available [...] Not Available docusate sodium 100 mg capsule TAKE 1 CAPSULE BY MOUTH TWICE DAILY 10/20 completed Not Available Not Available Not Available Provera 10 mg tablet take 1 tablet by oral route every day 05/31 completed Prescrib ed [facility] e: No Locat ion: [facility] odify By: ruthie tz Encou nter DateTime : 06/19/19 01:00:00 PM Not Available Not Available Not Available furosemid e 20 mg tablet TAKE 1 TABLET BY MOUTH EVERY DAY DIRECTED active Not Available Not Available No t Available ergocalci ferol (vitamin D2) 1,250 mcg (50,000 unit) capsule TAKE 1 CAPSULE BY MOUTH EVERY WEEK active Not Available Not Available No t Available ibuprofen 600 mg tablet TAKE 1 TABLET BY MOUTH EVERY 6 HOURS active Not Available Not Available No [...] completed Not Available Not Available Not Available labetalol 100 mg tablet Take 3 tablets twice a day by oral route as directed . 10/20 completed Not Available Not Available Not Available [...] 8 HOURS NEEDED FOR NAUSEA OR VOMITING 05/14 completed Not Available Not Available Not Available doxycycli ne hyclate 100 mg tablet take 1 tablet by oral route 2 times every day for 7 days 05/31 completed Prescrib ed Elsewher e: No Locat ion: [facility] odify By: constantine floyd DateTime : 07/09/19 10:48:00 AM Not Available Not Available Not Available naproxen 500 mg tablet TAKE 1 TABLET BY MOUTH TWICE DAILY 03/06 completed Not Available Not Available Not Available Loestrin Fe 1.5/30 (28-Day) 1.5 mg-30 mcg (21)/75 mg (7) tablet Take 1 tablet every day by oral route. 2024 active Not Available Not Available Not Avai lable metoclopr amide 10 mg tablet TAKE 1 TABLET BY MOUTH EVERY 6 HOURS NEEDED 04/29 completed Not Available Not Available Not Available Zithromax 500 mg tablet take 2 Tablet by oral route at one time 05/31 completed Prescrib ed Elsewher e: No Locat ion: [facility] odify By: flynn toure DateTime : [...] mg/mL x 2) subcutane ous syringe kit 10/20 completed Not Available Not Available Not Available Zofran (base) 05/14 completed Not Available Not Available Not Available Nuvessa 1.3 % (65 mg/5 gram) vaginal gel Insert 1 applicat orful every day by vaginal route at bedtime for 1 day. 10/05 completed Not Available Not Available Not Available ID NOW COVID-19 Test Kit TEST DIRECTED TODAY 07/12 completed Not Available Not Available Not Available Airsupra 90 mcg-80 mcg/actua tion HFA aerosol inhaler INHALE 2 PUFFS BY MOUTH THREE TIMES DAILY NEEDED FOR WHEEZING active Not Available Not Available No t Available Vitals Date Recorded Body height Body mass index (BMI) Body weight Systolic And Diastolic Provider Name and Address Organization Details Last Updated DateTime 04/13/2024 167.64 cm 46.3 kg/m2 122573.01 g 119/88 mm[Hg] Mira Thomas [facility] 04/13/2024 12:39:49 Date Recorded Body height Body mass index (BMI) Body weight Systolic And Diastolic Provider Name and Address Organization Details Last Updated DateTime 04/13/2024 167.64 cm 46.3 kg/m2 838618.01 g 119/87 mm[Hg] [facility] 04/13/2024 16:51:52 Date Recorded Body height Body mass index (BMI) Body weight Systolic And Diastolic Provider Name and Address Organization Details Last Updated DateTime 05/01/2024 167.64 cm 43.9 kg/m2 031885.12 g 136/84 mm[Hg] [facility] 05/01/2024 12:32:06 Date Recorded Body height Body mass index (BMI) Body weight Systolic And Diastolic Provider Name and Address Organization Details Last Updated DateTime 05/14/2024 167.64 cm 44.1 kg/m2 179625.72 g 129/81 mm[Hg] [facility] 05/14/2024 14:36:57 Date Recorded Body height Body mass index (BMI) Body weight Systolic And Diastolic Provider Name and Address Organization Details Last Updated DateTime 10/20/2024 167.64 cm 47.1 kg/m2 955046.97 g 137/94 mm[Hg] Ny Venkatesh [facility] 10/20/2024 14:30:29 Date Recorded Body height Body mass index (BMI) Body weight Systolic And Diastolic Provider Name and Address Organization Details Last Updated DateTime 02/03/2025 167.64 cm 48.1 kg/m2 023825.53 g 130/88 mm[Hg] Ny Venkatesh [facility] 02/03/2025 10:56:41 Social History Question Answer Notes LastModified by Takipiizat ion Details LastModified Time Tobacco Smoking Status Current Every Day Smoker [facility] 03/06/2023 15:48:03 Do You Have An Advance Directive? No [email or web address] Information not available 05/31/2020 If You Are , What Was Your Level Of Alcohol Consumption Prior To ? Occasional Information not available 03/06/2023 How Many Years Have You Consumed Alcohol? 6 [email or web address] Information not available 05/31/2020 Are You Blind Or Do You Have Difficulty Seeing? No Information not available 05/31/2020 What Is Your Level Of Caffeine Consumption? Occasional Information not available 04/10/2022 How Much Tobacco Do You Chew? None Information not available 05/31/2020 In The 14 Days Before Symptom Onset, Have You Had Close Contact With A Laboratory-confir med COVID-19 While That Case Was Ill? No [email or web address] Information not available 05/31/2020 In The 14 Days Before Symptom Onset, Have You Had Close Contact With A Person Who Is Under Investigation For COVID-19 While That Person Was Ill? No [email or web address] Information not available 05/31/2020 Have You Been To An Area Known To Be High Risk For COVID-19? No [email or web address] Information not available 05/31/2020 Are You Deaf Or Do You Have Serious Difficulty Hearing? No [email or web address] Information not available 05/31/2020 What Type Of Diet Are You Following? SPECIFIC Information not available 04/10/2022 What Is The Highest Grade Or Level Of School You Have Completed Or The Highest Degree You Have Received? [id number] [email or web address] Information not available 05/31/2020 Are There Any Guns Present In Your Home? No [email or web address] Information not available 05/31/2020 Do You Use Protection During Sex? No [email or web address] Information not available 05/31/2020 Do You Use Your Seat Belt Or Car Seat Routinely? Yes Information not available 05/31/2020 Are You Sexually Active? Yes [email or web address] Information not available 04/13/2024 Do You Have Smoke And Carbon Monoxide Detectors In Your Home? Yes [email or web address] Information not available 05/31/2020 At What Age Did You Start Smoking Tobacco? 16 Information not available 03/06/2023 How Much Tobacco Do You Smoke? 0.25 PPD [email or web address] Information not available 05/31/2020 Do You Use Sunscreen Routinely? Yes [email or web address] Information not available 05/31/2020 Has Tobacco Cessation Counseling Been Provided? No Information not available 03/06/2023 How Many Years Have You Smoked Tobacco? 10 [email or web address] Information not available 05/31/2020 Have You Used IV Drugs? No [email or web address] Information not available 05/31/2020 Do You Have Difficulty Walking Or Climbing Stairs? No Information not available 03/06/2023 Sex: Unknown Functional Status Question Answer Note LastModified by Organizat ion Details LastModified Time Do you use any illicit or recreational drugs? Yes [email or web address] Information not available 05/31/2020 Do you or have you ever used any other forms of tobacco or nicotine? No Information not available 03/06/2023 What is your level of alcohol consumption? Occasional [email or web address] Information not available 05/31/2020 Are you currently employed? Yes [email or web address] Information not available 04/13/2024 Are you able to walk independently without assistance or assistive devices? YESWOREST [email or web address] Information not available 05/31/2020 Are you able to care for yourself independently? Yes Information not available 03/06/2023 What is your occupation? [email or web address] Information not available 03/06/2023 Do you have difficulty dressing, bathing, grooming, or toileting? No Information not available 03/06/2023 What is your exercise level? Moderate Information not available 04/10/2022 Mental Status Question Answer Note LastModified by Organization D etails LastModified Time Do you feel stressed (tense, restless, nervous, or anxious, or unable to sleep at night)? [id number] [email or web address] Information not available 05/31/2020 Family History Relationship Description Onset Age of this Age Resolved Age Notes LastModified by Organization Details LastModified Time Father Depressive disorder [email or web address] Not available 05/31 16:21:13 Father Anxiety disorder [email or web address] Not available 05/31 16:21:13 Sister Diabetes mellitus Not available 05/31 16:21:13 Sister Anxiety disorder Not available 05/31 16:21:13 Sister Asthma [email or web address] Not available 05/31/2020 16:21:13 Sister Malignant neoplasm of cervix uteri Not available 16:06:01 Sister Cyst of ovary [email or web address] Not available 2022 16:31:01 Mother Malignant neoplasm of cervix uteri [email or web address] Not available 16:06:01 Mother Cyst of ovary [email or web address] Not available 2022 16:31:01 Mother Hypertensive disorder Not available 06/12 16:06:51 Mother Disorder of thyroid gland [email or web address] Not available 06/12 16:07:07 Maternal Aunt Hypertensive disorder [email or web address] Not available 06/12 16:06:51 Maternal Aunt Diabetes mellitus [email or web address] Not available 06/12 16:07:23 Maternal Aunt Asthma [email or web address] Not av ailable 06/12/2020 16:07:54 Brother Asthma [email or web address] Not availabl e 06/12/2020 16:07:45 Maternal Uncle Asthma [email or web address] Not available 021 16:08:06 Medical History Condition [...] Y Heart Disease N Pre-Eclampsia N Hypertension Y Osteoporosis N Thrombophilias N Gynecological History Statement/Question Response Flow Heavy Date of LMP 01/01/2025 On BCP's at Conception? N N Was last menstrual period normal N STIs/STDs Y HPV Vaccine Y Duration of Flow (days) 30 Current Control Method None Age at First Child 18 Are cycles usually normal N Sexually Active? Y Menses Monthly N Age of first menstrual cycle 12 Date of Last Pap Smear 06/19/2023 Sexual Problems? N Desired Control Method None LMP Approximate N Obstetrics History GPAL:G 2 P 2 0 0 2 Type Value Full Term 2 Living 2 Total 2 Past Encounters Encounter ID Performer Location Encounter Start Date Encounter Closed Date Diagnosis/Indication Diagnosis SNOMED-CT Code Diagnosis ICD10 Code Diagnosis IMO Codes [id number] [address] [address] 05/31/2020 15:41:28 05/31/2020 16:42:06 Gynecologic examination 92114338 Z01.419 [id number] [facility] [address] [address] 09/14/2020 15:43:42 09/14/2020 16:44:36 Menorrhagia 349733261 N92.0 Updated US discussed. [facility] next [...] this patient s visit, including available hand business insight and analytics manager upon arrive, temperatur e check and being asked a series of screening questions. All staff wore face coverings during this encounter, as well as provided additional cleaning and sanitizing of all surfaces, including countertop s, pens, chairs, door handles, light switches, etc, prior to and following the patient s visit. Vaginitis 40736555 N76.0 Some d/c on examWill send swab & call if txment is necessary [id number] Damian Sandy MD [facility] [address] [address] 09/25/2020 12:17:52 09/25/2020 13:25:20 Abnormal uterine bleeding 9347855572 9100 N93.9 [id number] Sharon Kaplan CNM [facility] [address] [address] 09/25/2020 12:49:38 09/26/2020 15:09:46 Dysuria 18659628 R30.9 [id number] SERG King [facility] [address],[facility] [place] [address] 07/12/2021 10:27:22 07/12/2021 15:37:32 Missed period 02934811 N92.5 Here for STI testing, is concerned her partner has other partnersNo symptoms, her partner has not tested positive [facility] that [facility] , she will routinely skip months. [...] over 30 minutes Venereal d isease screening 076842175 Z11.3 Microscopic hematuria 19 4908466 R31.29 Laboratory test result abnormal 171783533 R89.9 N92.6 Exposure t o sexually transmissible disorder 657601772 Z20.2 Sexually t ransmitted infectious disease 0577320 A64 [id number] SERG King [facility] [address] [address] 07/31/2021 14:05:14 07/31/2021 15:15:36 Polycystic ovary syndrome 568823759 E28.2 Here today to discuss lab work [...] menses does not occur.She denies allergey to [facility] in 3 months for med check, will drop urine off in about 2 weeks for EDY, repeat u/s due in about 6-8 weeks. Time spent in visit is a total of 35 mins with at least 50% of visit consisting of counseling and review of plan of care. Irregular periods 507023 07 N92.6 [id number] Damian Sandy MD [facility] [address],[place] [address] 07/18/2021 17:54:14 07/19/2021 14:48:41 Irregular periods 53971827 N92.6 [id number] Damian Sandy MD [facility] [address],[place] [address] 09/11/2021 17:23:38 09/12/2021 10:26:00 Cyst of right ovary 1083051513 [id number] N83.291 N83.292 [id number] SERG King [facility] [address],[place] [address] 10/23/2021 15:01:32 10/23/2021 16:51:33 Cyst of ovary 57858905 N83.209 We discussed pelvic u/s result : We discussed bilateral paratubal cyst seen again - stableGive n that they are small in size [...] RA - [facility] or sooner if any symptoms occur ED precaution s discussed Time spent in visit is a total of 25 mins with at least 50% of visit consisting of counseling and review of plan of care. Furuncle 139961961 L02.9 2 Patient has hx of frequent furuncles throughout body, none now but they happen oftenDerm referral sent [id number] SERG King [facility] [address] [address] 04/10/2022 16:15:24 04/10/2022 16:51:46 Venereal disease screening 318914380 Z11.3 Sexually t ransmitted infectious disease 2645812 A64 Pain in pelvis 16012172 R10.2 Microscopic hematuria 19 5271942 R31.29 Hx of hematuria. Has not seen urologist yet. New referral placed. Encouraged her to schedule this. Gynecologi c examination 94856484 Z01.419 Take Calcium with Vitamin D 1200mg [...] counseling and review of plan of care. [id number] Damian Sandy MD [facility] [address] [address] 04/19/2022 16:30:52 04/19/2022 17:10:48 Pain in pelvis 87504016 R10.2 N93.9 [id number] Ernestina Acevedo PRECIOUS [facility] [address] [address] 03/06/2023 15:43:49 03/07/2023 15:41:15 Pain in pelvis 82021773 R10.2 This patient is a 27 -year-old [...] orderedSTI testing declinedre turn for u/s f/u/WWE [id number] [facility] [address] [address] 06/19/2023 14:06:58 06/19/2023 15:23:19 Irregular periods 91387773 N92.6 Neg UPTWill take another UPT if period does not start in another week.If continues to fail to start call for HCG/Possib le TVUS if needed Gynecologi c examination 87943488 Z01.419 Take Calcium with Vitamin D 1200mg [...] Dexa Screen na Routine Labs PCP [id number] Damian Sandy MD [facility] [address] [address] 10/06/2023 16:24:21 10/06/2023 17:11:15 [id number] Damian Sandy MD [facility] [address] [address] 10/06/2023 16:26:58 10/07/2023 09:12:14 Urinary symptoms 519493536 R39.9 Nausea and vomiting 1693 1999 R11.2 Amenorrhea 71621532 N91. 2 this patient is a 28-year-ol [...] begin routine care at her next visit. [id number] Damian Sandy MD [facility] [address],[place] [address] 10/16/2023 17:11:39 10/17/2023 04:35:22 screening 469338676 Z36.82 Z3A.12 [id number] CRUZ GUERRERO MD [facility] [address],[place] [address] 10/31/2023 15:07:44 10/31/2023 16:19:01 Ankylosing spondylitis 0197058 M45.9 - continue cimzia, following with rheumatolo gy Rheumatoid arthritis 698 55802 M06.9 - continue cimzia, following with rheumatolo gy Gestation period, 14 weeks 56476460 Z3A.14 - continue PNV [id number] Damian Sandy MD [facility] [address],[place] [address] 12/09/2023 16:41:44 12/09/2023 17:51:53 screening for malformation 252213551 Z36.3 Z3A.20 [id number] CRUZ GUERRERO MD [facility] [address],[place] [address] 12/10/2023 16:46:21 12/15/2023 09:23:17 Ankylosing spondylitis 2321670 M45.9 - continue cimzia, following with rheumatolo gy Rheumatoid arthritis 698 08773 M06.9 - continue cimzia, following with rheumatolo gy Gestation period, 20 weeks 98357422 Z3A.20 [id number] Damian Sandy MD [facility] [address],[place] [address] 01/06/2024 16:54:38 01/07/2024 09:12:37 screening 461785083 Z36.2 Z3A.24 [id number] CRUZ GUERRERO MD [facility] [address],[place] [address] 01/06/2024 16:54:50 01/07/2024 11:46:40 Constipation 65502453 K59.00 Pain in ri ght lower limb 880489576 M79.604 Urinary symptoms 3627505 08 R39.9 - will send urine culture Gestation period, 24 weeks 319438637 Z3A.24 - continue PNV Dilatation of renal pelvis 424947313 O36.8999 - bilateral, mild- continue [place] [id number] Damian Sandy MD [facility] [address],[place] [address] 02/03/2024 15:59:03 02/03/2024 17:09:37 Maternal obesity complicating , childbirth and the puerperium, antepartum 9134592489 07 O99.213 Z3A.28 [id number] CRUZ GUERRERO MD [facility] [address],[place] [address] 02/03/2024 15:59:18 02/04/2024 09:32:17 Body mass index 40+ - severely obese 905762710 Z68.41 - start testing at 34 weeks Gestation period, 28 weeks 15388606 Z3A.28 - GCT and labs today- continue PNV Breech presentation 6096 002 O32.1XX9 - continue to monitor presentati on; desires ECV if malpresent ation [id number] CRUZ GUERRERO MD [facility] [address],[place] [address] 02/20/2024 14:58:17 02/24/2024 03:54:10 Pain in pelvis 92754080 R10.2 - patient reports worsening hip and pelvic pain- likely 2/2 positionin g and advanced - discussed symptomati c treatments , will send rx for flexeril Heartburn 09055876 R12 - not controlled with tums- will trial pepcid Body mass index 40+ - severely obese 181142563 Z68.41 - start testing at 34 weeks Gestation period, 30 weeks 77769038 Z3A.30 [id number] CRUZ GUERRERO MD [facility] [address],[place] [address] 03/05/2024 09:33:40 03/05/2024 11:21:51 Nausea and vomiting 80679032 R11.2 - low appetite and constant nausea- will trial reglan Gestation period, 32 weeks 5554097 Z3A.32 - continue PNV- discussed RSV vaccine [id number] CRUZ GUERRERO MD [facility] [address],[place] [address] 03/18/2024 14:46:53 03/18/2024 16:31:29 Maternal obesity complicating , childbirth and the puerperium, antepartum 1266287803 07 O99.213 - continue weekly testing [id number] Damian Sandy MD [facility] [address],[place] [address] 03/18/2024 14:47:05 03/18/2024 15:36:36 Maternal obesity complicating , childbirth and the puerperium, antepartum 0823909175 07 O99.213 O99.891 Z3A.34 [id number] CRUZ GUERRERO MD [facility] [address],[place] [address] 03/18/2024 14:47:30 03/18/2024 16:10:43 Maternal obesity complicating , childbirth and the puerperium, antepartum 6016926033 07 O99.213 - continue weekly testing Gestation period, 34 weeks 85209657 Z3A.34 - continue PNV [id number] Damian Sandy MD [facility] [address],[place] [address] 03/23/2024 10:53:43 03/23/2024 11:28:25 Pre-existing maternal disease complicating 9979453063 6106 O99.891 O99.213 Z3A.35 [id number] CRUZ GUERRERO MD [facility] [address],[place] [address] 03/23/2024 10:54:38 03/23/2024 12:52:25 Maternal obesity complicating , childbirth and the puerperium, antepartum 5253893876 07 O99.213 - continue weekly testing [id number] CRUZ GUERRERO MD [facility] [address],[place] [address] 03/23/2024 10:54:52 03/23/2024 12:57:31 Maternal obesity complicating , childbirth and the puerperium, antepartum 5084114917 07 O99.213 - continue weekly testing Gestation period, 35 weeks 78445039 Z3A.35 - continue PNV [id number] Damian Sanyd MD [facility] [address],[place] [address] 03/30/2024 10:50:34 03/30/2024 12:01:09 Maternal obesity complicating , childbirth and the puerperium, antepartum 1751384268 07 O99.213 Z3A.36 [id number] CRUZ GUERRERO MD [facility] [address],[place] [address] 03/30/2024 10:51:12 03/30/2024 13:55:08 Maternal obesity complicating , childbirth and the puerperium, antepartum 3709186267 07 O99.213 - continue weekly testing [id number] CRUZ GUERRERO MD [facility] [address],[place] [address] 03/30/2024 10:51:27 03/30/2024 13:57:19 Body mass index 40+ - severely obese 867106784 Z68.41 - start testing at 34 weeks Ankylosing spondylitis 7069489 M45.9 - continue cimzia, following with rheumatolo gy Rheumatoid arthritis 698 69108 M06.9 - continue cimzia, following with rheumatolo gy Gestation period, 36 weeks 83197260 Z3A.36 - GBS collected- continue PNV [id number] Damian Sandy MD [facility] [address],[place] [address] 04/09/2024 13:12:50 04/12/2024 10:49:38 Maternal obesity complicating , childbirth and the puerperium, antepartum 9248141346 07 O99.213 O99.893 Z3A.37 [id number] MD Owen CHAU [address],[place] [address] 04/09/2024 13:13:07 04/09/2024 15:12:41 Maternal obesity complicating , childbirth and the puerperium, antepartum 4690645271 07 O99.213 - continue weekly testing [id number] CRUZ GUERRERO MD [facility] [address],[place] [address] 04/09/2024 13:13:48 04/12/2024 10:58:32 Maternal obesity complicating , childbirth and the puerperium, antepartum 6031028873 07 O99.213 - continue weekly testing Gestation period, 38 weeks 50662948 Z3A.38 - continue PNV [id number] Damian Sandy MD [facility] [address],[place] [address] 04/13/2024 10:45:52 04/13/2024 11:40:24 Maternal obesity complicating , childbirth and the puerperium, antepartum 6122788976 07 O99.213 O99.893 Z3A.38 [id number] CRUZ GUERRERO MD [facility] [address],[place] [address] 04/13/2024 10:46:05 04/13/2024 17:05:23 Maternal obesity complicating , childbirth and the puerperium, antepartum 5458266428 07 O99.213 - BPP 8/10, off for breathing [id number] CRUZ GUERRERO MD [facility] [address],[place] [address] 04/13/2024 10:48:05 04/13/2024 13:33:57 Maternal obesity complicating , childbirth and the puerperium, antepartum 4618984336 07 O99.213 - BPP 8/10, off for breathing Gestation period, 38 weeks 70079488 Z3A.38 - continue PNV- EIL 04/19 [id number] Damian Sandy MD [facility] [address],[place] [address] 05/01/2024 12:24:56 05/03/2024 10:35:15 -induced hypertension 27898013 O13.9 28-year-ol d female who had gestationa l hypertensi on/preecla mpsia. She presents for blood pressure check. Her blood pressures are fine. She is on 2 blood pressure medication s. She is given precaution s about hypotensio n. She is to contact us with dizziness. She has no complaints at this time. She will follow-up in 3 weeks. [id number] CRUZ GUERRERO MD [facility] [address],[place] [address] 05/14/2024 14:25:49 05/14/2024 15:17:34 Hypertensive disorder 21887780 I10 - gestationa l hypertensi on- asymptomat ic- BP normal today- discussed if BP stays 120/80s, ok to d/c procardia XL; if still normotensi ve after that, decrease labetalol to 1x per day then wean - induced hypertension 85168006 O13.9 Delivery normal 76892739 O80 care 84561408 8 Z39.2 S/ 4 weeks ago here today for a visit.1. Patient recovering well2. Plans to continue breast feeding3. Not interested in contracept ion at this time. Risks, benefits, and alternativ es reviewed with the patient4. Patient instructed to follow up in 6-12 months for well woman exam unless need arises prior [id number] CRUZ GUERRERO MD [facility] [address],[facility] [place] [address] 10/20/2024 14:12:33 10/20/2024 16:50:49 Abnormal uterine bleeding 3098089110 9100 N93.9 - patient reports no period until 09/2024 after delivery in 03/2024- associated weight gain and worsening RA- some workup started by PCP- discussed that this may be normal bleeding ; normal to have irregular periods- hx of PCOS, discussed that this may be contributi ng- will order labs to evaluate hormonal cause of irregular bleeding- if normal and periods continue to be irregular, plan for pelvic US [id number] Damian Sandy MD [facility] [address],[facility] [place] [address] 02/03/2025 09:54:31 02/03/2025 11:30:24 Abnormal uterine bleeding 9859059027 9100 N93.9 Health Concerns Section Related Observation LastModified by Organization Detai ls LastModified Time None Recorded Concern Status LastModified by Organization Details LastModified Time None Recorded Advance Directives Directive N: Payers Insurance Date Sequence Insurance Name Policy Number Policy Santiago Covered Member ID Santiago Member ID Guarantor Name 02/03/2025 1 [facility] (MEDICAID HMO) [id number] Cruz Jesus Terrell [id number] Cruz Jesus Terrell 09/11/2021 PAYMENT PLAN Cruz Tejada 12/15/2021 PAYMENT PLAN Cruz Tejada 05/18/2022 PAYMENT PLAN Cruz Jesus Terrell Notes Date Note Type Note Provider Name and Address Organization Details Recorded Time 04/13/2024 text/html Generic HPI TemplateReported by Patient CRUZ GUERRERO MD [address], [place], [address], [facility] 04/13/2024 13:00:09 05/01/2024 text/html 28-year-old female who had gestational hypertension/preeclam psia. She presents for blood pressure check. Her blood pressures are fine. She is on 2 blood pressure medications. She is given precautions about hypotension. She is to contact us with dizziness. She has no complaints at this time. She will follow-up in 3 weeks. Damian Sandy MD [address], [place], [address], [facility] 05/01/2024 21:34:48 05/14/2024 text/html S/P on 04/16/24 at 38 weeks gestation. was complicated by gestational hypertension. Complications with delivery: none. Patient denies any specific problems since delivery. BP well controlled with labetalol 300 BID and nifedipine XL 30 daily. Patient overall feeling well. Patient is breast feeding without problems. Has not had a period yet. No bleeding. Bowel and bladder function are normal. Pap due 06/2026. Denies any signs or symptoms of depression. Is coping with parenting well. 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 Patient has not been sexually active since delivery. Patient is not interested in contraception at this time. CRUZ GUERRERO MD [address], [place], [address], [facility] 05/14/2024 15:17:28 10/20/2024 text/html ROS as noted in the HPI Patient presents for evaluation of irregular bleeding. She is s/p 04/16/2024. She did not have a cycle until 09/2024. She stopped around 3 months . She has also been having issues with weight gain and worsening RA. She is being seen by her PCP and is in the middle of an evaluation including pituitary MRI and 24h urine cortisol collection. She has a history of PCOS. She was recently switched to Taltz and is starting Zepbound soon. CRUZ GUERRERO MD [address], [place], [address], [facility] 10/20/2024 16:39:18 02/03/2025 text/html Beer - Abnormal BleedingReported by Patient This patient is a 29-year-old female presents for heavy vaginal bleeding. She has longstanding very heavy bleeding. Her menses are regular. However, they require double protection. Patient has accidents, getting blood on her bedding and clothing. Is affected work. She changes a pad or tampon every hour. She leaks blood around the pad and tampon. This bleeding has a profound impact on her quality of life and her activities of daily living. Irreg/Irreg Damian Sandy MD [address], [place], [address], [facility] 02/03/2025 11:21:20 OBGyn Episode Ob Episode Information Episode Created Date Number of Fetuses Patient Bloodtype Patient rh Status Prepregnancy Weight lbs Domestic Partner Domestic Partner Phone Father Name Medical Doctor Md/Medical Director Status 06/01/19 21 1 CLOSED Fetus Data [...] Domestic Partner Domestic Partner Phone Father Name Medical Doctor Md/Medical Director Status 10/31/19 24 1 O Positive 268 Rodolfo Tejada CLOSED Fetus Data First Name Last Name Admitted to NICU Weight (g) Sex Living Outcome Pediatric Complications Fetus ID Race Codes Race Delivery Type 3231.84 3 F true Full Term [id number] Vaginal Delivery Problems Problem Notes mild bilateral pylectasisInc omplete anatomy x 2 - [facility] Scheduled 02/09 0900 US and consult Problem Name Start Date End Date Resolution Snomed Code Not e Body mass index 40+ - severely obese 044242642 zuri ting 34 wks Asthma 888564636 Ankylosing spondylitis 10/31/2023 [id number] on cimzia, foll owing with rheumatology Rheumatoid arthritis 10/31/2023 28012492 on cimzia, following with rheumatology Bert Calculation [...] Date Ultra Sound Latest Days Gestation 0 [id number] 10/31/2023 04/26/19 25 0 Pre- Flowsheet Flowsheet Date 10/31/2023 Billings Score Blood Edema Fundus Height Fundus Units Glucose Ketones Leukocytes Nitrite Labor Signs Protein Cervic Dilation Cervic Effacement Cervic Station Type Weight in lbs Pre/Post Dialysis Refused Weight 271.301391388371 BP Diastolic BP Location Tested BP Systolic [...] Weight in lbs Pre/Post Dialysis Refused Weight 276.627929386850 BP Diastolic BP Location Tested BP Systolic [...] Type Weight in lbs Pre/Post Dialysis Refused 279.487069207915 BP Diastolic BP Location Tested BP Systolic [...] Weight in lbs Pre/Post Dialysis Refused Weight 280.996917747786 BP Diastolic BP Location Tested BP Systolic BP Type 86 L arm 119 sitting Fetus Heart Rate Present Fetus Movement A Yes Comments Patient c/o of slight pains and nausea. Good movement. No cramping or bleeding. Discussed belly band for symptomatic relief. EFW 49%, transverse. Mild poly. RVOT still not visualized, will send to [facility] for clearance. Discussed testing starting at 34 weeks for obesity. GCT and labs today. RTC 2 weeks. Flowsheet Date 02/20/2024 Billings Score Blood Edema Fundus Height Fundus Units Glucose Ketones Leukocytes Nitrite Labor Signs Protein Cervic Dilation Cervic Effacement Cervic Station neg none Type Weight in lbs Pre/Post Dialysis Refused Weight 283.89043624601 BP Diastolic BP Location Tested BP Systolic BP Type 88 L arm 120 sitting Fetus Heart Rate Present A 145 Fetus Movement A Yes Comments Patient c/o of slight nausea , Pecos Anaya. Hip pain worsening, has tried tylenol, [...] Type Weight in lbs Pre/Post Dialysis Refused 280.47943963275 BP Diastolic BP Location Tested BP Systolic [...] Weight in lbs Pre/Post Dialysis Refused Weight 288.27667761286 BP Diastolic BP Location Tested BP Systolic [...] Weight in lbs Pre/Post Dialysis Refused Weight 284.163315161649 BP Diastolic BP Location Tested BP Systolic BP Type 66 L arm 121 sitting Fetus Heart Rate Present A 150 Fetus Movement A Yes Comments Patient c/o of slight nausea , Jean Carlos Anaya. Good movement. No cramping or bleeding. [...] Weight in lbs Pre/Post Dialysis Refused Weight 285.930801783197 BP Diastolic BP Location Tested BP Systolic BP Type 83 L arm 132 sitting Fetus Heart Rate Present A 150 Fetus Movement A Yes Comments Good movement. No stro ng ctx, LOF, bleeding. BPP 10. GBS collected today. EIL scheduled 04/19. Labor [...] Weight in lbs Pre/Post Dialysis Refused Weight 285.835218336650 BP Diastolic BP Location Tested BP Systolic BP Type 88 L arm 139 sitting Fetus Heart Rate Present A 140 Fetus Movement A Yes Comments Baby moving well. No bleedin g or LOF. Some cramping. UTI symptoms, will send antibiotics. Labor precautions reviewed. BPP 11/26. RTC 1 week. Flowsheet Date 04/13/2024 Billings [...] Weight in lbs Pre/Post Dialysis Refused Weight 287.771000290782 BP Diastolic BP Location Tested BP Systolic BP Type 87 R arm 119 sitting Fetus Heart Rate Present Fetus Movement Comments Flowsheet Date 04/13/2024 Billings Score Blood Edema Fundus Height Fundus Units Glucose Ketones Leukocytes Nitrite Labor Signs Protein Cervic Dilation Cervic Effacement Cervic Station neg none 2cm 50% -2 Type Weight in lbs Pre/Post Dialysis Refused Weight 287.120828707937 BP Diastolic BP Location Tested BP Systolic BP Type 88 L arm 119 sitting Fetus Heart Rate Present A 145 Fetus Movement A Yes Comments Patient c/o Pecos Anaya an d swelling in hands and [...] Post Complications Tubal Sterilization Discharge Date Comments Augmen kadeem None 38.5 Cruz Hinson MD Discharge Information Feeding Method Contraceptive Method Maternal HG B and HCT Levels Ob Episode Information Episode Created Date Number of Fetuses Patient Bloodtype Patient rh Status Prepregnancy Weight lbs Domestic Partner Domestic Partner Phone Father Name Medical Doctor Md/Medical Director Status 10/31/19 24 1 CLOSED Fetus Data First Name Last Name Admitted to NICU Weight (g) Sex Living Outcome Pediatric Complications Fetus ID Race Codes Race Delivery Type [id number] Bert Calculation Initial Bert Date Initial Exam [...] Estim ated Date of Delivery false Thalassemia (Estonian, Romansh, Mediterranean, Or Background): MCV < 80 false Neural Tube Defect (Meningomyelocele, Spina Bifi da, Or Anencephaly) false Congenital Heart Defect false Down Syndrome false David-Sachs (eg, Spiritism, Cajun, Cape Verdean-Burkinan) f alse Eleonora Disease false Sickle Cell Disease Or Trait () false Hemophilia Or Other Blood Disorders false Muscular Dystrophy false Cystic Fibrosis false Crosby's Chorea false Intellectual Disability/Autism false If Yes, [...]
--- OUTSIDE RECORDS SUMMARY | 2025-02-14 16:15 | XMS_ITS | Clinical Summary ---
Author Organization [facility] Address [address] [facility] [place] [address] Care Team Providers Care Client Care Consultant Name Role Phone Sary Rodriguez APRN-MONITORING COORDINATOR Primary Care Provider Source Comments [facility],non-owned Affiliates and Associated Physician Practices is amultiple site organization consisting of ambulatory clinics and hospital sitesin [place], [place], [place] and [place]. This disclosure is being madepursuant to the Care Everywhere program and may not contain all information available regarding this patient. Last updated 17.[facility] Allergies Active Allergy Reactions Criticality Noted Date [...] Active vitamin D, ergocalciferol, (Drisdol) 1.25 MG (99611 UT) capsule Take 1 (one) capsule by [...] spondyloarthritis 09/19/2021 Long-term use of immunosuppressant medication director long term care current use of non -steroidal anti-inflammatories (NSAID) 09/19/2021 Class 3 severe obesity due t o excess calories with body mass index (BMI) of 40.0 to 44.9 in adult 09/19/2021 Encounters Date Type Department Care Team Description 02/14/2025 Telephone [facility] - Rheumatology [address] [place] [phone] Rigoberto Hoskins MD Medication Prior Auth Request (Taltz) 01/19/2025 Telephone [facility] - Rheumatology [address] [place] [phone] Rigoberto Hoskins MD Follow-up 01/19/2025 Telephone [facility] - Rheumatology [address] [place] [address], [place] [address] Rigoberto Hoskins MD Follow-up 12/28/2024 Orders Only [facility] - Rheumatology [address] [place] [phone] Aristeo Landon MD Obesity with sleep apnea 12/24/2024 Telephone [facility] Rheumatology [address] [place] [phone] Rigoberto Hoskins MD Med Question 11/23/2024 Orders Only [facility]ology [address] [place] [phone] Rigoberto Hoskins MD Axial spondyloarthritis (HCC) 11/18/2024 Telephone [facility] - Rheumatology [address] [place] [phone] Rigoberto Hoskins MD Medication Prior Auth Request (TALTZ) 11/17/2024 11:00 AM CDT [facility] [address] [place] [phone] Rigoberto Hoskins MD Axial spondyloarthritis (HCC) (Primary [...] on file Legal Sex Female 6:23 PM ROD WELDER Gender Identity Not on file Sexual Orientation [...] st Contact Info) Description 03/23/2025 10:00 AM ROD WELDER Office Visit [facility] - Rheumatology [address] [place] [address], [facility] [place] [address] Rigoberto Hoskins MD [address] [place] [phone] Health Maintenance Due Date Last Done Comments [...] jan Non-reac tive 08/11/2024 5:35 PM CDT [facility] Comment:Hepatitis C Antibody screen indicates [...] MD LAB - CHEMISTRY ORDERABLES Final Result [facility] [address] [place] [phone], [facility] [phone] from Last 3 Months or Most Recently Relevant to Health Maintenance Insurance [facility] Care Teams Client Care Consultant Relationship Specialty Start Date End Date Sary Rodriguez, MANAGED CARE NURSE-MONITORING COORDINATOR [address] [place] [address] [phone] PCP - General Nurse Practitioner Family 03/06/23
--- OUTSIDE RECORDS SUMMARY | 2025-02-14 16:15 | XMS_ITS | Encounter Summary ---
Author Organization [facility] Address [address] [place] [id number] Care Team Providers Care Director Recreation Name Role Phone Valeria Barnes Edy SYSTEM OPERATION SUPERINTENDENT Primary Care Provider Encounter Details Date Type Department Care Team (Late st Contact Info) Description 01/07/2025 Abstract [facility] [address] Francie Vasquez MA Social History Tobacco Use [...] * (ABNORMAL) CMP (OUTSIDE LAB) (09/08/2024) Pathologist [facility] SODIUM S/P/B 138 137 - 145 POTASSIUM [...] (ABNORMAL) LIPID PANEL (OUTSIDE LAB) (09/08/2024) Pathologist [facility] CHOLESTEROL 231(A) 140 - 199 TRIGLYCERIDES 241(A) 0 - 150 HDL 49 >=40 LDL (CALCULATED) 134(A) 0 - 130 09/08/2024 us Default History Genericprovider LAB-OUTSIDE/ABST RACTED Final Result documented in this encounter Visit Diagnoses Not on filedocumented in this encounter Care Teams Director Recreation Relationship Specialty Start Date End Date Valeria Barnes FNP [address] [address] PCP - General NURSE PRACTITIONER 02/14/18 documented as of this encounter
--- OUTSIDE RECORDS SUMMARY | 2025-02-14 16:15 | XMS_ITS | Continuity of Care Document ---
Author Organization [facility] Address [address] [place] [address] Assessment Encounter Date Assessment Date Assessment LastModified [...] - 17-oh progesteron e, lc/MS/MS 2024 025 [facility] (Lab), [address], [place], [address], 5 03:31:53 dhea-sulfat e, serum 2024 025 [facility] (Lab), [address] [place], [address], 5 03:31:51 hormone panel, serum or plasma 2024 025 [facility] (Lab), [address] [place], [address], 5 03:31:52 HbA1c (hemoglobin A1c), blood 2024 [facility] (Lab), [address] , [place], [address], 5 03:31:52 progesteron e, serum 2024 [facility] (Lab), [address] , [place], [address], 5 03:31:51 prolactin, serum 2024 [facility] (Lab), [address] , [place], [address], 5 03:31:51 shbg (sex hormone-bin ding globulin), serum 2024 025 [facility] (Lab), [address] , [place], [address], 5 03:31:52 testosteron e free/testos terone total, ratio, serum 2024 [facility] (Lab), [address], [place], [address], 5 03:31:53 TSH, serum or plasma 2024 025 [facility] (Lab), [address], [place], [address], 5 03:31:52 CBC 2024 025 [facility] (Lab), [address] [facility], [place], [address], 5 03:31:50 Referral None recorded. Procedures None recorded. Surgeries None recorded. Imaging US, pelvis, complete [address], [place] [address], [place], [address], 5 11:30:24 Medication Orders Loestrin Fe 1.5/30 (28-Day) 1.5 mg-30 mcg (21)/75 mg (7) tablet 2024 025 [facility] #[id number], [address] [facility], [place], [place], [id number], 11:17:57 Patient TargetsNo targets recorded. Patient InstructionsNo instructions recorded. Reason for Referral None Reported. Problems Name Problem SNOMED Code Status Onset Date Resolution Date Notes Provider Name and Address Organization Details Recorded Time Body mass index 40+ - severely obese 882339069 Completed antenata l testing 34 wks Anjana [facility] 4 16:56:06 Body mass index 40+ - severely obese 605382393 Active antenata l testing 34 wks Anjana [facility] 4 16:56:06 Asthma 443591838 Completed DIONNE GUERRERO MD [address], [place], [address], [facility] 5 15:54:14 Chlamydi al infectio n [id number] Completed 201705/31/2020 Chlamydi al infectio n, unspecif ied;Byron rded Elsewher e: No Locat ion: [facility] S ource: EHR Primer Expeditor And Drier kayy: N Practi ce ID: 0001 Raffi lable Time: 01:00:00 PM Ciarra Guzman [facility] 1 16:22:19 Amenorrh ea [id number] Completed 201705/31/2020 Amenorrh ea;Recor ded Elsewher e: No Locat ion: [facility] S ource: EHR Primer Expeditor And Drier kayy: N Practi ce ID: 0001 Raffi lable Time: 01:00:00 PM Ciarra guan [facility] 16:22:15 Carbuncl e [id number] Completed 201705/31/2020 Carbuncl e, unspecif ied;Byron rded Elsewher e: No [facility] S ource: EHR Primer Expeditor And Drier kayy: N Lcti ce ID: 0001 Rfafi lable Time: 01:00:00 PM Ciarra guan [facility] 16:22:[address] Concept Completed 201705/31/2020 Encntr for food mixer assembler exam (general ) (routine ) w/o abn findings ;Recorde d Elsewher e: No Locat ion: [facility] S ource: EHR Primer Expeditor And Drier kayy: N Lcti ce ID: 0001 Raffi lable Time: 01:00:00 PM Ciarra guan [facility] 16:22:31 Pregnanc y test negative [id number] Completed 201705/31/2020 Encounte r for pregnanc y test, result negative ;Recorde d Elsewher e: No Locat ion: [facility] antonio [facility] S ource: EHR Primer Expeditor And Drier kayy: N Lcti ce ID: 0001 Raffi lable Time: 10:30:00 AM Ciarra guan [facility] 16:22:29 Chlamydi al vulvovag initis 372839955 Completed 201705/31/2020 Chlamydi al vulvovag initis;R ecorded Elsewher e: No Locat ion: [facility] an[facility]io [facility] S ource: EHR Primer Expeditor And Drier kayy: N Practi ce ID: 0001 Raffi lable Time: 10:30:00 AM Ciarra guan [facility] 16:22:22 Disorder of breast 23635201 Completed 201705/31/2020 Disorder of breast, unspecif ied;Byron rded Elsewher e: No Locat ion: Vinicio alvarez [facility] S ource: EHR Primer Expeditor And Drier kayy: N Practi ce ID: 0001 Raffi lable Time: 10:30:00 AM Ciarra Guzman null, [facility] 1 16:22:27 Pregnanc y [id number] Completed 202310/31/2023 Mira Thomas null, [facility] 5 12:04:49 Pregnanc y [id number] Completed 202304/29/2024 Mira William null, [facility] 5 12:04:49 Rheumato id stephanie morales 50630292 Active 2023 on cimzia, followin g with rheumato randy GUERRERO MD [address], [place], [address], [facility] 4 16:06:44 Ankylosi ng spondyli tis 5098724 Active 2023 on cimzia, followin g with rheumatsachin GUERRERO MD [address], [place], [address], [facility] 4 16:06:40 Rheumato id stephanie s 05369110 Completed 2023 on cimzia, followin g with kristin GUERRERO MD [address], [place], [address], [facility] 4 16:06:43 Ankylosi ng spondyli tis 3852952 Completed 2023 on cimzia, followin g with rheumatsachin GUERRERO MD [address], [place], [address], [facility] 4 16:06:40 Problem Notes None recorded. Procedures Surgical History Date Name Laterality Status Provider Name and Address Organization Details Recorded Time 06/19/19 24 Date of Last Pap Smear completed Mira Thomas [facility] 10/31/2023 14:29:50 02/17/19 21 Orthopedic Surgery completed Ny Riddle [facility] 06/19/2023 14:21:52 02/17/19 19 endoscopy completed Ciarra Guzman [facility] 06/12/2020 16:12:02 02/17/19 17 endoscopy completed Ciarra Guzman [facility] 06/12/2020 16:11:58 02/17/19 15 endoscopy completed Ciarra Guzman [facility] 06/12/2020 16:11:55 02/17/19 11 [facility]2020 16:09:50 Imaging Results None recorded. Procedure Notes None recorded. Medical Equipment None Reported. Allergies Allergen ID Allergen Name Allergen Category Reaction Reaction Severity Criticality Documentation Date Start Date Code Code System Note Provider Name and Address Organization Details Recorded Time 35836 amoxicill in medicatio n hives severe Not available 05/31/2020 723 RxNorm Ciarra Guzman [facility] 16:21:13 18187 sulfameth oxazole / trimethop rim medicatio n Not available Not available Not available 02/03/20252022 50417 RxNorm Not Available frankie - External Data Service - prod 5 09:55:27 05694 Latex (substanc e) environme nt,medica tion Not available Not available Not available 02/03/20252022 20520 8007 SNOMED Not Available frankie - External Data Service - prod 5 09:55:27 72976 Bactrim medicatio n Not available Not available Not available 02/03/2025 16773 9 RxNorm Not Available frankie - External Data Service - prod 5 09:55:31 9816 sulfameth oxazole medicatio n hives severe Not available 02/04/2020 36955 RxNorm Ciarra Guzman null, [facility] 1 16:21:13 9820 trimethop rim medicatio n hives severe Not available 02/04/2020 22138 RxNorm Chloe Motta null, [facility] 1 12:02:48 9825 latex environme nt,medica tion hives moderate Not available 02/04/2020 98401 91 RxNorm Ciarra Guzman null, [facility] 1 16:21:13 Medications Name Sig Start Date Stop [...] Prescrib ed Elsewher e: No Locat ion: [facility] M odify By: ruthie tz Encou nter [...] ed Elsewher e: No Locat ion: [facility] odify By: lbillhar tz Encou nter DateTime [...] ed Elsewher e: No Locat ion: [facility] odify By: constantine floyd DateTime : 07/09/19 [...] at one time 05/31 completed Prescrib sheila alvarez: Tia Locat ion: [facility]inic[facility] al[facility] odify By: flynn toure DateTime : [...] Updated DateTime 02/03/2025 167.64 cm 48.1 kg/m2 496911.53 g 130/88 mm[Hg] Ny Riddle [facility] 02/03/2025 10:56:41 Social History Question Answer Notes LastModified by Organizat ion Details LastModified Time Tobacco Smoking Status Current Every Day Smoker Taylor Armas freida, [facility] 03/06/2023 15:48:03 Do You Have An Advance Directive? No [email or web address] Information not available 05/31/2020 If You Are , What Was Your Level Of Alcohol Consumption Prior To ? Occasional Information not available 03/06/2023 How Many Years Have You Consumed Alcohol? 6 [email or web address] Information not available 05/31/2020 Are You Blind Or Do You Have Difficulty Seeing? No [email or web address] Information not available 05/31/2020 What Is Your Level Of Caffeine Consumption? Occasional Information not available 04/10/2022 How Much Tobacco Do You Chew? None [email or web address] Information not available 05/31/2020 In The 14 Days Before Symptom Onset, Have You Had Close Contact With A Laboratory-confir med COVID-19 While That Case Was Ill? No [email or web address] Information not available 05/31/2020 In The 14 Days Before Symptom Onset, Have You Had Close Contact With A Person Who Is Under Investigation For COVID-19 While That Person Was Ill? No [email or web address] Information not available 05/31/2020 Have You Been To An Area Known To Be High Risk For COVID-19? No [email or web address] Information not available 05/31/2020 Are You Deaf Or Do You Have Serious Difficulty Hearing? No [email or web address] Information not available 05/31/2020 What Type Of Diet Are You Following? SPECIFIC Information not available 04/10/2022 What Is The Highest Grade Or Level Of School You Have Completed Or The Highest Degree You Have Received? [id number] [email or web address] Information not available 05/31/2020 Are There Any Guns Present In Your Home? No Information not available 05/31/2020 Do You Use Protection During Sex? No [email or web address] Information not available 05/31/2020 Do You Use Your Seat Belt Or Car Seat Routinely? Yes [email or web address] Information not available 05/31/2020 Are You Sexually Active? Yes [email or web address] Information not available 04/13/2024 Do You Have Smoke And Carbon Monoxide Detectors In Your Home? Yes Information not available 05/31/2020 At What Age Did You Start Smoking Tobacco? 16 Information not available 03/06/2023 How Much Tobacco Do You Smoke? 0.25 PPD [email or web address] Information not available 05/31/2020 Do You Use Sunscreen Routinely? Yes Information not available 05/31/2020 Has Tobacco Cessation Counseling Been Provided? No Information not available 03/06/2023 How Many Years Have You Smoked Tobacco? 10 [email or web address] Information not available 05/31/2020 Have You Used IV Drugs? No [email or web address] Information not available 05/31/2020 Do You Have Difficulty Walking Or Climbing Stairs? No Information not available 03/06/2023 Sex: Unknown Functional Status Question Answer Note LastModified by Organizat ion Details LastModified Time Do you use any illicit or recreational drugs? Yes [email or web address] Information not available 05/31/2020 Do you or have you ever used any other forms of tobacco or nicotine? No Information not available 03/06/2023 What is your level of alcohol consumption? Occasional [email or web address] Information not available 05/31/2020 Are you currently employed? Yes [email or web address] Information not available 04/13/2024 Are you able to walk independently without assistance or assistive devices? YESWOREST [email or web address] Information not available 05/31/2020 Are you able to care for yourself independently? Yes Information not available 03/06/2023 What is your occupation? [employer] Information not available 03/06/2023 Do you have difficulty dressing, bathing, grooming, or toileting? No Information not available 03/06/2023 What is your exercise level? Moderate Information not available 04/10/2022 Mental Status Question Answer Note LastModified by Organization D etails LastModified Time Do you feel stressed (tense, restless, nervous, or anxious, or unable to sleep at night)? [id number] [email or web address] Information not available 05/31/2020 Family History Relationship Description Onset Age of this Age Resolved Age Notes LastModified by Organization Details LastModified Time Father Depressive disorder [email or web address] Not available 05/31 16:21:13 Father Anxiety disorder [email or web address] Not available 05/31 16:21:13 Sister Diabetes mellitus [email or web address] Not available 05/31 16:21:13 Sister Anxiety disorder [email or web address] Not available 05/31 16:21:13 Sister Asthma Not available 05/31/2020 16:21:13 Sister Malignant neoplasm of cervix uteri [email or web address] Not available 16:06:01 Sister Cyst of ovary Not available 2022 16:31:01 Mother Malignant neoplasm of cervix uteri [email or web address] Not available 16:06:01 Mother Cyst of ovary [email or web address] Not available 2022 16:31:01 Mother Hypertensive disorder Not available 06/12 16:06:51 Mother Disorder of thyroid gland Not available 06/12 16:07:07 Maternal Aunt Hypertensive disorder Not available 06/12 16:06:51 Maternal Aunt Diabetes mellitus etibicep52 Not available 06/12 16:07:23 Maternal Aunt Asthma [email or web address] Not av ailable 06/12/2020 16:07:54 Brother Asthma [email or web address] Not availabl e 06/12/2020 16:07:45 Maternal Uncle Asthma [email or web address] Not available 021 16:08:06 Medical History Condition Response Allergies (Food, seasonal, environmental ) N Other N Drug/Latex Allergies/Reactions N Blood Transfusion N Breast Cancer N Dermatologic Disorders N Lung Disease N Defects or Inherited Disease N Breast Problem N Gestational Diabetes N Hematologic disorders N Anesthesia Complications N History of STI Y Deep Vein Thrombosis N Polycystic ovary syndrome N Anxiety Disorder Y Autoimmune disease Y Arthritis Y Polyps N Infertility N Acid Reflux (GERD) N History of abnormal pap N Cancer N Varicosities N Stroke N Neurologic/Epilepsy N Endometriosis N High Cholesterol N Fibromyalgia N Headaches N Kidney Disease N Heart Problems N Thyroid Problems N Kidney or Bladder Problems N GI Problems N Eating Disorder [...] ICD10 Code Diagnosis IMO Codes Diagnosis Note [id number] Damian Sandy MD Arma [address] [address] 02/03/2025 09:54:31 02/03/2025 11:30:24 Abnormal uterine bleeding [id number] 9100 N93.9 Health Concerns Section Related Observation LastModified by Organization Detai ls LastModified Time None Recorded Concern Status LastModified by Organization Details LastModified Time None Recorded Payers Encounter Date Sequence Insurance Name Policy Number Policy Santiago Covered Member ID Santiago Member ID Guarantor Name 02/03/2025 1 [facility] (MEDICAID HMO) [id number] Dionne Tejada [id number] Dionne Tejada Notes Date Note Type Note Provider Name and Address Organization Details Recorded Time 02/03/2025 text/html Beer - Abnormal BleedingReported by [...] daily living. Irreg/Irreg Damian Sandy MD [address], [place], [address], [facility] 02/03/2025 11:21:20 OBGyn Episode No OBEpisode recorded.
--- OUTSIDE RECORDS SUMMARY | 2025-02-14 16:15 | XMS_ITS | Clinical Summary ---
Author Organization [facility] Address [address] [place] [address] [place] [address] Care Team Providers Care Data Communications Software Consultant Name Role Phone Sary Rodriguez NP Primary Care Provider [phone] Allergies Active Allergy Reactions Criticality Noted Date [...] 40.0 to 44.9 in adult 09/19/2021 03/02/2023 shelter current use of non -steroidal anti-inflammatories (NSAID) 09/19/2021 03/02/2023 Long-term use of immunosuppressant medication 03/02/2023 Social History Tobacco Use Types Packs/Day Years Used Date Smoking Tobacco: Every Day Cigarettes 0.3 10 Smokeless Tobacco: Never Tobacco Cessation:Ready to Q uit: Not Asked; Counseling Given: Not Answered Alcohol Use Standard Drinks/Week Comments Not Currently 0 (1 standard drink = 0.6 oz pur e alcohol) socially [facility] Utilities Answer Date Recorded In the past 12 months has [employer], gas, oil, or water [employer] threatened to shut off services in your [...] place to sleep or slept in a longterm (including now)? No 11/25/2023 Alcohol Use Answer [...] [place] [id number] [facility] , [place] [address] [place] [address] , [place] [id number] GENERIC WORK [employer] VICKY MACIEL [employer] Care Teams Data Communications Software Consultant Relationship Specialty Start Date End Date Sary Rodriguez NP [address] [place] [phone] PCP - General Nurse Practitioner 06/27/22
--- OUTSIDE RECORDS SUMMARY | 2025-02-14 16:15 | XMS_ITS | Clinical Summary ---
Author Organization [facility] Address [address] [place] [address] Care Team Providers Care Wire Inspector Name Role Phone Valeria Barnes Edy CATERING DIRECTOR Primary Care Provider [phone] Allergies Active Allergy Reactions Criticality Noted Date [...] Department Care Team Description 01/07/2025 Abstract [facility] [address] [address] Francie Vasquez MA from Last 3 Months [...] patient's age to complete this topic Insurance [employer] Care Teams Wire Inspector Relationship Specialty Start Date End Date Valeria Barnes FNP [address] [address] PCP - General NURSE PRACTITIONER 02/14/18
--- OUTSIDE RECORDS SUMMARY | 2025-02-14 16:15 | XMS_ITS | Encounter Summary ---
Author Organization [facility] Address [address] [place], [place] [address] [address] Care Team Providers Care Business Development Representative Name Role Phone Sary Rodriguez Audrey NIEVES-POWER WOOD SAWYER Primary Care Provider Reason for Visit * Reason Onset Date Comments Medication Prior Auth Request 02/14/2025 Ta ltz Encounter Details Date Type Department Care Team (Late st Contact Info) Description 02/14/2025 Telephone [facility] - Rheumatology [address] [place] [address], [place] [address] Rigoberto Hoskins MD [address] [place] [phone] Medication Prior Auth Request (Taltz) Social [...] on file Legal Sex Female 6:[address] SUPERVISOR Gender Identity Not on file Sexual Orientation Not on file documented as of this encounter Miscellaneous Notes * Telephone Encounter - Jefry Villasenor CPhT - 02/14/2025 11:[address] SUPERVISOR Medication Prior Authorization Medication: Taltz 80MG/ML auto-injectors Status: Approved through 02/14/2026 Submitted via: Latent (Quesada:[email or web address]) Insurance: [employer]: [phone] T SUPERVISOR * Telephone Encounter - Jefry Villasenor CPhT - 02/14/2025 9:[address] SUPERVISOR Medication Prior Authorization Medication: Taltz 80MG/ML auto-injectors Status: Submitted - Pending Submitted via: Latent (Quesada:[email or web address]) Insurance: [employer]: [phone] T SUPERVISOR documented in this encounter Plan of Treatment Upcoming Encounters Date Type Department Care Team (Late st Contact Info) Description 03/23/2025 10:[address] SUPERVISOR Office Visit [facility] - Rheumatology [address] [place] [address], [place] [address] Rigoberto Hoskins MD [address] [place] [phone] documented as of this encounter Visit Diagnoses Not on filedocumented in this encounter Care Teams Business Development Representative Relationship Specialty Start Date End Date Sary Rodriguez APRN-POWER WOOD SAWYER [address] [place] [phone] PCP - General Nurse Practitioner Family 03/06/23 documented as of this encounter
--- OUTSIDE RECORDS SUMMARY | 2025-02-14 16:15 | XMS_ITS | Encounter Summary ---
Author Organization [facility] Address [address] [place], [place] [address] [address] Care Team Providers Care Repossessor Name Role Phone Jennifer Sary Audrey NIEVES-LINUX SYSTEMS ENGINEER Primary Care Provider Reason for Visit * Reason Onset Date Comments Follow-up 01/19/2025 Encounter Details Date Type Department Care Team (Late st Contact Info) Description 01/19/2025 Telephone [facility] - Rheumatology [address] [place] [address], [facility] [place] [phone] Rigoberto Hoskins MD [address] [place] [phone] Follow-up Social History Tobacco Use Types [...] on file Legal Sex Female 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 No answer. Left voicemail message. EXTINGUISHER INSPECTOR EXTINGUISHER INSPECTOR documented in this encounter Plan of Treatment Upcoming Encounters Date Type Department Care Team (Late st Contact Info) Description 03/23/2025 10:00 AM FIRE EXTINGUISHER INSPECTOR Office Visit [facility] - Rheumatology [address] [place] [address], [facility] [place] [phone] Rigoberto Hoskins MD [address] [place] [phone] documented as of this encounter Visit Diagnoses Not on filedocumented in this encounter Care Teams Repossessor Relationship Specialty Start Date End Date Sary Rodriguez APRN-LINUX SYSTEMS ENGINEER [address] [place] [address] PCP - General Nurse Practitioner Family 03/06/23 documented as of this encounter
--- OUTSIDE RECORDS SUMMARY | 2025-02-14 16:15 | XMS_ITS | Clinical Summary ---
Author Organization [facility] Address [address] [place] [phone] Phone Care Team Providers Care Superintendent [employer] Mill Name Role Phone Unavailable Primary Care Provider Unavailabl e Encounters Date Type Department Care Team Description 11/16/2024 External Device Data STL ABSTRACTION Provider, Abstract from Last 3 Months Social History Tobacco Use Types Packs/Day Years Used Date Smoking Tobacco: Never Assessed Comments Unknown Sex and Gender Information Value Date Recorded Sex Assigned at Not on file Legal Sex Female 11:44 AM LATIN DANCER Gender Identity Not on file Sexual Orientation [...]
--- OUTSIDE RECORDS SUMMARY | 2025-02-14 16:15 | XMS_ITS | Encounter Summary ---
Author Organization [facility] Address [address] [place], [place] [address] [address] Care Team Providers Care Bartender Manager Name Role Phone Jennifer Sary Audrey NIEVES-KNIFE SETTER Primary Care Provider Reason for Visit * Reason Onset Date Comments Follow-up 01/19/2025 Encounter Details Date Type Department Care Team (Late st Contact Info) Description 01/19/2025 Telephone [facility] - Rheumatology [address] [place] [address], [facility] [place] [address] Rigoberto Hoskins MD [address] [place] [phone] Follow-up Social History Tobacco Use Types [...] on file Legal Sex Female 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 According to Franko, the patient stated that she found another permit agent and requested records to be transferred. EY RESEARCH PROFESSOR documented in this encounter Plan of Treatment Upcoming Encounters Date Type Department Care Team (Late st Contact Info) Description 03/23/2025 10:00 AM SURVEY RESEARCH PROFESSOR Office Visit [facility] - Rheumatology [address] [facility], [facility] [place] [phone] Rigoberto Hoskins MD [address] [place] [phone] documented as of this encounter Visit Diagnoses Not on filedocumented in this encounter Care Teams Bartender Manager Relationship Specialty Start Date End Date Sary Rodriguez APRN-KNIFE SETTER [address] [place] [phone] PCP - General Nurse Practitioner Family 03/06/23 documented as of this encounter
--- OUTSIDE RECORDS SUMMARY | 2025-02-14 16:15 | XMS_ITS | Clinical Summary ---
Author Organization [address] Address [address] [place] [address] [facility] [place] [address] Phone Care Team Providers Care Community Health Program Coordinator Name Role Phone Sary Rodriguez APRN, ZENOBIA Primary Care Pro vider Allergies Active Allergy Reactions Criticality Noted Date Comments Amoxicillin Unknown,Hives,Other (see Comments) Medium 06/01/2018 Skin red and head hot Latex Hives,Other (see Comments) Medium 06/01/2018 Sulfamethoxazole-Trimet hoprim Hives,Unknown Medium 02/14/2018 Medications Cimzia 2 X 200 MG/ML Prefilled Syringe Kit every 30 days. 4 Active ergocalciferol (VITAMIN D) 29572 UNIT Capsule once a week. 4 Active [...] Sex Assigned at Female 03/18/2023 10:56 AM BRASS POLISHER Legal Sex Female 2:15 PM BRASS POLISHER Gender Identity Female 03/18/2023 10:56 AM BRASS POLISHER Sexual Orientation Not on file Last Filed [...] this topic Insurance MEDICAID [place] Care Teams Community Health Program Coordinator Relationship Specialty Start Date End Date Sary Rodriguez APRN, R AND D LAB TECHNICIAN [address] [place] [phone] PCP - General Certified Nurse Practitioner 03/10/23
--- OUTSIDE RECORDS SUMMARY | 2025-02-14 16:15 | XMS_ITS | Encounter Summary ---
Author Organization [facility] Address [address] [place] [address] Care Team Providers Care Senior Manufacturing Engineer Name Role Phone Sary Rodriguez DROP HAMMER PILE DRIVER OPERATOR-LOAD MIXER Primary Care Provider Sary Rodriguez DROP HAMMER PILE DRIVER OPERATOR-LOAD MIXER Primary Care Provider Encounter Details Date Type Department Care Team (Late st Contact Info) Description 02/05/2022 Telephone [facility] [address] [place] [address] Kamlesh Neri MD [address] [place] [phone] Social History Tobacco Use Types Packs/Day Years Used Date Smoking Tobacco: Every Day Cigarettes Smokeless Tobacco: Never Alcohol Use Standard Drinks/Week Comments Never 0 (1 standard drink = 0.6 oz pur e alcohol) PHQ-2 Answer Date Recorded PHQ2 TOTAL SCORE 0 12/12/2020 Comments No Sex and Gender Information Value Date Recorded Sex Assigned at Not on file Legal Sex Female 6:23 PM SLEEVE WHEEL MAKER Gender Identity Not on file Sexual Orientation Not on file documented as of this encounter Miscellaneous Notes * Telephone Encounter - Amy Medina - 02/05/2022 12:14 PM CST Patient called in requesting a Med refill. Drug type:NAPROXEN [facility] [address] Patient call back number: [phone] VE WHEEL MAKER documented in this encounter Plan of Treatment Upcoming Encounters Date Type Department Care Team (Late st Contact Info) Description 03/23/2025 10:00 AM SLEEVE WHEEL MAKER Office Visit [facility] - Rheumatology [address] [facility], [place] [address] Rigoberto Hoskins MD [address] [place] [phone] documented as of this encounter Visit Diagnoses Not on filedocumented in this encounter Care Teams Senior Manufacturing Engineer Relationship Specialty Start Date End Date Sary Rodrgiuez APRN-CNP [address] [place], [place] [phone] PCP - General 09/18/21 03/05/23 Sary Rodriguez APRN-CNP [address] [place] [phone] PCP - General Nurse Practitioner Family 03/06/23 documented as of this encounter
--- OUTSIDE RECORDS SUMMARY | 2025-02-14 16:15 | XMS_ITS | Encounter Summary ---
Author Organization [facility] Address [address] [place] [address] Care Team Providers Care Exploration Engineer Name Role Phone Sary Rodriguez NP Primary Care Provider + [phone] Reason for Visit * Inpt Precert (Routine) Specialty Diagnoses / Procedures Referred By Latasha weston Referred To Contact Referral ID Status Reason Start Date Expiration Date Visits Re quested Visits Authorized [id number] 1 1 Encounter Details Date Type Department Care Team ([facility] st Contact Info) Description 04/27/2024 Hospital Encounter [facility] EM[facility]GENCY DEPT [address] [place] [address] Social History Tobacco Use Types Packs/Day Years Used Date Smoking Tobacco: Every Day Cigarettes 0.3 10 Smokeless Tobacco: Never Alcohol Use Standard Drinks/Week Comments Not Currently 0 (1 standard drink = 0.6 oz pur e alcohol) socially [facility] Utilities Answer Date Recorded In the past 12 months has e [employer], gas, oil, or water yavalu threatened to shut off services in your [...] on filedocumented in this encounter Care Teams Exploration Engineer Relationship Specialty Start Date End Date Sary Rodriguez NP [address] [place] [phone] PCP - General Nurse Practitioner 06/27/22 documented as of this encounter
[2025-02-14 16:32] LABS: Hematocrit 30.6 % (37.0-47.0); Hemoglobin 10.0 g/dL (12.0-15.0); Immature Granulocyte Percent A 0.5 % (0-0.5); Lymphocytes Absolute Auto 2.40 K/mm3 (0.9-3.2); Mean Corpuscular HGB Conc 32.7 g/dl (32-36); Mean Corpuscular Hemoglobin 29.7 pg (26-34); Mean Corpuscular Volume 90.8 fl (80-100); Nucleated Red Blood Cells Absolute Auto 0.000 K/mm3 (0.0-0.012); Nucleated Red Blood Cells Perc 0.0 % (0.0-0.2); Platelet Count Result 321 k/mm3 (150-375); Red Blood Count 3.37 M/mm3 (4.2-5.4); White Blood Count 10.7 K/mm3 (4.5-10.0)
[2025-02-14 16:32] LABS: BEDSIDEPREGUCG Negative (Negative)
[2025-02-14 16:42] LABS: Add Urine Microscopic? YES; Appearance Urine Cloudy (Clear); Glucose Urine UA Negative (Negative); Specific Grav Ur 1.025 (1.001-1.035)
[2025-02-14 16:43] LABS: Leukocyte Esterase Ur Negative LEU/UL (Negative); Nitrate Urine Negative (Negative)
[2025-02-14 16:44] LABS: INR 1.0; Need Manual Microscopic Reviewed; Non Pathogenic Casts 0-2; Prothrombin Time 13.1 Seconds (11.1-14.7)
[2025-02-14 16:45] LABS: Partial Thromboplastin Time 28.2 Seconds (22.3-36.8)
[2025-02-14 16:46] LABS: Alanine Aminotransferase 15 U/L (6-35); Albumin Level 4.0 g/dL (3.5-5.1); Alkaline Phosphatase 62 U/L (38-126); Anion Gap 4 mmol/L (4-12); Aspartate Amino Transferase 24 U/L (14-36); Bilirubin,Total 0.3 mg/dL (0.2-1.3); Blood Urea Nitrogen 16 mg/dL (7-17); Calcium 9.0 mg/dL (8.4-10.2); Carbon Dioxide 25 mmol/L (22-30); Chloride 109 mmol/L (98-107); Estimated CRCL calculation 132 ml/min; Estimated Glomerular Filt Rate > 60; Glucose 98 mg/dL (65-110); Potassium 4.1 mmol/L (3.4-5.0); Sodium 138 mmol/L (137-145); Total Protein 7.5 g/dL (6.3-8.2)
--- NOTE | 2025-02-14 17:15 | ED_ITS ---
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 Patient reports he has had vaginal bleeding since December and has been following up with her OB Gyne. She was started on oral control in order help with the bleeding and this has not helped significantly. Patient is not on any blood thinners. Patient began having right lower quadrant pain last night and felt this was reminiscent of kidney stones. Patient does have history of ovarian cyst treated patient does have history of kidney stones. Patient has no prior history of ovarian torsion. Related Data Home Medications ?Medication ?Instructions ?Recorded ?Confirmed ?Last Taken ?Type PNV 153-FA 400 mcg-om3 35 mg-dha tablet PO DAILY 04/2404/23/24 18:30 History 25 mg-epa 5 mg-fish oil chew tablet ( Gummies) cyclobenzaprine 10 mg tablet 10 mg PO TID PRN muscle s pasm 04/24/24 04/24/24 04/23/24 18:30 History docusate sodium 100 mg capsule mg PO BID 04/24/2409/10 18:30 History ibuprofen 600 mg tablet (IBU) 600 mg PO Q6H 04/24/24 0 04/24/24 04/24/24 03:15 History metoclopramide HCl 10 mg tablet 10 mg PO Q6H PRN nause a and 04/24/24 04/24/24 04/23/24 18:30 History (Reglan) vomiting Allergies Allergy/AdvReac Type Severity Reaction Status Date / Time latex Allergy Mild Hives Verified 01/10/25 15:18 sulfamethoxazole Allergy Mild Hives Verified 01/10/25 15:18 trimethoprim Allergy Mild Hives Verified 01/10/25 15:18 amoxicillin Allergy Hives Verified 01/10/25 15:18 Grass Allergy Unknown Hives Uncoded 01/10/25 15:18 spermacide Allergy Unknown Hives Uncoded 01/10/25 15:18 Review of Systems 2 Review of Systems: All systems reviewed & are unremarkable except as noted in HPI and below PMFSH Past Medical History Medical History OCD (obsessive compulsive disorder) Tonsillectomy planned Bipolar 1 disorder Depression PTSD (post-traumatic stress disorder) Dental implant pain Family History Family History Sibling Diabetes mellitus Mother Lupus ADHD Social History Social History (System 01/10/25 @ 15:18 by Bonifacio Lynn) Smoking packs per day: 2 Smoking cigarettes per day: 40.0 Smoking status: Current every day smoker Tobacco type: cigarettes Additional smoking assessment comments: marijuana Alcohol intake: current Alcohol use details: occasional Substance use: current Lack of Transportation: No Lack of Food: Never True Current Housing: I Have Housing Concerned About Future Housing: No Difficulty Paying Gas/Electric Bills: No Difficulty Paying for Meds: No Currently Unemployed: No Education: High School Diploma/GED Difficulty w/ Childcare or Family Care: No Gender identity (if verbalized by the patient): Female Sexual Orientation (if Verbalized by the Patient): Straight or Heterosexual Spiritual care concerns: No Exam 2 Narrative: APPEARANCE: Well appearing, no pain, no distress, well-nourished. HEAD: normocephalic, atraumatic. EYES: PERRLA/EOMI, conjunctivae clear. NOSE: Normal no drainage EARS:TMS clear with good light reflex. THROAT: Pharynx clear, no exudate. NECK: Supple. No adenopathy, no masses. RESPIRATORY: Airway patent, respirations nonlabored. Clear to auscultation bilaterally, no rales, rhonchi, wheezing. CARDIOVASCULAR: Regular rate and rhythm without murmurs rubs or gallops. ABDOMINAL: Soft, nontender, nondistended, normal bowel sounds MUSCULOSKELETAL: Moves all extremities. Strength/ROM intact, No edema, No calf tenderness. NEURO: Alert. Cranial nerves II through XII intact. Good gait. Good coordination SKIN: Warm, dry. Normal Color Course Vital Signs Vital signs: Vital Signs Temperature 98.2 F 02/14/25 12:38 Pulse Rate 95 02/14/25 12:38 Respiratory Rate 18 02/14/25 12:38 Blood Pressure 147/103 H 02/14/25 12:38 Pulse Oximetry 100 02/14/25 12:38 Oxygen Delivery Room Air 02/14/25 12:38 Temperature 97.0 F L 02/14/25 15:09 Pulse Rate 77 02/14/25 17:52 Respiratory Rate 18 02/14/25 17:52 Blood Pressure 151/96 H 02/14/25 17:52 Pulse Oximetry 100 02/14/25 17:52 Oxygen Delivery Room Air 02/14/25 12:38 [facility] Narrative Medical decision making narrative: 29-year-old female presents emergency department for evaluation for right lower quadrant pain. Patient is afebrile but does have a leukocytosis 10.7 hemoglobin of 10.0. This is similar to her baseline hemoglobin. No acute abnormalities on her CMP patient did have some blood in her urine but she is having menstrual bleeding. Patient most likely has a contaminated urine sample. Patient denies any pain with urination. Urine culture was ordered. Patient's test was negative. Pelvic ultrasound shows no evidence of air in torsion. CT scan showed no evidence of appendicitis or ureteral calculi. Patient was encouraged to continue have close follow-up with her OB Gyne. Differential Diagnosis Differential Diagnosis: Colitis, diverticulitis, appendicitis, ovarian torsion, ureteral calculi, UTI Lab Data [facility] Lab Attestation statement: I personally reviewed the patient's lab results. 02/14/25 16:22 02/14/25 16:22 Labs: Lab Results 02/14/25 02/14/25 Range/Units 16:22 16:31 WBC 10.7 H (4.5-10.0) K/mm3 RBC 3.37 L (4.2-5.4) M/mm3 Hgb 10.0 L (12.0-15.0) g/dL Hct 30.6 L (37.0-47.0) % MCV 90.8 (80-100) fl MCH 29.7 (26-34) pg MCHC 32.7 (32-36) g/dl RDW 14.2 (11.5-14.5) % Plt Count 321 (150-375) k/mm3 MPV 9.5 (7.4-10.4) fl Immature Gran % (Auto) 0.5 (0-0.5) % Neut % (Auto) 69.5 (45.5-73.1) % Lymph % (Auto) 22.5 (18.3-44.2) % Carbon % (Auto) 5.8 (2.6-8.5) % Eos % (Auto) 1.3 (0-4.4) % Baso % (Auto) 0.4 (0.2-1.2) % Lymph # (Auto) 2.40 (0.9-3.2) K/mm3 Carbon # (Auto) 0.6 (0.1-0.6) K/mm3 Eos # (Auto) 0.1 (0-0.3) K/mm3 Baso # (Auto) 0.0 (0.0-0.1) K/mm3 Abs Immat Gran (auto) 0.05 H (0.00-0.031) K/mm3 Absolute Neuts (auto) 7.4 H (1.3-6.7) K/mm3 Absolute Nucleated RBC 0.000 (0.0-0.012) K/mm3 Nucleated RBC % 0.0 (0.0-0.2) % PT 13.1 (11.1-14.7) Seconds INR 1.0 APTT 28.2 (22.3-36.8) Seconds Sodium 138 (137-145) mmol/L Potassium 4.1 (3.4-5.0) mmol/L Chloride 109 H (98-107) mmol/L Carbon Dioxide 25 (22-30) mmol/L Anion Gap 4 (4-12) mmol/L BUN 16 (7-17) mg/dL Creatinine 0.75 (0.7-1.0) mg/dL Estim Creat Clear Calc 132 ml/min Estimated GFR > 60 (59 - ) Glucose 98 (65-110) mg/dL Calcium 9.0 (8.4-10.2) mg/dL Total Bilirubin 0.3 (0.2-1.3) mg/dL AST 24 (14-36) U/L ALT 15 (6-35) U/L Alkaline Phosphatase 62 (38-126) U/L Total Protein 7.5 (6.3-8.2) g/dL Albumin 4.0 (3.5-5.1) g/dL Urine Color Red H (Yellow) Urine Appearance Cloudy H (Clear) Urine pH 6.0 (5.0-9.0) Ur Specific [place] 1.025 (1.001-1.035) Urine Protein 2+ H (Negative) mg/dL Urine Glucose (UA) Negative (Negative) mg/dL Urine Ketones Negative (Negative) mg/dL Ur Blood (Man) 3+ H (Negative) Urine Nitrate Negative (Negative) Urine Bilirubin Negative (Negative) Urine Urobilinogen 0.2 (<2.0) mg/dL Add Ur Microanalysis Reviewed Leukocyte Esterase Rfl Negative (Negative) TRUE/UL Urine RBC >100 H (0-2) /hpf Urine WBC 51-100 H (0-3) /hpf Ur Squamous Epith Cells Occasional (Few) /hpf Urine Bacteria 1+ H /hpf Urine Casts 0-2 POC Urine HCG, Qual Negative (Negative) Imaging Data Radiologist's impression: ITS Impressions Abdomen/Pelvis CT 02/14/25 17:27 IMPRESSION: 1. No acute intra-abdominal/pelvic process. Specifically the appendix is normal. 2. 1 mm nonobstructing right renal stone. Pelvis Ultrasound 02/14/25 18:09 IMPRESSION: 1. Unremarkable pelvic ultrasound. Discharge Plan Discharge Clinical Impression: Acute right lower quadrant pain, Vaginal bleeding Patient Disposition: Home Condition: Stable Instructions: Antibiotic Form, Abnormal (Dysfunctional) Uterine Bleeding (ED), Abdominal Pain (ED) Additional Instructions: Tylenol and ibuprofen for pain control. Continue have close follow-up with your primary care physician and OB Gyne. Urine culture was ordered. You may receive a call in the next 1-2 days to start antibiotics if the urine culture is positive. If you have any worsening symptoms then please call or return to the emergency department. Patient Language: Azeri Prescriptions: No Action nifedipine [Procardia XL] 30 mg Tablet Extended Release 24hr 30 mg PO Q12HR Qty: 30 0RF labetalol 100 mg Tablet 300 mg PO Q12HR Qty: 30 0RF metoclopramide HCl [Reglan] 10 mg tablet 10 mg PO Q6H PRN (Reason: nausea and vomiting) ibuprofen [IBU] 600 mg tablet 600 mg PO Q6H docusate sodium 100 mg capsule PO BID cyclobenzaprine 10 mg tablet 10 mg PO TID PRN (Reason: muscle spasm) Gummies 400 mcg-35 mg- 25 mg-5 mg tablet,chewable PO DAILY Follow-up/Referrals: UNKNOWN,DOCTOR [Primary Care Provider]
== END 2025-02-14 18:52 | disposition home or self-care (01) ==
PROVIDERS: Emergency Provider Emergency Medicine
DX: N93.9 Abnormal uterine and vaginal bleeding, unspecified (principal); R10.31 Right lower quadrant pain; F31.9 Bipolar disorder, unspecified; F42.9 Obsessive-compulsive disorder, unspecified; F43.10 Post-traumatic stress disorder, unspecified; F17.210 Nicotine dependence, cigarettes, uncomplicated; N20.0 Calculus of kidney
CPT/HCPCS: 36415; 74176; 76856; 80053; 81001; 81025; 85025; 85610; 85730; 87086; 99284